=== PATIENT | male | born 1950 | race Caucasian/White ===

== ENCOUNTER 2019-08-02 19:16 | Inpatient (IN) | payer BC, OTHER ==
--- NOTE | 2019-08-02 19:51 | PDOC ---
History of Present Illness - General Chief Complaint: Syncope/Near Syncope Stated Complaint: FELL Time Seen by Provider: 08/02/19 19:44 History Source: Patient Exam Limitations: Language Barrier - History of Present Illness Initial Comments: Luis Antonio Macias is a 69 yo M w a hx of HTN, HCL, and NIDDM who presents to the [facility] er [facility] after he syncopized earlier today, fell down, hit his head and his left shoulder, and lost consciousness for around 5 minutes. The patient does not take aspirin or any other blood thinners. He is here with his son in the ER who states that the patient was feeling fine like his normal self today, had no chest pain or shortness of breath before the event, and did not feel lightheaded or dizzy either. He did drink "5 shots" of wine earlier today prior to the fall. The patient states that here in the ER his head hurts where he fell and his left shoulder also hurts when he ranges his arm. Denies chest pain, SOB, difficulty breathing, cough, leg swelling, personal hx of blood clots, smoking hx, nausea, vomiting, fevers, dysuria, frequency, or urgency. PCP: Dr. Harsha Jean Allergies: NKA, NKDA Social Hx: Lives at home, drinks wine daily, denies cigarettes or other illicit drugs PSH: None reported Past History - Past Medical History Allergies/Adverse Reactions: Allergies Allergy/AdvReac Type Severity Reaction Status Date / Time No Known Allergies Allergy Verified 08/02/19 19:37 - Psycho Social/Smoking Cessation Hx Smoking History: Never smoked Hx Alcohol Use: No Drug/Substance Use Hx: No Review of Systems - Review of Systems Able to Perform ROS?: Yes Comments:: CONSTITUTIONAL: Absent: fever, chills, diaphoresis, generalized weakness, malaise, loss of appetite HEENT: Absent: rhinorrhea, nasal congestion, throat pain, throat swelling, difficulty swallowing, mouth swelling, ear pain, eye pain, visual Changes CARDIOVASCULAR: Present: Syncope Absent: chest pain, palpitations, irregular heart rate, lightheadedness, peripheral edema RESPIRATORY: Absent: cough, shortness of breath, dyspnea with exertion, orthopnea, wheezing, stridor, hemoptysis GASTROINTESTINAL: Absent: abdominal pain, abdominal distension, nausea, vomiting, diarrhea, constipation, melena, hematochezia GENITOURINARY: Absent: dysuria, frequency, urgency, hesitancy, hematuria, flank pain, genital pain MUSCULOSKELETAL: Absent: myalgia, arthralgia, joint swelling SKIN: Absent: rash, itching, pallor HEMATOLOGIC/IMMUNOLOGIC: Absent: easy bleeding, easy bruising, lymphadenopathy, frequent infections ENDOCRINE: Absent: unexplained weight gain, unexplained weight loss, heat intolerance, cold intolerance NEUROLOGIC: Present: unsteady gait, mental status changes Absent: headache, focal weakness or paresthesias, dizziness, seizure, bladder or bowel incontinence PSYCHIATRIC: Absent: anxiety, depression, suicidal or homicidal ideation, hallucinations. *Physical Exam - Vital Signs Last Vital Signs Temp Pulse Resp BP Pulse Ox 97.6 F 108 H 18 160/99 99 08/02/19 19:34 08/02/19 19:34 08/02/19 19:34 08/02/19 19:34 08/02/19 19:34 - Physical Exam Comments: GENERAL: Well developed, well nourished. Awake and alert. No acute distress. HEENT: There is abrasians on top of the head. Normocephalic. PERRLA, EOMI. No conjunctival pallor. NECK: Supple. Full ROM. No JVD. CARDIOVASCULAR: Tachycardic rate and regular rhythm. No murmurs, rubs, or gallops. Distal pulses are 2+ and symmetric. PULMONARY: No evidence of respiratory distress. Lungs clear to auscultation bilaterally. No wheezing, rales or rhonchi. ABDOMINAL: Soft. Non-tender. Non-distended. No rebound or guarding. No organomegaly. Normoactive bowel sounds. MUSCULOSKELETAL Normal range of motion at all joints. There is mild posterior left shoulder tenderness. No bony deformities. No CVA tenderness. EXTREMITIES: No cyanosis. No clubbing. No edema. No calf tenderness. SKIN: Warm and dry. Normal capillary refill. No rashes. No jaundice. NEUROLOGICAL: Alert, awake, appropriate. Cranial nerves 2-12 intact. No deficits to light touch in face, upper extremities and lower extremities. No motor deficits in the in face, upper extremities and lower extremities. Normal speech. Gait is ataxic and mildly unsteady. PSYCHIATRIC: Cooperative. Good eye contact. Appropriate mood and affect. ED Treatment Course - LABORATORY CBC & Chemistry Diagram: 08/02/19 20:00 08/02/19 20:00 - ADDITIONAL ORDERS Additional order review: Laboratory Results 08/02/19 19:41 POC Glucometer 161 10 19:41 POC Glucometer 161 Medical Decision Making - Medical Decision Making Luis Antonio Macias is a 69 yo M w a hx of HTN, HCL, and NIDDM who presents to the [facility] after he syncopized earlier today, fell down, hit his head and his left shoulder, and lost consciousness for around 5 minutes. The patient does not take aspirin or any other blood thinners. He is here with his son in the ER who states that the patient was feeling fine like his normal self today, had no chest pain or shortness of breath before the event, and did not feel lightheaded or dizzy either. He did drink "5 shots" of wine earlier today prior to the fall. The patient states that here in the ER his head hurts where he fell and his left shoulder also hurts when he ranges his arm. Denies chest pain, SOB, difficulty breathing, cough, leg swelling, personal hx of blood clots, smoking hx, nausea, vomiting, fevers, dysuria, frequency, or urgency. Vital Signs Temp Pulse Resp BP Pulse Ox 97.6 F 108 H 18 160/99 99 08/02/19 19:34 08/02/19 19:34 08/02/19 19:34 08/02/19 19:34 08/02/19 19:34 - Tachycardic - Hypertensive MDM: Patient presents after he syncopized and hit his head DDx IBNLT: Cerebral hemorrhage, ACS/VA, arrhythmia, PE, dehydration, orthostatic hypotension, vasovagal event, anemia, electrolyte/metabolic disturbance, alcohol intoxication, shoulder fx Plan: EKG, Labs, XR, CT, IV hydration, admit Tele EKG: Irregularly irregular rate of 110, IRBB + LAFB, LAD, no hypertrophy, no ST elevations or depressions, TWI's in V1 AND V2, Q wave in V2. - Compared to an old EKG from 2006 the patient did not have AFIB or a TWI in V2 XR: Unremarkable CT: No acute pathology Labs: Mildly elevated glucose, alk phos, and mild hyponatremia. Trop negative. Otherwise unremarkable. Alcohol: 135 Disposition: Admit to telemetry for syncope and new onset AFIB - Patient's primary is Dr. Jean who per google excel doc admits to himself - Giving Dr. Chahal's office a call for admission at 9:45 pm. - Answering service says to call his cell phone at [phone] - Calling his cell phone at 10 - Dr. Su says he knows the patient. Dr. Jean says he is an alcoholic never comes to the office and hasn't come in over [address] Jean states that he always prescribes the patient meds for his HTN, HCL and diabetes but the patient is not compliant with his meds. - Dr. Jean says he cannot admit this patient and the patient should be admitted to the hospitalist team. - Dr. Jean says the flora will withdraw so we should give him 100 mg of thiamine twice a day and 10 mg of librium twice a day - Both orders placed in [facility] for Dr. Jean - [employer]blog sent out to hospitalist team at 10:05 Discharge - Discharge Information Problems reviewed: Yes Clinical Impression/Diagnosis: Syncope and collapse A-fib Qualifiers: Atrial fibrillation type: unspecified Qualified Code(s): I48.91 - Unspecified atrial fibrillation Alcohol intoxication Qualifiers: Complication of substance-induced condition: uncomplicated Qualified Code(s): F10.920 - Alcohol use, unspecified with intoxication, uncomplicated Condition: Stable - Admission Yes - Follow up/Referral Referrals: Harsha Jean MD [Primary Care Provider] - - Patient Discharge Instructions - Post Discharge Activity
[2019-08-02] MEDS ORDERED: SODIUM CHLORIDE 1,000 ML IV STA (19:53)
[2019-08-02 20:12] LABS: EOS % 3.5 % (0-4.5); HEMATOCRIT 48.9 % (35.4-49); HEMOGLOBIN 16.8 GM/dL (11.7-16.9); LYMPH % 34.1 % (8-40); MCH 36.5 pg (25.7-33.7); MCHC 34.4 g/dl (32.0-35.9); MEAN CELL VOLUME 106.1 fl (80-96); MEAN PLT VOLUME 6.9 fl (7.5-11.1); NEUT % 49.4 % (42.8-82.8); PLATELET COUNT 234 K/MM3 (134-434); RBC 4.61 M/mm3 (4.00-5.60); RDW 14.7 % (11.9-15.9); WHITE BLOOD COUNT 4.9 K/mm3 (4.0-10.0)
[2019-08-02 20:24] LABS: INR 1.05 (0.83-1.09); PROTHROMBIN TIME (PATIENT) 12.4 SEC (9.7-13.0)
[2019-08-02 20:39] LABS: ALBUMIN 3.5 g/dl (3.4-5.0); BILIRUBIN,TOTAL 0.9 mg/dL (0.2-1); BLOOD UREA NITROGEN 8.7 mg/dL (7-18); CALCIUM 8.9 mg/dL (8.5-10.1); POTASSIUM 4.6 mmol/L (3.5-5.1); TOT PROT 7.4 g/dl (6.4-8.2)
[2019-08-02 21:22] LABS: MACROCYTOSIS 1+; PLATELET ESTIMATE NORMAL
[2019-08-02] MEDS ORDERED: FOLIC ACID INJECTION - 1 MG, THIAMINE HCL 100 MG, MULTIVIT INJECTION ADULT 10 ML in SOD... IVPB ONE (21:27)
[2019-08-02] MEDS ORDERED: ACETAMINOPHEN 325 MG TABLET (FP) PO ONE (21:47)
[2019-08-02] MEDS ORDERED: ACETAMINOPHEN 325 MG TABLET (FP) ONE (22:08)
[2019-08-02] MEDS ORDERED: chlordiazePOXIDE 5 MG CAPSULE ONE (22:09)
[2019-08-02] MEDS ORDERED: chlordiazePOXIDE HCL 10 MG CAPSULE PO SCH (22:15)
--- NOTE | 2019-08-02 22:16 | PDOC ---
Attending Attestation - Resident Resident Name: Jean Carlos Conner - ED Attending Attestation I have performed the following: I have examined & evaluated the patient, The case was reviewed & discussed with the resident, I agree w/resident's findings & plan, Exceptions are as noted - HPI HPI: 08/02/19 21:58 69-year-old male history of hypertension hyperlipidemia and non-insulin- dependent diabetes however states that he does not take any regular medications here today complaining of a syncopal episode. Patient states that he got up lost consciousness denies any precipitating chest pain or palpitations no recent fevers chills or coughs. States he does have daily alcohol use has not seen a doctor in 5 years and is not currently taking any medications except for a baby aspirin - Physicial Exam PE: 08/02/19 22:16 Awake alert no acute distress lungs are clear heart is regular no murmurs rubs or gallops appreciated abdomen is soft and nontender extremities are warm well perfused there is no appreciated edema or calf tenderness pulses are symmetric skin is warm and dry neurologically patient is awake alert and oriented - Medical Decision Making 08/02/19 22:16 69-year-old male history of hypertension hyperlipidemia and diabetes however not taking any medications here today complaining of a syncope. Differential includes dehydration as the patient is seen to be tachycardic dysrhythmia anemia letter to light abnormality intoxication considered plan CBC EKG troponin chest x-ray telemetry monitoring we will give IV hydration repeat patient's vital signs. EKG was found to be with atrial fibrillation no ST elevations or depressions patient has no known history of previous A. fib has not seen his PCP in many years we will add thyroid to his work-up patient will be admitted to telemetry for syncope and new onset A. fib 08/02/19 22:18 DR Conner d/w dr Almaraz, states has not seen patient in several years. h/o etoh abuse and withdrawal. noncompliant with medications prescribed in the past. would like pt admitted to hospitalist team. Heart Score/ECG Review #1 General ECG Interpretation: Normal Rate (110), Normal Intervals, No acute ischemic changes Compared to previous ECG there are: Other (TWI v1 - 2)
--- NOTE | 2019-08-02 22:26 | PN ---
Teaching Attending Note Name of Resident: Alexey Colindres ATTENDING PHYSICIAN STATEMENT I saw and evaluated the patient. I reviewed the resident's note and discussed the case with the resident. I agree with the resident's findings and plan as documented. SUBJECTIVE: Patient is not reliable for history as he is acutely intoxicated with etoh, information obtained from EMR. 69 yo man w/ HTN, etoh abuse, and NIDDM presents s/p syncope, fell down, hit his head and his left shoulder, and LOC -around 5 minutes. Denied asa or AC. Had no chest pain or shortness of breath before the event, and did not feel lightheaded or dizzy either. He did drink "5 shots" of wine earlier prior to the fall. OBJECTIVE: Last Vital Signs Temp Pulse Resp BP Pulse Ox 97.6 F 108 H 18 160/99 99 08/02/19 19:34 08/02/19 19:34 08/02/19 19:34 08/02/19 19:34 08/02/19 19:34 gen -aaox3 heent- atraumatic, perrla neck -supple cv-s1+s2+ irregularly irregular rhythm chest clear abdomen- soft, nt, bs+ ext- no edema, no shoulder tenderness Abnormal Lab Results 08/02/19 08/02/19 08/02/19 20:00 20:00 20:00 MCV 106.1 H MCH 36.5 H MPV 6.9 L Monocytes % 12.0 H Sodium 133 L Chloride 96 L Random Glucose 176 H Alkaline Phosphatase 158 H Alcohol, Quantitative 135.2 H imaging reviewed - head ct read as negative for acute insults EKG + for atrial fibrillation ASSESSMENT AND PLAN: #Syncope, s/p fall on left shoulder, new onset afib with rvr. Afib may be induced by acute etoh intoxication. Should r/o other etiologies such as electolyte disturbances, thyroid abnormalities, cardiac structural/ valvular abnormalities. -telemetry -transthoracic echo -tsh -cardiology consult -cardizem for rate control -check orthostatics -bed rest -fall precautions -f/u left shoulder and head ct official reads -physical therapy -would consider chronic ac, must weight risks vs benefits. Would start on heparin drip now given high CHADSVASC2 score. #Etoh intoxication - chronic etoh abuse, anticipate possible etoh withdrawal -CIWA -thiamine -folate -mv -IV fluids -librium protocol -urine toxicology #Electrolyte disturbances -hyponatremia, hypochloremia -gentle iv fluid hydration -repeat chemistry including mg
[2019-08-03] MEDS ORDERED: chlordiazePOXIDE HCL 25 MG CAPSULE PO PRN (00:25)
[2019-08-03] MEDS ORDERED: FOLIC ACID INJECTION - 1 MG, THIAMINE HCL 100 MG, MULTIVIT INJECTION ADULT 10 ML in SOD... IVPB ONE (00:27)
[2019-08-03] MEDS ORDERED: HEPARIN NA (PORCINE) 5,000 UNITS/ML 1ML VIAL IVPUSH PRN ×2 (00:28)
[2019-08-03] MEDS ORDERED: HEPARIN - 25,000 UNIT in SODIUM CHLORIDE 495 ML IV SCH (00:30)
--- NOTE | 2019-08-03 00:30 | HP ---
CHIEF COMPLAINT: fall; chest and shoulder pain PCP: Dr. Jean HISTORY OF PRESENT ILLNESS: Patient is a 69 year old male with history of hypertension, hyperlipidemia, non- insulin dependent diabetes mellitus, presents after a syncopal episode. 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 Attempts to obtain further history from phone numbers in file not successful. Patient states he fell down when trying to walk down stairs. He endorsed prodromal sharp chest pain that lasted until he was placed in ambulance. Per ED report, patient had lost consciousness for approx. 5 minutes, however he denies this upon my encounter. Denies bowel or bladder incontinence. Currently patient denies chest pain, and only endorses left shoulder pain and headache. He denies prior cardiac history, or workup. Reported that patient has not followed up with primary care provider in several years, and has history of alcohol use disorder. ER course was notable for: (1) Afib with RVR to 110BPM (new finding on ECG); heparin drip initiated (2) ETOH 135; librium protocol initiated (3) CT head; negative for acute intracranial pathology. Left shoulder radiograph pending official read Recent Travel: denies PAST MEDICAL HISTORY: hypertension, hyperlipidemia, non-insulin dependent diabetes mellitus PAST SURGICAL HISTORY: denies Social History: Smoking: Endorses current smoker Alcohol: Patient endorses drinking 5 'small glasses' of wine daily, without hard liquor. Drugs: Denies illicit drug use. Lives at home. Currently retired; states he worked in [employer] however refuses to elaborate further. Allergies No Known Allergies Allergy (Verified 08/02/19 19:37) HOME MEDICATIONS: REVIEW OF SYSTEMS As per HPI. Unable to elicit further at time of encounter due to patient's clinical intoxication PHYSICAL EXAMINATION Vital Signs - 24 hr 08/02/19 08/02/19 19:34 23:40 Temperature 97.6 F 97.2 F L Pulse Rate 108 H Pulse Rate [ 118 H Right Radial] Respiratory 18 Rate Blood Pressure 160/99 Blood Pressure 173/86 H [Left Arm] O2 Sat by Pulse 99 97 Oximetry (%) GENERAL: The patient is awake, oriented to person, in no acute distress. HEAD: Normocephalic, atraumatic. EYES: PERRL, extraocular movements intact, sclera anicteric, conjunctiva clear. ENT: Oropharynx clear, without erythema or exudates. Moist mucous membranes. NECK: Trachea midline, full range of motion. Supple without lymphadenopathy. LUNGS: Breath sounds equal, clear to auscultation bilaterally, no wheezes, no crackles. No accessory muscle use. HEART: Irregular. S1, S2 auscultated without murmur, rub or gallop. ABDOMEN: Soft, nondistended, nontender to light and deep palpation x4 quadrants , no rebound tenderness, no guarding. Normoactive bowel sounds x4 quadrants. No hepatosplenomegaly, no masses. EXTREMITIES: 2+ radial, dorsalis pedis pulses bilaterally. Warm, well-perfused. No lower extremity edema bilaterally. Faint tremor palpable upon outstretched fingertips. NEUROLOGICAL: Cranial nerves II through XII grossly intact. Strength 5/5 bilateral upper and lower extremities. No gross focal deficits. SKIN: Minimal diaphoresis. Laboratory Results - last 24 hr 08/02/19 08/02/19 08/02/19 19:41 20:00 20:00 WBC 4.9 RBC 4.61 Hgb 16.8 Hct 48.9 MCV 106.1 H MCH 36.5 H MCHC 34.4 RDW 14.7 Plt Count 234 MPV 6.9 L Absolute Neuts (auto) 2.4 Neutrophils % 49.4 Lymphocytes % 34.1 Monocytes % 12.0 H Eosinophils % 3.5 Basophils % 1.0 Nucleated RBC % 0 Platelet Estimate Normal Macrocytosis 1+ PT with INR INR Sodium 133 L Potassium 4.6 Chloride 96 L Carbon Dioxide 29 Anion Gap 8 BUN 8.7 Creatinine 1.0 Est GFR (CKD-EPI)AfAm 89.23 Est GFR (CKD-EPI)NonAf 76.99 POC Glucometer 161 Random Glucose 176 H Calcium 8.9 Magnesium Total Bilirubin 0.9 AST 20 ALT 18 Alkaline Phosphatase 158 H Troponin I Total Protein 7.4 Albumin 3.5 Alcohol, Quantitative 08/02/19 08/02/19 08/02/19 20:00 20:00 20:00 WBC RBC Hgb Hct MCV MCH MCHC RDW Plt Count MPV Absolute Neuts (auto) Neutrophils % Lymphocytes % Monocytes % Eosinophils % Basophils % Nucleated RBC % Platelet Estimate Macrocytosis PT with INR 12.40 INR 1.05 Sodium Potassium Chloride Carbon Dioxide Anion Gap BUN Creatinine Est GFR (CKD-EPI)AfAm Est GFR (CKD-EPI)NonAf POC Glucometer Random Glucose Calcium Magnesium 2.0 Total Bilirubin AST ALT Alkaline Phosphatase Troponin I < 0.02 Total Protein Albumin Alcohol, Quantitative 135.2 H ASSESSMENT/PLAN: Patient is a 69 year old male with history of hypertension, hyperlipidemia, non- insulin dependent diabetes mellitus, presents after a syncopal episode. New onset Atrial Fibrillation -EKG reveals Afib with RVR to 110BPM (new finding on ECG) compared to prior from 2006. However incomplete RBBB present on prior ECG, unchanged finding. Patient denies any cardiac history. Endorses no home cardiac medications/ rate control, or anticoagulants. -Etiology likely secondary to excessive alcohol intake, and subsequent withdrawal -CHADSVASC score 3 (age, hypertension, diabetes mellitus). Will initiate heparin drip, pending Cardiology evaluation to determine if anticoagulation should be continued. -Currently rate controlled. Cardizem 5mg IV push if patient tachycardic greater than 120BPM. -Cardiac ECHO -Cardiology consult (Dr. Adams) -Telemetry monitoring Syncopal episode, with atypical chest pain -Etiology likely secondary to excessive alcohol intake. Though patient admits chest pain, it is atypical in presentation. Currently free of any chest pain, shortness of breath. -CT head negative for acute intracranial pathology -Initial troponin 0.02. Will trend. -Follow shoulder radiograph read -Cardiac monitoring -Fall precautions -Physical therapy evaluation Alcohol intoxication, withdrawal -Alcohhol serum level 135 in ED. -CIWA 6 upon my encounter. Librium protocol initiated. -IV normal saline with Thiamine, Folate -Thiamine 100mg PO BID -Folic Acid 1mg PO daily -Multivitamin 1 tablet PO daily -Patient may benefit from rehab upon completion of Librium Detox Diabetes mellitus, non insulin dependent -Patient states he is not on any oral hypoglycemics, or insulin at home. -Insulin sliding scale ACHS. Adjusted for insulin naive patient. -[place] blood glucose monitoring ACHS -Follow HbA1c FEN -IV normal saline with Thiamine, Folate at 125mL/ hour -Hyponatremia. Follow CMP, replete as necessary -Diabetic diet Prophylaxis -Patient is receiving Heparin Drip for new onset Afib. Disposition -Admit to Telemetry floor. Visit type - Emergency Visit Emergency Visit: Yes ED Registration Date: 08/02/19 Care time: The patient presented to the Emergency Department on the above date and was hospitalized for further evaluation of their emergent condition. - New Patient This patient is new to me today: Yes Date on this admission: 08/02/19 - Critical Care Critical Care patient: No ATTENDING PHYSICIAN STATEMENT I saw and evaluated the patient. I reviewed the resident's note and discussed the case with the resident. I agree with the resident's findings and plan as documented. SUBJECTIVE: OBJECTIVE: ASSESSMENT AND PLAN:
[2019-08-03] MEDS ORDERED: dilTIAZem HCL 50 MG/10 ML - 10 ML VIAL IVPUSH PRN (00:50)
[2019-08-03] MEDS ORDERED: HEPARIN INFUSION - 25,000 UNITS/500 ML INFUS.BAG IVPB ONE (01:20)
[2019-08-03] MEDS ORDERED: HEPARIN NA (PORCINE) 5,000 UNITS/ML 1ML VIAL ONE (01:20)
[2019-08-03] MEDS ORDERED: dilTIAZem HCL 125 MG/25 ML - 25 ML VIAL ONE (02:58)
[2019-08-03] MEDS: INSULIN SLIDING SCALE (NOVOLOG) 1 VIAL SQ SCH ×3 (06:21→17:27)
[2019-08-03] MEDS: chlordiazePOXIDE HCL 25 MG CAPSULE PO SCH ×4 (06:29→23:58)
[2019-08-03] MEDS ORDERED: INSULIN SLIDING SCALE (NOVOLOG) 1 VIAL SQ SCH (07:00)
[2019-08-03 07:24] LABS: HEMATOCRIT 32.8 % (35.4-49); HEMOGLOBIN 11.6 GM/dL (11.7-16.9); MCH 37.7 pg (25.7-33.7); MCHC 35.2 g/dl (32.0-35.9); MEAN CELL VOLUME 106.9 fl (80-96); PLATELET COUNT 138 K/MM3 (134-434); RBC 3.07 M/mm3 (4.00-5.60); RDW 14.9 % (11.9-15.9); WHITE BLOOD COUNT 3.5 K/mm3 (4.0-10.0)
[2019-08-03 07:56] LABS: ALBUMIN 1.4 g/dl (3.4-5.0); ALK PHOS 69 U/L (45-117); ANION GAP 12 MMOL/L (8-16); BILIRUBIN,TOTAL 0.5 mg/dL (0.2-1); BLOOD UREA NITROGEN 5.1 mg/dL (7-18); CHLORIDE 126 mmol/L (98-107); CO2 14 mmol/L (21-32); CREATININE 0.2 mg/dL (0.55-1.3); GLUCOSE,RANDOM 77 mg/dL (74-106); MAGNESIUM 0.8 mg/dL (1.8-2.4); PHOSPHOROUS 1.3 mg/dL (2.5-4.9); SGOT/AST 12 U/L (15-37); SGPT/ALT 9 U/L (13-61); SODIUM 153 mmol/L (136-145)
[2019-08-03 07:58] LABS: POTASSIUM 2.1 mmol/L (3.5-5.1)
[2019-08-03 08:33] LABS: CALCIUM < 5.0 mg/dL (8.5-10.1)
--- NOTE | 2019-08-03 09:29 | EKG ---
Test Reason : Blood Pressure : / mmHG Vent. Rate : 110 BPM Atrial Rate : 113 BPM P-R Int : 000 ms QRS Dur : 102 ms QT Int : 324 ms P-R-T Axes : 000 -47 030 degrees QTc Int : 438 ms POOR DATA QUALITY, INTERPRETATION MAY BE ADVERSELY AFFECTED ATRIAL FIBRILLATION WITH RAPID VENTRICULAR RESPONSE INCOMPLETE RIGHT BUNDLE BRANCH BLOCK LEFT ANTERIOR FASCICULAR BLOCK ABNORMAL ECG WHEN COMPARED WITH ECG OF 02-AUG-2019 20:53, NO SIGNIFICANT CHANGE WAS FOUND Confirmed by AMY LIN MD ([id number]) on 08/03/2019 9:29:15 AM Referred By: Confirmed By:AMY LIN MD
--- NOTE | 2019-08-03 09:29 | EKG ---
Test Reason : Blood Pressure : / mmHG Vent. Rate : 096 BPM Atrial Rate : 102 BPM P-R Int : 000 ms QRS Dur : 106 ms QT Int : 378 ms P-R-T Axes : 000 -38 040 degrees QTc Int : 477 ms POOR DATA QUALITY, INTERPRETATION MAY BE ADVERSELY AFFECTED ATRIAL FIBRILLATION LEFT AXIS DEVIATION INCOMPLETE RIGHT BUNDLE BRANCH BLOCK ABNORMAL ECG WHEN COMPARED WITH ECG OF 10-DEC-2006 11:27, ATRIAL FIBRILLATION HAS REPLACED SINUS RHYTHM QRS AXIS SHIFTED LEFT NONSPECIFIC T WAVE ABNORMALITY NOW EVIDENT IN ANTERIOR LEADS Confirmed by AMY LIN MD ([id number]) on 08/03/2019 9:29:08 AM Referred By: Confirmed By:AMY LIN MD
[2019-08-03] MEDS: MULTIVITAMINS (DAILY MVI) TABLET (FP) PO SCH (09:51)
[2019-08-03] MEDS: FOLIC ACID 1 MG TABLET (FP) PO SCH (09:51)
[2019-08-03] MEDS: THIAMINE HCL 100 MG TABLET (FP) PO SCH ×2 (09:51→22:50)
[2019-08-03] MEDS ORDERED: ENOXAPARIN NA (PORCINE) 40 MG/0.4 ML DISP.SYRIN SQ SCH (10:00)
[2019-08-03] MEDS ORDERED: PNEUMOC 13-VAL CONJ-DIP CRM/PF 0.5 ML DISP.SYRIN IM ONE (10:00)
--- NOTE | 2019-08-03 11:34 | CON.CARD ---
Cardiology Consult (text) - Consultation Consultation Note: cc: syncope hpi: 69 m hx htn, dm, here with syncope. Yesterday was feeling well. Was drinking some wine. Then felt weak and fell to ground with possible brief loc. No cp sob palps loc pnd orthopnea dizzy le edema. No hx of this and no hx frequent falls. Drinks occasionally but only wine and usually does not drink large amounts. In er found new afib with mild rvr. pmh: per hpi psh: per hpi, no surgery social: no tob fam: no premature cad,scd ros: per hpi; pain in arm s/p fall, +HOLT; all others nl meds: Home Medications Medication Instructions Recorded Unobtainable 08/03/19 pe: Vital Signs Period Temp Pulse Resp BP Sys/Lieberman Pulse Ox Last 24 Hr 97.2 F-98.4 F 108-124 18-28 160-191/85-137 96-99 nad no jvd irreg, tachy s1s2 no mrg cta bl nl eff aao3 no le e/c/c abd nt nd pos bs no jaundice diaphoresis pos dp pt no carotid bruits Laboratory Last Values WBC 3.5 K/mm3 (4.0-10.0) L 08/03/19 06:00 RBC 3.07 M/mm3 (4.00-5.60) L 08/03/19 06:00 Hgb 11.6 GM/dL (11.7-16.9) L 08/03/19 06:00 Hct 32.8 % (35.4-49) L D 08/03/19 06:00 MCV 106.9 fl (80-96) H 08/03/19 06:00 MCH 37.7 pg (25.7-33.7) H 08/03/19 06:00 MCHC 35.2 g/dl (32.0-35.9) 08/03/19 06:00 RDW 14.9 % (11.9-15.9) 08/03/19 06:00 Plt Count 138 K/MM3 (134-434) D 08/03/19 06:00 MPV 7.0 fl (7.5-11.1) L 08/03/19 06:00 Absolute Neuts (auto) 2.4 K/mm3 (1.5-8.0) 08/02/19 20:00 Neutrophils % 49.4 % (42.8-82.8) 08/02/19 20:00 Lymphocytes % 34.1 % (8-40) 08/02/19 20:00 Monocytes % 12.0 % (3.8-10.2) H 08/02/19 20:00 Eosinophils % 3.5 % (0-4.5) 08/02/19 20:00 Basophils % 1.0 % (0-2.0) 08/02/19 20:00 Nucleated RBC % 0 % (0-0) 08/02/19 20:00 Platelet Estimate Normal 08/02/19 20:00 Macrocytosis 1+ 08/02/19 20:00 PT with INR 12.40 SEC (9.7-13.0) 08/02/19 20:00 INR 1.05 (0.83-1.09) 08/02/19 20:00 PTT (Actin FS) 56.0 SECONDS (25.2-36.5) H 08/03/19 06:00 Sodium 153 mmol/L (136-145) H 08/03/19 06:00 Potassium 2.1 mmol/L (3.5-5.1) L* 08/03/19 06:00 Chloride 126 mmol/L (98-107) H 08/03/19 06:00 Carbon Dioxide 14 mmol/L (21-32) L 08/03/19 06:00 Anion Gap 12 MMOL/L (8-16) 08/03/19 06:00 BUN 5.1 mg/dL (7-18) L 08/03/19 06:00 Creatinine 0.2 mg/dL (0.55-1.3) L 08/03/19 06:00 Est GFR (CKD-EPI)AfAm 188.07 08/03/19 06:00 Est GFR (CKD-EPI)NonAf 162.27 08/03/19 06:00 POC Glucometer 140 UNITS (80-120) 08/03/19 06:14 Random Glucose 77 mg/dL (74-106) 08/03/19 06:00 Hemoglobin A1c % 7.1 % (4.2-6.3) H 08/03/19 06:00 Calcium < 5.0 mg/dL (8.5-10.1) L* 08/03/19 06:00 Phosphorus 1.3 mg/dL (2.5-4.9) L 08/03/19 06:00 Magnesium 0.8 mg/dL (1.8-2.4) L 08/03/19 06:00 Total Bilirubin 0.5 mg/dL (0.2-1) 08/03/19 06:00 AST 12 U/L (15-37) L 08/03/19 06:00 ALT 9 U/L (13-61) L 08/03/19 06:00 Alkaline Phosphatase 69 U/L (45-117) 08/03/19 06:00 Troponin I 0.02 ng/ml (0.00-0.05) 08/03/19 06:00 Total Protein 3.0 g/dl (6.4-8.2) L 08/03/19 06:00 Albumin 1.4 g/dl (3.4-5.0) L 08/03/19 06:00 TSH 2.86 uIU/ml (0.358-3.74) 08/03/19 02:00 Alcohol, Quantitative 135.2 mg/dL (0.0-5.0) H 08/02/19 20:00 ecgs: afib, vr 96, 100, nl qtc, no ischemic changes, old irbbb tele: afib, mild rvr a/p: 69 m hx htn, dm, here with syncope. syncope: -no signs acs or chf -possibly related to etoh, possibly related to afib with rvr -check echo -cont tele -check ortho vitals afib: -new afib with rvr here -cont tele. will start toprol 50 qd. -chadsvasc warrants ac. Pt denies frequent falls and denies heavy etoh use. Would continue with ac, can change to eliquis 5 bid. -tsh wnl, check echo htn: -monitor after starting bb low k, low ca: -repeat labs pending, possible lab error. correct lytes if remain abnormal
[2019-08-03 12:35] LABS: ALBUMIN 3.1 g/dl (3.4-5.0); BILIRUBIN,TOTAL 1.2 mg/dL (0.2-1); BLOOD UREA NITROGEN 8.8 mg/dL (7-18); CALCIUM 8.6 mg/dL (8.5-10.1); CREATININE 0.6 mg/dL (0.55-1.3); POTASSIUM 4.2 mmol/L (3.5-5.1); TOT PROT 6.8 g/dl (6.4-8.2)
--- NOTE | 2019-08-03 13:20 | EKG ---
Test Reason : Blood Pressure : / mmHG Vent. Rate : 114 BPM Atrial Rate : 117 BPM P-R Int : 000 ms QRS Dur : 096 ms QT Int : 318 ms P-R-T Axes : 000 -47 031 degrees QTc Int : 438 ms ATRIAL FIBRILLATION WITH RAPID VENTRICULAR RESPONSE WITH PREMATURE VENTRICULAR OR ABERRANTLY CONDUCTED COMPLEXES INCOMPLETE RIGHT BUNDLE BRANCH BLOCK LEFT ANTERIOR FASCICULAR BLOCK ABNORMAL ECG WHEN COMPARED WITH ECG OF 02-AUG-2019 21:38, NO SIGNIFICANT CHANGE WAS FOUND Confirmed by AMY LIN MD ([id number]) on 08/03/2019 1:19:49 PM Referred By: MARISA ALBERTS DR Confirmed By:AMY LIN MD
--- NOTE | 2019-08-03 13:52 | ECHO ---
Name: MARTITOM Exam:Adult Echocardiogram Study Date: 08/03/2019 07:24 AM Age: 69 yrs Reason For Study: A-Fib Height: 71 in Weight: 160 lb BSA: 1.9 m2 MMode/2D Measurements & Calculations IVSd: 1.1 cm Ao root diam: 2.8 cm LVIDd: 4.0 cm LA dimension: 3.7 cm LVIDs: 2.6 cm LVPWd: 1.0 cm EDV(Teich): 70.2 ml LVOT diam: 2.0 cm ESV(Teich): 25.4 ml LAV (MOD-bp): 86.5 ml Doppler Measurements & Calculations MV E max jaylen: 122.0 cm/sec Ao V2 max: 191.4 cm/sec MV dec time: 0.09 sec Ao max P.7 mmHg IAN(V,D): 1.4 cm2 LV V1 max P.8 mmHg TR max jaylen: 262.9 cm/sec LV V1 max: 83.4 cm/sec TR max P.8 mmHg PA V2 max: 70.6 cm/sec Med Peak E' Jaylen: 3.0 cm/sec PA max P.0 mmHg Med E/e': 40.1 Lat Peak E' Jaylen: 4.8 cm/sec Lat E/e': 25.5 Procedure A complete two-dimensional transthoracic echocardiogram was performed (2D, M-mode, Doppler and color flow Doppler). The study was technically difficult with many images being suboptimal in quality. The patie nt was in atrial fibrillation with rapid ventricular response during the exam with a heart rate exceeding 100 b pm. Left Ventricle The left ventricular size, thickness and function are normal. The left ventricular ejection fraction is normal. Ejection Fraction = 60-65%. No regional wall motion abnormalities noted. Right Ventricle The right ventricle is normal in size and function. Atria Normal left and right atrial size and function. Mitral Valve There is no mitral regurgitation noted. Tricuspid Valve There is mild tricuspid regurgitation. Right ventricular systolic pressure is normal. Aortic Valve No hemodynamically significant valvular aortic stenosis. No aortic regurgitation is present. Pulmonic Valve There is no pulmonic valvular regurgitation. Great Vessels The aortic root is normal size. Pericardium/Pleura There is no pericardial effusion. Interpretation Summary The study was technically difficult with many images being suboptimal in quality. The left ventricular size, thickness and function are normal The right ventricle is normal in size and function. There is mild tricuspid regurgitation. The patient was in atrial fibrillation with rapid ventricular response during the exam. MD Gaurav Maguire 08/03/2019 01:52 PM
[2019-08-03] MEDS: NYSTATIN POWDER 100,000 UNITS/GM - 15 GM TOPICAL POWDER TP SCH (18:50)
[2019-08-03] MEDS: APIXABAN 5 MG TABLET PO SCH (19:50)
[2019-08-04] MEDS: chlordiazePOXIDE HCL 25 MG CAPSULE PO SCH ×3 (00:20→15:03)
[2019-08-04] MEDS: INSULIN SLIDING SCALE (NOVOLOG) 1 VIAL SQ SCH ×4 (00:20→16:57)
[2019-08-04] MEDS: THIAMINE HCL 100 MG TABLET (FP) PO SCH ×3 (00:21→21:23)
[2019-08-04 08:29] LABS: BASO % 0.6 % (0-2.0); EOS % 1.3 % (0-4.5); HEMOGLOBIN 17.9 GM/dL (11.7-16.9); LYMPH % 22.3 % (8-40); MCH 37.8 pg (25.7-33.7); MCHC 35.2 g/dl (32.0-35.9); MEAN CELL VOLUME 107.3 fl (80-96); MEAN PLT VOLUME 7.2 fl (7.5-11.1); MONO % 14.3 % (3.8-10.2); NEUT % 61.5 % (42.8-82.8); PLATELET COUNT 210 K/MM3 (134-434); RBC 4.75 M/mm3 (4.00-5.60); RDW 14.9 % (11.9-15.9); WHITE BLOOD COUNT 9.7 K/mm3 (4.0-10.0)
[2019-08-04 08:45] LABS: ALK PHOS 146 U/L (45-117); ANION GAP 9 MMOL/L (8-16); BILIRUBIN,TOTAL 1.9 mg/dL (0.2-1); CALCIUM 8.8 mg/dL (8.5-10.1); CHLORIDE 101 mmol/L (98-107); CO2 23 mmol/L (21-32); CREATININE 0.7 mg/dL (0.55-1.3); GLUCOSE,RANDOM 149 mg/dL (74-106); MAGNESIUM 1.8 mg/dL (1.8-2.4); POTASSIUM 3.9 mmol/L (3.5-5.1); SGOT/AST 20 U/L (15-37); SGPT/ALT 15 U/L (13-61); SODIUM 134 mmol/L (136-145); TOT PROT 6.6 g/dl (6.4-8.2)
--- NOTE | 2019-08-04 08:47 | PN ---
Physical Exam: SUBJECTIVE: Patient seen and examined at the bedside patient responsive to sternal rub, resisting eye exam. OBJECTIVE: patient reported to be lethargic since 5a.m, he was evaluated and librium was held will order: head ct, ammonia level, abg, trop, ekg, lactic acid, blood cultures/ UC and xray. vitas are stable. 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 Patient is a 69 year old male with history of hypertension, hyperlipidemia, non- insulin dependent diabetes mellitus and alcohol abuse, presents after a syncopal episode. Patient was intoxicated on admission and started on a librium taper. He was found to have new onset afib on admission and a heparin drip was initiated. He was switched over to eliquis 5 bid on 08/03/19. This morning @ 5am, he was reported to be lethargic, and responsive only to sternal rub. His librium was held for increased sedation. Vital Signs Period Temp Pulse Resp BP Sys/Lieberman Pulse Ox Last 24 Hr 98.1 F-98.5 F 90-124 13-24 107-183/77-115 96-96 GENERAL: lethargic, responsive to sternal rub HEAD: Normal with no signs of trauma. EYES: pinpoint pupils, unable to complete exam as patient resisting eye exam ENT: Ears normal, nares patent, oropharynx clear without exudates, moist mucous membranes. NECK: Trachea midline, full range of motion, supple. LUNGS: diminished, bilaterally HEART: irregular ABDOMEN: Soft, nontender, nondistended, normoactive bowel sounds EXTREMITIES: no edema. NEUROLOGICAL: lethargic Laboratory Results - last 24 hr 08/03/19 08/03/19 08/03/19 06:00 10:35 12:21 WBC RBC Hgb Hct MCV MCH MCHC RDW Plt Count MPV Absolute Neuts (auto) Neutrophils % Lymphocytes % Monocytes % Eosinophils % Basophils % Nucleated RBC % PTT (Actin FS) 56.0 H Sodium 137 Potassium 4.2 Chloride 104 Carbon Dioxide 21 Anion Gap 13 BUN 8.8 Creatinine 0.6 Est GFR (CKD-EPI)AfAm 119.74 Est GFR (CKD-EPI)NonAf 103.31 POC Glucometer 167 Random Glucose 197 H Calcium 8.6 Magnesium Total Bilirubin 1.2 H AST 25 ALT 17 Alkaline Phosphatase 159 H Total Protein 6.8 Albumin 3.1 L 08/03/19 08/03/19 08/04/19 17:25 20:00 00:12 WBC RBC Hgb Hct MCV MCH MCHC RDW Plt Count MPV Absolute Neuts (auto) Neutrophils % Lymphocytes % Monocytes % Eosinophils % Basophils % Nucleated RBC % PTT (Actin FS) Sodium Potassium Chloride Carbon Dioxide Anion Gap BUN Creatinine Est GFR (CKD-EPI)AfAm Est GFR (CKD-EPI)NonAf POC Glucometer 181 182 Random Glucose Calcium Magnesium 1.8 Total Bilirubin AST ALT Alkaline Phosphatase Total Protein Albumin 08/04/19 08/04/19 05:44 07:48 WBC 9.7 RBC 4.75 Hgb 17.9 H Hct 51.0 H D MCV 107.3 H MCH 37.8 H MCHC 35.2 RDW 14.9 Plt Count 210 D MPV 7.2 L Absolute Neuts (auto) 5.9 Neutrophils % 61.5 D Lymphocytes % 22.3 D Monocytes % 14.3 H Eosinophils % 1.3 Basophils % 0.6 Nucleated RBC % 0 PTT (Actin FS) Sodium Potassium Chloride Carbon Dioxide Anion Gap BUN Creatinine Est GFR (CKD-EPI)AfAm Est GFR (CKD-EPI)NonAf POC Glucometer 165 Random Glucose Calcium Magnesium Total Bilirubin AST ALT Alkaline Phosphatase Total Protein Albumin Active Medications Generic Name Dose Route Start Last Admin Trade Name Freq PRN Reason Stop Dose Admin Apixaban 5 mg 08/03/19 19:00 08/03/19 19:50 Eliquis - PO 5 mg BID KATIA Administration Chlordiazepoxide HCl 10 mg 08/05/19 05:00 Librium - PO 08/05/19 23:01 [id number] KATIA Chlordiazepoxide HCl 10 mg 08/06/19 05:00 Librium - PO 08/06/19 17:01 Q12H KATIA Chlordiazepoxide HCl 10 mg 08/05/19 00:00 Librium - PO 08/06/19 00:00 Q4H PRN WITHDRAWAL(CONT SUBST) Chlordiazepoxide HCl 10 mg 08/07/19 05:00 Librium - PO 08/07/19 05:01 ONCE@0500 ONE Chlordiazepoxide HCl 25 mg 08/04/19 05:00 08/04/19 06:56 Librium - PO 08/04/19 23:01 Not Given [id number] KATIA Chlordiazepoxide HCl 25 mg 08/03/19 00:25 08/03/19 03:09 Librium - PO 08/04/19 23:59 25 mg Q4H PRN Administration WITHDRAWAL(CONT SUBST) Diltiazem HCl 5 mg 08/03/19 00:50 Cardizem Injection - IVPUSH ONCE PRN TACHYCARDIA Folic Acid 1 mg 08/03/19 10:00 08/03/19 09:51 Folic Acid - PO 1 mg DAILY KATIA Administration Insulin Aspart 1 vial 08/03/19 07:00 08/04/19 06:58 Novolog Vial Sliding Scale - SQ 1 unit ACHS KATIA Administration Protocol Metoprolol Succinate 50 mg 08/03/19 11:30 08/03/19 12:55 Toprol Xl - PO 50 mg DAILY KATIA Administration Multivitamins/Minerals/Vitamin C 1 tab 08/03/19 10:00 08/03/19 09:51 Tab-A-Vit - PO 1 tab DAILY KATIA Administration Nystatin 1 applic 08/03/19 17:30 08/03/19 18:50 Nystop Powder - TP 1 applic DAILY KATIA Administration Thiamine HCl 100 mg 08/03/19 10:00 08/04/19 00:21 Vitamin B1 - PO Not Given BID KATIA ASSESSMENT/PLAN: Problem List - Problems (1) Acute metabolic encephalopathy Assessment/Plan: unclear etiology seizure vs elevated ammonia level vs other source patient reported to be lethargic since 5a.m, he was evaluated and librium was held will order: head ct, ammonia level, abg, trop, ekg, lactic acid, blood cultures/ UC and xray. vitas are stable. 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 Code(s): G93.41 - METABOLIC ENCEPHALOPATHY (2) A-fib Assessment/Plan: on toprol and eliquis controlled rate Code(s): I48.91 - UNSPECIFIED ATRIAL FIBRILLATION Qualifiers: Atrial fibrillation type: unspecified Qualified Code(s): I48.91 - Unspecified atrial fibrillation (3) Alcohol intoxication Assessment/Plan: hold libirum taper for increased sedation ammonia level now Code(s): F10.929 - ALCOHOL USE, UNSPECIFIED WITH INTOXICATION, UNSPECIFIED Qualifiers: Complication of substance-induced condition: uncomplicated Qualified Code(s ): F10.920 - Alcohol use, unspecified with intoxication, uncomplicated (4) Syncope and collapse Assessment/Plan: PT when more stable Code(s): R55 - SYNCOPE AND COLLAPSE (5) Prophylactic measure Assessment/Plan: on eliquis full code fen no ivf currently, initiate if remains with AMS monitor electrolytes including mag diabetic diet, hold if lethargic. Code(s): Z29.9 - ENCOUNTER FOR PROPHYLACTIC MEASURES, UNSPECIFIED Visit type - Emergency Visit Emergency Visit: Yes ED Registration Date: 08/02/19 Care time: The patient presented to the Emergency Department on the above date and was hospitalized for further evaluation of their emergent condition. - New Patient This patient is new to me today: Yes Date on this admission: 08/04/19 - Critical Care Critical Care patient: No - Discharge Referral Referred to [facility] No
[2019-08-04 09:03] LABS: CHOLESTEROL 123 mg/dL (50-200); HDL CHOLESTEROL 38 mg/dL (40-60); LDL CHOLESTEROL (ONLY SJRH) 68 mg/dL (5-100); TRIGLYCERIDES 98 mg/dL (0-150)
[2019-08-04] MEDS: NYSTATIN POWDER 100,000 UNITS/GM - 15 GM TOPICAL POWDER TP SCH (11:07)
[2019-08-04] MEDS: SODIUM CHLORIDE 1,000 ML IV SCH (13:36)
[2019-08-04 13:54] LABS: ARTERIAL BLD GAS O2 SATURATION 98.2 % (95-98); ARTERIAL BLOOD GAS BASE EXCESS 0.1 meq/l (-2-2); ARTERIAL BLOOD GAS PCO2 32.5 mmHg (35-45); ARTERIAL BLOOD GAS PO2 102 mmHg (80-100); ARTERIAL BLOOD GAS pH 7.46 (7.35-7.45)
[2019-08-04 13:56] LABS: ALLENS TEST POSITIVE
[2019-08-04] MEDS: APIXABAN 5 MG TABLET PO SCH (15:03)
[2019-08-04] MEDS: MULTIVITAMINS (DAILY MVI) TABLET (FP) PO SCH (15:03)
[2019-08-04] MEDS: FOLIC ACID 1 MG TABLET (FP) PO SCH (15:03)
--- NOTE | 2019-08-04 15:47 | PN ---
Progress Note (short form) - Note Progress Note: s: lethargic Current Medications Generic Name Dose Route Start Last Admin Trade Name Freq PRN Reason Stop Dose Admin Apixaban 5 mg 08/03/19 19:00 08/04/19 15:03 Eliquis - PO Not Given BID KATIA Chlordiazepoxide HCl 10 mg 08/05/19 05:00 Librium - PO 08/05/19 23:01 [id number] KATIA Chlordiazepoxide HCl 10 mg 08/06/19 05:00 Librium - PO 08/06/19 17:01 Q12H KATIA Chlordiazepoxide HCl 10 mg 08/05/19 00:00 Librium - PO 08/06/19 00:00 Q4H PRN WITHDRAWAL(CONT SUBST) Chlordiazepoxide HCl 10 mg 08/07/19 05:00 Librium - PO 08/07/19 05:01 ONCE@0500 ONE Chlordiazepoxide HCl 25 mg 08/04/19 05:00 08/04/19 15:03 Librium - PO 08/04/19 23:01 Not Given [id number] KATIA Chlordiazepoxide HCl 25 mg 08/03/19 00:25 08/03/19 03:09 Librium - PO 08/04/19 23:59 25 mg Q4H PRN Administration WITHDRAWAL(CONT SUBST) Diltiazem HCl 5 mg 08/03/19 00:50 Cardizem Injection - IVPUSH ONCE PRN TACHYCARDIA Folic Acid 1 mg 08/03/19 10:00 08/04/19 15:03 Folic Acid - PO Not Given DAILY [facility] Sodium Chloride 1,000 mls @ 100 mls/hr 08/04/19 13:15 08/04/19 13:36 Normal Saline - IV 100 mls/hr ASDIR KATIA Administration Insulin Aspart 1 vial 08/03/19 07:00 08/04/19 11:23 Novolog Vial Sliding Scale - SQ Not Given ACHS [facility] Protocol Metoprolol Succinate 50 mg 08/03/19 11:30 08/04/19 15:03 Toprol Xl - PO Not Given DAILY [facility] Multivitamins/Minerals/Vitamin C 1 tab 08/03/19 10:00 08/04/19 15:03 Tab-A-Vit - PO Not Given DAILY [facility] Nystatin 1 applic 08/03/19 17:30 08/04/19 11:07 Nystop Powder - TP 1 applic DAILY KATIA Administration Thiamine HCl 100 mg 08/03/19 10:00 08/04/19 15:03 Vitamin B1 - PO Not Given BID KATIA Vital Signs Period Temp Pulse Resp BP Sys/Lieberman Pulse Ox Last 24 Hr 98 F-98.5 F 90-106 13-24 107-183/77-115 96-99 nad no jvd irreg, tachy s1s2 no mrg cta bl lethargic no le e/c/c abd nt nd pos bs no jaundice diaphoresis Current Medications Generic Name Dose Route Start Last Admin Trade Name Freq PRN Reason Stop Dose Admin Apixaban 5 mg 08/03/19 19:00 08/04/19 15:03 Eliquis - PO Not Given BID KATIA Chlordiazepoxide HCl 10 mg 08/05/19 05:00 Librium - PO 08/05/19 23:01 [id number] KATIA Chlordiazepoxide HCl 10 mg 08/06/19 05:00 Librium - PO 08/06/19 17:01 Q12H KATIA Chlordiazepoxide HCl 10 mg 08/05/19 00:00 Librium - PO 08/06/19 00:00 Q4H PRN WITHDRAWAL(CONT SUBST) Chlordiazepoxide HCl 10 mg 08/07/19 05:00 Librium - PO 08/07/19 05:01 ONCE@0500 ONE Chlordiazepoxide HCl 25 mg 08/04/19 05:00 08/04/19 15:03 Librium - PO 08/04/19 23:01 Not Given [id number] KATIA Chlordiazepoxide HCl 25 mg 08/03/19 00:25 08/03/19 03:09 Librium - PO 08/04/19 23:59 25 mg Q4H PRN Administration WITHDRAWAL(CONT SUBST) Diltiazem HCl 5 mg 08/03/19 00:50 Cardizem Injection - IVPUSH ONCE PRN TACHYCARDIA Folic Acid 1 mg 08/03/19 10:00 08/04/19 15:03 Folic Acid - PO Not Given DAILY KATIA Sodium Chloride 1,000 mls @ 100 mls/hr 08/04/19 13:15 08/04/19 13:36 Normal Saline - IV 100 mls/hr ASDIR KATIA Administration Insulin Aspart 1 vial 08/03/19 07:00 08/04/19 11:23 Novolog Vial Sliding Scale - SQ Not Given ACHS [facility] Protocol Metoprolol Succinate 50 mg 08/03/19 11:30 08/04/19 15:03 Toprol Xl - PO Not Given DAILY [facility] Multivitamins/Minerals/Vitamin C 1 tab 08/03/19 10:00 08/04/19 15:03 Tab-A-Vit - PO Not Given DAILY [facility] Nystatin 1 applic 08/03/19 17:30 08/04/19 11:07 Nystop Powder - TP 1 applic DAILY [facility] Administration Thiamine HCl 100 mg 08/03/19 10:00 08/04/19 15:03 Vitamin B1 - PO Not Given BID [facility] CBC, BMP 08/04/19 07:48 08/04/19 07:48 ecgs: afib, vr 96, 100, nl qtc, no ischemic changes, old irbbb tele: afib,rates low 100s echo 07/2019: nl lv/rv, mild tr, nl rvsp a/p: 69 m hx htn, dm, here with syncope. cva: -change in mental status with lethargy now and ct showing possible acute cva -mri and neuro consult pending syncope: -no signs acs or chf -possibly related to etoh, possibly related to afib with rvr, ?cva related -echo benign -cont tele -check ortho vitals when able afib: -new afib with rvr here -cont tele. started toprol 50 qd and rate better but now unable to take po due to AMS, resume when possible. can use iv lopressor prn. -chadsvasc warrants ac. eliquis 5 bid on hold given ?acute cva. -tsh wnl -echo benign htn: -monitor after starting bb
[2019-08-04] MEDS: METOPROLOL TARTRATE 5 MG/5 ML VIAL IVPUSH SCH ×2 (17:04→21:21)
[2019-08-04] MEDS ORDERED: LORazepam 2 MG/ML SDV VIAL IVPUSH ONE (17:10)
[2019-08-04] MEDS ORDERED: HEPARIN NA (PORCINE) 5,000 UNITS/ML 1ML VIAL IVPUSH PRN (19:49)
[2019-08-04] MEDS: HEPARIN - 25,000 UNIT in SODIUM CHLORIDE 495 ML IV SCH (22:39)
[2019-08-05] MEDS ORDERED: chlordiazePOXIDE HCL 10 MG CAPSULE PO PRN
[2019-08-05] MEDS: LORazepam 2 MG/ML SDV VIAL IVPUSH SCH ×3 (01:01→22:08)
[2019-08-05] MEDS: METOPROLOL TARTRATE 5 MG/5 ML VIAL IVPUSH SCH ×6 (01:05→21:36)
[2019-08-05] MEDS ORDERED: chlordiazePOXIDE HCL 10 MG CAPSULE PO SCH (05:00)
[2019-08-05] MEDS: INSULIN SLIDING SCALE (NOVOLOG) 1 VIAL SQ SCH ×5 (06:18→23:00)
[2019-08-05 06:57] LABS: HEMATOCRIT 43.7 % (35.4-49); HEMOGLOBIN 15.5 GM/dL (11.7-16.9); MCH 37.5 pg (25.7-33.7); MCHC 35.4 g/dl (32.0-35.9); MEAN CELL VOLUME 105.9 fl (80-96); MEAN PLT VOLUME 7.4 fl (7.5-11.1); PLATELET COUNT 195 K/MM3 (134-434); RBC 4.13 M/mm3 (4.00-5.60); RDW 15.1 % (11.9-15.9); WHITE BLOOD COUNT 7.8 K/mm3 (4.0-10.0)
--- NOTE | 2019-08-05 08:17 | PN ---
Physical Exam: SUBJECTIVE: Patient seen and examined at the bedside. more alert, speech garbled. unequal smile. states his name. says yes when I ask him if he is hungry. OBJECTIVE: patient reported to be lethargic yesterday morning, head ct stat done which shows possible acute/subacute infarct, and a brain mri was recommended to confirm. MRI brain done overnight shows acute right cerebral infarcts. neuro consulted. per stroke protocol will order: carotid u/s, speech and swallow, physical therapy, will also order asa and stains after speech/swallow test results. monitor on tele. currently shows irregular heart rate 110s. patient is on a heparin drip and NPO. Patient is a 69 year old male with history of hypertension, hyperlipidemia, non- insulin dependent diabetes mellitus and alcohol abuse, presents after a syncopal episode. Patient was intoxicated on admission and started on a librium taper. He was found to have new onset afib on admission and a heparin drip was initiated. He was switched over to eliquis 5 bid on 08/03/19. Spoke to daughter yesterday who states her father had some left sided weakness prior to admission, she suspected he had a stroke but was not sure. She has been updated on patient status. Vital Signs Period Temp Pulse Resp BP Sys/Lieberman Pulse Ox Last 24 Hr 97.2 F-100 F 95-114 18-20 119-166/68-99 99-99 GENERAL: lethargic, but more awake, garbled speech, says last name, smile is mostly equal-slight left facial droop HEAD: Normal with no signs of trauma. EYES: pinpoint pupils, patient opens eyes spontaneously, attempts to talk. ENT: Ears normal, nares patent, oropharynx clear without exudates, moist mucous membranes. NECK: Trachea midline, full range of motion, supple. LUNGS: diminished, bilaterally HEART: irregular ABDOMEN: Soft, nontender, nondistended, normoactive bowel sounds EXTREMITIES: no edema. NEUROLOGICAL: more awake, moving all extremities. does not follow commands. slightly confused. Laboratory Results - last 24 hr 08/04/19 08/04/19 08/04/19 07:48 07:48 07:48 WBC 9.7 RBC 4.75 Hgb 17.9 H Hct 51.0 H D MCV 107.3 H MCH 37.8 H MCHC 35.2 RDW 14.9 Plt Count 210 D MPV 7.2 L Absolute Neuts (auto) 5.9 Neutrophils % 61.5 D Lymphocytes % 22.3 D Monocytes % 14.3 H Eosinophils % 1.3 Basophils % 0.6 Nucleated RBC % 0 PTT (Actin FS) 32.4 Anticoagulation Therapy Puncture Site ABG pH ABG pCO2 at Pt Temp ABG pO2 at Pt Temp ABG HCO3 ABG O2 Sat (Measured) ABG O2 Content ABG Base Excess Familia Test O2 Delivery Device Oxygen Flow Rate Vent Mode Vent Rate Mechanical Rate Pressure Support Vent Sodium 134 L Potassium 3.9 Chloride 101 Carbon Dioxide 23 Anion Gap 9 BUN 12.0 Creatinine 0.7 Est GFR (CKD-EPI)AfAm 112.38 Est GFR (CKD-EPI)NonAf 96.97 POC Glucometer Random Glucose 149 H Lactic Acid Calcium 8.8 Magnesium 1.8 Total Bilirubin 1.9 H AST 20 ALT 15 Alkaline Phosphatase 146 H Ammonia Troponin I < 0.02 Total Protein 6.6 Albumin 3.0 L Triglycerides 98 Cholesterol 123 Total LDL Cholesterol 68 HDL Cholesterol 38 L 08/04/19 08/04/19 08/04/19 10:00 10:00 11:22 WBC RBC Hgb Hct MCV MCH MCHC RDW Plt Count MPV Absolute Neuts (auto) Neutrophils % Lymphocytes % Monocytes % Eosinophils % Basophils % Nucleated RBC % PTT (Actin FS) Anticoagulation Therapy Puncture Site ABG pH ABG pCO2 at Pt Temp ABG pO2 at Pt Temp ABG HCO3 ABG O2 Sat (Measured) ABG O2 Content ABG Base Excess Familia Test O2 Delivery Device Oxygen Flow Rate Vent Mode Vent Rate Mechanical Rate Pressure Support Vent Sodium Potassium Chloride Carbon Dioxide Anion Gap BUN Creatinine Est GFR (CKD-EPI)AfAm Est GFR (CKD-EPI)NonAf POC Glucometer 135 Random Glucose Lactic Acid 1.4 Calcium Magnesium Total Bilirubin AST ALT Alkaline Phosphatase Ammonia < 10.00 L Troponin I Total Protein Albumin Triglycerides Cholesterol Total LDL Cholesterol HDL Cholesterol 08/04/19 08/04/19 08/04/19 13:25 15:27 16:48 WBC RBC Hgb Hct MCV MCH MCHC RDW Plt Count MPV Absolute Neuts (auto) Neutrophils % Lymphocytes % Monocytes % Eosinophils % Basophils % Nucleated RBC % PTT (Actin FS) Anticoagulation Therapy No Result Required. Puncture Site Left radial ABG pH 7.46 H ABG pCO2 at Pt Temp 32.5 L ABG pO2 at Pt Temp 102 H ABG HCO3 22.6 ABG O2 Sat (Measured) 98.2 H ABG O2 Content 22.8 ABG Base Excess 0.1 Familia Test Positive O2 Delivery Device No Result Required. Oxygen Flow Rate 21 Vent Mode No Result Required. Vent Rate No Result Required. Mechanical Rate No Result Required. Pressure Support Vent No Result Required. Sodium Potassium Chloride Carbon Dioxide Anion Gap BUN Creatinine Est GFR (CKD-EPI)AfAm Est GFR (CKD-EPI)NonAf POC Glucometer 155 128 Random Glucose Lactic Acid Calcium Magnesium Total Bilirubin AST ALT Alkaline Phosphatase Ammonia Troponin I Total Protein Albumin Triglycerides Cholesterol Total LDL Cholesterol HDL Cholesterol 08/04/19 08/04/19 08/05/19 21:40 21:55 05:32 WBC 7.8 RBC 4.13 Hgb 15.5 Hct 43.7 MCV 105.9 H MCH 37.5 H MCHC 35.4 RDW 15.1 Plt Count 195 MPV 7.4 L Absolute Neuts (auto) Neutrophils % Lymphocytes % Monocytes % Eosinophils % Basophils % Nucleated RBC % PTT (Actin FS) 36.5 Anticoagulation Therapy Puncture Site ABG pH ABG pCO2 at Pt Temp ABG pO2 at Pt Temp ABG HCO3 ABG O2 Sat (Measured) ABG O2 Content ABG Base Excess Familia Test O2 Delivery Device Oxygen Flow Rate Vent Mode Vent Rate Mechanical Rate Pressure Support Vent Sodium Potassium Chloride Carbon Dioxide Anion Gap BUN Creatinine Est GFR (CKD-EPI)AfAm Est GFR (CKD-EPI)NonAf POC Glucometer 125 Random Glucose Lactic Acid Calcium Magnesium Total Bilirubin AST ALT Alkaline Phosphatase Ammonia Troponin I Total Protein Albumin Triglycerides Cholesterol Total LDL Cholesterol HDL Cholesterol 08/05/19 08/05/19 05:32 05:38 WBC RBC Hgb Hct MCV MCH MCHC RDW Plt Count MPV Absolute Neuts (auto) Neutrophils % Lymphocytes % Monocytes % Eosinophils % Basophils % Nucleated RBC % PTT (Actin FS) 41.1 H Anticoagulation Therapy Puncture Site ABG pH ABG pCO2 at Pt Temp ABG pO2 at Pt Temp ABG HCO3 ABG O2 Sat (Measured) ABG O2 Content ABG Base Excess Familia Test O2 Delivery Device Oxygen Flow Rate Vent Mode Vent Rate Mechanical Rate Pressure Support Vent Sodium Potassium Chloride Carbon Dioxide Anion Gap BUN Creatinine Est GFR (CKD-EPI)AfAm Est GFR (CKD-EPI)NonAf POC Glucometer 114 Random Glucose Lactic Acid Calcium Magnesium Total Bilirubin AST ALT Alkaline Phosphatase Ammonia Troponin I Total Protein Albumin Triglycerides Cholesterol Total LDL Cholesterol HDL Cholesterol Active Medications Generic Name Dose Route Start Last Admin Trade Name Freq PRN Reason Stop Dose Admin Diltiazem HCl 5 mg 08/03/19 00:50 Cardizem Injection - IVPUSH ONCE PRN TACHYCARDIA Folic Acid 1 mg 08/03/19 10:00 08/04/19 15:03 Folic Acid - PO Not Given DAILY KATIA Heparin Sodium (Porcine) 5,000 unit 08/04/19 19:25 Heparin - IVPUSH PRN PRN Heparin Heparin Sodium (Porcine) 1,000 unit 08/04/19 19:49 Heparin - IVPUSH PRN PRN Heparin Sodium Chloride 1,000 mls @ 100 mls/hr 08/04/19 13:15 08/04/19 13:36 Normal Saline - IV 100 mls/hr ASDIR KATIA Administration Heparin Sodium (Porcine) 25, 500 mls @ 16 mls/hr 08/04/19 19:30 08/04/19 22: 39 000 unit/ Sodium Chloride IV 800 unit/hr TITR KATIA 16 mls/hr Administration Protocol 800 UNIT/HR Insulin Aspart 1 vial 08/03/19 07:00 08/05/19 06:59 Novolog Vial Sliding Scale - SQ Not Given ACHS KATIA Protocol Lorazepam 0.5 mg 08/04/19 22:00 08/05/19 01:01 Ativan Injection - IVPUSH Not Given BID KATIA Metoprolol Tartrate 5 mg 08/04/19 16:00 08/05/19 06:14 Lopressor Injection - IVPUSH 5 mg Q4H KATIA Administration Multivitamins/Minerals/Vitamin C 1 tab 08/03/19 10:00 08/04/19 15:03 Tab-A-Vit - PO Not Given DAILY KATIA Nystatin 1 applic 08/03/19 17:30 08/04/19 11:07 Nystop Powder - TP 1 applic DAILY KATIA Administration Thiamine HCl 100 mg 08/03/19 10:00 08/04/19 21:23 Vitamin B1 - PO Not Given BID KATIA ASSESSMENT/PLAN: Problem List - Problems (1) CVA (cerebral vascular accident) Assessment/Plan: CVA confirmed by brain mri 08/04/19: acute right cerebral infarcts. acute non hemorrhagic infarcts noted involving the right frontal, right temporal and right insular cortices as well as the right basal ganglia. minimal periventricular chronic microvascular changes are noted. initiate stroke protocol - neuro consulted - asa, statin on hold pending swallow eval - physical therapy - carotid u/s Code(s): I63.9 - CEREBRAL INFARCTION, UNSPECIFIED (2) Acute metabolic encephalopathy Assessment/Plan: found to have an acute frontal stroke/right cerebral infarcts. stroke protocol initiated vitas are stable. front desk monitor: irregular 100s blood sugar 140s. Code(s): G93.41 - METABOLIC ENCEPHALOPATHY (3) A-fib Assessment/Plan: on toprol and heparin drip controlled rate Code(s): I48.91 - UNSPECIFIED ATRIAL FIBRILLATION Qualifiers: Atrial fibrillation type: unspecified Qualified Code(s): I48.91 - Unspecified atrial fibrillation (4) Alcohol intoxication Assessment/Plan: hold libirum taper for increased sedation, start on ativan iv push bid for etoh w/drawal. ciwa score low. no signs of acute w/drawal. ammonia level now Code(s): F10.929 - ALCOHOL USE, UNSPECIFIED WITH INTOXICATION, UNSPECIFIED Qualifiers: Complication of substance-induced condition: uncomplicated Qualified Code(s ): F10.920 - Alcohol use, unspecified with intoxication, uncomplicated (5) Syncope and collapse Assessment/Plan: PT when more stable Code(s): R55 - SYNCOPE AND COLLAPSE (6) Prophylactic measure Assessment/Plan: on heparin drip full code fen ns @ 100 monitor electrolytes including mag for a swallow eval, npo Code(s): Z29.9 - ENCOUNTER FOR PROPHYLACTIC MEASURES, UNSPECIFIED Visit type - Emergency Visit Emergency Visit: Yes ED Registration Date: 08/02/19 Care time: The patient presented to the Emergency Department on the above date and was hospitalized for further evaluation of their emergent condition. - New Patient This patient is new to me today: No - Critical Care Critical Care patient: No - Discharge Referral Referred to [facility] No NIH Stroke Scale - Last Known Well Date/Time & Onset Date Last Known Well: 08/03/19 Time Last Known Well: 22:00 - Initial Evaluation Level of consciousness: Not alert, requires repeat stimulation to attend ( patient confused and unable to follow commands fully) Ask patient the month and their age: Both incorrect Ask patient to open & close eyes; make fist and let go: Obeys both correctly Best gaze (horizontal eye movement): Partial gaze palsy Visual field testing: No visual field loss Facial paresis (Show teeth/raise eyebrows/close eyes tight): Minor paralysis ( flattened nasolabial fold, asymmetry on smiling) Motor Function: Left Arm: Some effort against gravity Motor Function: Right Arm: Some effort against gravity Motor Function: Left Leg: Some effort against gravity Motor Function: Right Leg: Some effort against gravity Limb Ataxia: Untestable (Joint fused or limb amputated), explain: Sensory(Use pinprick test arms,legs,trunk,face/side to side): Mild to moderate decrease in sensation Best language (Describe picture, name items, read sentences): Severe aphasia Dysarthria (read several words): Intubated or other physical barrierr, explain: (confused.) Extinction and Inattention: Inattention or extinction bilaterally to one of the sensory modalities - Total Score NIH Stroke Scale Score: 18 CIWA Score Nausea/Vomitin-No Nausea/No Vomiting Muscle Tremors: None Anxiety: 1-Mildly Anxious Agitation: 0-Normal Activity Paroxysmal Sweats: No Perspiration Orientation: 4Disoriented Place/Person Tacttile Disturbances: 0-None Auditory Disturbances: 0-None Visual Disturbances: 0-None Headache: 0-None Present CIWA-Ar Total Score: 5 - Admission Criteria OASAS Guidelines: Admission for Medically Managed Detox: Requires at least one of the followin. CIWA greater than 12 2. Seizures within the past 24 hours 3. Delirium tremens within the past 24 hours 4. Hallucinations within the past 24 hours 5. Acute intervention needed for co occurring medical disorder 6. Acute intervention needed for co occurring psychiatric disorder 7. Severe withdrawal that cannot be handled at a lower level of care (continued vomiting, continued diarrhea, abnormal vital signs) requiring intravenous medication and/or fluids 8.
[2019-08-05] MEDS: FOLIC ACID 1 MG TABLET (FP) PO SCH (09:12)
[2019-08-05] MEDS: MULTIVITAMINS (DAILY MVI) TABLET (FP) PO SCH (09:12)
[2019-08-05] MEDS: NYSTATIN POWDER 100,000 UNITS/GM - 15 GM TOPICAL POWDER TP SCH (09:12)
[2019-08-05] MEDS: THIAMINE HCL 100 MG TABLET (FP) PO SCH ×2 (09:12→22:10)
--- NOTE | 2019-08-05 11:07 | PN ---
Progress Note (short form) - Note Progress Note: s: more alert today but still confused Current Medications Generic Name Dose Route Start Last Admin Trade Name Freq PRN Reason Stop Dose Admin Diltiazem HCl 5 mg 08/03/19 00:50 Cardizem Injection - IVPUSH ONCE PRN TACHYCARDIA Folic Acid 1 mg 08/03/19 10:00 08/05/19 09:12 Folic Acid - PO 1 mg DAILY KATIA Administration Heparin Sodium (Porcine) 5,000 unit 08/04/19 19:25 Heparin - IVPUSH PRN PRN Heparin Heparin Sodium (Porcine) 1,000 unit 08/04/19 19:49 08/05/19 09:00 Heparin - IVPUSH 1,000 unit PRN PRN Administration Heparin Sodium Chloride 1,000 mls @ 100 mls/hr 08/04/19 13:15 08/04/19 13:36 Normal Saline - IV 100 mls/hr ASDIR KATIA Administration Heparin Sodium (Porcine) 25, 500 mls @ 16 mls/hr 08/04/19 19:30 08/05/19 09: 00 000 unit/ Sodium Chloride IV 900 unit/hr TITR KATIA 18 mls/hr Titration Protocol 800 UNIT/HR Insulin Aspart 1 vial 08/03/19 07:00 08/05/19 06:59 Novolog Vial Sliding Scale - SQ Not Given ACHS KATIA Protocol Lorazepam 0.5 mg 08/04/19 22:00 08/05/19 09:13 Ativan Injection - IVPUSH Not Given BID KATIA Metoprolol Tartrate 5 mg 08/04/19 16:00 08/05/19 09:00 Lopressor Injection - IVPUSH 5 mg Q4H KATIA Administration Multivitamins/Minerals/Vitamin C 1 tab 08/03/19 10:00 08/05/19 09:12 Tab-A-Vit - PO 1 tab DAILY KATIA Administration Nystatin 1 applic 08/03/19 17:30 08/05/19 09:12 Nystop Powder - TP 1 applic DAILY KATIA Administration Thiamine HCl 100 mg 08/03/19 10:00 08/05/19 09:12 Vitamin B1 - PO 100 mg BID KATIA Administration Vital Signs Period Temp Pulse Resp BP Sys/Lieberman Pulse Ox Last 24 Hr 97.2 F-100 F 95-117 18-20 119-164/68-96 99 nad no jvd irreg, tachy s1s2 no mrg cta bl confused no le e/c/c abd nt nd pos bs no jaundice diaphoresis Laboratory Last Values WBC 7.8 K/mm3 (4.0-10.0) 08/05/19 05:32 RBC 4.13 M/mm3 (4.00-5.60) 08/05/19 05:32 Hgb 15.5 GM/dL (11.7-16.9) 08/05/19 05:32 Hct 43.7 % (35.4-49) 08/05/19 05:32 MCV 105.9 fl (80-96) H 08/05/19 05:32 MCH 37.5 pg (25.7-33.7) H 08/05/19 05:32 MCHC 35.4 g/dl (32.0-35.9) 08/05/19 05:32 RDW 15.1 % (11.9-15.9) 08/05/19 05:32 Plt Count 195 K/MM3 (134-434) 08/05/19 05:32 MPV 7.4 fl (7.5-11.1) L 08/05/19 05:32 Absolute Neuts (auto) 5.9 K/mm3 (1.5-8.0) 08/04/19 07:48 Neutrophils % 61.5 % (42.8-82.8) D 08/04/19 07:48 Lymphocytes % 22.3 % (8-40) D 08/04/19 07:48 Monocytes % 14.3 % (3.8-10.2) H 08/04/19 07:48 Eosinophils % 1.3 % (0-4.5) 08/04/19 07:48 Basophils % 0.6 % (0-2.0) 08/04/19 07:48 Nucleated RBC % 0 % (0-0) 08/04/19 07:48 Platelet Estimate Normal 08/02/19 20:00 Macrocytosis 1+ 08/02/19 20:00 PT with INR 12.40 SEC (9.7-13.0) 08/02/19 20:00 INR 1.05 (0.83-1.09) 08/02/19 20:00 PTT (Actin FS) 41.1 SECONDS (25.2-36.5) H 08/05/19 05:32 Anticoagulation Therapy No Result Required. 08/04/19 13:25 Puncture Site Left radial 08/04/19 13:25 ABG pH 7.46 (7.35-7.45) H 08/04/19 13:25 ABG pCO2 at Pt Temp 32.5 mmHg (35-45) L 08/04/19 13:25 ABG pO2 at Pt Temp 102 mmHg (80-100) H 08/04/19 13:25 ABG HCO3 22.6 mmol/L (22-27) 08/04/19 13:25 ABG O2 Sat (Measured) 98.2 % (95-98) H 08/04/19 13:25 ABG O2 Content 22.8 % vol 08/04/19 13:25 ABG Base Excess 0.1 meq/l (-2-2) 08/04/19 13:25 Familia Test Positive 08/04/19 13:25 O2 Delivery Device No Result Required. 08/04/19 13:25 Oxygen Flow Rate 21 08/04/19 13:25 Vent Mode No Result Required. 08/04/19 13:25 Vent Rate No Result Required. 08/04/19 13:25 Mechanical Rate No Result Required. 08/04/19 13:25 Pressure Support Vent No Result Required. 08/04/19 13:25 Sodium 134 mmol/L (136-145) L 08/04/19 07:48 Potassium 3.9 mmol/L (3.5-5.1) 08/04/19 07:48 Chloride 101 mmol/L (98-107) 08/04/19 07:48 Carbon Dioxide 23 mmol/L (21-32) 08/04/19 07:48 Anion Gap 9 MMOL/L (8-16) 08/04/19 07:48 BUN 12.0 mg/dL (7-18) 08/04/19 07:48 Creatinine 0.7 mg/dL (0.55-1.3) 08/04/19 07:48 Est GFR (CKD-EPI)AfAm 112.38 08/04/19 07:48 Est GFR (CKD-EPI)NonAf 96.97 08/04/19 07:48 POC Glucometer 114 UNITS (80-120) 08/05/19 05:38 Random Glucose 149 mg/dL (74-106) H 08/04/19 07:48 Hemoglobin A1c % 7.1 % (4.2-6.3) H 08/03/19 06:00 Lactic Acid 1.4 mmol/L (0.4-2.0) 08/04/19 10:00 Calcium 8.8 mg/dL (8.5-10.1) 08/04/19 07:48 Phosphorus 1.3 mg/dL (2.5-4.9) L 08/03/19 06:00 Magnesium 1.8 mg/dL (1.8-2.4) 08/04/19 07:48 Total Bilirubin 1.9 mg/dL (0.2-1) H 08/04/19 07:48 AST 20 U/L (15-37) 08/04/19 07:48 ALT 15 U/L (13-61) 08/04/19 07:48 Alkaline Phosphatase 146 U/L (45-117) H 08/04/19 07:48 Ammonia < 10.00 umol/L (11-32) L 08/04/19 10:00 Troponin I < 0.02 ng/ml (0.00-0.05) 08/04/19 07:48 Total Protein 6.6 g/dl (6.4-8.2) 08/04/19 07:48 Albumin 3.0 g/dl (3.4-5.0) L 08/04/19 07:48 Triglycerides 98 mg/dL (0-150) 08/04/19 07:48 Cholesterol 123 mg/dL (50-200) 08/04/19 07:48 Total LDL Cholesterol 68 mg/dL (5-100) 08/04/19 07:48 HDL Cholesterol 38 mg/dL (40-60) L 08/04/19 07:48 TSH 2.86 uIU/ml (0.358-3.74) 08/03/19 02:00 Alcohol, Quantitative 135.2 mg/dL (0.0-5.0) H 08/02/19 20:00 ecgs: afib, vr 96, 100, nl qtc, no ischemic changes, old irbbb tele: afib,rates low 100s echo 07/2019: nl lv/rv, mild tr, nl rvsp a/p: 69 m hx htn, dm, here with syncope. cva: -change in mental status and mri showing acute cva -neuro consult pending syncope: -no signs acs or chf -possibly related to etoh, possibly related to afib with rvr, ?cva related -echo benign -cont tele -check ortho vitals when able afib: -new afib with rvr here -cont tele. resume toprol 50 qd now that taking po meds -chadsvasc warrants ac. on hep gtt -tsh wnl -echo benign htn: -monitor after starting bb
--- NOTE | 2019-08-05 12:03 | CON.NEURO ---
Consult - History of Present Illness History of Present Illness: 69 year old male with history of hypertension, hyperlipidemia, non-insulin dependent diabetes mellitus, presents after a syncopal episode on 08/02/19. A sper chart initially patient was intoxicated and minimal history provide, and is noncompliant with [employer] professor Per ED report, patient had lost consciousness for approx. 5 minutes, however he denies this upon my encounter. Denies bowel or bladder incontinence. Currently patient denies chest pain, and only endorses left shoulder pain and headache. He denies prior cardiac history, or workup. Reported that patient has not followed up with primary care provider in several years, and has history of alcohol use disorder. Events noted , found to be in Afib , also ? left sided weakness and MRI + acute stroke, branch MCA infarcts. PT sleepy this AM , not answering questions MRI BRAIN CLINICAL INFORMATION GIVEN: evaluate for acute infarct The exam consists of sagittal and transaxial images obtained utilizing fast spin-echo, fast spin- echo FLAIR, T2-weighted gradient-echo and diffusion weighted spin-echo echo - planar pulse sequences. Acute nonhemorrhagic infarcts are noted involving the right frontal, right temporal and right insular cortices as well as the right basal ganglia. Minimal periventricular chronic microvascular changes are noted. There is no extra-axial fluid collection. No obvious mass lesion is seen allowing for motion artifact. The ventricles and cisterns and craniocervical junction appear unremarkable. Signal void is seen within the intracranial internal carotid and vertebral arteries as well as the basilar artery consistent with vessel patency. IMPRESSION: Acute right cerebral infarcts are noted as discussed above. - Alcohol/Substance Use Hx Alcohol Use: No - Smoking History Smoking history: Never smoked Home Medications - Allergies Allergies/Adverse Reactions: Allergies Allergy/AdvReac Type Severity Reaction Status Date / Time No Known Allergies Allergy Verified 08/02/19 19:37 - Home Medications Home Medications: Ambulatory Orders Unobtainable 08/03/19 Physical Exam-Neuro Vital Signs: Vital Signs Temperature 97.2 F L 08/05/19 06:00 Pulse Rate 117 H 08/05/19 09:00 Respiratory Rate 18 08/05/19 02:00 Blood Pressure 142/93 08/05/19 09:00 O2 Sat by Pulse Oximetry (%) 99 08/04/19 20:13 Labs: CBC, BMP 08/05/19 05:32 08/04/19 07:48 INR, PTT INR 1.05 (0.83-1.09) 08/02/19 20:00 - Neuro Exam Level Of Consciousness: Yes: Sedated (eyes closed, nonverbal, eyes forced shut, left hemiparesis , ) Imaging - Results Cat Scan: Report Reviewed, Image Reviewed MRI: Report Reviewed, Image Reviewed Problem List - Problems (1) A-fib Code(s): I48.91 - UNSPECIFIED ATRIAL FIBRILLATION Qualifiers: Atrial fibrillation type: unspecified Qualified Code(s): I48.91 - Unspecified atrial fibrillation (2) Acute metabolic encephalopathy Code(s): G93.41 - METABOLIC ENCEPHALOPATHY (3) Alcohol intoxication Code(s): F10.929 - ALCOHOL USE, UNSPECIFIED WITH INTOXICATION, UNSPECIFIED Qualifiers: Complication of substance-induced condition: uncomplicated Qualified Code(s ): F10.920 - Alcohol use, unspecified with intoxication, uncomplicated (4) CVA (cerebral vascular accident) Code(s): I63.9 - CEREBRAL INFARCTION, UNSPECIFIED (5) Syncope and collapse Code(s): R55 - SYNCOPE AND COLLAPSE Assessment/Plan 69 year old male with history of hypertension, hyperlipidemia, non-insulin dependent diabetes mellitus, presents after a syncopal episode on 08/02/19. A sper chart initially patient was intoxicated and minimal history provide, and is noncompliant with [employer] professor Per ED report, patient had lost consciousness for approx. 5 minutes, however he denies this upon my encounter. Denies bowel or bladder incontinence. Currently patient denies chest pain, and only endorses left shoulder pain and headache. He denies prior cardiac history, or workup. Reported that patient has not followed up with primary care provider in several years, and has history of alcohol use disorder. Events noted , found to be in Afib , also ? left sided weakness and MRI + acute stroke, branch MCA infarcts. MRI BRAIN CLINICAL INFORMATION GIVEN: evaluate for acute infarct The exam consists of sagittal and transaxial images obtained utilizing fast spin-echo, fast spin- echo FLAIR, T2-weighted gradient-echo and diffusion weighted spin-echo echo - planar pulse sequences. Acute nonhemorrhagic infarcts are noted involving the right frontal, right temporal and right insular cortices as well as the right basal ganglia. Minimal periventricular chronic microvascular changes are noted. There is no extra-axial fluid collection. No obvious mass lesion is seen allowing for motion artifact. The ventricles and cisterns and craniocervical junction appear unremarkable. Signal void is seen within the intracranial internal carotid and vertebral arteries as well as the basilar artery consistent with vessel patency. IMPRESSION: Acute right cerebral infarcts are noted as discussed above. AP : HX of DM/hypertension, ETOH, found to be in AFib and with acute R MCA strokes--embolic in nature ; can start HEPARIN DRIP (no loading dose) , though jail compliance with AC may be an issue -- if remains lethargic would check HD CT in AM cont ativan, B12, folate DR DANIELLE
[2019-08-05] MEDS: SODIUM CHLORIDE 1,000 ML IV SCH ×2 (13:55→22:12)
[2019-08-05] MEDS: HEPARIN - 25,000 UNIT in SODIUM CHLORIDE 495 ML IV SCH ×2 (21:39→22:13)
[2019-08-06] MEDS: METOPROLOL TARTRATE 5 MG/5 ML VIAL IVPUSH SCH ×6 (00:05→21:35)
[2019-08-06] MEDS ORDERED: chlordiazePOXIDE HCL 10 MG CAPSULE PO SCH (05:00)
[2019-08-06 06:07] LABS: HEMATOCRIT 42.2 % (35.4-49); HEMOGLOBIN 14.7 GM/dL (11.7-16.9); MCH 37.5 pg (25.7-33.7); MCHC 34.9 g/dl (32.0-35.9); MEAN CELL VOLUME 107.4 fl (80-96); MEAN PLT VOLUME 7.2 fl (7.5-11.1); PLATELET COUNT 198 K/MM3 (134-434); RBC 3.93 M/mm3 (4.00-5.60); RDW 14.5 % (11.9-15.9); WHITE BLOOD COUNT 5.7 K/mm3 (4.0-10.0)
[2019-08-06] MEDS: INSULIN SLIDING SCALE (NOVOLOG) 1 VIAL SQ SCH ×3 (06:11→17:44)
--- NOTE | 2019-08-06 08:39 | PN ---
Physical Exam: SUBJECTIVE: Patient seen and examined at the bedside. more awake and alert, following commands to squeeze my hands. denies any discomfort. OBJECTIVE: Patient is a 69 year old male with history of hypertension, hyperlipidemia, non- insulin dependent diabetes mellitus and alcohol abuse, presents after a syncopal episode. Patient was intoxicated on admission and started on a librium taper. He was found to have new onset afib on admission and a heparin drip was initiated. Hospitalization complicated when patient became unresponsive on 08/04/[address] showed possible acute/subacute infarct. MRI brain then confirmed acute right cerebral infarcts. neuro consulted and following. per stroke protocol ordered: carotid u/s, speech and swallow, physical therapy, will order asa and stains after speech/swallow test results. monitor on tele. currently shows irregular heart rate 100s. patient is on a heparin drip and NPOx3 days. started on clinimax. Vital Signs Period Temp Pulse Resp BP Sys/Lieberman Pulse Ox Last 24 Hr 97.2 F-97.4 F 97-117 18-20 133-169/87-108 99-100 GENERAL: awake, alert. eyes opening spontaneoulsy. garbled speech, says last name, smile is mostly equal-slight left facial droop HEAD: Normal with no signs of trauma. EYES: patient opens eyes spontaneously, attempts to talk, garbled ENT: Ears normal, nares patent, oropharynx clear without exudates, moist mucous membranes. NECK: Trachea midline, full range of motion, supple. LUNGS: diminished, bilaterally HEART: irregular, controlled ABDOMEN: Soft, nontender, nondistended, normoactive bowel sounds EXTREMITIES: no edema. NEUROLOGICAL: more awake, moving all extremities. does not follow commands. slightly confused, episodes of agitation. fall risk. Laboratory Results - last 24 hr 08/05/19 08/05/19 08/05/19 11:51 14:48 17:30 WBC RBC Hgb Hct MCV MCH MCHC RDW Plt Count MPV PTT (Actin FS) 51.1 H POC Glucometer 111 110 08/05/19 08/06/19 08/06/19 22:41 05:20 05:54 WBC 5.7 RBC 3.93 L Hgb 14.7 Hct 42.2 MCV 107.4 H MCH 37.5 H MCHC 34.9 RDW 14.5 Plt Count 198 MPV 7.2 L PTT (Actin FS) POC Glucometer 115 106 Active Medications Generic Name Dose Route Start Last Admin Trade Name Freq PRN Reason Stop Dose Admin Diltiazem HCl 5 mg 08/03/19 00:50 Cardizem Injection - IVPUSH ONCE PRN TACHYCARDIA Folic Acid 1 mg 08/03/19 10:00 08/05/19 09:12 Folic Acid - PO 1 mg DAILY KATIA Administration Heparin Sodium (Porcine) 5,000 unit 08/04/19 19:25 Heparin - IVPUSH PRN PRN Heparin Heparin Sodium (Porcine) 1,000 unit 08/04/19 19:49 08/05/19 09:00 Heparin - IVPUSH 1,000 unit PRN PRN Administration Heparin Sodium Chloride 1,000 mls @ 100 mls/hr 08/04/19 13:15 08/05/19 22:12 Normal Saline - IV 100 mls/hr ASDIR KATIA Administration Heparin Sodium (Porcine) 25, 500 mls @ 16 mls/hr 08/04/19 19:30 08/05/19 22: 13 000 unit/ Sodium Chloride IV 900 unit/hr TITR KATIA 18 mls/hr Administration Protocol 800 UNIT/HR Amino Acids 1,000 mls @ 84 mls/hr 08/06/19 09:00 Clinimix - IV Q12H KATIA Insulin Aspart 1 vial 08/03/19 07:00 08/06/19 06:11 Novolog Vial Sliding Scale - SQ Not Given ACHS KATIA Protocol Lorazepam 0.5 mg 08/04/19 22:00 08/05/19 22:08 Ativan Injection - IVPUSH 0.5 mg BID KATIA Administration Metoprolol Succinate 50 mg 08/05/19 11:15 08/05/19 13:06 Toprol Xl - PO Not Given DAILY KATIA Metoprolol Tartrate 5 mg 08/04/19 16:00 08/06/19 04:23 Lopressor Injection - IVPUSH 5 mg Q4H KATIA Administration Multivitamins/Minerals/Vitamin C 1 tab 08/03/19 10:00 08/05/19 09:12 Tab-A-Vit - PO 1 tab DAILY KATIA Administration Nystatin 1 applic 08/03/19 17:30 08/05/19 09:12 Nystop Powder - TP 1 applic DAILY KATIA Administration Thiamine HCl 100 mg 08/03/19 10:00 08/05/19 22:10 Vitamin B1 - PO 100 mg BID KATIA Administration ASSESSMENT/PLAN: Problem List - Problems (1) CVA (cerebral vascular accident) Assessment/Plan: CVA confirmed by brain mri 08/04/19: acute right cerebral infarcts. acute non hemorrhagic infarcts noted involving the right frontal, right temporal and right insular cortices as well as the right basal ganglia. minimal periventricular chronic microvascular changes are noted. initiates stroke protocol - neuro consulted and following - asa, statin on hold pending swallow eval - physical therapy - carotid u/s Code(s): I63.9 - CEREBRAL INFARCTION, UNSPECIFIED (2) Aspiration precautions Assessment/Plan: swallow test, dysphagia assessment unable to be done prior to today as patient was lethargic and unable to follow commands, high risk for aspiration. swallow test to be done today by speech and swallow. Code(s): Z91.89 - OT PERSONAL RISK FACTORS, NOT ELSEWHERE CLASSIFIED (3) Acute metabolic encephalopathy Assessment/Plan: found to have an acute frontal stroke/right cerebral infarcts. stroke protocol initiated vitas are stable. 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 npo day #3, start clinimax Code(s): G93.41 - METABOLIC ENCEPHALOPATHY (4) A-fib Assessment/Plan: on iv lopressor and heparin drip controlled rate Code(s): I48.91 - UNSPECIFIED ATRIAL FIBRILLATION Qualifiers: Atrial fibrillation type: unspecified Qualified Code(s): I48.91 - Unspecified atrial fibrillation (5) Alcohol intoxication Assessment/Plan: hold libirum taper for increased sedation, start on ativan iv push bid for etoh w/drawal. ciwa score low. no signs of acute w/drawal. ammonia level low Code(s): F10.929 - ALCOHOL USE, UNSPECIFIED WITH INTOXICATION, UNSPECIFIED Qualifiers: Complication of substance-induced condition: uncomplicated Qualified Code(s ): F10.920 - Alcohol use, unspecified with intoxication, uncomplicated (6) Syncope and collapse Assessment/Plan: PT when more stable Code(s): R55 - SYNCOPE AND COLLAPSE (7) Prophylactic measure Assessment/Plan: on heparin drip, follow aptt full code fen start clinimax since npo day #3 monitor electrolytes including mag for a swallow eval once more stable, keep npo Code(s): Z29.9 - ENCOUNTER FOR PROPHYLACTIC MEASURES, UNSPECIFIED Visit type - Emergency Visit Emergency Visit: Yes ED Registration Date: 08/02/19 Care time: The patient presented to the Emergency Department on the above date and was hospitalized for further evaluation of their emergent condition. - New Patient This patient is new to me today: No - Critical Care Critical Care patient: No - Discharge Referral Referred to [facility] No
--- NOTE | 2019-08-06 10:20 | PN ---
Progress Note (short form) - Note Progress Note: s: confused Current Medications Generic Name Dose Route Start Last Admin Trade Name Freq PRN Reason Stop Dose Admin Diltiazem HCl 5 mg 08/03/19 00:50 Cardizem Injection - IVPUSH ONCE PRN TACHYCARDIA Folic Acid 1 mg 08/03/19 10:00 08/05/19 09:12 Folic Acid - PO 1 mg DAILY KATIA Administration Heparin Sodium (Porcine) 5,000 unit 08/04/19 19:25 Heparin - IVPUSH PRN PRN Heparin Heparin Sodium (Porcine) 1,000 unit 08/04/19 19:49 08/05/19 09:00 Heparin - IVPUSH 1,000 unit PRN PRN Administration Heparin Sodium Chloride 1,000 mls @ 100 mls/hr 08/04/19 13:15 08/05/19 22:12 Normal Saline - IV 100 mls/hr ASDIR KATIA Administration Heparin Sodium (Porcine) 25, 500 mls @ 16 mls/hr 08/04/19 19:30 08/05/19 22: 13 000 unit/ Sodium Chloride IV 900 unit/hr TITR KATIA 18 mls/hr Administration Protocol 800 UNIT/HR Amino Acids 1,000 mls @ 84 mls/hr 08/06/19 09:00 Clinimix - IV Q12H KATIA Insulin Aspart 1 vial 08/03/19 07:00 08/06/19 06:11 Novolog Vial Sliding Scale - SQ Not Given ACHS KATIA Protocol Lorazepam 0.5 mg 08/04/19 22:00 08/05/19 22:08 Ativan Injection - IVPUSH 0.5 mg BID KATIA Administration Metoprolol Succinate 50 mg 08/05/19 11:15 08/05/19 13:06 Toprol Xl - PO Not Given DAILY KATIA Metoprolol Tartrate 5 mg 08/04/19 16:00 08/06/19 08:25 Lopressor Injection - IVPUSH 5 mg Q4H KATIA Administration Multivitamins/Minerals/Vitamin C 1 tab 08/03/19 10:00 08/05/19 09:12 Tab-A-Vit - PO 1 tab DAILY KATIA Administration Nystatin 1 applic 08/03/19 17:30 08/05/19 09:12 Nystop Powder - TP 1 applic DAILY KATIA Administration Thiamine HCl 100 mg 08/03/19 10:00 08/05/19 22:10 Vitamin B1 - PO 100 mg BID KATIA Administration Vital Signs Period Temp Pulse Resp BP Sys/Lieberman Pulse Ox Last 24 Hr 97.2 F-97.4 F 97-112 18-24 133-169/87-116 99-100 2 nad no jvd irreg, tachy s1s2 no mrg cta bl confused no le e/c/c abd nt nd pos bs no jaundice diaphoresis CBC, BMP 08/06/19 05:20 08/04/19 07:48 ecgs: afib, vr 96, 100, nl qtc, no ischemic changes, old irbbb tele: afib,rates low 100s echo 07/2019: nl lv/rv, mild tr, nl rvsp a/p: 69 m hx htn, dm, here with syncope. cva: -change in mental status and mri showing acute cva -neuro following syncope: -no signs acs or chf -possibly related to etoh, possibly related to afib with rvr, ?cva related -echo benign -cont tele -check ortho vitals when able afib: -new afib with rvr here -cont tele. resume toprol 50 but has been unable to take po meds. continue iv lopressor prn. -chadsvasc warrants ac. on hep gtt -tsh wnl -echo benign htn: -monitor after starting bb
[2019-08-06] MEDS: LORazepam 2 MG/ML SDV VIAL IVPUSH SCH ×2 (11:00→21:45)
[2019-08-06] MEDS: FOLIC ACID 1 MG TABLET (FP) PO SCH (11:00)
[2019-08-06] MEDS: THIAMINE HCL 100 MG TABLET (FP) PO SCH ×2 (11:00→21:37)
[2019-08-06] MEDS: MULTIVITAMINS (DAILY MVI) TABLET (FP) PO SCH (11:00)
--- NOTE | 2019-08-06 11:06 | CONSULT ---
Admitting History and Physical - Primary Care Physician PCP: Brigido Cordoba - Admission History of Present Illness: Per EMR- 69 year old male with history of hypertension, hyperlipidemia, non-insulin dependent diabetes mellitus and alcohol abuse, presents after a syncopal episode. Patient was intoxicated on admission and started on a librium taper. He was found to have new onset afib on admission and a heparin drip was initiated. Hospitalization complicated when patient became unresponsive on and head ct showed possible acute/subacute infarct. MRI brain then confirmed acute right cerebral infarcts History Source: Medical Record Limitations to Obtaining History: Clinical Condition - Smoking History Smoking history: Never smoked - Alcohol/Substance Use Hx Alcohol Use: No History - Admission Reason For Visit: ALCOHOLIC INTOXICATION,ATRIAL FIBRILLATION,SYNCOPE - Diagnostics MRI: Report Reviewed (MRI BRAIN CLINICAL INFORMATION GIVEN: evaluate for acute infarct The exam consists of sagittal and transaxial images obtained utilizing fast spin-echo, fast spin- echo FLAIR, T2-weighted gradient-echo and diffusion weighted spin-echo echo - planar pulse sequences. Acute nonhemorrhagic infarcts are noted involving the right frontal, right temporal and right insular cortices as well as the right basal ganglia. Minimal periventricular chronic microvascular changes are noted. There is no extra-axial fluid collection. No obvious mass lesion is seen allowing for motion artifact. The ventricles and cisterns and craniocervical junction appear unremarkable. Signal void is seen within the intracranial internal carotid and vertebral arteries as well as the basilar artery consistent with vessel patency. IMPRESSION: Acute right cerebral infarcts are noted as discussed above.) - General Mental Status: Awake and Alert (not oriented), Able to Follow Commands ( intermittent, asimple one step), Vague, Confused, Flat Affect Attention: Distractible, Mild Impairment, Moderate Impairment Ability to Follow Directions: Poor Head/Neck Control: Fair - Hearing Hearing: Normal Hearing Aide: No With Patient: No Speech Evaluation - Communication Primary Language: CHILEAN Communication: Yes: Simple Responses, Dysarthria, Language Barrier Oral Expression Ability: Yes: Moderate Impairment - Speech Production Able to Make Needs Known: Yes: Moderately Impaired Intelligibility: Yes: Moderately Impaired - Speech Characteristics Voice Loudness: Mildly Soft/Quiet, Moderately Soft/Quiet Voice Pitch: Yes: Normal Voice Phonatory-based Quality: Yes: Normal Speech Pattern: Impaired Speech Clarity: < 50% Nasal Resonance: Normal Articulation: Yes: Imprecise Voice, Other Observations: Yes: Progressively Weak Voice - Language/Auditory Comprehension Observation: Able to respond to yes/no queries: No (inconsistent. unreliable), Comprehends Conversational Speech: Yes (simple, inconsistent), Benefits from Slow Speech: Yes, Benefits from Repetiton: Yes - Language/Verbal Expression Able to Respond to Simple Queries: Yes: Moderately Impaired Able to Communicate Wants and Needs: Yes: Moderately Impaired Functional Communication Status: Yes: Moderately Impaired - Swallow Evaluation/Bedside Assessment Current Nutritional Intake: NPO (since admission.), Other (accepted meds crushed in applesauce this am) Oral Secretions: Yes: Dryness, Tongue Coated Dentition: Yes: Edentulous Facial Symmetry at Rest: Facial Droop Left Jaw Position: Closed at Rest Against Resistance Opening: Weak Against Resistance Closing: Weak Pucker Lips: Weak Smile: Weak Lingual Movement: Symmetric, Apraxic, Reduced Tip Elevation, Reduced Protrusion Lingual Speed of Movement: Reduced Lingual Movement Strgth Against Opposition: Reduced Velopharyngeal Movement: Normal Laryngeal Elevation: Impaired Laryngeal Movement: Reduced Excursion, Labored,delay initiation, Reduced Velocity Rate of Intake: Slow/Holding Bolus Size: Small Labial Seal: WFL Oral Prep Time: Increased A-P Transit: Impaired Pocketing: Present Bilaterally Timing of Swallow: Delayed (absent without repeat cues to "swallow") Coughing/Throat Clear: Yes (thin liquid) Recommendations - Speech Evaluation, Impression/Plan Impression: Language barrier. Seems confused, limited language expression, dysarthria, not oriented, follows some 1 stap commands, Very delayed swallow often not triggered, cough response with water c/w aspiration, likely stasis, aspiration risk julieth wise. - Disposition Discharge to: Rehabilitation Center, Long Term Facility, To be Determined - Dysphagia Impressions/Plan Swallowing Skills: Impaired Dysphagia Impressions: Moderate Impairment, Suspect Aspiration *Silent aspiration: cannot be R/O at bedside Recommendations: Modified Barium Swallow (once improving. Tues?), Other (NGT? for meds,nutrition, hydration.) - Recommendations Diet Consistency: NPO Medication Administration: Crushed with applesauce (if neccesary but risk of stasis/aspiration) Liquids: NPO
[2019-08-06] MEDS: AMINO ACIDS 4.25%/D5W 1,000 ML IV SCH (12:00)
[2019-08-06] MEDS ORDERED: PT OWN MED DRAWER 7, Y5N ONE (13:58)
[2019-08-06] MEDS: NYSTATIN POWDER 100,000 UNITS/GM - 15 GM TOPICAL POWDER TP SCH (15:21)
[2019-08-06] MEDS: SODIUM CHLORIDE 1,000 ML IV SCH (17:42)
[2019-08-07] MEDS: AMINO ACIDS 4.25%/D5W 1,000 ML IV SCH ×3 (00:35→15:36)
[2019-08-07] MEDS: HEPARIN - 25,000 UNIT in SODIUM CHLORIDE 495 ML IV SCH (00:36)
[2019-08-07] MEDS: INSULIN SLIDING SCALE (NOVOLOG) 1 VIAL SQ SCH ×5 (00:37→22:00)
[2019-08-07] MEDS: METOPROLOL TARTRATE 5 MG/5 ML VIAL IVPUSH SCH ×7 (00:38→21:58)
[2019-08-07] MEDS ORDERED: chlordiazePOXIDE HCL 10 MG CAPSULE PO ONE (05:00)
[2019-08-07 06:38] LABS: HEMATOCRIT 39.9 % (35.4-49); HEMOGLOBIN 14.5 GM/dL (11.7-16.9); MCH 38.3 pg (25.7-33.7); MCHC 36.3 g/dl (32.0-35.9); MEAN CELL VOLUME 105.6 fl (80-96); MEAN PLT VOLUME 6.9 fl (7.5-11.1); PLATELET COUNT 189 K/MM3 (134-434); RBC 3.78 M/mm3 (4.00-5.60); RDW 14.8 % (11.9-15.9)
--- NOTE | 2019-08-07 09:32 | PN ---
Progress Note, Physician Chief Complaint: lethargic BP elevated TELE: AF - Current Medication List Current Medications: Active Medications Diltiazem HCl (Cardizem Injection -) 5 mg IVPUSH ONCE PRN PRN Reason: TACHYCARDIA Folic Acid (Folic Acid -) 1 mg PO DAILY [facility] Last Admin: 08/06/19 11:00 Dose: 1 mg Heparin Sodium (Porcine) (Heparin -) 5,000 unit IVPUSH PRN PRN PRN Reason: Heparin Heparin Sodium (Porcine) (Heparin -) 1,000 unit IVPUSH PRN PRN PRN Reason: Heparin Last Admin: 08/05/19 09:00 Dose: 1,000 unit Sodium Chloride (Normal Saline -) 1,000 mls @ 100 mls/hr IV ASDIR [facility] Last Admin: 08/06/19 17:42 Dose: Not Given Heparin Sodium (Porcine) 25, (000 unit/ Sodium Chloride) 500 mls @ 16 mls/hr IV TITR [facility]; Protocol Last Titration: 08/07/19 07:30 Dose: 0 unit/hr, 0 mls/hr Amino Acids (Clinimix -) 1,000 mls @ 84 mls/hr IV Q12H [facility] Last Admin: 08/07/19 00:35 Dose: 84 mls/hr Insulin Aspart (Novolog Vial Sliding Scale -) 1 vial SQ ACHS [facility]; Protocol Last Admin: 08/07/19 06:11 Dose: 1 unit Lorazepam (Ativan Injection -) 0.5 mg IVPUSH BID [facility] Last Admin: 08/06/19 21:45 Dose: 0.5 mg Metoprolol Succinate (Toprol Xl -) 50 mg PO DAILY [facility] Last Admin: 08/06/19 11:00 Dose: 50 mg Metoprolol Tartrate (Lopressor Injection -) 5 mg IVPUSH Q4H [facility] Last Admin: 08/07/19 08:01 Dose: Not Given Multivitamins/Minerals/Vitamin C (Tab-A-Vit -) 1 tab PO DAILY [facility] Last Admin: 08/06/19 11:00 Dose: 1 tab Nystatin (Nystop Powder -) 1 applic TP DAILY [facility] Last Admin: 08/06/19 15:21 Dose: 1 applic Thiamine HCl (Vitamin B1 -) 100 mg PO BID [facility] Last Admin: 08/06/19 21:37 Dose: Not Given - Objective Vital Signs: Vital Signs Temperature 97.6 F 08/07/19 08:00 Pulse Rate 111 H 08/07/19 08:00 Respiratory Rate 20 08/07/19 08:00 Blood Pressure 157/112 H 08/07/19 08:00 O2 Sat by Pulse Oximetry (%) 100 08/06/19 19:54 Cardiovascular: Yes: Pulse Irregular Respiratory: Yes: CTA Bilaterally Gastrointestinal: Yes: Soft (NT) Edema: No Neurological: Yes: Lethargy Labs: CBC, BMP 08/07/19 05:35 08/04/19 07:48 INR, PTT INR 1.05 (0.83-1.09) 08/02/19 20:00 Laboratory Tests 08/07/19 08/07/19 05:35 05:35 WBC 4.0 Hgb 14.5 Plt Count 189 PTT (Actin FS) 102.5 H - ....Imaging EKG: Image Reviewed Assessment/Plan cgs: afib, vr 96, 100, nl qtc, no ischemic changes, old irbbb tele: afib,rates low 100s echo 07/2019: nl lv/rv, mild tr, nl rvsp a/p: 69 m hx htn, dm, here with syncope. cva: -change in mental status and mri showing acute cva -neuro following syncope: -no signs acs or chf -possibly related to etoh, possibly related to afib with rvr, ?cva related -echo benign -cont tele -check ortho vitals when able afib: -new afib with rvr here -cont tele. resume toprol 50 but has been unable to take po meds. continue iv lopressor prn. -chadsvasc warrants ac. on hep gtt -tsh wnl -echo benign htn:elevated -monitor after starting bb -BP parameters as per Neuro and Critical Care team
--- NOTE | 2019-08-07 10:02 | PN ---
Physical Exam: SUBJECTIVE: Patient seen and examined, eyes open,moving, speech garbled. OBJECTIVE: Patient is a 69 year old male with history of hypertension, hyperlipidemia, non- insulin dependent diabetes mellitus and alcohol abuse, presents after a syncopal episode. Patient was intoxicated on admission and started on a librium taper. He was found to have new onset afib on admission and a heparin drip was initiated. Hospitalization complicated when patient became unresponsive on 08/04/[address] showed possible acute/subacute infarct. MRI brain then confirmed acute right cerebral infarcts. neuro consulted and following. per stroke protocol ordered: carotid u/s, speech and swallow, physical therapy, will order asa and stains after speech/swallow test results. monitor on tele. currently shows irregular heart rate 100s. patient is on a heparin drip and NPO on clinimax. bp elevated 174/111, on lopressor q4 iv push. Vital Signs Period Temp Pulse Resp BP Sys/Lieberman Pulse Ox Last 24 Hr 97.4 F-97.8 F 96-111 20-20 111-160/78-112 100-100 GENERAL: awake, alert. eyes opening spontaneoulsy. garbled speech, says last name, smile is mostly equal-slight left facial droop HEAD: Normal with no signs of trauma. EYES: patient opens eyes spontaneously, attempts to talk, garbled ENT: Ears normal, nares patent, oropharynx clear without exudates, moist mucous membranes. NECK: Trachea midline, full range of motion, supple. LUNGS: diminished, bilaterally HEART: irregular 100s ABDOMEN: Soft, nontender, nondistended, normoactive bowel sounds EXTREMITIES: no edema. NEUROLOGICAL: more awake, moving all extremities. does not follow commands. confused, episodes of agitation. fall risk. Laboratory Results - last 24 hr 08/06/19 08/06/19 08/07/19 12:37 17:09 00:12 WBC RBC Hgb Hct MCV MCH MCHC RDW Plt Count MPV PTT (Actin FS) POC Glucometer 136 166 209 08/07/19 08/07/19 08/07/19 05:35 05:35 05:43 WBC 4.0 RBC 3.78 L Hgb 14.5 Hct 39.9 MCV 105.6 H MCH 38.3 H MCHC 36.3 H RDW 14.8 Plt Count 189 MPV 6.9 L PTT (Actin FS) 102.5 H POC Glucometer 182 Active Medications Generic Name Dose Route Start Last Admin Trade Name Freq PRN Reason Stop Dose Admin Diltiazem HCl 5 mg 08/03/19 00:50 Cardizem Injection - IVPUSH ONCE PRN TACHYCARDIA Folic Acid 1 mg 08/03/19 10:00 08/06/19 11:00 Folic Acid - PO 1 mg DAILY KATIA Administration Heparin Sodium (Porcine) 5,000 unit 08/04/19 19:25 Heparin - IVPUSH PRN PRN Heparin Heparin Sodium (Porcine) 1,000 unit 08/04/19 19:49 08/05/19 09:00 Heparin - IVPUSH 1,000 unit PRN PRN Administration Heparin Sodium Chloride 1,000 mls @ 100 mls/hr 08/04/19 13:15 08/06/19 17:42 Normal Saline - IV Not Given ASDIR KATIA Heparin Sodium (Porcine) 25, 500 mls @ 16 mls/hr 08/04/19 19:30 08/07/19 08: 30 000 unit/ Sodium Chloride IV 750 unit/hr TITR KATIA 15 mls/hr Titration Protocol 800 UNIT/HR Amino Acids 1,000 mls @ 84 mls/hr 08/06/19 09:00 08/07/19 09:00 Clinimix - IV Not Given Q12H KATIA Insulin Aspart 1 vial 08/03/19 07:00 08/07/19 06:11 Novolog Vial Sliding Scale - SQ 1 unit ACHS KATIA Administration Protocol Lorazepam 0.5 mg 08/04/19 22:00 08/06/19 21:45 Ativan Injection - IVPUSH 0.5 mg BID KATIA Administration Metoprolol Succinate 50 mg 08/05/19 11:15 08/06/19 11:00 Toprol Xl - PO 50 mg DAILY KATIA Administration Metoprolol Tartrate 5 mg 08/04/19 16:00 08/07/19 08:01 Lopressor Injection - IVPUSH Not Given Q4H KATIA Multivitamins/Minerals/Vitamin C 1 tab 08/03/19 10:00 08/06/19 11:00 Tab-A-Vit - PO 1 tab DAILY KATIA Administration Nystatin 1 applic 08/03/19 17:30 08/06/19 15:21 Nystop Powder - TP 1 applic DAILY KATIA Administration Thiamine HCl 100 mg 08/03/19 10:00 08/06/19 21:37 Vitamin B1 - PO Not Given BID KATIA ASSESSMENT/PLAN: Problem List - Problems (1) CVA (cerebral vascular accident) Assessment/Plan: CVA confirmed by brain mri 08/04/19: acute right cerebral infarcts. acute non hemorrhagic infarcts noted involving the right frontal, right temporal and right insular cortices as well as the right basal ganglia. minimal periventricular chronic microvascular changes are noted. initiated stroke protocol - neuro consulted and following - asa, statin on hold, patient with poor swallowing at this time, aspiration risk. hold all PO meds. - physical therapy - carotid u/s pending official read. Code(s): I63.9 - CEREBRAL INFARCTION, UNSPECIFIED (2) Aspiration precautions Assessment/Plan: swallow test to be repeated. Code(s): Z91.89 - OTH PERSONAL RISK FACTORS, NOT ELSEWHERE CLASSIFIED (3) Acute metabolic encephalopathy Assessment/Plan: found to have an acute frontal stroke/right cerebral infarcts. stroke protocol initiated vitas are stable. cardiac surgeon: irregular 100s blood sugar 140s. npo day #4, on clinimax Code(s): G93.41 - METABOLIC ENCEPHALOPATHY (4) A-fib Assessment/Plan: on iv lopressor and heparin drip controlled rate Code(s): I48.91 - UNSPECIFIED ATRIAL FIBRILLATION Qualifiers: Atrial fibrillation type: unspecified Qualified Code(s): I48.91 - Unspecified atrial fibrillation (5) Alcohol intoxication Assessment/Plan: hold libirum taper for increased sedation, start on ativan iv push bid for etoh w/drawal. ciwa score low. no signs of acute w/drawal. ammonia level low Code(s): F10.929 - ALCOHOL USE, UNSPECIFIED WITH INTOXICATION, UNSPECIFIED Qualifiers: Complication of substance-induced condition: uncomplicated Qualified Code(s ): F10.920 - Alcohol use, unspecified with intoxication, uncomplicated (6) Syncope and collapse Assessment/Plan: PT when more stable Code(s): R55 - SYNCOPE AND COLLAPSE (7) Prophylactic measure Assessment/Plan: on heparin drip, follow aptt full code fen start clinimax since npo day #4 monitor electrolytes including mag for a swallow eval once more stable, keep npo Code(s): Z29.9 - ENCOUNTER FOR PROPHYLACTIC MEASURES, UNSPECIFIED Visit type - Emergency Visit Emergency Visit: Yes ED Registration Date: 08/02/19 Care time: The patient presented to the Emergency Department on the above date and was hospitalized for further evaluation of their emergent condition. - New Patient This patient is new to me today: No - Critical Care Critical Care patient: No - Discharge Referral Referred to [facility] No
[2019-08-07] MEDS: FOLIC ACID 1 MG TABLET (FP) PO SCH (10:07)
[2019-08-07] MEDS: NYSTATIN POWDER 100,000 UNITS/GM - 15 GM TOPICAL POWDER TP SCH (10:08)
[2019-08-07] MEDS: MULTIVITAMINS (DAILY MVI) TABLET (FP) PO SCH (10:08)
[2019-08-07] MEDS: THIAMINE HCL 100 MG TABLET (FP) PO SCH ×2 (10:08→22:00)
[2019-08-07] MEDS: LORazepam 2 MG/ML SDV VIAL IVPUSH SCH ×2 (10:10→22:00)
[2019-08-07] MEDS: SODIUM CHLORIDE 1,000 ML IV SCH (13:15)
[2019-08-07] MEDS ORDERED: MULTIVIT INJECTION ADULT 10 ML in AMINO ACIDS 4.25%/D5W 1,000 ML IV SCH (14:00)
[2019-08-07] MEDS ORDERED: PT OWN MED DRAWER 7, Y5N ONE ×2 (15:28→15:29)
[2019-08-07] MEDS: MULTIVIT INJ. ADULT COMBO WITH VIT K 1 COMBO 10 ML VIAL IV SCH (15:35)
--- NOTE | 2019-08-07 16:20 | CONSULT ---
- Consultation REQUESTING PROVIDER: CONSULT REQUEST: We have been asked to surgically evaluate this patient for carotid stenosis. PCP:Brigido Cordoba NP HISTORY OF PRESENT ILLNESS: 69 y/o M w/ PMHx HTN, HLD, NIDDM admitted after a syncopal episode on 08/02/19. Pt is confused per RN, during evaluation does not open eyes or speak (despite use of soft iron inspector). Per EMR pt was intoxicated upon initial presentation. Pt was noted to lose consciousness for approx 5mins. Now with apparent L sided weakness per notes. Per EMR, pt denies prior cardiac history, or workup. Has not followed up with primary care provider in several years, and has history of alcohol use disorder. In ED pt noted to be in Afib with MRI + acute stroke, branch R MCA infarcts. PMHx: as above PSHx: unknown Home Medications Medication Instructions Recorded Unobtainable 08/03/19 Allergies Allergy/AdvReac Type Severity Reaction Status Date / Time No Known Allergies Allergy Verified 08/02/19 19:37 REVIEW OF SYSTEMS: unable to obtain PHYSICAL EXAM: GENERAL: Sleepy, does not open eyes to questioning or name. NAD HEAD: Normal with no signs of trauma. Neuro: Pt does not open eyes or respond to name or questioning. Slightly moves/ squeezes UE's R>L, B/L le's respond to noxious stimuli R>L Vital Signs Temperature 97.8 F 08/07/19 14:00 Pulse Rate 116 H 08/07/19 14:00 Respiratory Rate 20 08/07/19 14:00 Blood Pressure 145/104 H 08/07/19 14:00 O2 Sat by Pulse Oximetry (%) 100 08/06/19 19:54 Lab Results WBC 4.0 K/mm3 (4.0-10.0) 08/07/19 05:35 RBC 3.78 M/mm3 (4.00-5.60) L 08/07/19 05:35 Hgb 14.5 GM/dL (11.7-16.9) 08/07/19 05:35 Hct 39.9 % (35.4-49) 08/07/19 05:35 MCV 105.6 fl (80-96) H 08/07/19 05:35 MCHC 36.3 g/dl (32.0-35.9) H 08/07/19 05:35 RDW 14.8 % (11.9-15.9) 08/07/19 05:35 Plt Count 189 K/MM3 (134-434) 08/07/19 05:35 Sodium 134 mmol/L (136-145) L 08/04/19 07:48 Potassium 3.9 mmol/L (3.5-5.1) 08/04/19 07:48 Chloride 101 mmol/L (98-107) 08/04/19 07:48 Carbon Dioxide 23 mmol/L (21-32) 08/04/19 07:48 Anion Gap 9 MMOL/L (8-16) 08/04/19 07:48 BUN 12.0 mg/dL (7-18) 08/04/19 07:48 Creatinine 0.7 mg/dL (0.55-1.3) 08/04/19 07:48 Random Glucose 149 mg/dL (74-106) H 08/04/19 07:48 Calcium 8.8 mg/dL (8.5-10.1) 08/04/19 07:48 INR 1.05 (0.83-1.09) 08/02/19 20:00 MRI Brain (08/04/19): Acute nonhemorrhagic infarcts are noted involving the right frontal, right temporal and right insular cortices as well as the right basal ganglia. Carotid Duplex (08/05/19): Moderate plaque seen within the carotid bulbs bilaterally and extending into the right ICA. Extensive plaque within the left carotid bulb. The vertebral arteries demonstrate normal antegrade flow. The external carotid arteries are patent. Peak systolic velocities: R CCA=76cm/s, R ICA= 74cm/s, right ica/cca ratio= 1.0. Left cca 81 cm/s, L ICA 258 cm/s, Left ICA/CCA ratio 3.2 A/P: 69 y/o M w/ PMHx HTN, HLD, NIDDM admitted after a syncopal episode on 08/02. In ED pt noted to be in Afib with MRI + acute stroke, branch R MCA infarcts. Carotid duplex reviewed with attending. R ICA without significant stenosis on duplex (R MCA CVA on MRI), L ICA with approx 60% stenosis. No acute vascular intervention at this time. Recommend ASA/Statin if no contraindications Pt should f/u in clinic with Dr Adams in 6 months for surveillance carotid duplex d/w attending Dr Adams
--- NOTE | 2019-08-07 18:40 | PN ---
Progress Note (short form) - Note Progress Note: 69 year old male with history of hypertension, hyperlipidemia, non-insulin dependent diabetes mellitus, presents after a syncopal episode on 08/02/19. 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 5 minutes, however he denies this upon my encounter. Denies bowel or bladder incontinence. Currently patient denies chest pain, and only endorses left shoulder pain and headache. He denies prior cardiac history, or workup. Reported that patient has not followed up with primary care provider in several years, and has history of alcohol use disorder. Events noted , found to be in Afib , also ? left sided weakness and MRI + acute stroke, branch MCA infarcts. PT sleepy this AM , not answering questions FU : sleepy and limited following commands, left hemiparesis continues on AC Studies: Doppeler high grade stenosis L ICA MRI BRAIN CLINICAL INFORMATION GIVEN: evaluate for acute infarct The exam consists of sagittal and transaxial images obtained utilizing fast spin-echo, fast spin- echo FLAIR, T2-weighted gradient-echo and diffusion weighted spin-echo echo - planar pulse sequences. Acute nonhemorrhagic infarcts are noted involving the right frontal, right temporal and right insular cortices as well as the right basal ganglia. Minimal periventricular chronic microvascular changes are noted. There is no extra-axial fluid collection. No obvious mass lesion is seen allowing for motion artifact. The ventricles and cisterns and craniocervical junction appear unremarkable. Signal void is seen within the intracranial internal carotid and vertebral arteries as well as the basilar artery consistent with vessel patency. IMPRESSION: Acute right cerebral infarcts are noted as discussed above. - Alcohol/Substance Use Hx Alcohol Use: No - Smoking History Smoking history: Never smoked Home Medications - Allergies Allergies/Adverse Reactions: Allergies Allergy/AdvReac Type Severity Reaction Status Date / Time No Known Allergies Allergy Verified 08/02/19 19:37 - Home Medications Home Medications: Ambulatory Orders Unobtainable 08/03/19 Physical Exam-Neuro Vital Signs: Vital Signs Temperature 98.6 F 08/07/19 18:00 Pulse Rate 102 H 08/07/19 18:00 Respiratory Rate 22 H 08/07/19 18:00 Blood Pressure 135/86 08/07/19 18:00 O2 Sat by Pulse Oximetry (%) 100 08/06/19 19:54 Labs: CBCD WBC 4.0 K/mm3 (4.0-10.0) 08/07/19 05:35 RBC 3.78 M/mm3 (4.00-5.60) L 08/07/19 05:35 Hgb 14.5 GM/dL (11.7-16.9) 08/07/19 05:35 Hct 39.9 % (35.4-49) 08/07/19 05:35 MCV 105.6 fl (80-96) H 08/07/19 05:35 MCHC 36.3 g/dl (32.0-35.9) H 08/07/19 05:35 RDW 14.8 % (11.9-15.9) 08/07/19 05:35 Plt Count 189 K/MM3 (134-434) 08/07/19 05:35 MPV 6.9 fl (7.5-11.1) L 08/07/19 05:35 CMP Sodium 134 mmol/L (136-145) L 08/04/19 07:48 Potassium 3.9 mmol/L (3.5-5.1) 08/04/19 07:48 Chloride 101 mmol/L (98-107) 08/04/19 07:48 Carbon Dioxide 23 mmol/L (21-32) 08/04/19 07:48 Anion Gap 9 MMOL/L (8-16) 08/04/19 07:48 BUN 12.0 mg/dL (7-18) 08/04/19 07:48 Creatinine 0.7 mg/dL (0.55-1.3) 08/04/19 07:48 Calcium 8.8 mg/dL (8.5-10.1) 08/04/19 07:48 Total Bilirubin 1.9 mg/dL (0.2-1) H 08/04/19 07:48 AST 20 U/L (15-37) 08/04/19 07:48 ALT 15 U/L (13-61) 08/04/19 07:48 Alkaline Phosphatase 146 U/L (45-117) H 08/04/19 07:48 Total Protein 6.6 g/dl (6.4-8.2) 08/04/19 07:48 Albumin 3.0 g/dl (3.4-5.0) L 08/04/19 07:48 - Neuro Exam Level Of Consciousness: Yes: Sedated (eyes closed, nonverbal, eyes forced shut, left hemiparesis , ) Imaging - Results Cat Scan: Report Reviewed, Image Reviewed MRI: Report Reviewed, Image Reviewed Problem List - Problems (1) A-fib Code(s): I48.91 - UNSPECIFIED ATRIAL FIBRILLATION Qualifiers: Atrial fibrillation type: unspecified Qualified Code(s): I48.91 - Unspecified atrial fibrillation (2) Acute metabolic encephalopathy Code(s): G93.41 - METABOLIC ENCEPHALOPATHY (3) Alcohol intoxication Code(s): F10.929 - ALCOHOL USE, UNSPECIFIED WITH INTOXICATION, UNSPECIFIED Qualifiers: Complication of substance-induced condition: uncomplicated Qualified Code(s ): F10.920 - Alcohol use, unspecified with intoxication, uncomplicated (4) CVA (cerebral vascular accident) Code(s): I63.9 - CEREBRAL INFARCTION, UNSPECIFIED (5) Syncope and collapse Code(s): R55 - SYNCOPE AND COLLAPSE Assessment/Plan 69 year old male with history of hypertension, hyperlipidemia, non-insulin dependent diabetes mellitus, presents after a syncopal episode on 08/02/19. 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 5 minutes, however he denies this upon my encounter. Denies bowel or bladder incontinence. Currently patient denies chest pain, and only endorses left shoulder pain and headache. He denies prior cardiac history, or workup. Reported that patient has not followed up with primary care provider in several years, and has history of alcohol use disorder. Events noted , found to be in Afib , also ? left sided weakness and MRI + acute stroke, branch MCA infarcts. MRI BRAIN CLINICAL INFORMATION GIVEN: evaluate for acute infarct The exam consists of sagittal and transaxial images obtained utilizing fast spin-echo, fast spin- echo FLAIR, T2-weighted gradient-echo and diffusion weighted spin-echo echo - planar pulse sequences. Acute nonhemorrhagic infarcts are noted involving the right frontal, right temporal and right insular cortices as well as the right basal ganglia. Minimal periventricular chronic microvascular changes are noted. There is no extra-axial fluid collection. No obvious mass lesion is seen allowing for motion artifact. The ventricles and cisterns and craniocervical junction appear unremarkable. Signal void is seen within the intracranial internal carotid and vertebral arteries as well as the basilar artery consistent with vessel patency. IMPRESSION: Acute right cerebral infarcts are noted as discussed above. AP : HX of DM/hypertension, ETOH, found to be in AFib and with acute R MCA strokes--embolic in nature ; also + left carotid disease-high grade stenosis (though this is not the culprit in his acute stroke) , FU vascular eval /rec --please add statin cont HEPARIN DRIP (no loading dose) for AFIB , though long-term compliance with AC may be an issue -- check HD CT cont ativan, B12, folate may need PEG tube /Speech /swallow eval DR DANIELLE Problem List - Problems (1) A-fib Code(s): I48.91 - UNSPECIFIED ATRIAL FIBRILLATION Qualifiers: Atrial fibrillation type: unspecified Qualified Code(s): I48.91 - Unspecified atrial fibrillation (2) Acute metabolic encephalopathy Code(s): G93.41 - METABOLIC ENCEPHALOPATHY (3) Alcohol intoxication Code(s): F10.929 - ALCOHOL USE, UNSPECIFIED WITH INTOXICATION, UNSPECIFIED Qualifiers: Complication of substance-induced condition: uncomplicated Qualified Code(s ): F10.920 - Alcohol use, unspecified with intoxication, uncomplicated (4) CVA (cerebral vascular accident) Code(s): I63.9 - CEREBRAL INFARCTION, UNSPECIFIED (5) Syncope and collapse Code(s): R55 - SYNCOPE AND COLLAPSE
[2019-08-07] MEDS ORDERED: FAT EMULSIONS 20% 250 ML PREMIX INFUS.BAG IV SCH (22:00)
[2019-08-07] MEDS ORDERED: FAT EMULSIONS 250 ML IV SCH (22:00)
[2019-08-07 22:09] LABS: ALBUMIN 2.3 g/dl (3.4-5.0); BILIRUBIN,TOTAL 1.1 mg/dL (0.2-1); BLOOD UREA NITROGEN 14.8 mg/dL (7-18); CALCIUM 8.1 mg/dL (8.5-10.1); CREATININE 0.6 mg/dL (0.55-1.3); POTASSIUM 3.1 mmol/L (3.5-5.1); TOT PROT 5.5 g/dl (6.4-8.2)
[2019-08-08] MEDS: HEPARIN - 25,000 UNIT in SODIUM CHLORIDE 495 ML IV SCH ×3 (00:02→20:39)
[2019-08-08] MEDS: METOPROLOL TARTRATE 5 MG/5 ML VIAL IVPUSH SCH ×6 (01:30→22:06)
[2019-08-08] MEDS ORDERED: PT OWN MED DRAWER 7, Y5N ONE ×3 (02:56→22:05)
[2019-08-08] MEDS: AMINO ACIDS 4.25%/D5W 1,000 ML IV SCH ×2 (03:02→14:59)
[2019-08-08] MEDS: INSULIN SLIDING SCALE (NOVOLOG) 1 VIAL SQ SCH ×4 (06:07→21:58)
[2019-08-08 07:11] LABS: BASO % 0.7 % (0-2.0); EOS % 2.5 % (0-4.5); HEMATOCRIT 39.6 % (35.4-49); HEMOGLOBIN 14.3 GM/dL (11.7-16.9); LYMPH % 19.3 % (8-40); MCH 37.6 pg (25.7-33.7); MCHC 36.2 g/dl (32.0-35.9); MEAN CELL VOLUME 103.9 fl (80-96); MEAN PLT VOLUME 6.9 fl (7.5-11.1); MONO % 9.9 % (3.8-10.2); NEUT % 67.6 % (42.8-82.8); PLATELET COUNT 190 K/MM3 (134-434); RBC 3.81 M/mm3 (4.00-5.60); RDW 14.3 % (11.9-15.9); WHITE BLOOD COUNT 4.6 K/mm3 (4.0-10.0)
--- NOTE | 2019-08-08 07:39 | PN ---
Progress Note, Physician History of Present Illness: Patient is a 69 year old male with history of hypertension, hyperlipidemia, non- insulin dependent diabetes mellitus and alcohol abuse, presents after a syncopal episode. Patient was intoxicated on admission and started on a librium taper. He was found to have new onset afib on admission and a heparin drip was initiated. Hospitalization complicated when patient became unresponsive on 08/04/19 MRI brain then confirmed acute right cerebral infarcts. neuro consulted and following. - Current Medication List Current Medications: Active Medications Diltiazem HCl (Cardizem Injection -) 5 mg IVPUSH ONCE PRN PRN Reason: TACHYCARDIA Last Admin: 08/07/19 14:06 Dose: 5 mg Folic Acid (Folic Acid -) 1 mg PO DAILY KATIA Last Admin: 08/07/19 10:07 Dose: Not Given Heparin Sodium (Porcine) (Heparin -) 5,000 unit IVPUSH PRN PRN PRN Reason: Heparin Heparin Sodium (Porcine) (Heparin -) 1,000 unit IVPUSH PRN PRN PRN Reason: Heparin Last Admin: 08/05/19 09:00 Dose: 1,000 unit Sodium Chloride (Normal Saline -) 1,000 mls @ 100 mls/hr IV ASDIR KATIA Last Admin: 08/07/19 13:15 Dose: Not Given Heparin Sodium (Porcine) 25, (000 unit/ Sodium Chloride) 500 mls @ 16 mls/hr IV TITR KATIA; Protocol Last Admin: 08/08/19 00:02 Dose: Not Given Amino Acids (Clinimix -) 1,000 mls @ 84 mls/hr IV Q12H KATIA Last Admin: 08/08/19 03:02 Dose: 84 mls/hr Fat Emulsion Intravenous (Intralipid -) 250 mls @ 20.833 mls/hr IV DAILY@2200 KATIA Last Admin: 08/07/19 22:00 Dose: 20.833 mls/hr Insulin Aspart (Novolog Vial Sliding Scale -) 1 vial SQ ACHS KATIA; Protocol Last Admin: 08/08/19 06:07 Dose: 2 unit Lorazepam (Ativan Injection -) 0.5 mg IVPUSH BID [facility] Last Admin: 08/07/19 22:00 Dose: 0.5 mg Metoprolol Tartrate (Lopressor Injection -) 5 mg IVPUSH Q4H KATIA Last Admin: 08/08/19 06:06 Dose: 5 mg Multivitamins/Minerals (Infuvite Adult -) 10 ml IV Q24H [facility] Last Admin: 08/07/19 15:35 Dose: 10 ml Nystatin (Nystop Powder -) 1 applic TP DAILY [facility] Last Admin: 08/07/19 10:08 Dose: 1 applic Thiamine HCl (Vitamin B1 -) 100 mg PO BID [facility] Last Admin: 08/07/19 22:00 Dose: Not Given - Objective Vital Signs: Vital Signs Temperature 98.2 F 08/08/19 05:35 Pulse Rate 106 H 08/08/19 06:06 Respiratory Rate 22 H 08/08/19 05:35 Blood Pressure 139/86 08/08/19 06:06 O2 Sat by Pulse Oximetry (%) 99 08/07/19 20:38 Constitutional: Yes: Well Nourished, No Distress, Calm Eyes: Yes: WNL, Conjunctiva Clear HENT: Yes: WNL, Atraumatic, Normocephalic Neck: Yes: WNL, Supple, Trachea Midline Cardiovascular: Yes: WNL, Regular Rate and Rhythm Respiratory: Yes: WNL, Regular, CTA Bilaterally Gastrointestinal: Yes: WNL, Normal Bowel Sounds ...Rectal Exam: Yes: Deferred Genitourinary: Yes: WNL Breast(s): Yes: WNL Musculoskeletal: Yes: Muscle Weakness (left UE/LE), Other Extremities: Yes: WNL Edema: No Peripheral Pulses WNL: Yes Peripheral Pulses: Left Radial: 2+, Right Radial: 2+, Left Doralis Pedis: 2+, Right Dorsalis Pedis: 2+, Left Femoral: 2+, Right Femoral: 2+ Integumentary: Yes: WNL Neurological: Yes: Aphasia, Weakness (left UE/LE) ...Motor Strength: LUE, LLE (4/5) Psychiatric: Yes: Alert (resposive to verbal stimuli) Labs: CBC, BMP 08/08/19 06:13 08/07/19 20:45 INR, PTT INR 1.05 (0.83-1.09) 08/02/19 20:00 - ....Imaging Cat Scan: Pending (HCT) Ultrasound: Report Reviewed (carotid u/s with extensive left carotid stenosis) MRI: Report Reviewed (CLINICAL INFORMATION GIVEN: evaluate for acute infarct The exam consists of sagittal and transaxial images obtained utilizing fast spin -echo, fast spin- echo FLAIR, T2-weighted gradient-echo and diffusion weighted spin-echo echo - planar pulse sequences. Acute nonhemorrhagic infarcts are noted involving the right frontal, right temporal and right insular cortices as well as the right basal ganglia. Minimal periventricular chronic microvascular changes are noted. There is no extra-axial fluid collection. No obvious mass lesion is seen allowing for motion artifact. The ventricles and cisterns and craniocervical junction appear unremarkable. Signal void is seen within the intracranial internal carotid and vertebral arteries as well as the basilar artery consistent with vessel patency. IMPRESSION: Acute right cerebral infarcts are noted as discussed above.) Problem List - Problems (1) Carotid stenosis, left Assessment/Plan: No acute vascular intervention at this time. ASA/Statin when NGT is in Pt should f/u in clinic with Dr Adams in 6 months for surveillance carotid duplex Code(s): I65.22 - OCCLUSION AND STENOSIS OF LEFT CAROTID ARTERY (2) Malnutrition Assessment/Plan: c/w clinimix with lipids Ft to be placed GI to evaluate for PEG will start TF when FT placement confirmed Code(s): E46 - UNSPECIFIED PROTEIN-CALORIE MALNUTRITION (3) A-fib Assessment/Plan: new afib with RVR-HR 100s c/w resume toprol when able to take PO meds c/w IV metorprool c/w heparin gtt, continue until able to start coumadin TTE benign appreciate cardiology consultation Code(s): I48.91 - UNSPECIFIED ATRIAL FIBRILLATION Qualifiers: Atrial fibrillation type: unspecified Qualified Code(s): I48.91 - Unspecified atrial fibrillation (4) Acute metabolic encephalopathy Assessment/Plan: new acute frontal stroke/right cerebral infarcts. neurology following Non contrast HCT pending Code(s): G93.41 - METABOLIC ENCEPHALOPATHY (5) Alcohol intoxication Assessment/Plan: no s/y of active withdrawal c/w ativan holding for excessive sedation c/w MVI,thaimine,folate Code(s): F10.929 - ALCOHOL USE, UNSPECIFIED WITH INTOXICATION, UNSPECIFIED Qualifiers: Complication of substance-induced condition: uncomplicated Qualified Code(s ): F10.920 - Alcohol use, unspecified with intoxication, uncomplicated (6) Aspiration precautions Code(s): Z91.89 - OTH PERSONAL RISK FACTORS, NOT ELSEWHERE CLASSIFIED (7) CVA (cerebral vascular accident) Assessment/Plan: CVA confirmed by brain mri 08/04/19: acute right cerebral infarcts. acute non hemorrhagic infarcts noted involving the right frontal, right temporal and right insular cortices as well as the right basal ganglia. minimal periventricular chronic microvascular changes are noted. initiated stroke protocol appreciate consultation with Dr King repeat HCT pending c/w physical therapy carotid u/s with stenosis-seen by vascular and no intervention at this time Code(s): I63.9 - CEREBRAL INFARCTION, UNSPECIFIED (8) Prophylactic measure Assessment/Plan: FEN c/w clinimix, lipids monitor electrolytres place FT when available DVT c/w heparin gtt until able to start coumadin Dispo maintain on tele full code discharge planning-spoke with SW regarding placement Code(s): Z29.9 - ENCOUNTER FOR PROPHYLACTIC MEASURES, UNSPECIFIED (9) Syncope and collapse Code(s): R55 - SYNCOPE AND COLLAPSE (10) HTN (hypertension) Assessment/Plan: hydralazine IV started to maintain SBP <150 Code(s): I10 - ESSENTIAL (PRIMARY) HYPERTENSION (11) HLD (hyperlipidemia) Assessment/Plan: start statin when FT placed Code(s): E78.5 - HYPERLIPIDEMIA, UNSPECIFIED (12) Non-insulin dependent type 2 diabetes mellitus Assessment/Plan: BGM with novlog sliding scale Code(s): E11.9 - TYPE 2 DIABETES MELLITUS WITHOUT COMPLICATIONS (13) Dysphagia Assessment/Plan: seen by SHIPPING AND RECEIVING ASSISTANT- patient with poor swallowing at this time, aspiration risk. hold all PO meds. will place FT when available c/w climix/lipids Dr Oswald to evaluate pt for PEG in am Code(s): R13.10 - DYSPHAGIA, UNSPECIFIED Visit type - Emergency Visit Emergency Visit: Yes ED Registration Date: 08/02/19 Care time: The patient presented to the Emergency Department on the above date and was hospitalized for further evaluation of their emergent condition. - New Patient This patient is new to me today: Yes Date on this admission: 08/08/19 - Critical Care Critical Care patient: No - Discharge Referral Referred to [facility] No
[2019-08-08] MEDS: LORazepam 2 MG/ML SDV VIAL IVPUSH SCH ×2 (09:20→21:47)
[2019-08-08] MEDS: FOLIC ACID 1 MG TABLET (FP) PO SCH (09:21)
[2019-08-08] MEDS: THIAMINE HCL 100 MG TABLET (FP) PO SCH (09:21)
[2019-08-08] MEDS: NYSTATIN POWDER 100,000 UNITS/GM - 15 GM TOPICAL POWDER TP SCH (09:22)
--- NOTE | 2019-08-08 10:13 | PN ---
Progress Note, FIELD ASSESSOR - Note Progress Note: Selected Entries 08/06/19 08/06/19 08/06/19 02:00 06:37 09:36 Breakfast Temperature 97.2 F L 97.4 F L 97.4 F L 08/06/19 08/06/19 08/07/19 14:00 18:00 02:00 Breakfast Temperature 97.8 F 97.4 F L 97.5 F L 08/07/19 08/07/19 08/07/19 08:00 12:00 14:00 Breakfast NPO Temperature 97.6 F 97.8 F 97.8 F 08/07/19 08/07/19 08/08/19 18:00 22:00 02:00 Breakfast Temperature 98.6 F 98.0 F 98.4 F 08/08/19 05:35 Breakfast Temperature 98.2 F Laboratory Tests 08/07/19 08/08/19 05:35 06:13 WBC 4.0 4.6 Pt lethargic, unable to arouse sufficiently for PO trials. Unable to accept PO meds. Pt received Ativan daily, held today. SW note to discharge home per family. Pt presently is lethargic but when alert on Wednesday, he was poorly communicative and with high risk of aspiration. Prognosis? Suggest- Strict NPO NGT for meds, nutrition, hydratrion Discuss pt's wishes with HCP?
--- NOTE | 2019-08-08 10:42 | PN ---
Progress Note (short form) - Note Progress Note: s: lethargic, not answering questions. appears comfortable Current Medications Diltiazem HCl (Cardizem Injection -) 5 mg IVPUSH ONCE PRN PRN Reason: TACHYCARDIA Last Admin: 08/07/19 14:06 Dose: 5 mg Folic Acid (Folic Acid -) 1 mg PO DAILY KATIA Last Admin: 08/08/19 09:21 Dose: Not Given Heparin Sodium (Porcine) (Heparin -) 5,000 unit IVPUSH PRN PRN PRN Reason: Heparin Heparin Sodium (Porcine) (Heparin -) 1,000 unit IVPUSH PRN PRN PRN Reason: Heparin Last Admin: 08/05/19 09:00 Dose: 1,000 unit Sodium Chloride (Normal Saline -) 1,000 mls @ 100 mls/hr IV ASDIR KATIA Last Admin: 08/07/19 13:15 Dose: Not Given Heparin Sodium (Porcine) 25, (000 unit/ Sodium Chloride) 500 mls @ 16 mls/hr IV TITR KATIA; Protocol Last Titration: 08/08/19 09:27 Dose: 800 unit/hr, 16 mls/hr Amino Acids (Clinimix -) 1,000 mls @ 84 mls/hr IV Q12H [facility] Last Admin: 08/08/19 03:02 Dose: 84 mls/hr Fat Emulsion Intravenous (Intralipid -) 250 mls @ 20.833 mls/hr IV DAILY@2200 KATIA Last Admin: 08/07/19 22:00 Dose: 20.833 mls/hr Insulin Aspart (Novolog Vial Sliding Scale -) 1 vial SQ ACHS KATIA; Protocol Last Admin: 08/08/19 06:07 Dose: 2 unit Lorazepam (Ativan Injection -) 0.5 mg IVPUSH BID [facility] Last Admin: 08/08/19 09:20 Dose: Not Given Metoprolol Tartrate (Lopressor Injection -) 5 mg IVPUSH Q4H [facility] Last Admin: 08/08/19 09:19 Dose: 5 mg Multivitamins/Minerals (Infuvite Adult -) 10 ml IV Q24H [facility] Last Admin: 08/07/19 15:35 Dose: 10 ml Nystatin (Nystop Powder -) 1 applic TP DAILY [facility] Last Admin: 08/08/19 09:22 Dose: 1 applic Thiamine HCl (Vitamin B1 -) 100 mg PO BID [facility] Last Admin: 08/08/19 09:21 Dose: Not Given Vital Signs Period Temp Pulse Resp BP Sys/Lieberman Pulse Ox Last 24 Hr 97.6 F-98.6 F 102-122 18-22 124-168/77-117 99-99 Cardiovascular: Yes: Pulse Irregular Respiratory: Yes: CTA Bilaterally Gastrointestinal: Yes: Soft (NT) Edema: No Neurological: Yes: Lethargy no jaundice, diaphoresis not agitated - ....Imaging EKG: Image Reviewed Assessment/Plan cgs: afib, vr 96, 100, nl qtc, no ischemic changes, old irbbb tele: afib,rates low 100s echo 07/2019: nl lv/rv, mild tr, nl rvsp a/p: 69 m hx htn, dm, here with syncope. cva: -change in mental status and mri showing acute cva -neuro following syncope: -no signs acs or chf -possibly related to etoh, possibly related to afib with rvr, ?cva related -echo benign -cont tele -check ortho vitals when able afib: -new afib with rvr here -cont tele. remains NPO- continue iv lopressor prn. -chadsvasc warrants ac. on hep gtt -tsh wnl -echo benign htn:elevated -monitor after starting bb -BP parameters as per Neuro and Critical Care team
[2019-08-08] MEDS ORDERED: hydrALAZINE HCL 20 MG/ML VIAL IVPUSH PRN ×2 (11:46→12:44)
[2019-08-08] MEDS ORDERED: hydrALAZINE HCL 20 MG/ML VIAL ONE (12:07)
[2019-08-08] MEDS: MULTIVIT INJ. ADULT COMBO WITH VIT K 1 COMBO 10 ML VIAL IV SCH ×2 (14:59→15:11)
--- NOTE | 2019-08-08 17:23 | PN ---
Progress Note (short form) - Note Progress Note: 69 year old male with history of hypertension, hyperlipidemia, non-insulin dependent diabetes mellitus, presents after a syncopal episode on 08/02/19. A sper chart initially patient was intoxicated and minimal history provide, and is noncompliant with Chinese waitstaff captain Per ED report, patient had lost consciousness for approx. 5 minutes, however he denies this upon my encounter. Denies bowel or bladder incontinence. Currently patient denies chest pain, and only endorses left shoulder pain and headache. He denies prior cardiac history, or workup. Reported that patient has not followed up with primary care provider in several years, and has history of alcohol use disorder. Events noted , found to be in Afib , also ? left sided weakness and MRI + acute stroke, branch MCA infarcts. PT sleepy this AM , not answering questions FU : sleepy and limited following commands, left hemiparesis continues on AC nurse spoke to via translation- ( she speaks belarusian) , agree for NG and peg if needed Studies: Doppeler high grade stenosis L ICA MRI BRAIN CLINICAL INFORMATION GIVEN: evaluate for acute infarct The exam consists of sagittal and transaxial images obtained utilizing fast spin-echo, fast spin- echo FLAIR, T2-weighted gradient-echo and diffusion weighted spin-echo echo - planar pulse sequences. Acute nonhemorrhagic infarcts are noted involving the right frontal, right temporal and right insular cortices as well as the right basal ganglia. Minimal periventricular chronic microvascular changes are noted. There is no extra-axial fluid collection. No obvious mass lesion is seen allowing for motion artifact. The ventricles and cisterns and craniocervical junction appear unremarkable. Signal void is seen within the intracranial internal carotid and vertebral arteries as well as the basilar artery consistent with vessel patency. IMPRESSION: Acute right cerebral infarcts are noted as discussed above. - Alcohol/Substance Use Hx Alcohol Use: No - Smoking History Smoking history: Never smoked Home Medications - Allergies Allergies/Adverse Reactions: Allergies Allergy/AdvReac Type Severity Reaction Status Date / Time No Known Allergies Allergy Verified 08/02/19 19:37 - Home Medications Home Medications: Ambulatory Orders Unobtainable 08/03/19 Physical Exam-Neuro Vital Signs: Vital Signs Temperature 98.6 F 08/08/19 14:00 Pulse Rate 122 H 08/08/19 17:20 Respiratory Rate 20 08/08/19 16:05 Blood Pressure 160/97 08/08/19 17:20 O2 Sat by Pulse Oximetry (%) 99 08/08/19 08:15 Labs: CBCD WBC 4.0 K/mm3 (4.0-10.0) 08/07/19 05:35 RBC 3.78 M/mm3 (4.00-5.60) L 08/07/19 05:35 Hgb 14.5 GM/dL (11.7-16.9) 08/07/19 05:35 Hct 39.9 % (35.4-49) 08/07/19 05:35 MCV 105.6 fl (80-96) H 08/07/19 05:35 MCHC 36.3 g/dl (32.0-35.9) H 08/07/19 05:35 RDW 14.8 % (11.9-15.9) 08/07/19 05:35 Plt Count 189 K/MM3 (134-434) 08/07/19 05:35 MPV 6.9 fl (7.5-11.1) L 08/07/19 05:35 CMP Sodium 134 mmol/L (136-145) L 08/04/19 07:48 Potassium 3.9 mmol/L (3.5-5.1) 08/04/19 07:48 Chloride 101 mmol/L (98-107) 08/04/19 07:48 Carbon Dioxide 23 mmol/L (21-32) 08/04/19 07:48 Anion Gap 9 MMOL/L (8-16) 08/04/19 07:48 BUN 12.0 mg/dL (7-18) 08/04/19 07:48 Creatinine 0.7 mg/dL (0.55-1.3) 08/04/19 07:48 Calcium 8.8 mg/dL (8.5-10.1) 08/04/19 07:48 Total Bilirubin 1.9 mg/dL (0.2-1) H 08/04/19 07:48 AST 20 U/L (15-37) 08/04/19 07:48 ALT 15 U/L (13-61) 08/04/19 07:48 Alkaline Phosphatase 146 U/L (45-117) H 08/04/19 07:48 Total Protein 6.6 g/dl (6.4-8.2) 08/04/19 07:48 Albumin 3.0 g/dl (3.4-5.0) L 08/04/19 07:48 - Neuro Exam Level Of Consciousness: Yes: Sedated (eyes closed, nonverbal, eyes forced shut, left hemiparesis , ) Imaging - Results Cat Scan: Report Reviewed, Image Reviewed MRI: Report Reviewed, Image Reviewed Problem List - Problems (1) A-fib Code(s): I48.91 - UNSPECIFIED ATRIAL FIBRILLATION Qualifiers: Atrial fibrillation type: unspecified Qualified Code(s): I48.91 - Unspecified atrial fibrillation (2) Acute metabolic encephalopathy Code(s): G93.41 - METABOLIC ENCEPHALOPATHY (3) Alcohol intoxication Code(s): F10.929 - ALCOHOL USE, UNSPECIFIED WITH INTOXICATION, UNSPECIFIED Qualifiers: Complication of substance-induced condition: uncomplicated Qualified Code(s ): F10.920 - Alcohol use, unspecified with intoxication, uncomplicated (4) CVA (cerebral vascular accident) Code(s): I63.9 - CEREBRAL INFARCTION, UNSPECIFIED (5) Syncope and collapse Code(s): R55 - SYNCOPE AND COLLAPSE Assessment/Plan 69 year old male with history of hypertension, hyperlipidemia, non-insulin dependent diabetes mellitus, presents after a syncopal episode on 08/02/19. A sper chart initially patient was intoxicated and minimal history provide, and is noncompliant with Chinese waitstaff captain Per ED report, patient had lost consciousness for approx. 5 minutes, however he denies this upon my encounter. Denies bowel or bladder incontinence. Currently patient denies chest pain, and only endorses left shoulder pain and headache. He denies prior cardiac history, or workup. Reported that patient has not followed up with primary care provider in several years, and has history of alcohol use disorder. Events noted , found to be in Afib , also ? left sided weakness and MRI + acute stroke, branch MCA infarcts. MRI BRAIN CLINICAL INFORMATION GIVEN: evaluate for acute infarct The exam consists of sagittal and transaxial images obtained utilizing fast spin-echo, fast spin- echo FLAIR, T2-weighted gradient-echo and diffusion weighted spin-echo echo - planar pulse sequences. Acute nonhemorrhagic infarcts are noted involving the right frontal, right temporal and right insular cortices as well as the right basal ganglia. Minimal periventricular chronic microvascular changes are noted. There is no extra-axial fluid collection. No obvious mass lesion is seen allowing for motion artifact. The ventricles and cisterns and craniocervical junction appear unremarkable. Signal void is seen within the intracranial internal carotid and vertebral arteries as well as the basilar artery consistent with vessel patency. IMPRESSION: Acute right cerebral infarcts are noted as discussed above. AP : HX of DM/hypertension, ETOH, found to be in AFib and with acute R MCA strokes--embolic in nature ; also + left carotid disease-high grade stenosis (though this is not the culprit in his acute stroke) , FU vascular eval /rec --please add statin cont HEPARIN DRIP (no loading dose) for AFIB , though long-term compliance with AC may be an issue -- will likely require intermediate card tender nursing care check HD CT --ordered and plz call if any acute changes cont ativan, B12, folate will likely need PEG tube / NG for now , add statin DR DANIELLE Problem List - Problems (1) A-fib Code(s): I48.91 - UNSPECIFIED ATRIAL FIBRILLATION Qualifiers: Atrial fibrillation type: unspecified Qualified Code(s): I48.91 - Unspecified atrial fibrillation (2) Acute metabolic encephalopathy Code(s): G93.41 - METABOLIC ENCEPHALOPATHY (3) Alcohol intoxication Code(s): F10.929 - ALCOHOL USE, UNSPECIFIED WITH INTOXICATION, UNSPECIFIED Qualifiers: Complication of substance-induced condition: uncomplicated Qualified Code(s ): F10.920 - Alcohol use, unspecified with intoxication, uncomplicated (4) CVA (cerebral vascular accident) Code(s): I63.9 - CEREBRAL INFARCTION, UNSPECIFIED (5) Syncope and collapse Code(s): R55 - SYNCOPE AND COLLAPSE
[2019-08-08 17:35] LABS: ALBUMIN 2.4 g/dl (3.4-5.0); BILIRUBIN,TOTAL 0.9 mg/dL (0.2-1); BLOOD UREA NITROGEN 15.3 mg/dL (7-18); CALCIUM 8.2 mg/dL (8.5-10.1); CREATININE 0.4 mg/dL (0.55-1.3); TOT PROT 5.7 g/dl (6.4-8.2)
[2019-08-08 17:39] LABS: POTASSIUM 2.8 mmol/L (3.5-5.1)
[2019-08-08] MEDS ORDERED: POTASSIUM CHLORIDE 20 MEQ PREMIX IVPB 100 ML IVPB SCH (17:45)
[2019-08-08] MEDS: KCL 10 MEQ IVPB 10 MEQ/100 ML INFUS.BAG IVPB SCH ×5 (18:31→22:52)
[2019-08-08] MEDS: HEPARIN NA (PORCINE) 5,000 UNITS/ML 1ML VIAL IVPUSH PRN (20:20)
[2019-08-08] MEDS ORDERED: INSULIN (NOVOLOG) ASPART 100 UNITS/ML 10ML VIAL ONE (21:43)
[2019-08-08] MEDS: THIAMINE HCL 100 MG TABLET (FP) NGT SCH (22:52)
[2019-08-09] MEDS: METOPROLOL TARTRATE 5 MG/5 ML VIAL IVPUSH SCH ×6 (00:07→20:35)
[2019-08-09] MEDS: AMINO ACIDS 4.25%/D5W 1,000 ML IV SCH ×2 (02:07→02:40)
[2019-08-09] MEDS: INSULIN SLIDING SCALE (NOVOLOG) 1 VIAL SQ SCH ×3 (06:42→16:34)
[2019-08-09 07:27] LABS: MAGNESIUM 1.5 mg/dL (1.8-2.4)
--- NOTE | 2019-08-09 07:32 | PN ---
Progress Note, Physician Chief Complaint: non verbal, attempting to follow simple commands History of Present Illness: Patient is a 69 year old male with history of hypertension, hyperlipidemia, non- insulin dependent diabetes mellitus and alcohol abuse, presents after a syncopal episode. Patient was intoxicated on admission and started on a librium taper. He was found to have new onset afib on admission and a heparin drip was initiated. Hospitalization complicated when patient became unresponsive on 08/04/19 MRI brain then confirmed acute right cerebral infarcts. neuro consulted and following. - Current Medication List Current Medications: Active Medications Aspirin (Asa -) 300 mg [place] DAILY [facility] Atorvastatin Calcium (Lipitor -) 80 mg NGT HS [facility]ATIA Diltiazem HCl (Cardizem Injection -) 5 mg IVPUSH ONCE PRN PRN Reason: TACHYCARDIA Last Admin: 08/07/19 14:06 Dose: 5 mg Folic Acid (Folic Acid -) 1 mg NGT DAILY [facility] Heparin Sodium (Porcine) (Heparin -) 5,000 unit IVPUSH PRN PRN PRN Reason: Heparin Last Admin: 08/08/19 20:20 Dose: 5,000 unit Heparin Sodium (Porcine) (Heparin -) 1,000 unit IVPUSH PRN PRN PRN Reason: Heparin Last Admin: 08/05/19 09:00 Dose: 1,000 unit Hydralazine HCl (Apresoline Injection -) 10 mg IVPUSH Q6H PRN PRN Reason: HYPERTENSION Heparin Sodium (Porcine) 25, (000 unit/ Sodium Chloride) 500 mls @ 16 mls/hr IV TITR [facility]; Protocol Last Admin: 08/08/19 20:39 Dose: Not Given Amino Acids (Clinimix -) 1,000 mls @ 84 mls/hr IV Q12H [facility] Last Admin: 08/09/19 02:07 Dose: 84 mls/hr Fat Emulsion Intravenous (Intralipid -) 250 mls @ 20.833 mls/hr IV DAILY@2200 [facility] Insulin Aspart (Novolog Vial Sliding Scale -) 1 vial SQ ACHS [facility]; Protocol Last Admin: 08/09/19 06:42 Dose: Not Given Lorazepam (Ativan Injection -) 0.5 mg IVPUSH BID [facility] Last Admin: 08/08/19 21:47 Dose: 0.5 mg Metoprolol Tartrate (Lopressor Injection -) 5 mg IVPUSH Q4H [facility] Last Admin: 08/09/19 04:39 Dose: 5 mg Multivitamins/Minerals (Certavite-Antioxidant Liquid) 15 ml NGT DAILY [facility] Nystatin (Nystop Powder -) 1 applic TP DAILY [facility] Last Admin: 08/08/19 09:22 Dose: 1 applic Thiamine HCl (Vitamin B1 -) 100 mg NGT BID [facility] Last Admin: 08/08/19 22:52 Dose: Not Given - Objective Vital Signs: Vital Signs Temperature 98.6 F 08/08/19 14:00 Pulse Rate 109 H 08/09/19 06:00 Respiratory Rate 16 08/09/19 06:00 Blood Pressure 119/74 08/09/19 06:00 O2 Sat by Pulse Oximetry (%) 98 08/08/19 21:00 Constitutional: Yes: Well Nourished, No Distress, Calm Eyes: Yes: WNL, Conjunctiva Clear, EOM Intact HENT: Yes: WNL, Atraumatic, Normocephalic Neck: Yes: WNL, Supple, Trachea Midline Cardiovascular: Yes: WNL, Regular Rate and Rhythm, Tachycardia, Pulse Irregular Respiratory: Yes: WNL, Regular, CTA Bilaterally Gastrointestinal: Yes: WNL, Normal Bowel Sounds ...Rectal Exam: Yes: Deferred Genitourinary: Yes: Incontinence Breast(s): Yes: WNL Musculoskeletal: Yes: Muscle Weakness Extremities: Yes: WNL Edema: No Peripheral Pulses WNL: Yes Peripheral Pulses: Left Radial: 2+, Right Radial: 2+, Left Doralis Pedis: 2+, Right Dorsalis Pedis: 2+, Left Femoral: 2+, Right Femoral: 2+ Integumentary: Yes: WNL Neurological: Yes: Aphasia, Weakness (to LE/LL extremities) Psychiatric: Yes: Other (resposive to verbal stimuli) Labs: CBC, BMP 08/08/19 16:30 INR, PTT INR 1.05 (0.83-1.09) 08/02/19 20:00 - ....Imaging Cat Scan: Report Reviewed (In comparison to a CT exam of 08/04/2019 there is increased demarcation of acute nonhemorrhagic right cerebral infarcts as noted above.) Problem List - Problems (1) Carotid stenosis, left Assessment/Plan: No acute vascular intervention at this time. Statin when NGT is in ASA on hold for possible PEG Pt should f/u in clinic with Dr Adams in 6 months for surveillance carotid duplex Code(s): I65.22 - OCCLUSION AND STENOSIS OF LEFT CAROTID ARTERY (2) Malnutrition Assessment/Plan: c/w clinimix with lipids FT to be placed once supplies are obtained Seen by GI for PEG evaluation. Daughter/ would like to attempt FT/NGT first before PEG. Once FT is placed will start Jevity 1.5 @ 20 with increases of 100cc q4-6 hr with goal of 50cc x 24 hr appreciate nutrition consultation Code(s): E46 - UNSPECIFIED PROTEIN-CALORIE MALNUTRITION (3) A-fib Assessment/Plan: new afib with RVR-HR 100s c/w toprol when able to take PO meds c/w IV metorprool c/w heparin gtt, continue until able to start coumadin TTE benign appreciate cardiology consultation Code(s): I48.91 - UNSPECIFIED ATRIAL FIBRILLATION Qualifiers: Atrial fibrillation type: unspecified Qualified Code(s): I48.91 - Unspecified atrial fibrillation (4) Acute metabolic encephalopathy Assessment/Plan: new acute frontal stroke/right cerebral infarcts. neurology following Non contrast HCT 08/09/19 --evolving R MCA infarct Code(s): G93.41 - METABOLIC ENCEPHALOPATHY (5) Alcohol intoxication Assessment/Plan: no s/s of active withdrawal c/w ativan holding for excessive sedation c/w MVI,thaimine,folate Code(s): F10.929 - ALCOHOL USE, UNSPECIFIED WITH INTOXICATION, UNSPECIFIED Qualifiers: Complication of substance-induced condition: uncomplicated Qualified Code(s ): F10.920 - Alcohol use, unspecified with intoxication, uncomplicated (6) Aspiration precautions Code(s): Z91.89 - OTH PERSONAL RISK FACTORS, NOT ELSEWHERE CLASSIFIED (7) CVA (cerebral vascular accident) Assessment/Plan: CVA confirmed by brain mri 08/04/19: acute right cerebral infarcts. acute non hemorrhagic infarcts noted involving the right frontal, right temporal and right insular cortices as well as the right basal ganglia. minimal periventricular chronic microvascular changes are noted. appreciate consultation with Dr King repeat HD CT 08/09/19 --evolving R MCA infarct c/w physical therapy carotid u/s with stenosis-seen by vascular and no intervention at this time ASA on hold for possible PEG c/w statin Code(s): I63.9 - CEREBRAL INFARCTION, UNSPECIFIED (8) Prophylactic measure Assessment/Plan: FEN c/w clinimix, lipids monitor electrolytres place FT when available DVT c/w heparin gtt until able to start coumadin Dispo maintain on tele full code discharge planning-spoke with SW regarding placement Code(s): Z29.9 - ENCOUNTER FOR PROPHYLACTIC MEASURES, UNSPECIFIED (9) Syncope and collapse Code(s): R55 - SYNCOPE AND COLLAPSE (10) HTN (hypertension) Assessment/Plan: hydralazine IV started to maintain SBP <150 Code(s): I10 - ESSENTIAL (PRIMARY) HYPERTENSION (11) HLD (hyperlipidemia) Assessment/Plan: start statin when FT placed Code(s): E78.5 - HYPERLIPIDEMIA, UNSPECIFIED (12) Non-insulin dependent type 2 diabetes mellitus Assessment/Plan: BGM with novlog sliding scale Code(s): E11.9 - TYPE 2 DIABETES MELLITUS WITHOUT COMPLICATIONS (13) Dysphagia Assessment/Plan: seen by AG[employer] MASTER- patient with poor swallowing at this time, aspiration risk. hold all PO will place FT when available c/w climix/lipids Code(s): R13.10 - DYSPHAGIA, UNSPECIFIED (14) Hypomagnesemia Assessment/Plan: Mg 1.5. 2G IV to be given monitor electrolytes Code(s): E83.42 - HYPOMAGNESEMIA Visit type - Emergency Visit Emergency Visit: Yes ED Registration Date: 08/02/19 Care time: The patient presented to the Emergency Department on the above date and was hospitalized for further evaluation of their emergent condition. - New Patient This patient is new to me today: No - Critical Care Critical Care patient: No - Discharge Referral Referred to [facility] Med P.C.: No
[2019-08-09 08:37] LABS: HEMATOCRIT 42.8 % (35.4-49); HEMOGLOBIN 14.7 GM/dL (11.7-16.9); MCH 36.4 pg (25.7-33.7); MCHC 34.5 g/dl (32.0-35.9); MEAN CELL VOLUME 105.4 fl (80-96); MEAN PLT VOLUME 7.7 fl (7.5-11.1); PLATELET COUNT 186 K/MM3 (134-434); RBC 4.06 M/mm3 (4.00-5.60); RDW 14.2 % (11.9-15.9); WHITE BLOOD COUNT 4.6 K/mm3 (4.0-10.0)
[2019-08-09] MEDS: HEPARIN NA (PORCINE) 5,000 UNITS/ML 1ML VIAL IVPUSH PRN (09:47)
[2019-08-09] MEDS: LORazepam 2 MG/ML SDV VIAL IVPUSH SCH ×2 (09:48→23:11)
--- NOTE | 2019-08-09 09:54 | PN ---
Progress Note (short form) - Note Progress Note: s: alert, not answering questions Current Medications Aspirin (Asa -) 300 mg [place] DAILY [facility] Last Admin: 08/09/19 09:43 Dose: 300 mg Atorvastatin Calcium (Lipitor -) 80 mg NGT HS KATIA Diltiazem HCl (Cardizem Injection -) 5 mg IVPUSH ONCE PRN PRN Reason: TACHYCARDIA Last Admin: 08/07/19 14:06 Dose: 5 mg Folic Acid (Folic Acid -) 1 mg NGT DAILY [facility] Heparin Sodium (Porcine) (Heparin -) 5,000 unit IVPUSH PRN PRN PRN Reason: Heparin Last Admin: 08/09/19 09:47 Dose: 5,000 unit Heparin Sodium (Porcine) (Heparin -) 1,000 unit IVPUSH PRN PRN PRN Reason: Heparin Last Admin: 08/05/19 09:00 Dose: 1,000 unit Hydralazine HCl (Apresoline Injection -) 10 mg IVPUSH Q6H PRN PRN Reason: HYPERTENSION Heparin Sodium (Porcine) 25, (000 unit/ Sodium Chloride) 500 mls @ 16 mls/hr IV TITR [facility]; Protocol Last Titration: 08/09/19 09:46 Dose: 1,100 unit/hr, 22 mls/hr Amino Acids (Clinimix -) 1,000 mls @ 84 mls/hr IV Q12H [facility] Last Admin: 08/09/19 02:07 Dose: 84 mls/hr Fat Emulsion Intravenous (Intralipid -) 250 mls @ 20.833 mls/hr IV DAILY@2200 [facility] Insulin Aspart (Novolog Vial Sliding Scale -) 1 vial SQ ACHS [facility]; Protocol Last Admin: 08/09/19 06:42 Dose: Not Given Lorazepam (Ativan Injection -) 0.5 mg IVPUSH BID [facility] Last Admin: 08/09/19 09:48 Dose: 0.5 mg Metoprolol Tartrate (Lopressor Injection -) 5 mg IVPUSH Q4H [facility] Last Admin: 08/09/19 09:47 Dose: 5 mg Multivitamins/Minerals (Certavite-Antioxidant Liquid) 15 ml NGT DAILY [facility] Nystatin (Nystop Powder -) 1 applic TP DAILY [facility] Last Admin: 08/08/19 09:22 Dose: 1 applic Thiamine HCl (Vitamin B1 -) 100 mg NGT BID [facility] Last Admin: 10/22/19 22:52 Dose: Not Given Vital Signs Period Temp Pulse Resp BP Sys/Lieberman Pulse Ox Last 24 Hr 97.4 F-98.6 F 95-134 15-24 112-179/58-135 98 Cardiovascular: Yes: Pulse Irregular Respiratory: Yes: CTA Bilaterally Gastrointestinal: Yes: Soft (NT) Edema: No Neurological: Yes: Lethargy no jaundice, diaphoresis not agitated - ....Imaging EKG: Image Reviewed Assessment/Plan cgs: afib, vr 96, 100, nl qtc, no ischemic changes, old irbbb tele: afib,rates low 100s, episodes of RVR 130s echo 07/2019: nl lv/rv, mild tr, nl rvsp a/p: 69 m hx htn, dm, here with syncope. cva: -change in mental status and mri showing acute cva -neuro following syncope: -no signs acs or chf -possibly related to etoh, possibly related to afib with rvr, ?cva related -echo benign -cont tele -check ortho vitals when able afib: -new afib with rvr here -cont tele. remains NPO, plan for NGT and possible PEG tube - continue iv lopressor prn -chadsvasc warrants ac. on hep gtt -tsh wnl -echo benign htn:elevated -monitor after starting bb -BP parameters as per Neuro and Critical Care team
[2019-08-09] MEDS ORDERED: ASPIRIN 300 MG SUPP.RECT PR SCH (10:00)
[2019-08-09] MEDS: NYSTATIN POWDER 100,000 UNITS/GM - 15 GM TOPICAL POWDER TP SCH (10:05)
[2019-08-09] MEDS: MULTIVIT-MINERALS ORAL LIQUID NGT SCH (10:06)
[2019-08-09] MEDS: THIAMINE HCL 100 MG TABLET (FP) NGT SCH (10:06)
[2019-08-09] MEDS: FOLIC ACID 1 MG TABLET (FP) NGT SCH (10:06)
[2019-08-09] MEDS ORDERED: MAGNESIUM SULF 50% (8.12 MEQ/2 ML-1 GM VIAL) IVPB ONE (10:15)
--- NOTE | 2019-08-09 10:48 | PN ---
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 When alert, pt made eye contact with pt but no noted speech. Consider temporary NGT/PEG insertion
--- NOTE | 2019-08-09 11:23 | PN ---
Progress Note (short form) - Note Progress Note: 69 year old male with history of hypertension, hyperlipidemia, non-insulin dependent diabetes mellitus, presents after a syncopal episode on 08/02/19. 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 5 minutes, however he denies this upon my encounter. Denies bowel or bladder incontinence. Currently patient denies chest pain, and only endorses left shoulder pain and headache. He denies prior cardiac history, or workup. Reported that patient has not followed up with primary care provider in several years, and has history of alcohol use disorder. Events noted , found to be in Afib , also ? left sided weakness and MRI + acute stroke, branch MCA infarcts. PT sleepy this AM , not answering questions FU : repeat HD CT 08/09/19 --evolving R MCA infarct sleepy , nbut juts given sedation left hemiparesis continues on AC Studies: Doppeler high grade stenosis L ICA MRI BRAIN CLINICAL INFORMATION GIVEN: evaluate for acute infarct The exam consists of sagittal and transaxial images obtained utilizing fast spin-echo, fast spin- echo FLAIR, T2-weighted gradient-echo and diffusion weighted spin-echo echo - planar pulse sequences. Acute nonhemorrhagic infarcts are noted involving the right frontal, right temporal and right insular cortices as well as the right basal ganglia. Minimal periventricular chronic microvascular changes are noted. There is no extra-axial fluid collection. No obvious mass lesion is seen allowing for motion artifact. The ventricles and cisterns and craniocervical junction appear unremarkable. Signal void is seen within the intracranial internal carotid and vertebral arteries as well as the basilar artery consistent with vessel patency. IMPRESSION: Acute right cerebral infarcts are noted as discussed above. - Alcohol/Substance Use Hx Alcohol Use: No - Smoking History Smoking history: Never smoked Home Medications - Allergies Allergies/Adverse Reactions: Allergies Allergy/AdvReac Type Severity Reaction Status Date / Time No Known Allergies Allergy Verified 08/02/19 19:37 - Home Medications Home Medications: Ambulatory Orders Unobtainable 08/03/19 Physical Exam-Neuro Vital Signs: Vital Signs Temperature 98.6 F 08/08/19 14:00 Pulse Rate 123 H 08/09/19 09:47 Respiratory Rate 16 08/09/19 06:00 Blood Pressure 138/91 08/09/19 09:47 O2 Sat by Pulse Oximetry (%) 98 08/08/19 21:00 Labs: CBCD WBC 4.0 K/mm3 (4.0-10.0) 08/07/19 05:35 RBC 3.78 M/mm3 (4.00-5.60) L 08/07/19 05:35 Hgb 14.5 GM/dL (11.7-16.9) 08/07/19 05:35 Hct 39.9 % (35.4-49) 08/07/19 05:35 MCV 105.6 fl (80-96) H 08/07/19 05:35 MCHC 36.3 g/dl (32.0-35.9) H 08/07/19 05:35 RDW 14.8 % (11.9-15.9) 08/07/19 05:35 Plt Count 189 K/MM3 (134-434) 08/07/19 05:35 MPV 6.9 fl (7.5-11.1) L 08/07/19 05:35 CMP Sodium 134 mmol/L (136-145) L 08/04/19 07:48 Potassium 3.9 mmol/L (3.5-5.1) 08/04/19 07:48 Chloride 101 mmol/L (98-107) 08/04/19 07:48 Carbon Dioxide 23 mmol/L (21-32) 08/04/19 07:48 Anion Gap 9 MMOL/L (8-16) 08/04/19 07:48 BUN 12.0 mg/dL (7-18) 08/04/19 07:48 Creatinine 0.7 mg/dL (0.55-1.3) 08/04/19 07:48 Calcium 8.8 mg/dL (8.5-10.1) 08/04/19 07:48 Total Bilirubin 1.9 mg/dL (0.2-1) H 08/04/19 07:48 AST 20 U/L (15-37) 08/04/19 07:48 ALT 15 U/L (13-61) 08/04/19 07:48 Alkaline Phosphatase 146 U/L (45-117) H 08/04/19 07:48 Total Protein 6.6 g/dl (6.4-8.2) 08/04/19 07:48 Albumin 3.0 g/dl (3.4-5.0) L 08/04/19 07:48 - Neuro Exam Level Of Consciousness: Yes: Sedated (eyes closed, nonverbal, eyes forced shut, left hemiparesis , ) Imaging - Results Cat Scan: Report Reviewed, Image Reviewed MRI: Report Reviewed, Image Reviewed Problem List - Problems (1) A-fib Code(s): I48.91 - UNSPECIFIED ATRIAL FIBRILLATION Qualifiers: Atrial fibrillation type: unspecified Qualified Code(s): I48.91 - Unspecified atrial fibrillation (2) Acute metabolic encephalopathy Code(s): G93.41 - METABOLIC ENCEPHALOPATHY (3) Alcohol intoxication Code(s): F10.929 - ALCOHOL USE, UNSPECIFIED WITH INTOXICATION, UNSPECIFIED Qualifiers: Complication of substance-induced condition: uncomplicated Qualified Code(s ): F10.920 - Alcohol use, unspecified with intoxication, uncomplicated (4) CVA (cerebral vascular accident) Code(s): I63.9 - CEREBRAL INFARCTION, UNSPECIFIED (5) Syncope and collapse Code(s): R55 - SYNCOPE AND COLLAPSE Assessment/Plan 69 year old male with history of hypertension, hyperlipidemia, non-insulin dependent diabetes mellitus, presents after a syncopal episode on 08/02/19. 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 5 minutes, however he denies this upon my encounter. Denies bowel or bladder incontinence. Currently patient denies chest pain, and only endorses left shoulder pain and headache. He denies prior cardiac history, or workup. Reported that patient has not followed up with primary care provider in several years, and has history of alcohol use disorder. Events noted , found to be in Afib , also ? left sided weakness and MRI + acute stroke, branch MCA infarcts. MRI BRAIN CLINICAL INFORMATION GIVEN: evaluate for acute infarct The exam consists of sagittal and transaxial images obtained utilizing fast spin-echo, fast spin- echo FLAIR, T2-weighted gradient-echo and diffusion weighted spin-echo echo - planar pulse sequences. Acute nonhemorrhagic infarcts are noted involving the right frontal, right temporal and right insular cortices as well as the right basal ganglia. Minimal periventricular chronic microvascular changes are noted. There is no extra-axial fluid collection. No obvious mass lesion is seen allowing for motion artifact. The ventricles and cisterns and craniocervical junction appear unremarkable. Signal void is seen within the intracranial internal carotid and vertebral arteries as well as the basilar artery consistent with vessel patency. IMPRESSION: Acute right cerebral infarcts are noted as discussed above. AP : HX of DM/hypertension, ETOH, found to be in AFib and with acute large R MCA strokes--embolic in nature ; also + left carotid disease-high grade stenosis (though this is not the culprit in his acute stroke) , vascular --no intervention at this time cont HEPARIN DRIP (no loading dose) for AFIB , though [facility] compliance with AC may be an issue -- will likely require marine oil terminal superintendent nursing care convert to po coumadin after PEG repeat HD CT --evolving infarct cont ativan, B12, folate will likely need PEG tube / NG for now , add statin call back if any further questions thank you DR DANIELLE Problem List - Problems (1) A-fib Code(s): I48.91 - UNSPECIFIED ATRIAL FIBRILLATION Qualifiers: Atrial fibrillation type: unspecified Qualified Code(s): I48.91 - Unspecified atrial fibrillation (2) Acute metabolic encephalopathy Code(s): G93.41 - METABOLIC ENCEPHALOPATHY (3) Alcohol intoxication Code(s): F10.929 - ALCOHOL USE, UNSPECIFIED WITH INTOXICATION, UNSPECIFIED Qualifiers: Complication of substance-induced condition: uncomplicated Qualified Code(s ): F10.920 - Alcohol use, unspecified with intoxication, uncomplicated (4) CVA (cerebral vascular accident) Code(s): I63.9 - CEREBRAL INFARCTION, UNSPECIFIED (5) Syncope and collapse Code(s): R55 - SYNCOPE AND COLLAPSE
[2019-08-09 11:50] LABS: ANISOCYTOSIS 1+; MACROCYTOSIS 1+; PLATELET ESTIMATE NORMAL
[2019-08-09 12:36] LABS: ALBUMIN 2.5 g/dl (3.4-5.0); BILIRUBIN,TOTAL 1.1 mg/dL (0.2-1); BLOOD UREA NITROGEN 15.1 mg/dL (7-18); CALCIUM 8.5 mg/dL (8.5-10.1); CREATININE 0.6 mg/dL (0.55-1.3); POTASSIUM 3.5 mmol/L (3.5-5.1); TOT PROT 6.1 g/dl (6.4-8.2)
--- NOTE | 2019-08-09 14:47 | CON.GI ---
Consult Consult Specialty:: Gastroenterology Reason for Consultation:: PEG placement - History of Present Illness Chief Complaint: Dysphagia, altered mental status History of Present Illness: 69yo male h/o etoh abuse, HTN, DM presenting after syncopal episode with etoh intoxication with recently diagnosed CVA asked to evaluate for PEG. Pt initially presenting with etoh intoxication after syncopal episode with hospital course complicated by new onset A fib. Pt also found to have acute cerebral infarcts on MRI brain on 08/04 now on heparin GTT. Pt also received asa 300mg rectally this am. Pt still with altered mentation and intermittent agitation requiring ativan prn. NG not yet attempted (awaiting supplies per team ). Pt awake though noncommunicative. Per RELAY CHECKER pt has been lethargic and unable to tolerate po trials. GI consulted for PEG placement. - History Source History Provided By: Medical Record - Alcohol/Substance Use Hx Alcohol Use: No - Smoking History Smoking history: Never smoked Home Medications - Allergies Allergies/Adverse Reactions: Allergies Allergy/AdvReac Type Severity Reaction Status Date / Time No Known Allergies Allergy Verified 08/02/19 19:37 - Home Medications Home Medications: Ambulatory Orders Unobtainable 08/03/19 Review of Systems Unable to obtain ROS, reason: Pt noncommunicative Physical Exam-GI Vital Signs: Vital Signs Temperature 98.9 F 08/09/19 14:00 Pulse Rate 108 H 08/09/19 14:00 Respiratory Rate 18 08/09/19 14:00 Blood Pressure 145/85 08/09/19 14:00 O2 Sat by Pulse Oximetry (%) 98 08/09/19 09:00 Constitutional: Yes: Calm Cardiovascular: Yes: WNL, Pulse Irregular Respiratory: Yes: WNL, Regular, CTA Bilaterally ...Palpate: Yes: Other (Abd soft, nt, nd No visible scars) Labs: CBC, BMP 08/09/19 05:25 08/09/19 06:00 INR, PTT INR 1.05 (0.83-1.09) 08/02/19 20:00 Problem List - Problems (1) Dysphagia Assessment/Plan: 69yo male h/o etoh abuse, HTN, DM presenting after syncopal episode with etoh intoxication with new onset A fib and acute cerebral infarct identified on MRI brain on 08/04/19 now on heparin gtt asked to evaluate for PEG. NG not yet attempted, pt has been receiving clinimix. Labs not suggestive of chronic liver disease or cirrhosis (normal plts, INR and no known h/o liver disease) with essential normal LFTs on admission, however mild LFT elevation now noted. No recent abdominal imaging. -Await Abd US -Update coags -NG placement (dobhoff) for tube feeds pending -Attempted to contact pts [facility] to discuss potential PEG however provided number is not in service. Spoke with pts daughter Carlene by phone (#[phone] ) who was with her mother (arabic speaking), and discussed in detail risks/ benefits of EGD/PEG, including though not limited to bleeding, infection, perforation, side effects of medications/sedatives, PEG dislodgment/need for replacement, also discussed that PEG could be removed after 4 weeks if improves and able to tolerate po. They would like NG attempted and would like to think further about PEG before pursuing with understanding that NG is temporary. -Hold ASA 300mg if no contraindication from cardiac or neurology standpoint -Pending above will determine timing of EGD/PEG vs IR for placement. Discussed with medicine team. Pts updated contact no. [phone] Code(s): R13.10 - DYSPHAGIA, UNSPECIFIED
[2019-08-09] MEDS ORDERED: PT OWN MED DRAWER 7, Y5N ONE (15:25)
[2019-08-09 16:51] LABS: ALBUMIN 2.3 g/dl (3.4-5.0); BLOOD UREA NITROGEN 15.1 mg/dL (7-18); CALCIUM 7.9 mg/dL (8.5-10.1); CREATININE 0.4 mg/dL (0.55-1.3); POTASSIUM 3.3 mmol/L (3.5-5.1); TOT PROT 5.5 g/dl (6.4-8.2)
[2019-08-09 19:54] LABS: PH,URINE 5.5 (5.0-8.0); URINE APPEARANCE CLEAR; URINE BILIRUBIN 1+ (NEGATIVE); URINE COLOR DK YELLOW; URINE GLUCOSE (UA) 3+ (NEGATIVE); URINE KETONE 1+ (NEGATIVE); URINE LEUK ESTERASE NEGATIVE (NEGATIVE); URINE NITRITE NEGATIVE (NEGATIVE); URINE PROTEIN NEGATIVE (NEGATIVE)
[2019-08-09] MEDS: HEPARIN - 25,000 UNIT in SODIUM CHLORIDE 495 ML IV SCH (20:36)
[2019-08-09] MEDS ORDERED: FAT EMULSIONS 250 ML IV SCH (22:00)
[2019-08-10] MEDS: INSULIN SLIDING SCALE (NOVOLOG) 1 VIAL SQ SCH ×5 (00:16→22:21)
[2019-08-10] MEDS: METOPROLOL TARTRATE 5 MG/5 ML VIAL IVPUSH SCH ×6 (00:16→20:55)
[2019-08-10] MEDS: ATORVASTATIN CA 80 MG TABLET (FP) NGT SCH ×2 (00:40→22:18)
[2019-08-10] MEDS: THIAMINE HCL 100 MG TABLET (FP) NGT SCH ×3 (00:40→22:18)
[2019-08-10] MEDS ORDERED: PT OWN MED DRAWER 7, Y5N ONE ×3 (04:28→22:17)
[2019-08-10] MEDS: AMINO ACIDS 4.25%/D5W 1,000 ML IV SCH (04:55)
[2019-08-10 06:40] LABS: BASO % 0.9 % (0-2.0); EOS % 2.2 % (0-4.5); HEMATOCRIT 39.7 % (35.4-49); HEMOGLOBIN 14.2 GM/dL (11.7-16.9); LYMPH % 20.8 % (8-40); MCH 37.3 pg (25.7-33.7); MCHC 35.7 g/dl (32.0-35.9); MEAN CELL VOLUME 104.2 fl (80-96); MEAN PLT VOLUME 7.2 fl (7.5-11.1); MONO % 12.8 % (3.8-10.2); NEUT % 63.3 % (42.8-82.8); PLATELET COUNT 192 K/MM3 (134-434); RBC 3.81 M/mm3 (4.00-5.60); RDW 14.6 % (11.9-15.9); WHITE BLOOD COUNT 4.8 K/mm3 (4.0-10.0)
--- NOTE | 2019-08-10 08:09 | PN ---
Progress Note, Physician Chief Complaint: Dysarthric speech.Following simple commands Pulled our NGT last night History of Present Illness: Patient is a 69 year old male with history of hypertension, hyperlipidemia, non- insulin dependent diabetes mellitus and alcohol abuse, presents after a syncopal episode. Patient was intoxicated on admission and started on a librium taper. He was found to have new onset afib on admission and a heparin drip was initiated. Hospitalization complicated when patient became unresponsive on 08/04/19 MRI brain then confirmed acute right cerebral infarcts. neuro consulted and following. - Current Medication List Current Medications: Active Medications Atorvastatin Calcium (Lipitor -) 80 mg NGT HS KATIA Last Admin: 08/10/19 00:40 Dose: Not Given Diltiazem HCl (Cardizem Injection -) 5 mg IVPUSH ONCE PRN PRN Reason: TACHYCARDIA Last Admin: 08/07/19 14:06 Dose: 5 mg Folic Acid (Folic Acid -) 1 mg NGT DAILY KATIA Last Admin: 08/09/19 10:06 Dose: Not Given Heparin Sodium (Porcine) (Heparin -) 5,000 unit IVPUSH PRN PRN PRN Reason: Heparin Last Admin: 08/09/19 09:47 Dose: 5,000 unit Heparin Sodium (Porcine) (Heparin -) 1,000 unit IVPUSH PRN PRN PRN Reason: Heparin Last Admin: 08/05/19 09:00 Dose: 1,000 unit Hydralazine HCl (Apresoline Injection -) 10 mg IVPUSH Q6H PRN PRN Reason: HYPERTENSION Heparin Sodium (Porcine) 25, (000 unit/ Sodium Chloride) 500 mls @ 16 mls/hr IV TITR KATIA; Protocol Last Admin: 08/09/19 20:36 Dose: Not Given Amino Acids (Clinimix -) 1,000 mls @ 84 mls/hr IV Q12H KATIA Last Admin: 08/10/19 04:55 Dose: 84 mls/hr Insulin Aspart (Novolog Vial Sliding Scale -) 1 vial SQ ACHS KATIA; Protocol Last Admin: 08/10/19 06:06 Dose: 1 unit Lorazepam (Ativan Injection -) 0.5 mg IVPUSH BID KATIA Last Admin: 08/09/19 23:11 Dose: 2 mg Metoprolol Tartrate (Lopressor Injection -) 5 mg IVPUSH Q4H KATIA Last Admin: 08/10/19 04:42 Dose: 5 mg Multivitamins/Minerals (Certavite-Antioxidant Liquid) 15 ml NGT DAILY [facility] Last Admin: 08/09/19 10:06 Dose: Not Given Nystatin (Nystop Powder -) 1 applic TP DAILY [facility] Last Admin: 08/09/19 10:05 Dose: 1 applic Thiamine HCl (Vitamin B1 -) 100 mg NGT BID [facility] Last Admin: 08/10/19 00:40 Dose: Not Given - Objective Vital Signs: Vital Signs Temperature 98.2 F 08/10/19 06:00 Pulse Rate 124 H 08/10/19 06:00 Respiratory Rate 24 H 08/10/19 06:00 Blood Pressure 157/100 08/10/19 06:00 O2 Sat by Pulse Oximetry (%) 95 08/09/19 20:54 Constitutional: Yes: Well Nourished, No Distress, Calm Eyes: Yes: WNL, Conjunctiva Clear HENT: Yes: WNL, Atraumatic, Normocephalic Neck: Yes: WNL, Supple, Trachea Midline Cardiovascular: Yes: WNL, Regular Rate and Rhythm, Tachycardia, Pulse Irregular Respiratory: Yes: Diminished (at bases) Gastrointestinal: Yes: WNL, Normal Bowel Sounds ...Rectal Exam: Yes: Deferred Genitourinary: Yes: Incontinence Musculoskeletal: Yes: Muscle Weakness (left sided weakness) Extremities: Yes: WNL Edema: No Peripheral Pulses WNL: Yes Peripheral Pulses: Left Radial: 2+, Right Radial: 2+, Left Doralis Pedis: 2+, Right Dorsalis Pedis: 2+, Left Femoral: 2+, Right Femoral: 2+ Integumentary: Yes: WNL Neurological: Yes: Confusion, Dysarthria, Facial Droop (left), Weakness (to left side UE>LE) ...Motor Strength: LUE (2/5), LLE, RUE Psychiatric: Yes: Alert Labs: CBC, BMP 08/10/19 05:39 08/09/19 14:50 INR, PTT INR 1.05 (0.83-1.09) 08/02/19 20:00 Problem List - Problems (1) Carotid stenosis, left Assessment/Plan: No acute vascular intervention at this time. Statin when able to take po can resume ASA, PEG on hold Pt should f/u in clinic with Dr Adams in 6 months for surveillance carotid duplex Code(s): I65.22 - OCCLUSION AND STENOSIS OF LEFT CAROTID ARTERY (2) Malnutrition Assessment/Plan: c/w clinimix with lipids NGT placed last night and pulled out my patient Seen by GI for PEG evaluation. Daughter/ would like to attempt FT/NGT first before PEG. WOOD GETTER Anabel evaluated pt and will do MBS. If fails will speak to family again re PEG Will F/U WOOD GETTER recommendations appreciate nutrition consultation Code(s): E46 - UNSPECIFIED PROTEIN-CALORIE MALNUTRITION (3) A-fib Assessment/Plan: new afib with RVR-HR 100s c/w toprol when able to take PO meds c/w IV metorprool c/w heparin gtt, continue until able to start coumadin TTE benign appreciate cardiology consultation Code(s): I48.91 - UNSPECIFIED ATRIAL FIBRILLATION Qualifiers: Atrial fibrillation type: unspecified Qualified Code(s): I48.91 - Unspecified atrial fibrillation (4) Acute metabolic encephalopathy Assessment/Plan: new acute frontal stroke/right cerebral infarcts. neurology following Non contrast HCT 08/09/19 --evolving R MCA infart more responsive today Code(s): G93.41 - METABOLIC ENCEPHALOPATHY (5) Alcohol intoxication Assessment/Plan: no s/s of active withdrawal Stopped ativan to better assess neuro status c/w MVI,thaimine,folate Code(s): F10.929 - ALCOHOL USE, UNSPECIFIED WITH INTOXICATION, UNSPECIFIED Qualifiers: Complication of substance-induced condition: uncomplicated Qualified Code(s ): F10.920 - Alcohol use, unspecified with intoxication, uncomplicated (6) Aspiration precautions Assessment/Plan: WOOD GETTER to do MBS today Code(s): Z91.89 - OTH PERSONAL RISK FACTORS, NOT ELSEWHERE CLASSIFIED (7) CVA (cerebral vascular accident) Assessment/Plan: CVA confirmed by brain mri 08/04/19: acute right cerebral infarcts. acute non hemorrhagic infarcts noted involving the right frontal, right temporal and right insular cortices as well as the right basal ganglia. minimal periventricular chronic microvascular changes are noted. appreciate consultation with Dr King repeat HD CT 08/09/19 --evolving R MCA infarct c/w physical therapy carotid u/s with stenosis-seen by vascular and no intervention at this time resume ASA c/w statin Code(s): I63.9 - CEREBRAL INFARCTION, UNSPECIFIED (8) Prophylactic measure Assessment/Plan: FEN c/w clinimix, lipids. NGT pulled out bt patient monitor electrolytres DVT c/w heparin gtt until able to start coumadin Dispo maintain on tele full code discharge planning-spoke with SW regarding placement Code(s): Z29.9 - ENCOUNTER FOR PROPHYLACTIC MEASURES, UNSPECIFIED (9) Syncope and collapse Code(s): R55 - SYNCOPE AND COLLAPSE (10) HTN (hypertension) Assessment/Plan: hydralazine IV started to maintain SBP <150 Code(s): I10 - ESSENTIAL (PRIMARY) HYPERTENSION (11) HLD (hyperlipidemia) Assessment/Plan: statin when able to take PO Code(s): E78.5 - HYPERLIPIDEMIA, UNSPECIFIED (12) Non-insulin dependent type 2 diabetes mellitus Assessment/Plan: BGM with novlog sliding scale Code(s): E11.9 - TYPE 2 DIABETES MELLITUS WITHOUT COMPLICATIONS (13) Dysphagia Assessment/Plan: seen by WOOD GETTER- patient with poor swallowing at this time, aspiration risk. hold all PO c/w climix/lipids MBS to be done today Code(s): R13.10 - DYSPHAGIA, UNSPECIFIED (14) Hypomagnesemia Assessment/Plan: Mg 1.8. 1g IV Mg given will add to climiix until able to take PO Code(s): E83.42 - HYPOMAGNESEMIA Visit type - Emergency Visit Emergency Visit: Yes ED Registration Date: 08/02/19 Care time: The patient presented to the Emergency Department on the above date and was hospitalized for further evaluation of their emergent condition. - New Patient This patient is new to me today: No - Critical Care Critical Care patient: No - Discharge Referral Referred to [facility] Med P.C.: No
[2019-08-10] MEDS: MULTIVIT-MINERALS ORAL LIQUID NGT SCH (09:55)
[2019-08-10] MEDS: FOLIC ACID 1 MG TABLET (FP) NGT SCH (09:56)
[2019-08-10] MEDS: LORazepam 2 MG/ML SDV VIAL IVPUSH SCH (10:11)
--- NOTE | 2019-08-10 10:48 | PN ---
Progress Note, PAN WASHER - Note Progress Note: Selected Entries 08/10/19 08/10/19 08/10/19 00:16 02:00 04:42 Lunch Temperature Blood Pressure 174/96 H 120/74 148/86 08/10/19 08/10/19 08/10/19 06:00 09:42 09:58 Lunch NPO Temperature 98.2 F Blood Pressure 157/100 163/109 H Laboratory Tests 08/10/19 05:39 WBC Cancelled Pt alert, verbal in Amharic. Dysarthric. Language seems more fluent but unable to assess fully due to languasge barrier. Acceptede 1/2 tsp puree x 3. Delayed swallow, 6-10 sec with repeat verbal cues. Delayed cough on puree-r/o stasis/aspiration. Assessed with OVEN LOADER. Ativan discharged. For MBS to assess swallowing function, initiate PO if possible, PEG being considered.
--- NOTE | 2019-08-10 11:47 | PN ---
Progress Note (short form) - Note Progress Note: s: confused Current Medications Generic Name Dose Route Start Last Admin Trade Name Freq PRN Reason Stop Dose Admin Atorvastatin Calcium 80 mg 08/09/19 22:00 08/10/19 00:40 Lipitor - NGT Not Given HS KATIA Diltiazem HCl 5 mg 08/03/19 00:50 08/07/19 14:06 Cardizem Injection - IVPUSH 5 mg ONCE PRN Administration TACHYCARDIA Folic Acid 1 mg 08/08/19 17:51 08/10/19 09:56 Folic Acid - NGT Not Given DAILY KATIA Heparin Sodium (Porcine) 5,000 unit 08/04/19 19:25 08/09/19 09:47 Heparin - IVPUSH 5,000 unit PRN PRN Administration Heparin Heparin Sodium (Porcine) 1,000 unit 08/04/19 19:49 08/05/19 09:00 Heparin - IVPUSH 1,000 unit PRN PRN Administration Heparin Hydralazine HCl 10 mg 08/08/19 12:44 Apresoline Injection - IVPUSH Q6H PRN HYPERTENSION Heparin Sodium (Porcine) 25, 500 mls @ 16 mls/hr 08/04/19 19:30 08/09/19 20: 36 000 unit/ Sodium Chloride IV Not Given TITR KATIA Protocol 800 UNIT/HR Amino Acids 1,000 mls @ 84 mls/hr 08/07/19 14:00 08/10/19 04:55 Clinimix - IV 84 mls/hr Q12H KATIA Administration Fat Emulsion Intravenous 500 mls @ 41.667 mls/hr 08/10/19 22:00 Intralipid - IV DAILY@2200 [facility] Insulin Aspart 1 vial 08/03/19 07:00 08/10/19 06:06 Novolog Vial Sliding Scale - SQ 1 unit ACHS KATIA Administration Protocol Metoprolol Tartrate 5 mg 08/04/19 16:00 08/10/19 09:58 Lopressor Injection - IVPUSH 5 mg Q4H KATIA Administration Multivitamins/Minerals 15 ml 08/09/19 10:00 08/10/19 09:55 Certavite-Antioxidant Liquid NGT Not Given DAILY KATIA Nystatin 1 applic 08/03/19 17:30 08/09/19 10:05 Nystop Powder - TP 1 applic DAILY KATIA Administration Thiamine HCl 100 mg 08/08/19 17:52 08/10/19 09:56 Vitamin B1 - NGT Not Given BID KATIA Vital Signs Period Temp Pulse Resp BP Sys/Lieberman Pulse Ox Last 24 Hr 97.7 F-98.9 F 106-125 16- 120-174/74-109 95 2 nad no jvd irreg, tachy s1s2 no mrg cta bl confused no le e/c/c abd nt nd pos bs no jaundice diaphoresis CBC, BMP 08/10/19 05:39 08/09/19 14:50 ecgs: afib, vr 96, 100, nl qtc, no ischemic changes, old irbbb tele: afib,rates low 100s echo 07/2019: nl lv/rv, mild tr, nl rvsp a/p: 69 m hx htn, dm, here with syncope. cva: -change in mental status and mri showing acute cva -neuro following -no cardiac contraindications to PEG, can hold asa and hep gtt if needed syncope: -no signs acs or chf -possibly related to etoh, possibly related to afib with rvr, ?cva related -echo benign -cont tele -check ortho vitals when able afib: -new afib with rvr here -cont tele. resume toprol 50 but has been unable to take po meds. continue iv lopressor prn. -chadsvasc warrants ac. on hep gtt -tsh wnl -echo benign htn: -monitor after starting bb
[2019-08-10] MEDS ORDERED: MAGNESIUM SULF 50% (8.12 MEQ/2 ML-1 GM VIAL) IVPB ONE (12:23)
[2019-08-10] MEDS: NYSTATIN POWDER 100,000 UNITS/GM - 15 GM TOPICAL POWDER TP SCH (12:40)
[2019-08-10] MEDS: MAGNESIUM SULFATE IV SCH (12:42)
[2019-08-10] MEDS: AMINO ACIDS IV SCH (12:42)
[2019-08-10] MEDS: [UNRECOGNIZED DRUG - OTHER] IV SCH (12:42)
[2019-08-10 17:02] LABS: ALBUMIN 2.4 g/dl (3.4-5.0); BILIRUBIN,TOTAL 0.9 mg/dL (0.2-1); BLOOD UREA NITROGEN 14.8 mg/dL (7-18); CALCIUM 8.2 mg/dL (8.5-10.1); CREATININE 0.5 mg/dL (0.55-1.3); POTASSIUM 3.1 mmol/L (3.5-5.1); TOT PROT 5.8 g/dl (6.4-8.2)
[2019-08-10] MEDS: KCL 10 MEQ IVPB 10 MEQ/100 ML INFUS.BAG IVPB SCH ×3 (18:40→22:08)
[2019-08-10] MEDS: HEPARIN - 25,000 UNIT in SODIUM CHLORIDE 495 ML IV SCH (20:52)
[2019-08-10] MEDS ORDERED: FAT EMULSIONS 500 ML IV SCH (22:00)
[2019-08-10] MEDS ORDERED: FAT EMULSIONS 20% 500 ML PREMIX INFUS.BAG IV SCH (22:00)
[2019-08-10] MEDS: FAT EMULSIONS 500 ML IV SCH (22:12)
[2019-08-10] MEDS ORDERED: MAGNESIUM SULF 50% (8.12 MEQ/2 ML-1 GM VIAL) ONE (22:17)
[2019-08-11] MEDS: AMINO ACIDS IV SCH ×2 (00:32→15:00)
[2019-08-11] MEDS: [UNRECOGNIZED DRUG - OTHER] IV SCH ×2 (00:32→15:00)
[2019-08-11] MEDS: METOPROLOL TARTRATE 5 MG/5 ML VIAL IVPUSH SCH ×6 (00:32→20:28)
[2019-08-11] MEDS: MAGNESIUM SULFATE IV SCH ×2 (00:32→15:00)
[2019-08-11] MEDS: INSULIN SLIDING SCALE (NOVOLOG) 1 VIAL SQ SCH ×4 (06:21→23:14)
[2019-08-11 07:26] LABS: ALBUMIN 2.6 g/dl (3.4-5.0); BLOOD UREA NITROGEN 14.2 mg/dL (7-18); CALCIUM 8.1 mg/dL (8.5-10.1); CREATININE 0.5 mg/dL (0.55-1.3); POTASSIUM 3.2 mmol/L (3.5-5.1); TOT PROT 6.6 g/dl (6.4-8.2)
--- NOTE | 2019-08-11 07:50 | PN ---
Progress Note, Physician Chief Complaint: Dysarthric speech.NGT reinserted. More movement today History of Present Illness: Patient is a 69 year old male with history of hypertension, hyperlipidemia, non- insulin dependent diabetes mellitus and alcohol abuse, presents after a syncopal episode. Patient was intoxicated on admission and started on a librium taper. He was found to have new onset afib on admission and a heparin drip was initiated. Hospitalization complicated when patient became unresponsive on 08/04/19 MRI brain then confirmed acute right cerebral infarcts. neuro consulted and following. - Current Medication List Current Medications: Active Medications Aspirin (Asa -) 300 mg [place] DAILY [facility] Atorvastatin Calcium (Lipitor -) 80 mg NGT HS [facility] Last Admin: 08/10/19 22:18 Dose: 80 mg Diltiazem HCl (Cardizem Injection -) 5 mg IVPUSH ONCE PRN PRN Reason: TACHYCARDIA Last Admin: 08/07/19 14:06 Dose: 5 mg Folic Acid (Folic Acid -) 1 mg NGT DAILY [facility] Last Admin: 08/10/19 09:56 Dose: Not Given Heparin Sodium (Porcine) (Heparin -) 5,000 unit IVPUSH PRN PRN PRN Reason: Heparin Last Admin: 08/09/19 09:47 Dose: 5,000 unit Heparin Sodium (Porcine) (Heparin -) 1,000 unit IVPUSH PRN PRN PRN Reason: Heparin Last Admin: 08/05/19 09:00 Dose: 1,000 unit Hydralazine HCl (Apresoline Injection -) 10 mg IVPUSH Q6H PRN PRN Reason: HYPERTENSION Heparin Sodium (Porcine) 25, (000 unit/ Sodium Chloride) 500 mls @ 16 mls/hr IV TITR [facility]; Protocol Last Admin: 08/10/19 20:52 Dose: Not Given Fat Emulsion Intravenous (Intralipid -) 500 mls @ 41.667 mls/hr IV DAILY@2200 [facility] Last Admin: 08/10/19 22:12 Dose: 41.667 mls/hr Magnesium Sulfate 1 gm/ Amino (Acids) 1,002 mls @ 84 mls/hr IV Q12H [facility] Last Admin: 08/11/19 00:32 Dose: 84 mls/hr Insulin Aspart (Novolog Vial Sliding Scale -) 1 vial SQ ACHS [facility]; Protocol Last Admin: 08/11/19 06:21 Dose: 2 unit Metoprolol Tartrate (Lopressor Injection -) 5 mg IVPUSH Q4H [facility] Last Admin: 08/11/19 03:26 Dose: 5 mg Multivitamins/Minerals (Certavite-Antioxidant Liquid) 15 ml NGT DAILY [facility] Last Admin: 08/10/19 09:55 Dose: Not Given Nystatin (Nystop Powder -) 1 applic TP DAILY [facility] Last Admin: 08/10/19 12:40 Dose: 1 applic Thiamine HCl (Vitamin B1 -) 100 mg NGT BID [facility] Last Admin: 08/10/19 22:18 Dose: 100 mg - Objective Vital Signs: Vital Signs Temperature 97.8 F 08/11/19 06:00 Pulse Rate 97 H 08/11/19 06:00 Respiratory Rate 17 08/11/19 06:00 Blood Pressure 137/77 08/11/19 06:00 O2 Sat by Pulse Oximetry (%) 95 08/10/19 21:00 Constitutional: Yes: Well Nourished, No Distress, Calm Eyes: Yes: WNL, Conjunctiva Clear HENT: Yes: WNL, Atraumatic, Normocephalic Neck: Yes: WNL, Supple, Trachea Midline Cardiovascular: Yes: Tachycardia, Pulse Irregular Respiratory: Yes: WNL, Regular, CTA Bilaterally Gastrointestinal: Yes: WNL, Normal Bowel Sounds ...Rectal Exam: Yes: Deferred Genitourinary: Yes: Incontinence Breast(s): Yes: WNL Musculoskeletal: Yes: WNL Extremities: Yes: WNL Edema: No Peripheral Pulses WNL: Yes Peripheral Pulses: Left Radial: 2+, Right Radial: 2+, Left Doralis Pedis: 2+, Right Dorsalis Pedis: 2+, Left Femoral: 2+, Right Femoral: 2+ Integumentary: Yes: WNL Neurological: Yes: Dysarthria, Facial Droop, Weakness (to left side) ...Motor Strength: LUE, LLE Psychiatric: Yes: Other (more repsonsive today) Labs: CBC, BMP 08/11/19 05:35 INR, PTT INR 1.05 (0.83-1.09) 08/02/19 20:00 - ....Imaging Cat Scan: Report Reviewed MRI: Report Reviewed Problem List - Problems (1) Carotid stenosis, left Assessment/Plan: No acute vascular intervention at this time. Statin when able to take po can resume ASA, PEG on hold Pt should f/u in clinic with Dr Adams in 6 months for surveillance carotid duplex Code(s): I65.22 - OCCLUSION AND STENOSIS OF LEFT CAROTID ARTERY (2) Malnutrition Assessment/Plan: NGT reinserted. TF to start c/w clinimix with lipids until at goal May still need PEG if family agrees [employer] Anabel evaluated pt and will do MBS on wed . appreciate nutrition & [employer] consultation Code(s): E46 - UNSPECIFIED PROTEIN-CALORIE MALNUTRITION (3) A-fib Assessment/Plan: new afib with RVR-HR 100s start metoprol 25mg bid and increases if HR not controlled start eliquis 5mg bid, stop heparin TTE benign appreciate cardiology consultation Code(s): I48.91 - UNSPECIFIED ATRIAL FIBRILLATION Qualifiers: Atrial fibrillation type: unspecified Qualified Code(s): I48.91 - Unspecified atrial fibrillation (4) Acute metabolic encephalopathy Assessment/Plan: new acute frontal stroke/right cerebral infarcts. neurology following Non contrast HCT 08/09/19 --evolving R MCA infart continues to be more responsive each day Code(s): G93.41 - METABOLIC ENCEPHALOPATHY (5) Alcohol intoxication Assessment/Plan: no s/s of active withdrawal no ativan c/w MVI,thaimine,folate Code(s): F10.929 - ALCOHOL USE, UNSPECIFIED WITH INTOXICATION, UNSPECIFIED Qualifiers: Complication of substance-induced condition: uncomplicated Qualified Code(s ): F10.920 - Alcohol use, unspecified with intoxication, uncomplicated (6) Aspiration precautions Assessment/Plan: [employer]EFITS [employer]IST[employer] to do repeat MBS wednesday with delayed swallow and cough after applesauce TF to start. maintain head >45 degrees during feeds Code(s): Z91.89 - OTH PERSONAL RISK FACTORS, NOT ELSEWHERE CLASSIFIED (7) CVA (cerebral vascular accident) Assessment/Plan: CVA confirmed by brain mri 08/04/19: acute right cerebral infarcts. acute non hemorrhagic infarcts noted involving the right frontal, right temporal and right insular cortices as well as the right basal ganglia. minimal periventricular chronic microvascular changes are noted. appreciate consultation with Dr King repeat HD CT 08/09/19 --evolving R MCA infarct c/w physical therapy carotid u/s with stenosis-seen by vascular and no intervention at this time c/w ASA c/w statin Code(s): I63.9 - CEREBRAL INFARCTION, UNSPECIFIED (8) Prophylactic measure Assessment/Plan: FEN TF to start monitor electrolytres DVT eliquis bid Dispo maintain on tele full code discharge planning-spoke with SW regarding placement. ALL SNF will require PEG. no facility will take with NGT/FT Code(s): Z29.9 - ENCOUNTER FOR PROPHYLACTIC MEASURES, UNSPECIFIED (9) Syncope and collapse Code(s): R55 - SYNCOPE AND COLLAPSE (10) HTN (hypertension) Assessment/Plan: metorprol started, will add another agent if BP/HR are not controlled Code(s): I10 - ESSENTIAL (PRIMARY) HYPERTENSION (11) HLD (hyperlipidemia) Assessment/Plan: c/w statin Code(s): E78.5 - HYPERLIPIDEMIA, UNSPECIFIED (12) Non-insulin dependent type 2 diabetes mellitus Assessment/Plan: BGM with novlog sliding scale Code(s): E11.9 - TYPE 2 DIABETES MELLITUS WITHOUT COMPLICATIONS (13) Dysphagia Assessment/Plan: MBS reapeat on Mon aspiration precautions Code(s): R13.10 - DYSPHAGIA, UNSPECIFIED (14) Hypomagnesemia Assessment/Plan: Mg 2.0 , resolved Code(s): E83.42 - HYPOMAGNESEMIA (15) Hypokalemia Assessment/Plan: K 3.2.40 KCl via NGT monitor levels Code(s): E87.6 - HYPOKALEMIA Visit type - Emergency Visit Emergency Visit: Yes ED Registration Date: 08/02/19 Care time: The patient presented to the Emergency Department on the above date and was hospitalized for further evaluation of their emergent condition. - New Patient This patient is new to me today: No - Critical Care Critical Care patient: No - Discharge Referral Referred to [facility] Med P.C.: No
[2019-08-11 07:58] LABS: BASO % 0.5 % (0-2.0); EOS % 1.8 % (0-4.5); HEMATOCRIT 40.4 % (35.4-49); HEMOGLOBIN 14.3 GM/dL (11.7-16.9); LYMPH % 22.8 % (8-40); MCH 37.1 pg (25.7-33.7); MCHC 35.5 g/dl (32.0-35.9); MEAN CELL VOLUME 104.3 fl (80-96); MEAN PLT VOLUME 7.8 fl (7.5-11.1); MONO % 12.2 % (3.8-10.2); NEUT % 62.7 % (42.8-82.8); PLATELET COUNT 231 K/MM3 (134-434); RBC 3.87 M/mm3 (4.00-5.60); RDW 14.3 % (11.9-15.9); WHITE BLOOD COUNT 6.8 K/mm3 (4.0-10.0)
[2019-08-11] MEDS ORDERED: POTASSIUM CHLORIDE 40 MEQ in AMINO ACIDS 4.25%/D5W 1,000 ML IVPB SCH (08:00)
[2019-08-11] MEDS ORDERED: PT OWN MED DRAWER 7, Y5N ONE ×2 (08:33→10:00)
--- NOTE | 2019-08-11 09:21 | PN ---
Progress Note, Physician Chief Complaint: BP increased TELE: AF 100-125 - Current Medication List Current Medications: Active Medications Aspirin (Asa -) 300 mg [place] DAILY [facility]IA Atorvastatin Calcium (Lipitor -) 80 mg NGT HS [facility] Last Admin: 08/10/19 22:18 Dose: 80 mg Diltiazem HCl (Cardizem Injection -) 5 mg IVPUSH ONCE PRN PRN Reason: TACHYCARDIA Last Admin: 08/07/19 14:06 Dose: 5 mg Folic Acid (Folic Acid -) 1 mg NGT DAILY [facility] Last Admin: 08/10/19 09:56 Dose: Not Given Heparin Sodium (Porcine) (Heparin -) 5,000 unit IVPUSH PRN PRN PRN Reason: Heparin Last Admin: 08/09/19 09:47 Dose: 5,000 unit Heparin Sodium (Porcine) (Heparin -) 1,000 unit IVPUSH PRN PRN PRN Reason: Heparin Last Admin: 08/05/19 09:00 Dose: 1,000 unit Hydralazine HCl (Apresoline Injection -) 10 mg IVPUSH Q6H PRN PRN Reason: HYPERTENSION Heparin Sodium (Porcine) 25, (000 unit/ Sodium Chloride) 500 mls @ 16 mls/hr IV TITR [facility]; Protocol Last Admin: 08/10/19 20:52 Dose: Not Given Fat Emulsion Intravenous (Intralipid -) 500 mls @ 41.667 mls/hr IV DAILY@2200 [facility] Last Admin: 08/10/19 22:12 Dose: 41.667 mls/hr Magnesium Sulfate 1 gm/ Amino (Acids) 1,002 mls @ 84 mls/hr IV Q12H [facility] Last Admin: 08/11/19 00:32 Dose: 84 mls/hr Potassium Chloride (Potassium Chloride 10 Meq Premix Ivpb -) 10 meq in 100 mls @ 100 mls/hr IVPB Q60M [facility] Stop: 08/11/19 11:44 Potassium Chloride 40 meq/ (Amino Acids) 1,020 mls @ 84 mls/hr IVPB Q12H [facility] Insulin Aspart (Novolog Vial Sliding Scale -) 1 vial SQ ACHS [facility]; Protocol Last Admin: 08/11/19 06:21 Dose: 2 unit Metoprolol Tartrate (Lopressor Injection -) 5 mg IVPUSH Q4H [facility] Last Admin: 08/11/19 03:26 Dose: 5 mg Multivitamins/Minerals (Certavite-Antioxidant Liquid) 15 ml NGT DAILY [facility] Last Admin: 08/10/19 09:55 Dose: Not Given Nystatin (Nystop Powder -) 1 applic TP DAILY [facility] Last Admin: 08/10/19 12:40 Dose: 1 applic Thiamine HCl (Vitamin B1 -) 100 mg NGT BID [facility] Last Admin: 08/10/19 22:18 Dose: 100 mg - Objective Vital Signs: Vital Signs Temperature 97.8 F 08/11/19 06:00 Pulse Rate 97 H 08/11/19 06:00 Respiratory Rate 17 08/11/19 06:00 Blood Pressure 137/77 08/11/19 06:00 O2 Sat by Pulse Oximetry (%) 95 08/10/19 21:00 Constitutional: Yes: No Distress Cardiovascular: Yes: Pulse Irregular Respiratory: Yes: Rhonchi Gastrointestinal: Yes: Soft Edema: No Neurological: Yes: Other (non verbal) Labs: CBC, BMP 08/11/19 05:35 08/11/19 05:35 INR, PTT INR 1.05 (0.83-1.09) 08/02/19 20:00 Laboratory Tests 08/11/19 08/11/19 05:35 05:35 PTT (Actin FS) 55.6 H Potassium 3.2 L - ....Imaging EKG: Image Reviewed Assessment/Plan ecgs: afib, vr 96, 100, nl qtc, no ischemic changes, old irbbb tele: afib,rates low 100s echo 07/2019: nl lv/rv, mild tr, nl rvsp a/p: 69 m hx htn, dm, here with syncope. cva: -change in mental status and mri showing acute cva -neuro following -no cardiac contraindications to PEG, can hold asa and hep gtt if needed syncope: -no signs acs or chf -possibly related to etoh, possibly related to afib with rvr, ?cva related -echo benign -cont tele -check ortho vitals when able afib: -new afib with rvr here -cont tele. resume toprol 50 but has been unable to take po meds. continue iv lopressor prn. -chadsvasc warrants ac. on hep gtt -tsh wnl -echo benign htn: -Overall trend ok Hypokalemia: -replete K+
[2019-08-11] MEDS: KCL 10 MEQ IVPB 10 MEQ/100 ML INFUS.BAG IVPB SCH ×3 (09:28→15:13)
[2019-08-11] MEDS: NYSTATIN POWDER 100,000 UNITS/GM - 15 GM TOPICAL POWDER TP SCH (10:00)
[2019-08-11] MEDS: MULTIVIT-MINERALS ORAL LIQUID NGT SCH (10:22)
[2019-08-11] MEDS: FOLIC ACID 1 MG TABLET (FP) NGT SCH (10:23)
[2019-08-11] MEDS: THIAMINE HCL 100 MG TABLET (FP) NGT SCH ×2 (10:38→21:54)
[2019-08-11] MEDS ORDERED: APIXABAN 5 MG TABLET PEG SCH (11:15)
[2019-08-11] MEDS ORDERED: POTASSIUM CHLORIDE ORAL LIQUID 20 MEQ/15 ML PO ONE (11:30)
--- NOTE | 2019-08-11 13:11 | PN ---
Progress Note, [employer] - Note Progress Note: Selected Entries 08/10/19 08/10/19 08/10/19 06:00 08:00 14:28 Lunch Temperature 98.2 F 98.0 F 97.6 F 08/10/19 08/11/19 08/11/19 22:00 06:00 08:52 Lunch NPO Temperature 97.5 F L 97.8 F 08/11/19 11:53 Lunch Temperature 99.8 F H Laboratory Tests 08/11/19 05:35 WBC 6.8 Cough response after pureed trial yesterday. Kept NPO. Pt was too lethargic yesterday for MBS. Unfortunately, fluoro equipment down today. Reviewed with staff. NGT in place. Family deciding on PEG. MBS can be done mext week. If PEG inserted, MBS after to initiate swallowing rehabilitation with hope to d/ c PEG as pt improves,
[2019-08-11] MEDS: ASPIRIN 300 MG SUPP.RECT PR SCH (13:37)
[2019-08-11] MEDS: AMINO ACIDS 4.25%/D5W 1,000 ML IV SCH (14:00)
--- NOTE | 2019-08-11 14:31 | PN.GI ---
GI Progress Note Subjective: No acute events Had NGT replaced Patient confused - Objective Vital Signs: Vital Signs Temperature 99.8 F H 08/11/19 11:53 Pulse Rate 101 H 08/11/19 13:51 Respiratory Rate 18 08/11/19 13:51 Blood Pressure 144/86 08/11/19 13:51 O2 Sat by Pulse Oximetry (%) 95 08/10/19 21:00 Constitutional: Anxious Cardiovascular: Yes: Tachycardia, Pulse Irregular Gastrointestinal Inspection: No: Distention ...Auscultate: Yes: Normoactive Bowel Sounds ...Percussion: No: Tympanitic Edema: No (No LE edema) Labs: CBC, BMP 08/11/19 05:35 08/11/19 05:35 INR, PTT INR 1.05 (0.83-1.09) 08/02/19 20:00 Problem List - Problems (1) Dysphagia Assessment/Plan: In setting of alcohol intoxication and acute infarcts Trial of NGTfeeding and per Mr. Macias's [employer], for repeat MBS wednesday If patient needs feeding tube, safetly of holding anticoagulation will need to be documented in chart Code(s): R13.10 - DYSPHAGIA, UNSPECIFIED
[2019-08-11] MEDS: METOPROLOL TARTRATE 25 MG TABLET (FP) NGT SCH ×2 (14:52→21:54)
[2019-08-11] MEDS: PANTOPRAZOLE SODIUM 40 MG VIAL IVPUSH SCH (15:13)
[2019-08-11 15:52] LABS: ALBUMIN 2.4 g/dl (3.4-5.0); BILIRUBIN,TOTAL 0.9 mg/dL (0.2-1); BLOOD UREA NITROGEN 15.7 mg/dL (7-18); CALCIUM 8.2 mg/dL (8.5-10.1); CREATININE 0.5 mg/dL (0.55-1.3); POTASSIUM 3.5 mmol/L (3.5-5.1)
[2019-08-11] MEDS ORDERED: HEPARIN NA (PORCINE) 5,000 UNITS/ML 1ML VIAL IVPUSH PRN (16:20)
[2019-08-11] MEDS: HEPARIN - 25,000 UNIT in SODIUM CHLORIDE 495 ML IV SCH (20:40)
[2019-08-11] MEDS: FAT EMULSIONS 500 ML IV SCH (21:53)
[2019-08-11] MEDS: ATORVASTATIN CA 80 MG TABLET (FP) NGT SCH (21:54)
[2019-08-12] MEDS: METOPROLOL TARTRATE 5 MG/5 ML VIAL IVPUSH SCH ×7 (00:32→23:31)
[2019-08-12] MEDS: AMINO ACIDS 4.25%/D5W 1,000 ML IV SCH (01:40)
[2019-08-12] MEDS: HEPARIN NA (PORCINE) 5,000 UNITS/ML 1ML VIAL IVPUSH PRN ×2 (05:44→10:33)
[2019-08-12 06:00] LABS: BASO % 0.4 % (0-2.0); EOS % 0.9 % (0-4.5); HEMOGLOBIN 12.5 GM/dL (11.7-16.9); LYMPH % 13.2 % (8-40); MCH 36.7 pg (25.7-33.7); MCHC 35.7 g/dl (32.0-35.9); MEAN CELL VOLUME 102.8 fl (80-96); MEAN PLT VOLUME 7.9 fl (7.5-11.1); MONO % 10.4 % (3.8-10.2); NEUT % 75.1 % (42.8-82.8); PLATELET COUNT 226 K/MM3 (134-434); RDW 14.2 % (11.9-15.9); WHITE BLOOD COUNT 7.8 K/mm3 (4.0-10.0)
[2019-08-12 06:24] LABS: ALBUMIN 2.4 g/dl (3.4-5.0); BILIRUBIN,TOTAL 0.7 mg/dL (0.2-1); BLOOD UREA NITROGEN 21.7 mg/dL (7-18); CALCIUM 8.1 mg/dL (8.5-10.1); CREATININE 0.6 mg/dL (0.55-1.3); POTASSIUM 3.2 mmol/L (3.5-5.1)
[2019-08-12] MEDS: INSULIN SLIDING SCALE (NOVOLOG) 1 VIAL SQ SCH ×4 (06:28→21:18)
[2019-08-12] MEDS ORDERED: POTASSIUM CHLORIDE TABS 20 MEQ TABLET.ER (FP) PO ONE (07:28)
--- NOTE | 2019-08-12 07:30 | PN ---
Progress Note, Physician Chief Complaint: Dysarthric speech. Attempting to follow simple commands. Pulled out NGT this morning History of Present Illness: Patient is a 69 year old male with history of hypertension, hyperlipidemia, non- insulin dependent diabetes mellitus and alcohol abuse, presents after a syncopal episode. Patient was intoxicated on admission and started on a librium taper. He was found to have new onset afib on admission and a heparin drip was initiated. Hospitalization complicated when patient became unresponsive on 08/04/19 MRI brain then confirmed acute right cerebral infarcts. neuro consulted and following. - Current Medication List Current Medications: Active Medications Aspirin (Asa -) 300 mg [place] DAILY [facility] Last Admin: 08/11/19 13:37 Dose: 300 mg Atorvastatin Calcium (Lipitor -) 80 mg NGT HS [facility] Last Admin: 08/11/19 21:54 Dose: 80 mg Folic Acid (Folic Acid -) 1 mg NGT DAILY [facility] Last Admin: 08/11/19 10:23 Dose: 1 mg Heparin Sodium (Porcine) (Heparin -) 1,000 unit IVPUSH PRN PRN PRN Reason: Heparin Heparin Sodium (Porcine) (Heparin -) 5,000 unit IVPUSH PRN PRN PRN Reason: Heparin Last Admin: 08/12/19 05:44 Dose: 5,000 unit Hydralazine HCl (Apresoline Injection -) 10 mg IVPUSH Q6H PRN PRN Reason: HYPERTENSION Last Admin: 08/11/19 09:50 Dose: 10 mg Fat Emulsion Intravenous (Intralipid -) 500 mls @ 41.667 mls/hr IV DAILY@2200 [facility] Last Admin: 08/11/19 21:53 Dose: 41.667 mls/hr Amino Acids (Clinimix -) 1,000 mls @ 84 mls/hr IV Q12H [facility] Stop: 08/12/19 08:00 Last Admin: 08/12/19 01:40 Dose: 84 mls/hr Heparin Sodium (Porcine) 25, (000 unit/ Sodium Chloride) 500 mls @ 16 mls/hr IV TITR [facility]; Protocol Last Titration: 08/12/19 05:29 Dose: 950 unit/hr, 19 mls/hr Insulin Aspart (Novolog Vial Sliding Scale -) 1 vial SQ ACHS [facility]; Protocol Last Admin: 08/12/19 06:28 Dose: 2 unit Metoprolol Tartrate (Lopressor Injection -) 5 mg IVPUSH Q4H [facility] Last Admin: 08/12/19 03:59 Dose: 5 mg Metoprolol Tartrate (Lopressor -) 25 mg NGT BID [facility] Last Admin: 08/11/19 21:54 Dose: 25 mg Multivitamins/Minerals (Certavite-Antioxidant Liquid) 15 ml NGT DAILY [facility] Last Admin: 08/11/19 10:22 Dose: 15 ml Nystatin (Nystop Powder -) 1 applic TP DAILY [facility] Last Admin: 08/11/19 10:00 Dose: 1 applic Pantoprazole Sodium (Protonix Iv) 40 mg IVPUSH DAILY [facility] Last Admin: 08/11/19 15:13 Dose: 40 mg Potassium Chloride (K-Dur -) 40 meq PO ONCE ONE Stop: 08/12/19 07:29 Thiamine HCl (Vitamin B1 -) 100 mg NGT BID [facility] Last Admin: 08/11/19 21:54 Dose: 100 mg - Objective Vital Signs: Vital Signs Temperature 98.7 F 08/12/19 06:00 Pulse Rate 111 H 08/12/19 06:00 Respiratory Rate 23 H 08/12/19 06:00 Blood Pressure 124/82 08/12/19 06:00 O2 Sat by Pulse Oximetry (%) 95 08/11/19 21:00 Additional Findings/Remarks: Constitutional: Yes: Well Nourished, No Distress, Calm Eyes: Yes: WNL, Conjunctiva Clear HENT: Yes: WNL, Atraumatic, Normocephalic Neck: Yes: WNL, Supple, Trachea Midline Cardiovascular: Yes: Tachycardia, Pulse Irregular Respiratory: Yes: WNL, Regular, CTA Bilaterally Gastrointestinal: Yes: WNL, Normal Bowel Sounds ...Rectal Exam: Yes: Deferred Genitourinary: Yes: Incontinence Breast(s): Yes: WNL Musculoskeletal: Yes: WNL Extremities: Yes: WNL Edema: No Peripheral Pulses WNL: Yes Peripheral Pulses: Left Radial: 2+, Right Radial: 2+, Left Doralis Pedis: 2+, Right Dorsalis Pedis: 2+, Left Femoral: 2+, Right Femoral: 2+ Integumentary: Yes: WNL Neurological: Yes: Dysarthria, Facial Droop, Weakness (to left side) ...Motor Strength: LUE, LLE Psychiatric: Yes: restless Labs: CBC, BMP 08/12/19 05:15 08/12/19 05:15 INR, PTT INR 1.05 (0.83-1.09) 08/02/19 20:00 Problem List - Problems (1) Carotid stenosis, left Assessment/Plan: No acute vascular intervention at this time. statin when able to take PO or Peg is inserted Pt should f/u in clinic with Dr Adams in 6 months for surveillance carotid duplex Code(s): I65.22 - OCCLUSION AND STENOSIS OF LEFT CAROTID ARTERY (2) Malnutrition Assessment/Plan: NGT pulled out again by patient despite wrist restraints and supervision restart Clinimix discuss with daughter and last night and we will repeat MBS on wed. If aspirating they are agreeable to having PEG placed. All medications changed to IV and will continue clinimix. appreciate nutrition & [employer] consultation Keep stritcly NPO Code(s): E46 - UNSPECIFIED PROTEIN-CALORIE MALNUTRITION (3) A-fib Assessment/Plan: new afib with RVR-HR 100s c/w metoprolol IV for rate control c/w heparin until PEG is placed or able to take po and then start Eliquis 5mg bid TTE benign appreciate cardiology consultation c/w tele monitoring Code(s): I48.91 - UNSPECIFIED ATRIAL FIBRILLATION Qualifiers: Atrial fibrillation type: unspecified Qualified Code(s): I48.91 - Unspecified atrial fibrillation (4) Acute metabolic encephalopathy Assessment/Plan: new acute frontal stroke/right cerebral infarcts. neurology following Non contrast HCT 08/09/19 --evolving R MCA infart continues to be more responsive each day, restess at time soft wrist restraint for safety Code(s): G93.41 - METABOLIC ENCEPHALOPATHY (5) Alcohol intoxication Code(s): F10.929 - ALCOHOL USE, UNSPECIFIED WITH INTOXICATION, UNSPECIFIED Qualifiers: Complication of substance-induced condition: uncomplicated Qualified Code(s ): F10.920 - Alcohol use, unspecified with intoxication, uncomplicated (6) Aspiration precautions Assessment/Plan: [employer] to repeat MBS wednesday with delayed swallow and cough after applesauce maintain head >45 degrees strictly NPO Code(s): Z91.89 - OTH PERSONAL RISK FACTORS, NOT ELSEWHERE CLASSIFIED (7) CVA (cerebral vascular accident) Assessment/Plan: CVA confirmed by brain mri 08/04/19: acute right cerebral infarcts. acute non hemorrhagic infarcts noted involving the right frontal, right temporal and right insular cortices as well as the right basal ganglia. minimal periventricular chronic microvascular changes are noted. appreciate consultation with Dr King repeat HD CT 08/09/19 --evolving R MCA infarct c/w physical therapy carotid u/s with stenosis-seen by vascular and no intervention at this time ASA on holf for possible PEG mom/tues c/w statin after PEG is placed or able to take PO Code(s): I63.9 - CEREBRAL INFARCTION, UNSPECIFIED (8) Prophylactic measure Assessment/Plan: FEN clinimix monitor electrolytres DVT heparin gtt Dispo maintain on tele full code discharge planning-spoke with SW regarding placement. Requests placed via [employer] for SNF Code(s): Z29.9 - ENCOUNTER FOR PROPHYLACTIC MEASURES, UNSPECIFIED (9) Syncope and collapse Assessment/Plan: fall precautions PT Code(s): R55 - SYNCOPE AND COLLAPSE (10) HTN (hypertension) Assessment/Plan: BP high start vasotec 1.25mg q6h with hold parameters until able to start PO meds c/w metorprol Code(s): I10 - ESSENTIAL (PRIMARY) HYPERTENSION (11) HLD (hyperlipidemia) Assessment/Plan: c/w statin when able to take PO or Peg IS PLACED Code(s): E78.5 - HYPERLIPIDEMIA, UNSPECIFIED (12) Non-insulin dependent type 2 diabetes mellitus Assessment/Plan: BGM with novlog sliding scale Code(s): E11.9 - TYPE 2 DIABETES MELLITUS WITHOUT COMPLICATIONS (13) Dysphagia Assessment/Plan: MBS repeat on Mon aspiration precautions Code(s): R13.10 - DYSPHAGIA, UNSPECIFIED (14) Hypomagnesemia Assessment/Plan: Mg 1.8 Mg added to clinimix Code(s): E83.42 - HYPOMAGNESEMIA (15) Hypokalemia Assessment/Plan: K 3.2 KCl added to clinimix monitor levels Code(s): E87.6 - HYPOKALEMIA Visit type - Emergency Visit Emergency Visit: Yes ED Registration Date: 08/02/19 Care time: The patient presented to the Emergency Department on the above date and was hospitalized for further evaluation of their emergent condition. - New Patient This patient is new to me today: No - Critical Care Critical Care patient: No - Discharge Referral Referred to [facility] Med [facility].C[facility] No
--- NOTE | 2019-08-12 08:31 | PN ---
Progress Note, Physician Chief Complaint: CVA History of Present Illness: pt lethargic, minimally attempts to open eyes to voice - Current Medication List Current Medications: Active Medications Aspirin (Asa -) 300 mg [place] DAILY [facility] Last Admin: 08/11/19 13:37 Dose: 300 mg Atorvastatin Calcium (Lipitor -) 80 mg NGT HS [facility] Last Admin: 08/11/19 21:54 Dose: 80 mg Folic Acid (Folic Acid -) 1 mg NGT DAILY [facility] Last Admin: 08/11/19 10:23 Dose: 1 mg Heparin Sodium (Porcine) (Heparin -) 1,000 unit IVPUSH PRN PRN PRN Reason: Heparin Heparin Sodium (Porcine) (Heparin -) 5,000 unit IVPUSH PRN PRN PRN Reason: Heparin Last Admin: 08/12/19 05:44 Dose: 5,000 unit Hydralazine HCl (Apresoline Injection -) 10 mg IVPUSH Q6H PRN PRN Reason: HYPERTENSION Last Admin: 08/11/19 09:50 Dose: 10 mg Fat Emulsion Intravenous (Intralipid -) 500 mls @ 41.667 mls/hr IV DAILY@2200 [facility] Last Admin: 08/11/19 21:53 Dose: 41.667 mls/hr Heparin Sodium (Porcine) 25, (000 unit/ Sodium Chloride) 500 mls @ 16 mls/hr IV TITR [facility]; Protocol Last Titration: 08/12/19 05:29 Dose: 950 unit/hr, 19 mls/hr Insulin Aspart (Novolog Vial Sliding Scale -) 1 vial SQ ACHS [facility]; Protocol Last Admin: 08/12/19 06:28 Dose: 2 unit Metoprolol Tartrate (Lopressor Injection -) 5 mg IVPUSH Q4H [facility] Last Admin: 08/12/19 08:19 Dose: 5 mg Metoprolol Tartrate (Lopressor -) 25 mg NGT BID [facility] Last Admin: 08/11/19 21:54 Dose: 25 mg Multivitamins/Minerals (Certavite-Antioxidant Liquid) 15 ml NGT DAILY [facility] Last Admin: 08/11/19 10:22 Dose: 15 ml Nystatin (Nystop Powder -) 1 applic TP DAILY [facility] Last Admin: 08/11/19 10:00 Dose: 1 applic Pantoprazole Sodium (Protonix Iv) 40 mg IVPUSH DAILY [facility] Last Admin: 08/11/19 15:13 Dose: 40 mg Thiamine HCl (Vitamin B1 -) 100 mg NGT BID [facility] Last Admin: 08/11/19 21:54 Dose: 100 mg - Objective Vital Signs: Vital Signs Temperature 98.7 F 08/12/19 06:00 Pulse Rate 115 H 08/12/19 08:19 Respiratory Rate 23 H 08/12/19 06:00 Blood Pressure 144/84 08/12/19 08:19 O2 Sat by Pulse Oximetry (%) 95 08/11/19 21:00 Constitutional: Yes: Well Nourished, No Distress, Calm Cardiovascular: Yes: Pulse Irregular, S1, S2. No: Gallop, Murmur Respiratory: Yes: Regular, CTA Bilaterally (not taking deep). No: Accessory Muscle Use Extremities: No: Cold Edema: No Neurological: Yes: Lethargy. No: Seizure Psychiatric: No: Agitated Labs: CBC, BMP 08/12/19 05:15 08/12/19 05:15 INR, PTT INR 1.05 (0.83-1.09) 08/02/19 20:00 Assessment/Plan tele: afib, rates 90s-100s > 110s echo 07/2019: nl lv/rv, mild tr, nl rvsp a/p: 69 m hx htn, dm, here with syncope. cva: -change in mental status and mri showing acute cva -neuro following -no cardiac contraindications to PEG, can hold asa and hep gtt preoperatively if needed syncope: -no signs acs or chf -possibly related to etoh, possibly related to afib with rvr, ?cva related -echo benign -cont tele afib: -new afib with rvr here--now reasonably controlled -no PO intake at present, awaiting PEG. continue iv lopressor prn as doing. -chadsvasc warrants ac. on hep gtt -tsh wnl -echo benign -cont K repletion prn -cont tele htn: -overall controlled
[2019-08-12 08:36] LABS: MAGNESIUM 1.8 mg/dL (1.8-2.4)
[2019-08-12] MEDS: METOPROLOL TARTRATE 25 MG TABLET (FP) NGT SCH (10:27)
[2019-08-12] MEDS: PANTOPRAZOLE SODIUM 40 MG VIAL IVPUSH SCH (10:27)
[2019-08-12] MEDS: MULTIVIT-MINERALS ORAL LIQUID NGT SCH (10:27)
[2019-08-12] MEDS: FOLIC ACID 1 MG TABLET (FP) NGT SCH (10:27)
[2019-08-12] MEDS: THIAMINE HCL 100 MG TABLET (FP) NGT SCH (10:47)
[2019-08-12] MEDS: NYSTATIN POWDER 100,000 UNITS/GM - 15 GM TOPICAL POWDER TP SCH (11:00)
[2019-08-12] MEDS ORDERED: PT OWN MED DRAWER 7, Y5N ONE ×2 (13:10→14:03)
[2019-08-12] MEDS: MULTIVIT INJ. ADULT COMBO WITH VIT K 1 COMBO 10 ML VIAL IV SCH (14:19)
[2019-08-12] MEDS: FOLIC ACID 5 MG/1 ML IVPB SCH (14:22)
[2019-08-12] MEDS: AMINO ACIDS IVPB SCH (14:23)
[2019-08-12] MEDS: POTASSIUM CHLORIDE IVPB SCH (14:23)
[2019-08-12] MEDS: THIAMINE HCL IVPB SCH (14:23)
[2019-08-12] MEDS: [UNRECOGNIZED DRUG - OTHER] IVPB SCH (14:23)
[2019-08-12] MEDS: ENALAPRILAT DIHYDRATE 1.25 MG/1 ML VIAL IVPB SCH ×2 (16:00→21:14)
[2019-08-12] MEDS: HEPARIN - 25,000 UNIT in SODIUM CHLORIDE 495 ML IV SCH ×2 (16:48→23:34)
[2019-08-12 17:17] LABS: BLOOD UREA NITROGEN 17.7 mg/dL (7-18); CALCIUM 8.2 mg/dL (8.5-10.1); CREATININE 0.5 mg/dL (0.55-1.3)
[2019-08-12 17:21] LABS: POTASSIUM 2.9 mmol/L (3.5-5.1)
[2019-08-12] MEDS: KCL 10 MEQ IVPB 10 MEQ/100 ML INFUS.BAG IVPB SCH ×3 (17:59→21:18)
[2019-08-12] MEDS ORDERED: INSULIN (NOVOLOG) ASPART 100 UNITS/ML 10ML VIAL ONE (21:16)
[2019-08-12] MEDS: FAT EMULSIONS 500 ML IV SCH (21:17)
[2019-08-13] MEDS: ENALAPRILAT DIHYDRATE 1.25 MG/1 ML VIAL IVPB SCH ×4 (03:16→20:13)
[2019-08-13] MEDS: METOPROLOL TARTRATE 5 MG/5 ML VIAL IVPUSH SCH ×6 (03:16→20:48)
[2019-08-13] MEDS: [UNRECOGNIZED DRUG - OTHER] IVPB SCH ×2 (06:03→21:43)
[2019-08-13] MEDS: THIAMINE HCL IVPB SCH ×2 (06:03→21:43)
[2019-08-13] MEDS: AMINO ACIDS IVPB SCH ×2 (06:03→21:43)
[2019-08-13] MEDS: POTASSIUM CHLORIDE IVPB SCH ×2 (06:03→21:43)
[2019-08-13] MEDS: INSULIN SLIDING SCALE (NOVOLOG) 1 VIAL SQ SCH ×4 (06:04→21:19)
[2019-08-13 07:00] LABS: BASO % 0.7 % (0-2.0); EOS % 1.2 % (0-4.5); HEMATOCRIT 35.2 % (35.4-49); HEMOGLOBIN 12.6 GM/dL (11.7-16.9); LYMPH % 14.1 % (8-40); MCH 36.9 pg (25.7-33.7); MCHC 35.9 g/dl (32.0-35.9); MEAN CELL VOLUME 102.8 fl (80-96); MONO % 7.8 % (3.8-10.2); NEUT % 76.2 % (42.8-82.8); PLATELET COUNT 276 K/MM3 (134-434); RBC 3.42 M/mm3 (4.00-5.60); RDW 14.4 % (11.9-15.9); WHITE BLOOD COUNT 6.9 K/mm3 (4.0-10.0)
[2019-08-13 07:27] LABS: ALBUMIN 2.5 g/dl (3.4-5.0); BILIRUBIN,TOTAL 0.7 mg/dL (0.2-1); BLOOD UREA NITROGEN 16.2 mg/dL (7-18); CALCIUM 8.5 mg/dL (8.5-10.1); CREATININE 0.5 mg/dL (0.55-1.3); MAGNESIUM 1.7 mg/dL (1.8-2.4); POTASSIUM 3.5 mmol/L (3.5-5.1); TOT PROT 6.4 g/dl (6.4-8.2)
--- NOTE | 2019-08-13 07:46 | PN ---
Progress Note, Physician Chief Complaint: Dysarthric speech. responsive to verbal stimuli History of Present Illness: Patient is a 69 year old male with history of hypertension, hyperlipidemia, non- insulin dependent diabetes mellitus and alcohol abuse, presents after a syncopal episode. Patient was intoxicated on admission and started on a librium taper. He was found to have new onset afib on admission and a heparin drip was initiated. Hospitalization complicated when patient became unresponsive on 08/04/19 MRI brain then confirmed acute right cerebral infarcts. neuro consulted and following. - Current Medication List Current Medications: Active Medications Aspirin (Asa -) 300 mg [place] DAILY [facility] Last Admin: 08/11/19 13:37 Dose: 300 mg Atorvastatin Calcium (Lipitor -) 80 mg NGT HS [facility] Last Admin: 08/11/19 21:54 Dose: 80 mg Enalaprilat (Vasotec Injection -) 1.25 mg IVPB Q6H-IV [facility] Last Admin: 08/13/19 03:16 Dose: 1.25 mg Folic Acid (Folic Acid -) 1 mg NGT DAILY [facility] Last Admin: 08/12/19 10:27 Dose: Not Given Folic Acid (Folic Acid Injection -) 1 mg IVPB Q24H [facility] Last Admin: 08/12/19 14:22 Dose: 1 mg Heparin Sodium (Porcine) (Heparin -) 1,000 unit IVPUSH PRN PRN PRN Reason: Heparin Heparin Sodium (Porcine) (Heparin -) 5,000 unit IVPUSH PRN PRN PRN Reason: Heparin Last Admin: 08/12/19 10:33 Dose: 5,000 unit Fat Emulsion Intravenous (Intralipid -) 500 mls @ 41.667 mls/hr IV DAILY@2200 [facility] Last Admin: 08/12/19 21:17 Dose: 41.667 mls/hr Heparin Sodium (Porcine) 25, (000 unit/ Sodium Chloride) 500 mls @ 16 mls/hr IV TITR [facility]; Protocol Last Admin: 08/12/19 23:34 Dose: 1,100 unit/hr, 22 mls/hr Potassium Chloride 40 meq/Thiamine HCl 100 mg/ Amino Acids 1,021 mls @ 84 mls/ hr IVPB Q12H [facility] Last Admin: 08/13/19 06:03 Dose: 84 mls/hr Insulin Aspart (Novolog Vial Sliding Scale -) 1 vial SQ ACHS [facility]; Protocol Last Admin: 08/13/19 06:04 Dose: 1 unit Metoprolol Tartrate (Lopressor -) 25 mg NGT BID [facility] Last Admin: 08/12/19 10:27 Dose: Not Given Metoprolol Tartrate (Lopressor Injection -) 5 mg IVPUSH Q4H [facility] Last Admin: 08/13/19 06:04 Dose: 5 mg Multivitamins/Minerals (Certavite-Antioxidant Liquid) 15 ml NGT DAILY [facility] Last Admin: 08/12/19 10:27 Dose: Not Given Multivitamins/Minerals (Infuvite Adult -) 10 ml IV Q24H [facility] Last Admin: 08/12/19 14:19 Dose: 10 ml Nystatin (Nystop Powder -) 1 applic TP DAILY [facility] Last Admin: 08/12/19 11:00 Dose: 1 applic Pantoprazole Sodium (Protonix Iv) 40 mg IVPUSH DAILY [facility] Last Admin: 08/12/19 10:27 Dose: 40 mg Thiamine HCl (Vitamin B1 -) 100 mg NGT BID [facility] Last Admin: 08/12/19 10:47 Dose: Not Given - Objective Vital Signs: Vital Signs Temperature 97.7 F 08/13/19 04:00 Pulse Rate 119 H 08/13/19 06:04 Respiratory Rate 24 H 08/13/19 04:00 Blood Pressure 155/11 L 08/13/19 06:04 O2 Sat by Pulse Oximetry (%) 95 08/12/19 20:35 Additional Findings/Remarks: Constitutional: Yes: Well Nourished, No Distress, Calm Eyes: Yes: WNL, Conjunctiva Clear HENT: Yes: WNL, Atraumatic, Normocephalic Neck: Yes: WNL, Supple, Trachea Midline Cardiovascular: Yes: Tachycardia, Pulse Irregular Respiratory: Yes: WNL, Regular, CTA Bilaterally Gastrointestinal: Yes: WNL, Normal Bowel Sounds ...Rectal Exam: Yes: Deferred Genitourinary: Yes: Incontinence Breast(s): Yes: WNL Musculoskeletal: Yes: WNL Extremities: Yes: WNL Edema: No Peripheral Pulses WNL: Yes Peripheral Pulses: Left Radial: 2+, Right Radial: 2+, Left Doralis Pedis: 2+, Right Dorsalis Pedis: 2+, Left Femoral: 2+, Right Femoral: 2+ Integumentary: Yes: WNL Neurological: Yes: Dysarthria, Facial Droop, Weakness (to left side) ...Motor Strength: LUE, LLE Psychiatric: Yes: restless Labs: CBC, BMP 08/13/19 06:25 08/13/19 06:25 INR, PTT INR 1.05 (0.83-1.09) 08/02/19 20:00 Problem List - Problems (1) Carotid stenosis, left Assessment/Plan: No acute vascular intervention at this time. statin when able to take PO or Peg is inserted Pt should f/u in clinic with Dr Adams in 6 months for surveillance carotid duplex Code(s): I65.22 - OCCLUSION AND STENOSIS OF LEFT CAROTID ARTERY (2) Malnutrition Assessment/Plan: continue Clinimix appreciate nutrition & DIE REPAIR MACHINIST consultation Keep stritcly NPO Code(s): E46 - UNSPECIFIED PROTEIN-CALORIE MALNUTRITION (3) A-fib Assessment/Plan: new afib with RVR-HR 100s c/w metoprolol IV for rate control c/w heparin until PEG is placed or able to take po and then start Eliquis 5mg bid TTE benign appreciate cardiology consultation c/w tele monitoring Code(s): I48.91 - UNSPECIFIED ATRIAL FIBRILLATION Qualifiers: Atrial fibrillation type: unspecified Qualified Code(s): I48.91 - Unspecified atrial fibrillation (4) Acute metabolic encephalopathy Assessment/Plan: new acute frontal stroke/right cerebral infarcts. neurology following Non contrast HCT 08/09/19 --evolving R MCA infart continues to be more responsive each day, restess at time soft wrist restraint for safety Code(s): G93.41 - METABOLIC ENCEPHALOPATHY (5) Alcohol intoxication Assessment/Plan: no s/s of active withdrawal no ativan c/w MVI,thaimine,folate in Clinimix Code(s): F10.929 - ALCOHOL USE, UNSPECIFIED WITH INTOXICATION, UNSPECIFIED Qualifiers: Complication of substance-induced condition: uncomplicated Qualified Code(s ): F10.920 - Alcohol use, unspecified with intoxication, uncomplicated (6) Aspiration precautions Assessment/Plan: DIE REPAIR MACHINIST to repeat MBS tomorrow with delayed swallow and cough after applesauce maintain head >45 degrees strictly NPO Code(s): Z91.89 - OTH PERSONAL RISK FACTORS, NOT ELSEWHERE CLASSIFIED (7) CVA (cerebral vascular accident) Assessment/Plan: CVA confirmed by brain mri 08/04/19: acute right cerebral infarcts. acute non hemorrhagic infarcts noted involving the right frontal, right temporal and right insular cortices as well as the right basal ganglia. minimal periventricular chronic microvascular changes are noted. appreciate consultation with Dr King repeat HD CT 08/09/19 --evolving R MCA infarct c/w physical therapy carotid u/s with stenosis-seen by vascular and no intervention at this time ASA on hold for possible PEG mom/tues c/w statin after PEG is placed or able to take PO Code(s): I63.9 - CEREBRAL INFARCTION, UNSPECIFIED (8) Prophylactic measure Assessment/Plan: FEN clinimix monitor electrolytres DVT heparin gtt Dispo maintain on tele full code discharge planning-spoke with SW regarding placement. Requests placed via [employer] for SNF Code(s): Z29.9 - ENCOUNTER FOR PROPHYLACTIC MEASURES, UNSPECIFIED (9) Syncope and collapse Assessment/Plan: fall precautions PT Code(s): R55 - SYNCOPE AND COLLAPSE (10) HTN (hypertension) Assessment/Plan: BP not well controlled c/w vasotec 1.25mg q6h with hold parameters (SBP <120) until able to start PO meds c/w metoprolol Code(s): I10 - ESSENTIAL (PRIMARY) HYPERTENSION (11) HLD (hyperlipidemia) Assessment/Plan: c/w statin when able to take PO or PEG is placed Code(s): E78.5 - HYPERLIPIDEMIA, UNSPECIFIED (12) Non-insulin dependent type 2 diabetes mellitus Assessment/Plan: BGM with novlog sliding scale Code(s): E11.9 - TYPE 2 DIABETES MELLITUS WITHOUT COMPLICATIONS (13) Dysphagia Assessment/Plan: MBS repeat on Mon aspiration precautions Code(s): R13.10 - DYSPHAGIA, UNSPECIFIED (14) Hypomagnesemia Assessment/Plan: Mg 1.7 Mg added to clinimix Code(s): E83.42 - HYPOMAGNESEMIA (15) Hypokalemia Assessment/Plan: K 3.5 KCl added to clinimix monitor levels Code(s): E87.6 - HYPOKALEMIA Visit type - Emergency Visit Emergency Visit: Yes ED Registration Date: 08/02/19 Care time: The patient presented to the Emergency Department on the above date and was hospitalized for further evaluation of their emergent condition. - New Patient This patient is new to me today: No - Critical Care Critical Care patient: No - Discharge Referral Referred to [facility] Med P.C.: No
[2019-08-13] MEDS: NYSTATIN POWDER 100,000 UNITS/GM - 15 GM TOPICAL POWDER TP SCH (10:06)
[2019-08-13] MEDS: PANTOPRAZOLE SODIUM 40 MG VIAL IVPUSH SCH (10:12)
--- NOTE | 2019-08-13 10:14 | PN ---
Progress Note, Physician Chief Complaint: cva History of Present Illness: lethargic, eyes closed--mumbles incoherently calm, appears comfortable - Current Medication List Current Medications: Active Medications Aspirin (Asa -) [address] DAILY [facility] Last Admin: 08/11/19 13:37 Dose: 300 mg Atorvastatin Calcium (Lipitor -) 80 mg NGT HS [facility] Last Admin: 08/11/19 21:54 Dose: 80 mg Enalaprilat (Vasotec Injection -) 1.25 mg IVPB Q6H-IV [facility] Last Admin: 08/13/19 09:41 Dose: Not Given Folic Acid (Folic Acid -) 1 mg NGT DAILY [facility] Last Admin: 08/12/19 10:27 Dose: Not Given Folic Acid (Folic Acid Injection -) 1 mg IVPB Q24H [facility] Last Admin: 08/12/19 14:22 Dose: 1 mg Heparin Sodium (Porcine) (Heparin -) 1,000 unit IVPUSH PRN PRN PRN Reason: Heparin Last Admin: 08/13/19 07:58 Dose: 1,000 unit Heparin Sodium (Porcine) (Heparin -) 5,000 unit IVPUSH PRN PRN PRN Reason: Heparin Last Admin: 08/12/19 10:33 Dose: 5,000 unit Fat Emulsion Intravenous (Intralipid -) 500 mls @ 41.667 mls/hr IV DAILY@2200 [facility] Last Admin: 08/12/19 21:17 Dose: 41.667 mls/hr Heparin Sodium (Porcine) 25, (000 unit/ Sodium Chloride) 500 mls @ 16 mls/hr IV TITR [facility]; Protocol Last Titration: 08/13/19 07:56 Dose: 1,200 unit/hr, 24 mls/hr Potassium Chloride 40 meq/Thiamine HCl 100 mg/ Amino Acids 1,021 mls @ 84 mls/ hr IVPB Q12H [facility] Last Admin: 08/13/19 06:03 Dose: 84 mls/hr Insulin Aspart (Novolog Vial Sliding Scale -) 1 vial SQ ACHS [facility]; Protocol Last Admin: 08/13/19 06:04 Dose: 1 unit Metoprolol Tartrate (Lopressor -) 25 mg NGT BID [facility] Last Admin: 08/12/19 10:27 Dose: Not Given Metoprolol Tartrate (Lopressor Injection -) 5 mg IVPUSH Q4H [facility] Last Admin: 08/13/19 06:04 Dose: 5 mg Multivitamins/Minerals (Certavite-Antioxidant Liquid) 15 ml NGT DAILY [facility] Last Admin: 08/12/19 10:27 Dose: Not Given Multivitamins/Minerals (Infuvite Adult -) 10 ml IV Q24H [facility] Last Admin: 08/12/19 14:19 Dose: 10 ml Nystatin (Nystop Powder -) 1 applic TP DAILY [facility] Last Admin: 08/13/19 10:06 Dose: 1 applic Pantoprazole Sodium (Protonix Iv) 40 mg IVPUSH DAILY [facility] Last Admin: 08/12/19 10:27 Dose: 40 mg Thiamine HCl (Vitamin B1 -) 100 mg NGT BID [facility] Last Admin: 08/12/19 10:47 Dose: Not Given - Objective Vital Signs: Vital Signs Temperature 99.3 F 08/13/19 09:00 Pulse Rate 117 H 08/13/19 09:30 Respiratory Rate 20 08/13/19 08:00 Blood Pressure 139/98 08/13/19 09:30 O2 Sat by Pulse Oximetry (%) 97 08/13/19 09:00 Constitutional: Yes: Well Nourished, No Distress, Calm Cardiovascular: Yes: Pulse Irregular, S1, S2. No: Gallop, Murmur Respiratory: Yes: Regular, CTA Bilaterally (anteriorly (not deep breaths)). No : Accessory Muscle Use, Rales Extremities: No: Cold Edema: No Neurological: No: Alert, Oriented Psychiatric: No: Agitated Labs: CBC, BMP 08/13/19 06:25 08/13/19 06:25 INR, PTT INR 1.05 (0.83-1.09) 08/02/19 20:00 Assessment/Plan tele: afib, rates 90s-100s echo 07/2019: nl lv/rv, mild tr, nl rvsp a/p: 69 m hx htn, dm, here with syncope. cva: -change in mental status and mri showing acute cva -neuro following -no cardiac contraindications to PEG, can hold asa and hep gtt preoperatively if needed syncope: -no signs acs or chf -possibly related to etoh, possibly related to afib with rvr, ?cva related -echo benign -cont tele afib: -new afib with rvr here--now reasonably controlled -no PO intake at present, awaiting PEG. continue iv lopressor prn as doing. -chadsvasc warrants ac. on hep gtt -tsh wnl -echo benign -cont K repletion prn -cont tele htn: -bp not controlled -need to clarify bp targets with neuro (in setting of acute CVA)--further med rec.s to follow
[2019-08-13] MEDS ORDERED: ENALAPRILAT DIHYDRATE 1.25 MG/1 ML VIAL IVPB SCH (11:45)
[2019-08-13] MEDS: HEPARIN - 25,000 UNIT in SODIUM CHLORIDE 495 ML IV SCH (16:34)
[2019-08-13] MEDS: HEPARIN NA (PORCINE) 5,000 UNITS/ML 1ML VIAL IVPUSH PRN (16:36)
[2019-08-13] MEDS: MULTIVIT INJ. ADULT COMBO WITH VIT K 1 COMBO 10 ML VIAL IV SCH (21:43)
[2019-08-13] MEDS: FOLIC ACID 5 MG/1 ML IVPB SCH (21:43)
[2019-08-14] MEDS: METOPROLOL TARTRATE 5 MG/5 ML VIAL IVPUSH SCH ×6 (00:50→22:48)
[2019-08-14] MEDS: AMINO ACIDS IVPB SCH ×2 (01:45→15:03)
[2019-08-14] MEDS: POTASSIUM CHLORIDE IVPB SCH ×2 (01:45→15:03)
[2019-08-14] MEDS: THIAMINE HCL IVPB SCH ×2 (01:45→15:03)
[2019-08-14] MEDS: [UNRECOGNIZED DRUG - OTHER] IVPB SCH ×2 (01:45→15:03)
[2019-08-14] MEDS ORDERED: PT OWN MED DRAWER 7, Y5N ONE ×3 (01:47→14:26)
[2019-08-14] MEDS: FAT EMULSIONS 500 ML IV SCH (01:50)
[2019-08-14] MEDS: ENALAPRILAT DIHYDRATE 1.25 MG/1 ML VIAL IVPB SCH ×4 (02:12→21:26)
[2019-08-14] MEDS: INSULIN SLIDING SCALE (NOVOLOG) 1 VIAL SQ SCH ×4 (06:05→21:50)
[2019-08-14 06:17] LABS: BASO % 0.6 % (0-2.0); EOS % 1.4 % (0-4.5); HEMATOCRIT 36.5 % (35.4-49); HEMOGLOBIN 12.9 GM/dL (11.7-16.9); LYMPH % 14.3 % (8-40); MCH 37.1 pg (25.7-33.7); MCHC 35.4 g/dl (32.0-35.9); MEAN CELL VOLUME 104.7 fl (80-96); MEAN PLT VOLUME 8.6 fl (7.5-11.1); MONO % 8.7 % (3.8-10.2); PLATELET COUNT 291 K/MM3 (134-434); RBC 3.48 M/mm3 (4.00-5.60); RDW 14.2 % (11.9-15.9); WHITE BLOOD COUNT 7.4 K/mm3 (4.0-10.0)
[2019-08-14 06:54] LABS: ALBUMIN 2.6 g/dl (3.4-5.0); BILIRUBIN,TOTAL 0.6 mg/dL (0.2-1); BLOOD UREA NITROGEN 18.2 mg/dL (7-18); CALCIUM 8.6 mg/dL (8.5-10.1); CREATININE 0.5 mg/dL (0.55-1.3); MAGNESIUM 1.7 mg/dL (1.8-2.4); POTASSIUM 4.1 mmol/L (3.5-5.1); TOT PROT 6.6 g/dl (6.4-8.2)
[2019-08-14] MEDS ORDERED: MAGNESIUM SULF 50% (8.12 MEQ/2 ML-1 GM VIAL) IVPB ONE (07:25)
--- NOTE | 2019-08-14 07:25 | PN ---
Progress Note, Physician Chief Complaint: Dysarthric speech, attempting to speak more. Moving right side, following simple commands History of Present Illness: Patient is a 69 year old male with history of hypertension, hyperlipidemia, non- insulin dependent diabetes mellitus and alcohol abuse, presents after a syncopal episode. Patient was intoxicated on admission and started on a librium taper. He was found to have new onset afib on admission and a heparin drip was initiated. Hospitalization complicated when patient became unresponsive on 08/04/19 MRI brain then confirmed acute right cerebral infarcts. neuro consulted and following. - Current Medication List Current Medications: Active Medications Aspirin (Asa -) 300 mg [place] DAILY [facility] Last Admin: 08/11/19 13:37 Dose: 300 mg Atorvastatin Calcium (Lipitor -) 80 mg NGT HS [facility] Last Admin: 08/11/19 21:54 Dose: 80 mg Enalaprilat (Vasotec Injection -) 1.25 mg IVPB Q6H-IV [facility] Last Admin: 08/14/19 02:12 Dose: 1.25 mg Folic Acid (Folic Acid -) 1 mg NGT DAILY [facility] Last Admin: 08/12/19 10:27 Dose: Not Given Folic Acid (Folic Acid Injection -) 1 mg IVPB Q24H [facility] Last Admin: 08/13/19 21:43 Dose: 1 mg Heparin Sodium (Porcine) (Heparin -) 1,000 unit IVPUSH PRN PRN PRN Reason: Heparin Last Admin: 08/13/19 07:58 Dose: 1,000 unit Heparin Sodium (Porcine) (Heparin -) 5,000 unit IVPUSH PRN PRN PRN Reason: Heparin Last Admin: 08/13/19 16:36 Dose: 5,000 unit Fat Emulsion Intravenous (Intralipid -) 500 mls @ 41.667 mls/hr IV DAILY@2200 [facility] Last Admin: 08/14/19 01:50 Dose: 41.667 mls/hr Heparin Sodium (Porcine) 25, (000 unit/ Sodium Chloride) 500 mls @ 16 mls/hr IV TITR [facility]; Protocol Last Admin: 08/13/19 16:34 Dose: 1,350 unit/hr, 27 mls/hr Potassium Chloride 40 meq/Thiamine HCl 100 mg/ Amino Acids 1,021 mls @ 84 mls/ hr IVPB Q12H [facility] Last Admin: 08/14/19 01:45 Dose: Not Given Insulin Aspart (Novolog Vial Sliding Scale -) 1 vial SQ ACHS [facility]; Protocol Last Admin: 08/14/19 06:05 Dose: 2 unit Metoprolol Tartrate (Lopressor -) 25 mg NGT BID [facility] Last Admin: 08/12/19 10:27 Dose: Not Given Metoprolol Tartrate (Lopressor Injection -) 10 mg IVPUSH Q4H [facility] Last Admin: 08/14/19 05:59 Dose: 10 mg Multivitamins/Minerals (Certavite-Antioxidant Liquid) 15 ml NGT DAILY [facility] Last Admin: 08/12/19 10:27 Dose: Not Given Multivitamins/Minerals (Infuvite Adult -) 10 ml IV Q24H [facility] Last Admin: 08/13/19 21:43 Dose: 10 ml Nystatin (Nystop Powder -) 1 applic TP DAILY [facility] Last Admin: 08/13/19 10:06 Dose: 1 applic Pantoprazole Sodium (Protonix Iv) 40 mg IVPUSH DAILY [facility] Last Admin: 08/13/19 10:12 Dose: 40 mg Thiamine HCl (Vitamin B1 -) 100 mg NGT BID [facility] Last Admin: 08/12/19 10:47 Dose: Not Given - Objective Vital Signs: Vital Signs Temperature 97.9 F 08/13/19 13:00 Pulse Rate 115 H 08/14/19 05:59 Respiratory Rate 22 H 08/14/19 04:00 Blood Pressure 140/83 08/14/19 05:59 O2 Sat by Pulse Oximetry (%) 97 08/13/19 21:00 Additional Findings/Remarks: Constitutional: Yes: Well Nourished, No Distress, Calm Eyes: Yes: WNL, Conjunctiva Clear HENT: Yes: WNL, Atraumatic, Normocephalic Neck: Yes: WNL, Supple, Trachea Midline Cardiovascular: Yes: Tachycardia, Pulse Irregular Respiratory: Yes: WNL, Regular, CTA Bilaterally Gastrointestinal: Yes: WNL, Normal Bowel Sounds ...Rectal Exam: Yes: Deferred Genitourinary: Yes: Incontinence Breast(s): Yes: WNL Musculoskeletal: Yes: WNL Extremities: Yes: WNL Edema: No Peripheral Pulses WNL: Yes Peripheral Pulses: Left Radial: 2+, Right Radial: 2+, Left Doralis Pedis: 2+, Right Dorsalis Pedis: 2+, Left Femoral: 2+, Right Femoral: 2+ Integumentary: Yes: WNL Neurological: Yes: Dysarthria, Facial Droop, Weakness (to left side) ...Motor Strength: LUE, LLE Psychiatric: Yes: restless Labs: CBC, BMP 08/14/19 05:20 08/14/19 05:20 INR, PTT INR 1.05 (0.83-1.09) 08/02/19 20:00 Problem List - Problems (1) Carotid stenosis, left Assessment/Plan: No acute vascular intervention at this time. 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 Keep stritcly NPO Code(s): E46 - UNSPECIFIED PROTEIN-CALORIE MALNUTRITION (3) A-fib Assessment/Plan: new afib with RVR-HR 100s c/w metoprolol IV for rate control-metoprolol increased to 10mg c/w heparin until PEG is placed or able to take po and then start Eliquis 5mg bid TTE benign appreciate cardiology consultation c/w tele monitoring Code(s): I48.91 - UNSPECIFIED ATRIAL FIBRILLATION Qualifiers: Atrial fibrillation type: unspecified Qualified Code(s): I48.91 - Unspecified atrial fibrillation (4) Acute metabolic encephalopathy Assessment/Plan: new acute frontal stroke/right cerebral infarcts. neurology following Non contrast HCT 08/09/19 --evolving R MCA infart continues to be more responsive each day, restess at time soft wrist restraint for safety to prevent from pulling medical devices Code(s): G93.41 - METABOLIC ENCEPHALOPATHY (5) Alcohol intoxication Assessment/Plan: no s/s of active withdrawal no ativan c/w MVI,thaimine,folate in Clinimix Code(s): F10.929 - ALCOHOL USE, UNSPECIFIED WITH INTOXICATION, UNSPECIFIED Qualifiers: Complication of substance-induced condition: uncomplicated Qualified Code(s ): F10.920 - Alcohol use, unspecified with intoxication, uncomplicated (6) Aspiration precautions Assessment/Plan: 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 acute non hemorrhagic infarcts noted involving the right frontal, right temporal and right insular cortices as well as the right basal ganglia. minimal periventricular chronic microvascular changes are noted. appreciate consultation with Dr King repeat HD CT 08/09/19 --evolving R MCA infarct c/w physical therapy carotid u/s with stenosis-seen by vascular and no intervention at this time ASA on hold for possible PEG if family consents c/w statin after PEG is placed or able to take PO Code(s): I63.9 - CEREBRAL INFARCTION, UNSPECIFIED (8) Prophylactic measure Assessment/Plan: FEN clinimix monitor electrolytres DVT heparin gtt Dispo maintain on tele full code discharge planning-spoke with SW regarding placement. Requests placed via [employer] for SNF Code(s): Z29.9 - ENCOUNTER FOR PROPHYLACTIC MEASURES, UNSPECIFIED (9) Syncope and collapse Assessment/Plan: fall precautions PT Code(s): R55 - SYNCOPE AND COLLAPSE (10) HTN (hypertension) Assessment/Plan: BP bettered controlled c/w vasotec 1.25mg q6h with hold parameters (SBP <120) until able to start PO meds, can increase dose if needed c/w metoprolol Code(s): I10 - ESSENTIAL (PRIMARY) HYPERTENSION (11) HLD (hyperlipidemia) Assessment/Plan: c/w statin when able to take PO or PEG is placed Code(s): E78.5 - HYPERLIPIDEMIA, UNSPECIFIED (12) Non-insulin dependent type 2 diabetes mellitus Assessment/Plan: BGM with novlog sliding scale Code(s): E11.9 - TYPE 2 DIABETES MELLITUS WITHOUT COMPLICATIONS (13) Dysphagia Assessment/Plan: MBS pending aspiration precautions Code(s): R13.10 - DYSPHAGIA, UNSPECIFIED (14) Hypomagnesemia Assessment/Plan: Mg 1.7 additional Mg added to clinimix Code(s): E83.42 - HYPOMAGNESEMIA (15) Hypokalemia Assessment/Plan: K 4.1-resolved KCl added to clinimix monitor levels Code(s): E87.6 - HYPOKALEMIA Visit type - Emergency Visit Emergency Visit: Yes ED Registration Date: 08/02/19 Care time: The patient presented to the Emergency Department on the above date and was hospitalized for further evaluation of their emergent condition. - New Patient This patient is new to me today: No - Critical Care Critical Care patient: No - Discharge Referral Referred to [facility] Med P.C.: No
[2019-08-14] MEDS: PANTOPRAZOLE SODIUM 40 MG VIAL IVPUSH SCH (09:00)
[2019-08-14] MEDS: NYSTATIN POWDER 100,000 UNITS/GM - 15 GM TOPICAL POWDER TP SCH (09:00)
--- NOTE | 2019-08-14 10:41 | PN ---
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 Lethargic. Fluoroscopy equipment still down. Pulled out NGT over weekend. On clinimix. Has been NPO. Family deciding on PEG.Seen by GI To reassess when more alert functionally. For MBS /PEG? Case reviewed RD. Consider Palliative care consult.
--- NOTE | 2019-08-14 11:03 | PN ---
Progress Note, Physician Chief Complaint: cva, syncope History of Present Illness: not responsive. calm. - Current Medication List Current Medications: Active Medications Aspirin (Asa -) 300 mg [place] DAILY [facility] Last Admin: 08/11/19 13:37 Dose: 300 mg Atorvastatin Calcium (Lipitor -) 80 mg NGT HS [facility] Last Admin: 08/11/19 21:54 Dose: 80 mg Enalaprilat (Vasotec Injection -) 1.25 mg IVPB Q6H-IV [facility] Last Admin: 08/14/19 08:04 Dose: 1.25 mg Folic Acid (Folic Acid -) 1 mg NGT DAILY [facility] Last Admin: 08/12/19 10:27 Dose: Not Given Folic Acid (Folic Acid Injection -) 1 mg IVPB Q24H [facility] Last Admin: 08/13/19 21:43 Dose: 1 mg Heparin Sodium (Porcine) (Heparin -) 1,000 unit IVPUSH PRN PRN PRN Reason: Heparin Last Admin: 08/13/19 07:58 Dose: 1,000 unit Heparin Sodium (Porcine) (Heparin -) 5,000 unit IVPUSH PRN PRN PRN Reason: Heparin Last Admin: 08/13/19 16:36 Dose: 5,000 unit Fat Emulsion Intravenous (Intralipid -) 500 mls @ 41.667 mls/hr IV DAILY@2200 [facility] Last Admin: 08/14/19 01:50 Dose: 41.667 mls/hr Heparin Sodium (Porcine) 25, (000 unit/ Sodium Chloride) 500 mls @ 16 mls/hr IV TITR [facility]; Protocol Last Titration: 08/14/19 07:36 Dose: 1,350 unit/hr, 27 mls/hr Potassium Chloride 40 meq/Thiamine HCl 100 mg/ Amino Acids 1,021 mls @ 84 mls/ hr IVPB Q12H [facility] Last Admin: 08/14/19 01:45 Dose: Not Given Insulin Aspart (Novolog Vial Sliding Scale -) 1 vial SQ ACHS [facility]; Protocol Last Admin: 08/14/19 10:24 Dose: 2 unit Metoprolol Tartrate (Lopressor -) 25 mg NGT BID [facility] Last Admin: 08/12/19 10:27 Dose: Not Given Metoprolol Tartrate (Lopressor Injection -) 10 mg IVPUSH Q4H [facility] Last Admin: 08/14/19 08:47 Dose: 10 mg Multivitamins/Minerals (Certavite-Antioxidant Liquid) 15 ml NGT DAILY [facility] Last Admin: 08/12/19 10:27 Dose: Not Given Multivitamins/Minerals (Infuvite Adult -) 10 ml IV Q24H [facility] Last Admin: 08/13/19 21:43 Dose: 10 ml Nystatin (Nystop Powder -) 1 applic TP DAILY [facility] Last Admin: 08/14/19 09:00 Dose: 1 applic Pantoprazole Sodium (Protonix Iv) 40 mg IVPUSH DAILY [facility] Last Admin: 08/14/19 09:00 Dose: 40 mg Thiamine HCl (Vitamin B1 -) 100 mg NGT BID [facility] Last Admin: 08/12/19 10:47 Dose: Not Given - Objective Vital Signs: Vital Signs Temperature 97.9 F 08/13/19 13:00 Pulse Rate 102 H 08/14/19 08:47 Respiratory Rate 22 H 08/14/19 04:00 Blood Pressure 146/105 H 08/14/19 08:47 O2 Sat by Pulse Oximetry (%) 97 08/13/19 21:00 Constitutional: Yes: Well Nourished, No Distress, Calm Cardiovascular: Yes: Pulse Irregular, S1, S2. No: Gallop, Murmur Respiratory: Yes: Regular, CTA Bilaterally (anteriorly). No: Accessory Muscle Use Extremities: No: Cold Edema: No Neurological: No: Alert, Oriented, Seizure Psychiatric: No: Agitated Labs: CBC, BMP 08/14/19 05:20 08/14/19 05:20 INR, PTT INR 1.05 (0.83-1.09) 08/02/19 20:00 Assessment/Plan tele: afib, rates 90s-100s echo 07/2019: nl lv/rv, mild tr, nl rvsp a/p: 69 m hx htn, dm, here with syncope. cva: -change in mental status and mri showing acute cva -neuro following -no cardiac contraindications to PEG, can hold asa and hep gtt preoperatively if needed syncope: -no signs acs or chf -possibly related to etoh, possibly related to afib with rvr, ?cva related -echo benign -cont tele afib: -new afib with rvr here--now reasonably controlled -no PO intake at present, awaiting PEG. continue iv lopressor prn as doing. -chadsvasc warrants ac. on hep gtt -tsh wnl -echo benign -cont K repletion prn -cont tele htn: -bp not controlled -maintaining current bp range (to 150s/100s-110) per d/w neurology--same meds
[2019-08-14] MEDS ORDERED: FAT EMULSIONS 250 ML IV SCH ×2 (11:07→11:26)
--- NOTE | 2019-08-14 12:59 | HOSP ---
Physical Examination Vital Signs: Vital Signs Temperature 97.9 F 08/13/19 13:00 Pulse Rate 102 H 08/14/19 08:47 Respiratory Rate 22 H 08/14/19 09:00 Blood Pressure 146/105 H 08/14/19 08:47 O2 Sat by Pulse Oximetry (%) 97 08/14/19 09:00 Labs: CBC, BMP 08/14/19 05:20 08/14/19 05:20 Hospitalist Encounter Recommendations/Interventions: Spoke with daughter Carlene Garcia regarding PEG placement. Pt has been NPO, maintained on Clinimix, pulled out several NGT despite being restrained and under supervision. MBS pending-fluroscopy machine is not working. Re-evaluated at bedside by MANAGER [employer]ION[employer] Anabel and after given small amount of applesauce, pt was coughing. Swallow is strong however he is observed coughing even attempting to clear his own secretions. Daughter is still very reluctant to agagrerre for PRG -she will speak to bother and pt (who is NOK) and will advise of decision. Will keep NPO and heparin infusion on for possible placement
[2019-08-14] MEDS: MULTIVIT INJ. ADULT COMBO WITH VIT K 1 COMBO 10 ML VIAL IV SCH (15:03)
[2019-08-14] MEDS: FOLIC ACID 5 MG/1 ML IVPB SCH (15:04)
[2019-08-14] MEDS: HEPARIN - 25,000 UNIT in SODIUM CHLORIDE 495 ML IV SCH (16:48)
[2019-08-14] MEDS ORDERED: ACETAMINOPHEN 1000 MG/100 ML VIAL (NON FORMULARY) IVPB ONE (23:20)
[2019-08-15] MEDS ORDERED: PT OWN MED DRAWER 7, Y5N ONE ×3 (01:15→14:54)
[2019-08-15] MEDS: METOPROLOL TARTRATE 5 MG/5 ML VIAL IVPUSH SCH ×6 (01:39→21:57)
[2019-08-15] MEDS: ENALAPRILAT DIHYDRATE 1.25 MG/1 ML VIAL IVPB SCH ×4 (03:16→20:47)
[2019-08-15] MEDS: AMINO ACIDS IVPB SCH ×2 (04:21→16:16)
[2019-08-15] MEDS: THIAMINE HCL IVPB SCH ×2 (04:21→16:16)
[2019-08-15] MEDS: POTASSIUM CHLORIDE IVPB SCH ×2 (04:21→16:16)
[2019-08-15] MEDS: [UNRECOGNIZED DRUG - OTHER] IVPB SCH ×2 (04:21→16:16)
[2019-08-15] MEDS ORDERED: ACETAMINOPHEN 1000 MG/100 ML VIAL (NON FORMULARY) IVPB PRN (06:00)
[2019-08-15] MEDS: INSULIN SLIDING SCALE (NOVOLOG) 1 VIAL SQ SCH ×4 (06:46→22:27)
[2019-08-15 06:50] LABS: BASO % 0.7 % (0-2.0); HEMATOCRIT 35.2 % (35.4-49); HEMOGLOBIN 11.9 GM/dL (11.7-16.9); LYMPH % 14.4 % (8-40); MCH 35.4 pg (25.7-33.7); MCHC 33.8 g/dl (32.0-35.9); MEAN CELL VOLUME 104.8 fl (80-96); MEAN PLT VOLUME 8.4 fl (7.5-11.1); MONO % 10.6 % (3.8-10.2); NEUT % 72.3 % (42.8-82.8); PLATELET COUNT 289 K/MM3 (134-434); RBC 3.36 M/mm3 (4.00-5.60); WHITE BLOOD COUNT 5.6 K/mm3 (4.0-10.0)
[2019-08-15 07:27] LABS: ALBUMIN 2.4 g/dl (3.4-5.0); BILIRUBIN,TOTAL 0.7 mg/dL (0.2-1); BLOOD UREA NITROGEN 17.1 mg/dL (7-18); CALCIUM 8.3 mg/dL (8.5-10.1); CREATININE 0.4 mg/dL (0.55-1.3); MAGNESIUM 1.7 mg/dL (1.8-2.4); POTASSIUM 3.7 mmol/L (3.5-5.1); TOT PROT 6.1 g/dl (6.4-8.2)
[2019-08-15] MEDS ORDERED: MAGNESIUM SULF 50% (8.12 MEQ/2 ML-1 GM VIAL) IVPB ONE (08:48)
[2019-08-15] MEDS: PANTOPRAZOLE SODIUM 40 MG VIAL IVPUSH SCH (09:32)
[2019-08-15] MEDS: NYSTATIN POWDER 100,000 UNITS/GM - 15 GM TOPICAL POWDER TP SCH (09:33)
[2019-08-15] MEDS: HEPARIN - 25,000 UNIT in SODIUM CHLORIDE 495 ML IV SCH ×2 (10:06→16:22)
--- NOTE | 2019-08-15 10:35 | PN ---
Physical Exam: SUBJECTIVE: Patient seen and examined in tele. patient remains minimally responsive to verbal and tactili stimuli. attempts to speak but speech remains garbled. OBJECTIVE: Patient is a 69 year old male with history of hypertension, hyperlipidemia, non- insulin dependent diabetes mellitus and alcohol abuse, presents after a syncopal episode. Patient was intoxicated on admission and started on a librium taper. He was found to have new onset afib on admission and a heparin drip was initiated. Hospitalization complicated when patient became unresponsive on 08/04/[address] showed possible acute/subacute infarct. MRI brain then confirmed acute right cerebral infarcts. neuro consulted and following. -patient has been on clinimax since 08/06/19, may need tpn therapy for prolonged npo until family decides on peg tube -having diarrhea, with a rectal tube. will send for cdiff -remains on heparin gtt. and unable to tolerate PO, has failed swallow eval multiple times -mentation unchanged, will repeat head ct. Vital Signs Period Temp Pulse Resp BP Sys/Lieberman Pulse Ox Last 24 Hr 97.4 F-98.6 F 99-120 16-30 108-144/83-101 97-98 GENERAL: garbled speech, minimally responsive to tactile and verbal stimuli. HEAD: Normal with no signs of trauma. EYES: patient opens eyes spontaneously, attempts to talk, garbled ENT: Ears normal, nares patent, oropharynx clear without exudates, moist mucous membranes. NECK: Trachea midline, full range of motion, supple. LUNGS: diminished, bilaterally HEART: irregular 100s ABDOMEN: Soft, nontender, nondistended, normoactive bowel sounds - diarrhea with rectal tube with over 600cc of liquid brown stool EXTREMITIES: no edema. NEUROLOGICAL: more awake, moving all extremities. does not follow commands. confused, fall risk. Laboratory Results - last 24 hr 08/14/19 08/14/19 08/14/19 05:20 16:06 21:48 WBC RBC Hgb Hct MCV MCH MCHC RDW Plt Count MPV Absolute Neuts (auto) Neutrophils % Lymphocytes % Monocytes % Eosinophils % Basophils % Nucleated RBC % PTT (Actin FS) Sodium 134 L Potassium 4.1 Chloride 106 Carbon Dioxide 18 L Anion Gap 10 BUN 18.2 H Creatinine 0.5 L Est GFR (CKD-EPI)AfAm 129.05 Est GFR (CKD-EPI)NonAf 111.35 POC Glucometer 182 205 Random Glucose 218 H Calcium 8.6 Magnesium 1.7 L Total Bilirubin 0.6 AST 45 H ALT 38 Alkaline Phosphatase 154 H Total Protein 6.6 Albumin 2.6 L Triglycerides 210 H 08/15/19 08/15/19 08/15/19 05:40 05:40 05:40 WBC 5.6 RBC 3.36 L Hgb 11.9 Hct 35.2 L MCV 104.8 H MCH 35.4 H MCHC 33.8 RDW 14.0 Plt Count 289 MPV 8.4 Absolute Neuts (auto) 4.1 Neutrophils % 72.3 Lymphocytes % 14.4 Monocytes % 10.6 H Eosinophils % 2.0 Basophils % 0.7 Nucleated RBC % 0 PTT (Actin FS) 50.0 H Sodium 136 Potassium 3.7 Chloride 109 H Carbon Dioxide 19 L Anion Gap 9 BUN 17.1 Creatinine 0.4 L Est GFR (CKD-EPI)AfAm 141.45 Est GFR (CKD-EPI)NonAf 122.04 POC Glucometer Random Glucose 185 H Calcium 8.3 L Magnesium 1.7 L Total Bilirubin 0.7 AST 26 ALT 29 Alkaline Phosphatase 139 H Total Protein 6.1 L Albumin 2.4 L Triglycerides 08/15/19 06:37 WBC RBC Hgb Hct MCV MCH MCHC RDW Plt Count MPV Absolute Neuts (auto) Neutrophils % Lymphocytes % Monocytes % Eosinophils % Basophils % Nucleated RBC % PTT (Actin FS) Sodium Potassium Chloride Carbon Dioxide Anion Gap BUN Creatinine Est GFR (CKD-EPI)AfAm Est GFR (CKD-EPI)NonAf POC Glucometer 188 Random Glucose Calcium Magnesium Total Bilirubin AST ALT Alkaline Phosphatase Total Protein Albumin Triglycerides Active Medications Generic Name Dose Route Start Last Admin Trade Name Freq PRN Reason Stop Dose Admin Acetaminophen 1,000 mg 08/15/19 06:00 08/15/19 06:46 Ofirmev Injection - IVPB 1,000 mg Q6H PRN Administration PAIN LEVEL 6-10 Aspirin 300 mg 08/11/19 12:15 08/11/19 13:37 Asa - CT 300 mg DAILY [facility] Administration Atorvastatin Calcium 80 mg 08/09/19 22:00 08/11/19 21:54 Lipitor - NGT 80 mg HS [facility] Administration Enalaprilat 1.25 mg 08/13/19 15:00 08/15/19 08:53 Vasotec Injection - IVPB 1.25 mg Q6H-IV [facility] Administration Folic Acid 1 mg 08/08/19 17:51 08/12/19 10:27 Folic Acid - NGT Not Given DAILY [facility]IA Folic Acid 1 mg 08/12/19 13:30 08/14/19 15:04 Folic Acid Injection - IVPB 1 mg Q24H [facility] Administration Heparin Sodium (Porcine) 1,000 unit 08/11/19 16:20 08/13/19 07:58 Heparin - IVPUSH 1,000 unit PRN PRN Administration Heparin Heparin Sodium (Porcine) 5,000 unit 08/11/19 16:20 08/13/19 16:36 Heparin - IVPUSH 5,000 unit PRN PRN Administration Heparin Heparin Sodium (Porcine) 25, 500 mls @ 16 mls/hr 08/11/19 16:30 08/15/19 10: 06 000 unit/ Sodium Chloride IV 1,350 unit/hr TITR [facility] 27 mls/hr Administration Protocol 800 UNIT/HR Potassium Chloride 40 meq/ 1,021 mls @ 84 mls/hr 08/12/19 13:30 08/15/19 04: 21 Thiamine HCl 100 mg/ Amino IVPB 84 mls/hr Acids Q12H [facility] Administration Fat Emulsion Intravenous 250 mls @ 20.833 mls/hr 08/15/19 22:00 Intralipid - IV Q2D@2200 [facility] Insulin Aspart 1 vial 08/03/19 07:00 08/15/19 06:46 Novolog Vial Sliding Scale - SQ 1 unit ACHS [facility] Administration Protocol Metoprolol Tartrate 25 mg 08/11/19 11:15 08/12/19 10:27 Lopressor - NGT Not Given BID [facility] Metoprolol Tartrate 10 mg 08/13/19 17:48 08/15/19 09:31 Lopressor Injection - IVPUSH 10 mg Q4H [facility] Administration Multivitamins/Minerals 15 ml 08/09/19 10:00 08/12/19 10:27 Certavite-Antioxidant Liquid NGT Not Given DAILY [facility] Multivitamins/Minerals 10 ml 08/12/19 13:30 08/14/19 15:03 Infuvite Adult - IV 10 ml Q24H [facility] Administration Nystatin 1 applic 08/03/19 17:30 08/15/19 09:33 Nystop Powder - TP 1 applic DAILY [facility] Administration Pantoprazole Sodium 40 mg 10/25/19 14:45 08/15/19 09:32 Protonix Iv IVPUSH 40 mg DAILY [facility] Administration Thiamine HCl 100 mg 08/08/19 17:52 08/12/19 10:47 Vitamin B1 - NGT Not Given BID [facility] ASSESSMENT/PLAN: Problem List - Problems (1) CVA (cerebral vascular accident) Assessment/Plan: CVA confirmed by brain mri 08/04/19: acute right cerebral infarcts. acute non hemorrhagic infarcts noted involving the right frontal, right temporal and right insular cortices as well as the right basal ganglia. minimal periventricular chronic microvascular changes are noted. initiated stroke protocol - neuro consulted and following - on asa CT and statin. patient with poor swallowing and has failed swallow eval. has pulled out NGT. on clinimax and lipids but now with diffused diarrhea. negative for cdiff. patient family refusing peg tube at this time. tpn being considered. - physical therapy as tolerated. - carotid u/s noted, seen by vascular and patient will need outpateint f/u Code(s): I63.9 - CEREBRAL INFARCTION, UNSPECIFIED (2) Aspiration precautions Assessment/Plan: swallow test to be repeated. Code(s): Z91.89 - OTH PERSONAL RISK FACTORS, NOT ELSEWHERE CLASSIFIED (3) Acute metabolic encephalopathy Assessment/Plan: found to have an acute frontal stroke/right cerebral infarcts. stroke protocol initiated vitas are stable. 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 Code(s): G93.41 - METABOLIC ENCEPHALOPATHY (4) A-fib Assessment/Plan: on iv lopressor and heparin drip controlled rate Code(s): I48.91 - UNSPECIFIED ATRIAL FIBRILLATION Qualifiers: Atrial fibrillation type: unspecified Qualified Code(s): I48.91 - Unspecified atrial fibrillation (5) Alcohol intoxication Assessment/Plan: ciwa score low. no signs of acute w/drawal. ammonia level low Code(s): F10.929 - ALCOHOL USE, UNSPECIFIED WITH INTOXICATION, UNSPECIFIED Qualifiers: Complication of substance-induced condition: uncomplicated Qualified Code(s ): F10.920 - Alcohol use, unspecified with intoxication, uncomplicated (6) Syncope and collapse Assessment/Plan: PT when more stable Code(s): R55 - SYNCOPE AND COLLAPSE (7) Prophylactic measure Assessment/Plan: on heparin drip, follow aptt full code fen on clinimax since 08/06. consider tpn for better nutrition intake. patient continues to pull ngt out despite restraints. monitor electrolytes including mag for a swallow eval once more stable, keep npo Code(s): Z29.9 - ENCOUNTER FOR PROPHYLACTIC MEASURES, UNSPECIFIED Visit type - Emergency Visit Emergency Visit: Yes ED Registration Date: 08/02/19 Care time: The patient presented to the Emergency Department on the above date and was hospitalized for further evaluation of their emergent condition. - New Patient This patient is new to me today: No - Critical Care Critical Care patient: No - Discharge Referral Referred to [facility] Med P.C.: No
--- NOTE | 2019-08-15 10:43 | PN ---
Progress Note (short form) - Note Progress Note: confused, not answering questions Current Medications Acetaminophen (Ofirmev Injection -) 1,000 mg IVPB Q6H PRN PRN Reason: PAIN LEVEL 6-10 Last Admin: 08/15/19 06:46 Dose: 1,000 mg Aspirin (Asa -) 300 mg [place] DAILY [facility] Last Admin: 08/11/19 13:37 Dose: 300 mg Atorvastatin Calcium (Lipitor -) 80 mg NGT HS [facility] Last Admin: 08/11/19 21:54 Dose: 80 mg Enalaprilat (Vasotec Injection -) 1.25 mg IVPB Q6H-IV [facility] Last Admin: 08/15/19 08:53 Dose: 1.25 mg Folic Acid (Folic Acid -) 1 mg NGT DAILY [facility] Last Admin: 08/12/19 10:27 Dose: Not Given Folic Acid (Folic Acid Injection -) 1 mg IVPB Q24H [facility] Last Admin: 08/14/19 15:04 Dose: 1 mg Heparin Sodium (Porcine) (Heparin -) 1,000 unit IVPUSH PRN PRN PRN Reason: Heparin Last Admin: 08/13/19 07:58 Dose: 1,000 unit Heparin Sodium (Porcine) (Heparin -) 5,000 unit IVPUSH PRN PRN PRN Reason: Heparin Last Admin: 08/13/19 16:36 Dose: 5,000 unit Heparin Sodium (Porcine) 25, (000 unit/ Sodium Chloride) 500 mls @ 16 mls/hr IV TITR [facility]; Protocol Last Admin: 08/15/19 10:06 Dose: 1,350 unit/hr, 27 mls/hr Potassium Chloride 40 meq/Thiamine HCl 100 mg/ Amino Acids 1,021 mls @ 84 mls/ hr IVPB Q12H [facility] Last Admin: 08/15/19 04:21 Dose: 84 mls/hr Fat Emulsion Intravenous (Intralipid -) 250 mls @ 20.833 mls/hr IV Q2D@2200 [facility] Insulin Aspart (Novolog Vial Sliding Scale -) 1 vial SQ ACHS [facility]; Protocol Last Admin: 08/15/19 06:46 Dose: 1 unit Metoprolol Tartrate (Lopressor -) 25 mg NGT BID [facility] Last Admin: 08/12/19 10:27 Dose: Not Given Metoprolol Tartrate (Lopressor Injection -) 10 mg IVPUSH Q4H [facility] Last Admin: 08/15/19 09:31 Dose: 10 mg Multivitamins/Minerals (Certavite-Antioxidant Liquid) 15 ml NGT DAILY [facility] Last Admin: 08/12/19 10:27 Dose: Not Given Multivitamins/Minerals (Infuvite Adult -) 10 ml IV Q24H [facility] Last Admin: 08/14/19 15:03 Dose: 10 ml Nystatin (Nystop Powder -) 1 applic TP DAILY [facility] Last Admin: 08/15/19 09:33 Dose: 1 applic Pantoprazole Sodium (Protonix Iv) 40 mg IVPUSH DAILY [facility] Last Admin: 08/15/19 09:32 Dose: 40 mg Thiamine HCl (Vitamin B1 -) 100 mg NGT BID [facility] Last Admin: 08/12/19 10:47 Dose: Not Given Vital Signs Period Temp Pulse Resp BP Sys/Lieberman Pulse Ox Last 24 Hr 97.4 F-98.6 F 99-120 16-30 108-144/83-101 97-98 Constitutional: Yes: Well Nourished, No Distress, Calm Cardiovascular: Yes: Pulse Irregular, S1, S2. No: Gallop, Murmur Respiratory: Yes: Regular, CTA Bilaterally (anteriorly). No: Accessory Muscle Use Extremities: No: Cold Edema: No Neurological: No: Alert, Oriented, Seizure Psychiatric: No: Agitated no jaundice, diaphoresis Assessment/Plan tele: afib, rates 90s-100s, occ RVR 130s echo 07/2019: nl lv/rv, mild tr, nl rvsp a/p: 69 m hx htn, dm, here with syncope. cva: -change in mental status and mri showing acute cva -neuro following -no cardiac contraindications to PEG, can hold asa and hep gtt preoperatively if needed syncope: -no signs acs or chf -possibly related to etoh, possibly related to afib with rvr, ?cva related -echo benign -cont tele afib: -new afib with rvr here--now reasonably controlled -no PO intake at present, awaiting PEG. continue iv lopressor prn as doing. -chadsvasc warrants ac. on hep gtt -tsh wnl -echo benign -cont K repletion prn -cont tele htn: -bp not controlled -maintaining current bp range (to 150s/100s-110) per d/w neurology--same meds
--- NOTE | 2019-08-15 12:05 | CONSULT ---
Consult - text type - Consultation Consultation Note: Renal consult for TPN This is a 69 year old gentleman with history of hypertension, hyperlipidemia, DM type 2 not on insulin presents from home with syncope and found to have new CVA. Pt has been NPO for a prolonged period of time. He has pulled out his NGT several times and medical team is awaiting a decision from family regarding a PEG tube. Pt is not able to provide history. PMHx: as above Allergies: NKDA Family Hx: NC Social Hx: unknown ROS: unable to obtain because of clinical status Home Medications Medication Instructions Recorded Unobtainable 08/03/19 Vital Signs Temperature 97.4 F L 08/15/19 08:00 Pulse Rate 104 H 08/15/19 09:31 Respiratory Rate 23 H 08/15/19 08:00 Blood Pressure 139/88 08/15/19 09:31 O2 Sat by Pulse Oximetry (%) 97 08/15/19 08:41 Intake & Output 08/12/19 08/13/19 08/14/19 08/15/19 23:59 23:59 23:59 23:59 Intake Total 1590 2000 2514 Output Total 800 2 Balance 790 1998 2514 Weight 62.913 kg 62.913 kg NAD awake but confused neck supple RRR CTA soft Nt/ND rectal tube in place no LE edema CBC, BMP 08/15/19 05:40 08/15/19 05:40 Current Medications Acetaminophen (Ofirmev Injection -) 1,000 mg IVPB Q6H PRN PRN Reason: PAIN LEVEL 6-10 Last Admin: 08/15/19 06:46 Dose: 1,000 mg Aspirin (Asa -) 300 mg [place] DAILY [facility] Last Admin: 08/11/19 13:37 Dose: 300 mg Atorvastatin Calcium (Lipitor -) 80 mg NGT HS [facility] Last Admin: 08/11/19 21:54 Dose: 80 mg Enalaprilat (Vasotec Injection -) 1.25 mg IVPB Q6H-IV [facility] Last Admin: 08/15/19 08:53 Dose: 1.25 mg Folic Acid (Folic Acid -) 1 mg NGT DAILY [facility] Last Admin: 08/12/19 10:27 Dose: Not Given Folic Acid (Folic Acid Injection -) 1 mg IVPB Q24H [facility] Last Admin: 08/14/19 15:04 Dose: 1 mg Heparin Sodium (Porcine) (Heparin -) 1,000 unit IVPUSH PRN PRN PRN Reason: Heparin Last Admin: 08/13/19 07:58 Dose: 1,000 unit Heparin Sodium (Porcine) (Heparin -) 5,000 unit IVPUSH PRN PRN PRN Reason: Heparin Last Admin: 08/13/19 16:36 Dose: 5,000 unit Heparin Sodium (Porcine) 25, (000 unit/ Sodium Chloride) 500 mls @ 16 mls/hr IV TITR [facility]; Protocol Last Admin: 08/15/19 10:06 Dose: 1,350 unit/hr, 27 mls/hr Potassium Chloride 40 meq/Thiamine HCl 100 mg/ Amino Acids 1,021 mls @ 84 mls/ hr IVPB Q12H [facility] Last Admin: 08/15/19 04:21 Dose: 84 mls/hr Fat Emulsion Intravenous (Intralipid -) 250 mls @ 20.833 mls/hr IV Q2D@2200 [facility] Insulin Aspart (Novolog Vial Sliding Scale -) 1 vial SQ ACHS [facility]; Protocol Last Admin: 08/15/19 06:46 Dose: 1 unit Metoprolol Tartrate (Lopressor -) 25 mg NGT BID [facility] Last Admin: 08/12/19 10:27 Dose: Not Given Metoprolol Tartrate (Lopressor Injection -) 10 mg IVPUSH Q4H [facility] Last Admin: 08/15/19 09:31 Dose: 10 mg Multivitamins/Minerals (Certavite-Antioxidant Liquid) 15 ml NGT DAILY [facility] Last Admin: 08/12/19 10:27 Dose: Not Given Multivitamins/Minerals (Infuvite Adult -) 10 ml IV Q24H [facility] Last Admin: 08/14/19 15:03 Dose: 10 ml Nystatin (Nystop Powder -) 1 applic TP DAILY [facility] Last Admin: 08/15/19 09:33 Dose: 1 applic Pantoprazole Sodium (Protonix Iv) 40 mg IVPUSH DAILY [facility] Last Admin: 08/15/19 09:32 Dose: 40 mg Thiamine HCl (Vitamin B1 -) 100 mg NGT BID [facility] Last Admin: 08/12/19 10:47 Dose: Not Given 69 year old gentleman with history of hypertension, hyperlipidemia, DM type 2 not on insulin presents from home with syncope and found to have new CVA. 1. Prolonged NPO with protein malnutrition (albumin 2.6) 2. Aspiration risk s/p CVA 3. CVA 4. Diarrhea 5. Hypertension Pt is a candidate for TPN given > 4 days NPO however enteral nutrition is preferred route. Medical team is awaiting decision regarding PEG placement if TPN is required will need central venous access. Check Lipid profile Thank you Will follow Jay Hughes DO
--- NOTE | 2019-08-15 14:39 | PN ---
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 Too lethargic for reassessment. May benefit from MBS once more alert, although clinically, pt coughs following trial of 1/3 tsp applesauce in past. Pending decision regarding PEG insertion. Pt is a full code. Goal is to hopefully rehabilitate swallow in future and wean from PEG.
[2019-08-15] MEDS: FOLIC ACID 5 MG/1 ML IVPB SCH (16:17)
[2019-08-15] MEDS: MULTIVIT INJ. ADULT COMBO WITH VIT K 1 COMBO 10 ML VIAL IV SCH (16:17)
[2019-08-15] MEDS ORDERED: FAT EMULSIONS 250 ML IV SCH (22:00)
[2019-08-15] MEDS: ATORVASTATIN CA 80 MG TABLET (FP) NGT SCH (22:43)
[2019-08-15] MEDS: METOPROLOL TARTRATE 25 MG TABLET (FP) NGT SCH (22:44)
[2019-08-16] MEDS: AMINO ACIDS IVPB SCH ×3 (01:30→15:21)
[2019-08-16] MEDS: POTASSIUM CHLORIDE IVPB SCH ×3 (01:30→15:21)
[2019-08-16] MEDS: THIAMINE HCL IVPB SCH ×3 (01:30→15:21)
[2019-08-16] MEDS: [UNRECOGNIZED DRUG - OTHER] IVPB SCH ×3 (01:30→15:21)
[2019-08-16] MEDS: METOPROLOL TARTRATE 5 MG/5 ML VIAL IVPUSH SCH ×6 (01:34→20:59)
[2019-08-16] MEDS: ENALAPRILAT DIHYDRATE 1.25 MG/1 ML VIAL IVPB SCH ×4 (03:20→20:58)
[2019-08-16 06:20] LABS: BASO % 0.6 % (0-2.0); EOS % 0.7 % (0-4.5); HEMATOCRIT 37.5 % (35.4-49); HEMOGLOBIN 13.2 GM/dL (11.7-16.9); LYMPH % 13.1 % (8-40); MCH 36.4 pg (25.7-33.7); MCHC 35.3 g/dl (32.0-35.9); MEAN CELL VOLUME 103.3 fl (80-96); MONO % 10.8 % (3.8-10.2); NEUT % 74.8 % (42.8-82.8); PLATELET COUNT 339 K/MM3 (134-434); RBC 3.63 M/mm3 (4.00-5.60); RDW 13.8 % (11.9-15.9)
[2019-08-16] MEDS: INSULIN SLIDING SCALE (NOVOLOG) 1 VIAL SQ SCH ×4 (06:38→22:45)
[2019-08-16 07:32] LABS: ALBUMIN 2.6 g/dl (3.4-5.0); BILIRUBIN,TOTAL 0.9 mg/dL (0.2-1); BLOOD UREA NITROGEN 16.3 mg/dL (7-18); CALCIUM 8.7 mg/dL (8.5-10.1); CREATININE 0.5 mg/dL (0.55-1.3); MAGNESIUM 1.7 mg/dL (1.8-2.4); POTASSIUM 4.4 mmol/L (3.5-5.1); TOT PROT 6.8 g/dl (6.4-8.2)
[2019-08-16] MEDS ORDERED: MAGNESIUM SULF 50% (8.12 MEQ/2 ML-1 GM VIAL) IVPB ONE (07:40)
[2019-08-16] MEDS: METOPROLOL TARTRATE 25 MG TABLET (FP) NGT SCH ×2 (09:30→22:26)
[2019-08-16] MEDS: PANTOPRAZOLE SODIUM 40 MG VIAL IVPUSH SCH (09:30)
[2019-08-16] MEDS: NYSTATIN POWDER 100,000 UNITS/GM - 15 GM TOPICAL POWDER TP SCH (09:30)
--- NOTE | 2019-08-16 09:31 | PN ---
Physical Exam: SUBJECTIVE: Patient seen and examined. remains lethargic, minimally responsive. OBJECTIVE: Patient is a 69 year old male with history of hypertension, hyperlipidemia, non- insulin dependent diabetes mellitus and alcohol abuse, presents after a syncopal episode. Patient was intoxicated on admission and started on a librium taper. He was found to have new onset afib on admission and a heparin drip was initiated. Hospitalization complicated when patient became unresponsive on 08/04/[address] showed possible acute/subacute infarct. MRI brain then confirmed acute right cerebral infarcts. neuro consulted and following. -patient has been on clinimax since 08/06/19, may need tpn therapy for prolonged npo until family decides on peg tube. spoke to daughter -having diarrhea, with a rectal tube. negative for cdiff -remains on heparin gtt. and unable to tolerate PO, has failed swallow eval multiple times, MBS pending -mentation unchanged, repeat head ct negative, for brain mri per neuro. daughter cell spoke to daughter at length and asked her to re consider consenting to peg tube placement. she states she wants to know why her father continues to be lethargic and minimally responsive post stroke. discussed head ct 08/15/19 findings with her. she will consider peg placement after neuro issues are addressed. discussed importance of using his gut for nutrition as he continues to have diarrhea and giving him clinimax and tpn nutrition are temporary means of providing nutrition. neuro to see patient today. patient going downstairs for a picc line for tpn. Vital Signs Period Temp Pulse Resp BP Sys/Lieberman Pulse Ox Last 24 Hr 97.6 F-98.1 F 101-145 20-25 139-189/96-122 95-98 GENERAL: garbled speech, minimally responsive to tactile and verbal stimuli. HEAD: Normal with no signs of trauma. EYES: patient opens eyes spontaneously, attempts to talk, garbled ENT: Ears normal, nares patent, oropharynx clear without exudates, moist mucous membranes. NECK: Trachea midline, full range of motion, supple. LUNGS: diminished, bilaterally HEART: irregular 100s ABDOMEN: Soft, nontender, nondistended, normoactive bowel sounds - diarrhea with rectal tube with over 600cc of liquid brown stool EXTREMITIES: no edema. NEUROLOGICAL: more awake, moving all extremities. does not follow commands. confused, fall risk. Laboratory Results - last 24 hr 08/15/19 08/15/19 08/15/19 12:29 16:40 22:25 WBC RBC Hgb Hct MCV MCH MCHC RDW Plt Count MPV Absolute Neuts (auto) Neutrophils % Lymphocytes % Monocytes % Eosinophils % Basophils % Nucleated RBC % PTT (Actin FS) Sodium Potassium Chloride Carbon Dioxide Anion Gap BUN Creatinine Est GFR (CKD-EPI)AfAm Est GFR (CKD-EPI)NonAf POC Glucometer 210 180 121 Random Glucose Calcium Magnesium Total Bilirubin AST ALT Alkaline Phosphatase Total Protein Albumin Triglycerides Cholesterol Total LDL Cholesterol HDL Cholesterol 08/16/19 08/16/19 08/16/19 05:40 05:40 05:40 WBC 8.0 RBC 3.63 L Hgb 13.2 Hct 37.5 MCV 103.3 H MCH 36.4 H MCHC 35.3 RDW 13.8 Plt Count 339 MPV 8.0 Absolute Neuts (auto) 6.0 Neutrophils % 74.8 Lymphocytes % 13.1 Monocytes % 10.8 H Eosinophils % 0.7 Basophils % 0.6 Nucleated RBC % 0 PTT (Actin FS) 49.0 H Sodium 134 L Potassium 4.4 Chloride 104 Carbon Dioxide 20 L Anion Gap 10 BUN 16.3 Creatinine 0.5 L Est GFR (CKD-EPI)AfAm 129.05 Est GFR (CKD-EPI)NonAf 111.35 POC Glucometer Random Glucose 196 H Calcium 8.7 Magnesium 1.7 L Total Bilirubin 0.9 AST 25 ALT 30 Alkaline Phosphatase 167 H Total Protein 6.8 Albumin 2.6 L Triglycerides 121 Cholesterol 79 Total LDL Cholesterol 43 HDL Cholesterol 26 L 08/16/19 06:36 WBC RBC Hgb Hct MCV MCH MCHC RDW Plt Count MPV Absolute Neuts (auto) Neutrophils % Lymphocytes % Monocytes % Eosinophils % Basophils % Nucleated RBC % PTT (Actin FS) Sodium Potassium Chloride Carbon Dioxide Anion Gap BUN Creatinine Est GFR (CKD-EPI)AfAm Est GFR (CKD-EPI)NonAf POC Glucometer 205 Random Glucose Calcium Magnesium Total Bilirubin AST ALT Alkaline Phosphatase Total Protein Albumin Triglycerides Cholesterol Total LDL Cholesterol HDL Cholesterol Active Medications Generic Name Dose Route Start Last Admin Trade Name Freq PRN Reason Stop Dose Admin Acetaminophen 1,000 mg 08/15/19 06:00 08/15/19 06:46 Ofirmev Injection - IVPB 1,000 mg Q6H PRN Administration PAIN LEVEL 6-10 Aspirin 300 mg 08/11/19 12:15 08/11/19 13:37 Asa - VT 300 mg DAILY KATIA Administration Atorvastatin Calcium 80 mg 08/09/19 22:00 08/15/19 22:43 Lipitor - NGT Not Given HS KATIA Enalaprilat 1.25 mg 08/13/19 15:00 08/16/19 03:20 Vasotec Injection - IVPB 1.25 mg Q6H-IV KATIA Administration Folic Acid 1 mg 08/08/19 17:51 08/12/19 10:27 Folic Acid - NGT Not Given DAILY KATIA Folic Acid 1 mg 08/12/19 13:30 08/15/19 16:17 Folic Acid Injection - IVPB 1 mg Q24H KATIA Administration Heparin Sodium (Porcine) 1,000 unit 08/11/19 16:20 08/13/19 07:58 Heparin - IVPUSH 1,000 unit PRN PRN Administration Heparin Heparin Sodium (Porcine) 5,000 unit 08/11/19 16:20 08/13/19 16:36 Heparin - IVPUSH 5,000 unit PRN PRN Administration Heparin Heparin Sodium (Porcine) 25, 500 mls @ 16 mls/hr 08/11/19 16:30 08/15/19 16: 22 000 unit/ Sodium Chloride IV 1,350 unit/hr TITR KATIA 27 mls/hr Administration Protocol 800 UNIT/HR Potassium Chloride 40 meq/ 1,021 mls @ 84 mls/hr 08/12/19 13:30 08/16/19 05: 29 Thiamine HCl 100 mg/ Amino IVPB 84 mls/hr Acids Q12H KATIA Administration Fat Emulsion Intravenous 250 mls @ 20.833 mls/hr 08/15/19 22:00 08/15/19 22: 44 Intralipid - IV 20.833 mls/hr Q2D@2200 KATIA Administration Insulin Aspart 1 vial 08/03/19 07:00 08/16/19 06:38 Novolog Vial Sliding Scale - SQ 2 unit ACHS KATIA Administration Protocol Metoprolol Tartrate 25 mg 08/11/19 11:15 08/15/19 22:44 Lopressor - NGT Not Given BID KATIA Metoprolol Tartrate 10 mg 08/13/19 17:48 08/16/19 06:34 Lopressor Injection - IVPUSH 10 mg Q4H KATIA Administration Multivitamins/Minerals 15 ml 08/09/19 10:00 08/12/19 10:27 Certavite-Antioxidant Liquid NGT Not Given DAILY KATIA Multivitamins/Minerals 10 ml 08/12/19 13:30 08/15/19 16:17 Infuvite Adult - IV 10 ml Q24H KATIA Administration Nystatin 1 applic 08/03/19 17:30 08/15/19 09:33 Nystop Powder - TP 1 applic DAILY KATIA Administration Pantoprazole Sodium 40 mg 08/11/19 14:45 08/15/19 09:32 Protonix Iv IVPUSH 40 mg DAILY KATIA Administration Thiamine HCl 100 mg 08/08/19 17:52 08/12/19 10:47 Vitamin B1 - NGT Not Given BID KATIA ASSESSMENT/PLAN: Problem List - Problems (1) CVA (cerebral vascular accident) Assessment/Plan: CVA confirmed by brain mri 08/04/19: acute right cerebral infarcts. acute non hemorrhagic infarcts noted involving the right frontal, right temporal and right insular cortices as well as the right basal ganglia. minimal periventricular chronic microvascular changes are noted. initiated stroke protocol - neuro consulted and following, patient for a repeat brain mri per neuro. - on asa VT and statin. patient with poor swallowing and has failed swallow eval. has pulled out NGT multiple times despite supervision. on clinimax and lipids but now with diffused diarrhea. negative for cdiff. patient family refusing peg tube at this time. tpn ordered and to be started today. - physical therapy as tolerated. - carotid u/s noted, seen by vascular and patient will need outpateint f/u Code(s): I63.9 - CEREBRAL INFARCTION, UNSPECIFIED (2) Aspiration precautions Assessment/Plan: swallow test to be repeated. MBS when mentation improves and he is able to participate. Code(s): Z91.89 - OTH PERSONAL RISK FACTORS, NOT ELSEWHERE CLASSIFIED (3) Acute metabolic encephalopathy Assessment/Plan: found to have an acute frontal stroke/right cerebral infarcts. stroke protocol initiated vitas are stable. awake overnight monitor: irregular 100s blood sugar monitoring q 6 start tpn for better nutrition intake until family decides on peg tube. Code(s): G93.41 - METABOLIC ENCEPHALOPATHY (4) A-fib Assessment/Plan: on iv lopressor and heparin drip controlled rate Code(s): I48.91 - UNSPECIFIED ATRIAL FIBRILLATION Qualifiers: Atrial fibrillation type: unspecified Qualified Code(s): I48.91 - Unspecified atrial fibrillation (5) Alcohol intoxication Assessment/Plan: ciwa score low. no signs of acute w/drawal. ammonia level low @ 18 Code(s): F10.929 - ALCOHOL USE, UNSPECIFIED WITH INTOXICATION, UNSPECIFIED Qualifiers: Complication of substance-induced condition: uncomplicated Qualified Code(s ): F10.920 - Alcohol use, unspecified with intoxication, uncomplicated (6) Syncope and collapse Assessment/Plan: PT when more stable Code(s): R55 - SYNCOPE AND COLLAPSE (7) Prophylactic measure Assessment/Plan: on heparin drip, follow aptt-is at a therapeutic goal. full code fen on clinimax since 08/06. start tpn for better nutrition intake. patient continues to pull ngt out despite restraints and supervision. monitor electrolytes including mag for a swallow eval once more stable, keep npo until family decides on peg tube feeds. Code(s): Z29.9 - ENCOUNTER FOR PROPHYLACTIC MEASURES, UNSPECIFIED Visit type - Emergency Visit Emergency Visit: Yes ED Registration Date: 08/02/19 Care time: The patient presented to the Emergency Department on the above date and was hospitalized for further evaluation of their emergent condition. - New Patient This patient is new to me today: No - Critical Care Critical Care patient: No - Discharge Referral Referred to [facility] Med P.C.: No
--- NOTE | 2019-08-16 09:31 | HP ---
CHIEF COMPLAINT: PCP: HISTORY OF PRESENT ILLNESS: ER course was notable for: (1) (2) (3) Recent Travel: PAST MEDICAL HISTORY: PAST SURGICAL HISTORY: Social History: Smoking: Alcohol: Drugs: Allergies No Known Allergies Allergy (Verified 08/02/19 19:37) HOME MEDICATIONS: Home Medications Medication Instructions Recorded Unobtainable 08/03/19 REVIEW OF SYSTEMS CONSTITUTIONAL: Absent: fever, chills, diaphoresis, generalized weakness, malaise, loss of appetite, weight change HEENT: Absent: rhinorrhea, nasal congestion, throat pain, throat swelling, difficulty swallowing, mouth swelling, ear pain, eye pain, visual changes CARDIOVASCULAR: Absent: chest pain, syncope, palpitations, irregular heart rate, lightheadedness , peripheral edema RESPIRATORY: Absent: cough, shortness of breath, dyspnea with exertion, orthopnea, wheezing, stridor, hemoptysis GASTROINTESTINAL: Absent: abdominal pain, abdominal distension, nausea, vomiting, diarrhea, constipation, melena, hematochezia GENITOURINARY: Absent: dysuria, frequency, urgency, hesitancy, hematuria, flank pain, genital pain MUSCULOSKELETAL: Absent: myalgia, arthralgia, joint swelling, back pain, neck pain SKIN: Absent: rash, itching, pallor HEMATOLOGIC/IMMUNOLOGIC: Absent: easy bleeding, easy bruising, lymphadenopathy, frequent infections ENDOCRINE: Absent: unexplained weight gain, unexplained weight loss, heat intolerance, cold intolerance NEUROLOGIC: Absent: headache, focal weakness or paresthesias, dizziness, unsteady gait, seizure, mental status changes, bladder or bowel incontinence PSYCHIATRIC: Absent: anxiety, depression, suicidal or homicidal ideation, hallucinations. PHYSICAL EXAMINATION Vital Signs - 24 hr 08/15/19 08/15/19 08/15/19 09:31 12:00 12:50 Temperature Pulse Rate 104 H 114 H 126 H Respiratory 23 H Rate Blood Pressure 139/88 159/104 H 159/104 H O2 Sat by Pulse Oximetry (%) 08/15/19 08/15/19 08/15/19 14:00 16:00 17:13 Temperature 97.6 F Pulse Rate 101 H 118 H 120 H Respiratory 22 H 20 Rate Blood Pressure 159/104 H 154/122 H 154/122 H O2 Sat by Pulse Oximetry (%) 08/15/19 08/15/19 08/15/19 17:27 20:00 21:00 Temperature 98.1 F Pulse Rate 126 H Respiratory 25 H 24 H Rate Blood Pressure 189/117 H O2 Sat by Pulse 95 98 Oximetry (%) 08/15/19 08/16/19 08/16/19 21:57 00:00 01:34 Temperature Pulse Rate 140 H 143 H 145 H Respiratory 21 H Rate Blood Pressure 167/112 H 172/110 H 172/110 H O2 Sat by Pulse Oximetry (%) 08/16/19 08/16/19 04:00 06:34 Temperature Pulse Rate 145 H 120 H Respiratory Rate Blood Pressure 140/96 139/102 H O2 Sat by Pulse Oximetry (%) GENERAL: Awake, alert, and fully oriented, in no acute distress. HEAD: Normal with no signs of trauma. EYES: Pupils equal, round and reactive to light, extraocular movements intact, sclera anicteric, conjunctiva clear. No lid lag. EARS, NOSE, THROAT: Ears normal, nares patent, oropharynx clear without exudates. Moist mucous membranes. NECK: Normal range of motion, supple without lymphadenopathy, JVD, or masses. LUNGS: Breath sounds equal, clear to auscultation bilaterally. No wheezes, and no crackles. No accessory muscle use. HEART: Regular rate and rhythm, normal S1 and S2 without murmur, rub or gallop. ABDOMEN: Soft, nontender, not distended, normoactive bowel sounds, no guarding, no rebound, no masses. No hepatomegaly or splenomegaly. MUSCULOSKELETAL: Normal range of motion at all joints. No bony deformities or tenderness. No CVA tenderness. UPPER EXTREMITIES: 2+ pulses, warm, well-perfused. No cyanosis. No clubbing. No peripheral edema. LOWER EXTREMITIES: 2+ pulses, warm, well-perfused. No calf tenderness. No peripheral edema. NEUROLOGICAL: Cranial nerves II-XII intact. Normal speech. Normal gait. PSYCHIATRIC: Cooperative. Good eye contact. Appropriate mood and affect. SKIN: Warm, dry, normal turgor, no rashes or lesions noted, normal capillary refill. Laboratory Results - last 24 hr 08/15/19 08/15/19 08/15/19 12:29 16:40 22:25 WBC RBC Hgb Hct MCV MCH MCHC RDW Plt Count MPV Absolute Neuts (auto) Neutrophils % Lymphocytes % Monocytes % Eosinophils % Basophils % Nucleated RBC % PTT (Actin FS) Sodium Potassium Chloride Carbon Dioxide Anion Gap BUN Creatinine Est GFR (CKD-EPI)AfAm Est GFR (CKD-EPI)NonAf POC Glucometer 210 180 121 Random Glucose Calcium Magnesium Total Bilirubin AST ALT Alkaline Phosphatase Total Protein Albumin Triglycerides Cholesterol Total LDL Cholesterol HDL Cholesterol 08/16/19 08/16/19 08/16/19 05:40 05:40 05:40 WBC 8.0 RBC 3.63 L Hgb 13.2 Hct 37.5 MCV 103.3 H MCH 36.4 H MCHC 35.3 RDW 13.8 Plt Count 339 MPV 8.0 Absolute Neuts (auto) 6.0 Neutrophils % 74.8 Lymphocytes % 13.1 Monocytes % 10.8 H Eosinophils % 0.7 Basophils % 0.6 Nucleated RBC % 0 PTT (Actin FS) 49.0 H Sodium 134 L Potassium 4.4 Chloride 104 Carbon Dioxide 20 L Anion Gap 10 BUN 16.3 Creatinine 0.5 L Est GFR (CKD-EPI)AfAm 129.05 Est GFR (CKD-EPI)NonAf 111.35 POC Glucometer Random Glucose 196 H Calcium 8.7 Magnesium 1.7 L Total Bilirubin 0.9 AST 25 ALT 30 Alkaline Phosphatase 167 H Total Protein 6.8 Albumin 2.6 L Triglycerides 121 Cholesterol 79 Total LDL Cholesterol 43 HDL Cholesterol 26 L 08/16/19 06:36 WBC RBC Hgb Hct MCV MCH MCHC RDW Plt Count MPV Absolute Neuts (auto) Neutrophils % Lymphocytes % Monocytes % Eosinophils % Basophils % Nucleated RBC % PTT (Actin FS) Sodium Potassium Chloride Carbon Dioxide Anion Gap BUN Creatinine Est GFR (CKD-EPI)AfAm Est GFR (CKD-EPI)NonAf POC Glucometer 205 Random Glucose Calcium Magnesium Total Bilirubin AST ALT Alkaline Phosphatase Total Protein Albumin Triglycerides Cholesterol Total LDL Cholesterol HDL Cholesterol ASSESSMENT/PLAN: Problem List - Problem (1) CVA (cerebral vascular accident) Code(s): I63.9 - CEREBRAL INFARCTION, UNSPECIFIED (2) Aspiration precautions Code(s): Z91.89 - OTH PERSONAL RISK FACTORS, NOT ELSEWHERE CLASSIFIED (3) Acute metabolic encephalopathy Code(s): G93.41 - METABOLIC ENCEPHALOPATHY (4) A-fib Code(s): I48.91 - UNSPECIFIED ATRIAL FIBRILLATION Qualifiers: Atrial fibrillation type: unspecified Qualified Code(s): I48.91 - Unspecified atrial fibrillation (5) Alcohol intoxication Code(s): F10.929 - ALCOHOL USE, UNSPECIFIED WITH INTOXICATION, UNSPECIFIED Qualifiers: Complication of substance-induced condition: uncomplicated Qualified Code(s ): F10.920 - Alcohol use, unspecified with intoxication, uncomplicated (6) Syncope and collapse Code(s): R55 - SYNCOPE AND COLLAPSE (7) Prophylactic measure Code(s): Z29.9 - ENCOUNTER FOR PROPHYLACTIC MEASURES, UNSPECIFIED
[2019-08-16] MEDS: ASPIRIN 300 MG SUPP.RECT PR SCH (11:00)
--- NOTE | 2019-08-16 11:33 | PN ---
Progress Note (short form) - Note Progress Note: 69 year old male with history of hypertension, hyperlipidemia, non-insulin dependent diabetes mellitus, presents after a syncopal episode on 08/02/19. 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 5 minutes, however he denies this upon my encounter. Denies bowel or bladder incontinence. Currently patient denies chest pain, and only endorses left shoulder pain and headache. He denies prior cardiac history, or workup. Reported that patient has not followed up with primary care provider in several years, and has history of alcohol use disorder. Events noted , found to be in Afib , also ? left sided weakness and MRI + acute stroke, branch MCA infarcts. PT sleepy this AM , not answering questions FU : still very somnolent, not following requests , will grimace with stimulation, but not coherent no sedation repeat HD CT 08/09/19 --evolving R MCA infarct left hemiparesis continues on AC Studies: Dopp[place] high grade stenosis L ICA MRI BRAIN CLINICAL INFORMATION GIVEN: evaluate for acute infarct The exam consists of sagittal and transaxial images obtained utilizing fast spin-echo, fast spin- echo FLAIR, T2-weighted gradient-echo and diffusion weighted spin-echo echo - planar pulse sequences. Acute nonhemorrhagic infarcts are noted involving the right frontal, right temporal and right insular cortices as well as the right basal ganglia. Minimal periventricular chronic microvascular changes are noted. There is no extra-axial fluid collection. No obvious mass lesion is seen allowing for motion artifact. The ventricles and cisterns and craniocervical junction appear unremarkable. Signal void is seen within the intracranial internal carotid and vertebral arteries as well as the basilar artery consistent with vessel patency. IMPRESSION: Acute right cerebral infarcts are noted as discussed above. - Alcohol/Substance Use Hx Alcohol Use: No - Smoking History Smoking history: Never smoked Home Medications - Allergies Allergies/Adverse Reactions: Allergies Allergy/AdvReac Type Severity Reaction Status Date / Time No Known Allergies Allergy Verified 08/02/19 19:37 - Home Medications Home Medications: Ambulatory Orders Unobtainable 08/03/19 Physical Exam-Neuro Vital Signs: Vital Signs Vital Signs Temperature 98.1 F 08/15/19 20:00 Pulse Rate 112 H 08/16/19 09:27 Respiratory Rate 21 H 08/16/19 00:00 Blood Pressure 150/99 08/16/19 09:27 O2 Sat by Pulse Oximetry (%) 98 08/15/19 21:00 Labs: CBCD WBC 8.0 K/mm3 (4.0-10.0) 08/16/19 05:40 RBC 3.63 M/mm3 (4.00-5.60) L 08/16/19 05:40 Hgb 13.2 GM/dL (11.7-16.9) 08/16/19 05:40 Hct 37.5 % (35.4-49) 08/16/19 05:40 MCV 103.3 fl (80-96) H 08/16/19 05:40 MCHC 35.3 g/dl (32.0-35.9) 08/16/19 05:40 RDW 13.8 % (11.9-15.9) 08/16/19 05:40 Plt Count 339 K/MM3 (134-434) 08/16/19 05:40 MPV 8.0 fl (7.5-11.1) 08/16/19 05:40 CMP Sodium 134 mmol/L (136-145) L 08/16/19 05:40 Potassium 4.4 mmol/L (3.5-5.1) 08/16/19 05:40 Chloride 104 mmol/L (98-107) 08/16/19 05:40 Carbon Dioxide 20 mmol/L (21-32) L 08/16/19 05:40 Anion Gap 10 MMOL/L (8-16) 08/16/19 05:40 BUN 16.3 mg/dL (7-18) 08/16/19 05:40 Creatinine 0.5 mg/dL (0.55-1.3) L 08/16/19 05:40 Calcium 8.7 mg/dL (8.5-10.1) 08/16/19 05:40 Total Bilirubin 0.9 mg/dL (0.2-1) 08/16/19 05:40 AST 25 U/L (15-37) 08/16/19 05:40 ALT 30 U/L (13-61) 08/16/19 05:40 Alkaline Phosphatase 167 U/L (45-117) H 08/16/19 05:40 Total Protein 6.8 g/dl (6.4-8.2) 08/16/19 05:40 Albumin 2.6 g/dl (3.4-5.0) L 08/16/19 05:40 - Neuro Exam Level Of Consciousness: Yes: Sedated (eyes closed, nonverbal, eyes forced shut, left hemiparesis , ) Imaging - Results Cat Scan: Report Reviewed, Image Reviewed MRI: Report Reviewed, Image Reviewed Problem List - Problems (1) A-fib Code(s): I48.91 - UNSPECIFIED ATRIAL FIBRILLATION Qualifiers: Atrial fibrillation type: unspecified Qualified Code(s): I48.91 - Unspecified atrial fibrillation (2) Acute metabolic encephalopathy Code(s): G93.41 - METABOLIC ENCEPHALOPATHY (3) Alcohol intoxication Code(s): F10.929 - ALCOHOL USE, UNSPECIFIED WITH INTOXICATION, UNSPECIFIED Qualifiers: Complication of substance-induced condition: uncomplicated Qualified Code(s ): F10.920 - Alcohol use, unspecified with intoxication, uncomplicated (4) CVA (cerebral vascular accident) Code(s): I63.9 - CEREBRAL INFARCTION, UNSPECIFIED (5) Syncope and collapse Code(s): R55 - SYNCOPE AND COLLAPSE Assessment/Plan 69 year old male with history of hypertension, hyperlipidemia, non-insulin dependent diabetes mellitus, presents after a syncopal episode on 08/02/19. 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 5 minutes, however he denies this upon my encounter. Denies bowel or bladder incontinence. Currently patient denies chest pain, and only endorses left shoulder pain and headache. He denies prior cardiac history, or workup. Reported that patient has not followed up with primary care provider in several years, and has history of alcohol use disorder. Events noted , found to be in Afib , also ? left sided weakness and MRI + acute stroke, branch MCA infarcts. MRI BRAIN CLINICAL INFORMATION GIVEN: evaluate for acute infarct The exam consists of sagittal and transaxial images obtained utilizing fast spin-echo, fast spin- echo FLAIR, T2-weighted gradient-echo and diffusion weighted spin-echo echo - planar pulse sequences. Acute nonhemorrhagic infarcts are noted involving the right frontal, right temporal and right insular cortices as well as the right basal ganglia. Minimal periventricular chronic microvascular changes are noted. There is no extra-axial fluid collection. No obvious mass lesion is seen allowing for motion artifact. The ventricles and cisterns and craniocervical junction appear unremarkable. Signal void is seen within the intracranial internal carotid and vertebral arteries as well as the basilar artery consistent with vessel patency. IMPRESSION: Acute right cerebral infarcts are noted as discussed above. AP : HX of DM/hypertension, ETOH, found to be in AFib and with acute large R MCA strokes--embolic in nature ; also + left carotid disease-high grade stenosis (though this is not the culprit in his acute stroke) , vascular --no intervention at this time cont HEPARIN DRIP (no loading dose) for AFIB , though conversion man compliance with AC may be an issue -- will likely require conversion man nursing care to decide on nutrionla support TPM vs PEG repeat HD CT --evolving infarct on 08/15/19 given poor MS, would recheck MRI BRAIN check Routine EEG, no clinical stigmata for seizure will call daughter thank you DR DANIELLE Problem List - Problems (1) A-fib Code(s): I48.91 - UNSPECIFIED ATRIAL FIBRILLATION Qualifiers: Atrial fibrillation type: unspecified Qualified Code(s): I48.91 - Unspecified atrial fibrillation (2) Acute metabolic encephalopathy Code(s): G93.41 - METABOLIC ENCEPHALOPATHY (3) Alcohol intoxication Code(s): F10.929 - ALCOHOL USE, UNSPECIFIED WITH INTOXICATION, UNSPECIFIED Qualifiers: Complication of substance-induced condition: uncomplicated Qualified Code(s ): F10.920 - Alcohol use, unspecified with intoxication, uncomplicated (4) CVA (cerebral vascular accident) Code(s): I63.9 - CEREBRAL INFARCTION, UNSPECIFIED (5) Syncope and collapse Code(s): R55 - SYNCOPE AND COLLAPSE
--- NOTE | 2019-08-16 11:44 | PN ---
Progress Note, [employer] - Note Progress Note: Selected Entries 08/15/19 08/15/19 08/15/19 02:00 06:00 08:00 Temperature 97.6 F 98.4 F 97.4 F L 08/15/19 08/15/19 14:00 20:00 Temperature 97.6 F 98.1 F Laboratory Tests 08/16/19 05:40 WBC 8.0 Case reviewed with PNP. For TPN for temporary nutritional support. Family considering PEG. Repeat MRI ordered regarding poor arousability
--- NOTE | 2019-08-16 11:57 | PN ---
Progress Note (short form) - Note Progress Note: s: sleeping not rousable Current Medications Current Medications Acetaminophen (Ofirmev Injection -) 1,000 mg IVPB Q6H PRN PRN Reason: PAIN LEVEL 6-10 Last Admin: 08/15/19 06:46 Dose: 1,000 mg Aspirin (Asa -) 300 mg [place] DAILY [facility] Last Admin: 08/11/19 13:37 Dose: 300 mg Atorvastatin Calcium (Lipitor -) 80 mg NGT HS [facility] Last Admin: 08/15/19 22:43 Dose: Not Given Enalaprilat (Vasotec Injection -) 1.25 mg IVPB Q6H-IV [facility] Last Admin: 08/16/19 09:28 Dose: 1.25 mg Folic Acid (Folic Acid -) 1 mg NGT DAILY [facility] Last Admin: 08/12/19 10:27 Dose: Not Given Folic Acid (Folic Acid Injection -) 1 mg IVPB Q24H [facility] Last Admin: 08/15/19 16:17 Dose: 1 mg Heparin Sodium (Porcine) (Heparin -) 1,000 unit IVPUSH PRN PRN PRN Reason: Heparin Last Admin: 08/13/19 07:58 Dose: 1,000 unit Heparin Sodium (Porcine) (Heparin -) 5,000 unit IVPUSH PRN PRN PRN Reason: Heparin Last Admin: 08/13/19 16:36 Dose: 5,000 unit Heparin Sodium (Porcine) 25, (000 unit/ Sodium Chloride) 500 mls @ 16 mls/hr IV TITR [facility]; Protocol Last Admin: 08/15/19 16:22 Dose: 1,350 unit/hr, 27 mls/hr Potassium Chloride 40 meq/Thiamine HCl 100 mg/ Amino Acids 1,021 mls @ 84 mls/ hr IVPB Q12H [facility] Last Admin: 08/16/19 05:29 Dose: 84 mls/hr Fat Emulsion Intravenous (Intralipid -) 250 mls @ 20.833 mls/hr IV Q2D@2200 [facility] Last Admin: 08/15/19 22:44 Dose: 20.833 mls/hr Insulin Aspart (Novolog Vial Sliding Scale -) 1 vial SQ ACHS [facility]; Protocol Last Admin: 08/16/19 06:38 Dose: 2 unit Metoprolol Tartrate (Lopressor -) 25 mg NGT BID [facility] Last Admin: 08/16/19 09:30 Dose: Not Given Metoprolol Tartrate (Lopressor Injection -) 10 mg IVPUSH Q4H [facility] Last Admin: 08/16/19 09:27 Dose: 10 mg Multivitamins/Minerals (Certavite-Antioxidant Liquid) 15 ml NGT DAILY [facility] Last Admin: 08/12/19 10:27 Dose: Not Given Multivitamins/Minerals (Infuvite Adult -) 10 ml IV Q24H [facility] Last Admin: 08/15/19 16:17 Dose: 10 ml Nystatin (Nystop Powder -) 1 applic TP DAILY [facility] Last Admin: 08/16/19 09:30 Dose: 1 applic Pantoprazole Sodium (Protonix Iv) 40 mg IVPUSH DAILY [facility] Last Admin: 08/16/19 09:30 Dose: 40 mg Thiamine HCl (Vitamin B1 -) 100 mg NGT BID [facility] Last Admin: 08/12/19 10:47 Dose: Not Given Vital Signs Period Temp Pulse Resp BP Sys/Lieberman Pulse Ox Last 24 Hr 97.6 F-98.1 F 101-145 20-25 139-189/96-122 95-98 Constitutional: Yes: Well Nourished, No Distress, Calm Cardiovascular: Yes: Pulse Irregular, S1, S2. No: Gallop, Murmur Respiratory: Yes: Regular, CTA Bilaterally (anteriorly). No: Accessory Muscle Use Extremities: No: Cold Edema: No Neurological: No: Alert, Oriented, Seizure Psychiatric: No: Agitated no jaundice, diaphoresis Assessment/Plan tele: afib, rates 90s-100s, occ RVR 130s echo 07/2019: nl lv/rv, mild tr, nl rvsp a/p: 69 m hx htn, dm, here with syncope. cva: -change in mental status and mri showing acute cva -neuro following -family considering PEG - no cardiac contraindications to PEG, can hold asa and hep gtt preoperatively if needed syncope: -no signs acs or chf -possibly related to etoh, possibly related to afib with rvr, ?cva related -echo benign -cont tele afib: -new afib with rvr here--now reasonably controlled -no PO intake at present, awaiting PEG. continue iv lopressor prn as doing. -chadsvasc warrants ac. on hep gtt -tsh wnl -echo benign -cont K repletion prn -cont tele htn: -bp not controlled -maintaining current bp range (to 150s/100s-110) per d/w neurology--same meds
[2019-08-16] MEDS: HEPARIN - 25,000 UNIT in SODIUM CHLORIDE 495 ML IV SCH (13:00)
--- NOTE | 2019-08-16 13:03 | PN ---
Progress Note (short form) - Note Progress Note: Renal follow up for TPN Seen and examined at the bedside sleeping, not arousebale. NAD s/p EEG s/p PICC line placed this am no overnight events Vital Signs Temperature 98.1 F 08/15/19 20:00 Pulse Rate 112 H 08/16/19 09:27 Respiratory Rate 21 H 08/16/19 00:00 Blood Pressure 150/99 08/16/19 09:27 O2 Sat by Pulse Oximetry (%) 98 08/15/19 21:00 Intake & Output 08/13/19 08/14/19 08/15/19 08/16/19 23:59 23:59 23:59 23:59 Intake Total 20007 Output Total Balance 1998 2514 2095 91 Weight 62.913 kg 62.913 kg NAD sleeping neck supple RRR CTA soft NT/ND no LE edema, clubbing or cyanosis CBC, BMP 08/16/19 05:40 08/16/19 05:40 Current Medications Acetaminophen (Ofirmev Injection -) 1,000 mg IVPB Q6H PRN PRN Reason: PAIN LEVEL 6-10 Last Admin: 08/15/19 06:46 Dose: 1,000 mg Aspirin (Asa -) 300 mg [place] DAILY [facility] Last Admin: 08/16/19 11:00 Dose: 300 mg Atorvastatin Calcium (Lipitor -) 80 mg NGT HS [facility] Last Admin: 08/15/19 22:43 Dose: Not Given Enalaprilat (Vasotec Injection -) 1.25 mg IVPB Q6H-IV [facility] Last Admin: 08/16/19 09:28 Dose: 1.25 mg Folic Acid (Folic Acid -) 1 mg NGT DAILY [facility] Last Admin: 08/12/19 10:27 Dose: Not Given Folic Acid (Folic Acid Injection -) 1 mg IVPB Q24H [facility] Last Admin: 08/15/19 16:17 Dose: 1 mg Heparin Sodium (Porcine) (Heparin -) 1,000 unit IVPUSH PRN PRN PRN Reason: Heparin Last Admin: 08/13/19 07:58 Dose: 1,000 unit Heparin Sodium (Porcine) (Heparin -) 5,000 unit IVPUSH PRN PRN PRN Reason: Heparin Last Admin: 08/13/19 16:36 Dose: 5,000 unit Heparin Sodium (Porcine) 25, (000 unit/ Sodium Chloride) 500 mls @ 16 mls/hr IV TITR [facility]; Protocol Last Admin: 08/15/19 16:22 Dose: 1,350 unit/hr, 27 mls/hr Potassium Chloride 40 meq/Thiamine HCl 100 mg/ Amino Acids 1,021 mls @ 84 mls/ hr IVPB Q12H [facility] Last Admin: 08/16/19 05:29 Dose: 84 mls/hr Fat Emulsion Intravenous (Intralipid -) 250 mls @ 20.833 mls/hr IV Q2D@2200 [facility] Last Admin: 08/15/19 22:44 Dose: 20.833 mls/hr Insulin Aspart (Novolog Vial Sliding Scale -) 1 vial SQ ACHS [facility]; Protocol Last Admin: 08/16/19 06:38 Dose: 2 unit Metoprolol Tartrate (Lopressor -) 25 mg NGT BID [facility] Last Admin: 08/16/19 09:30 Dose: Not Given Metoprolol Tartrate (Lopressor Injection -) 10 mg IVPUSH Q4H [facility] Last Admin: 08/16/19 09:27 Dose: 10 mg Multivitamins/Minerals (Certavite-Antioxidant Liquid) 15 ml NGT DAILY [facility] Last Admin: 08/12/19 10:27 Dose: Not Given Multivitamins/Minerals (Infuvite Adult -) 10 ml IV Q24H [facility] Last Admin: 08/15/19 16:17 Dose: 10 ml Nystatin (Nystop Powder -) 1 applic TP DAILY [facility] Last Admin: 08/16/19 09:30 Dose: 1 applic Pantoprazole Sodium (Protonix Iv) 40 mg IVPUSH DAILY [facility] Last Admin: 08/16/19 09:30 Dose: 40 mg Thiamine HCl (Vitamin B1 -) 100 mg NGT BID [facility] Last Admin: 08/12/19 10:47 Dose: Not Given 69 year old gentleman with history of hypertension, hyperlipidemia, DM type 2 not on insulin presents from home with syncope and found to have new CVA. 1. Prolonged NPO with protein malnutrition (albumin 2.6) 2. Aspiration risk s/p CVA 3. CVA 4. Diarrhea 5. Hypertension Given prolonged NPO status and poor nutritional status will start TPN. No signs of active infection that would prohibit TPN infusion. planed infusion of 1L of TPN solution with lipids, potassium phosphate, sodium acetate, magnesium sulfate, folic acid and MVI. Trend electrolytes daily Discussed case with primary medical service. Neurology follow up Jay Hughes DO
[2019-08-16] MEDS ORDERED: FAT EMULSIONS 250 ML IV SCH (13:22)
[2019-08-16] MEDS ORDERED: MAGNESIUM SULFATE IVPB SCH (16:00)
[2019-08-16] MEDS ORDERED: [UNRECOGNIZED DRUG - OTHER] IVPB SCH (16:00)
[2019-08-16] MEDS ORDERED: POTASSIUM PHOSPHATE IVPB SCH (16:00)
[2019-08-16] MEDS ORDERED: SODIUM ACETATE IVPB SCH (16:00)
[2019-08-16] MEDS ORDERED: PT OWN MED DRAWER 7, Y5N ONE (16:18)
[2019-08-16] MEDS: ATORVASTATIN CA 80 MG TABLET (FP) NGT SCH (22:26)
[2019-08-16] MEDS: THIAMINE HCL 100 MG TABLET (FP) NGT SCH (22:27)
[2019-08-17] MEDS: METOPROLOL TARTRATE 5 MG/5 ML VIAL IVPUSH SCH ×5 (02:12→21:26)
[2019-08-17] MEDS: ENALAPRILAT DIHYDRATE 1.25 MG/1 ML VIAL IVPB SCH ×4 (02:20→21:27)
[2019-08-17 06:54] LABS: BASO % 0.4 % (0-2.0); EOS % 1.3 % (0-4.5); HEMATOCRIT 36.5 % (35.4-49); HEMOGLOBIN 12.9 GM/dL (11.7-16.9); LYMPH % 13.9 % (8-40); MCHC 35.3 g/dl (32.0-35.9); MEAN CELL VOLUME 102.1 fl (80-96); MEAN PLT VOLUME 7.9 fl (7.5-11.1); MONO % 7.8 % (3.8-10.2); NEUT % 76.6 % (42.8-82.8); PLATELET COUNT 345 K/MM3 (134-434); RBC 3.58 M/mm3 (4.00-5.60); RDW 13.9 % (11.9-15.9); WHITE BLOOD COUNT 7.7 K/mm3 (4.0-10.0)
[2019-08-17 07:26] LABS: ALBUMIN 2.4 g/dl (3.4-5.0); BILIRUBIN,TOTAL 0.7 mg/dL (0.2-1); BLOOD UREA NITROGEN 12.9 mg/dL (7-18); CALCIUM 8.7 mg/dL (8.5-10.1); CREATININE 0.4 mg/dL (0.55-1.3); PHOSPHOROUS 3.8 mg/dL (2.5-4.9); POTASSIUM 3.7 mmol/L (3.5-5.1); TOT PROT 6.5 g/dl (6.4-8.2)
[2019-08-17] MEDS: INSULIN SLIDING SCALE (NOVOLOG) 1 VIAL SQ SCH ×4 (07:28→23:08)
--- NOTE | 2019-08-17 09:20 | PN ---
Physical Exam: SUBJECTIVE: Patient seen and examined at the bedside. more awake and alert today, stating his name and answering some questions. patient's language primarily is hungarian but he understands some verbal commands in telugu. OBJECTIVE: Patient is a 69 year old male with history of hypertension, hyperlipidemia, non- insulin dependent diabetes mellitus and alcohol abuse, presents after a syncopal episode. Patient was intoxicated on admission and started on a librium taper. He was found to have new onset afib on admission and a heparin drip was initiated. Hospitalization complicated when patient became unresponsive on 08/04/[address] showed possible acute/subacute infarct. MRI brain then confirmed acute right cerebral infarcts. neuro consulted and following. Patient mental status has improved compared to yesterday and passed a bed side swallow test. daughter cell Will start on dysphasia pureed with nectar thick fluids, continue tpn until assured patient is able to fully eat. Vital Signs Period Temp Pulse Resp BP Sys/Lieberman Pulse Ox Last 24 Hr 98.3 F 99-116 19-25 132-160/88-99 GENERAL: garbled speech but some words now more comprehensible, awake and alert , HEAD: Normal with no signs of trauma. EYES: patient opens eyes spontaneously, attempts to talk, garbled ENT: Ears normal, nares patent, oropharynx clear without exudates, moist mucous membranes. NECK: Trachea midline, full range of motion, supple. LUNGS: diminished, bilaterally HEART: irregular 100s ABDOMEN: Soft, nontender, nondistended, normoactive bowel sounds - diarrhea with rectal tube with over 600cc of liquid brown stool EXTREMITIES: no edema. NEUROLOGICAL: more awake, moving all extremities. following commands. fall risk. Laboratory Results - last 24 hr 08/16/19 08/16/19 08/16/19 05:40 11:58 12:20 WBC RBC Hgb Hct MCV MCH MCHC RDW Plt Count MPV Absolute Neuts (auto) Neutrophils % Lymphocytes % Monocytes % Eosinophils % Basophils % Nucleated RBC % PTT (Actin FS) Sodium 134 L Potassium 4.4 Chloride 104 Carbon Dioxide 20 L Anion Gap 10 BUN 16.3 Creatinine 0.5 L Est GFR (CKD-EPI)AfAm 129.05 Est GFR (CKD-EPI)NonAf 111.35 POC Glucometer 221 Random Glucose 196 H Calcium 8.7 Phosphorus 3.0 Magnesium 1.7 L Total Bilirubin 0.9 AST 25 ALT 30 Alkaline Phosphatase 167 H Ammonia 18.00 Total Protein 6.8 Albumin 2.6 L Triglycerides 121 Cholesterol 79 Total LDL Cholesterol 43 HDL Cholesterol 26 L 08/16/19 08/16/19 08/17/19 17:30 22:42 06:30 WBC RBC Hgb Hct MCV MCH MCHC RDW Plt Count MPV Absolute Neuts (auto) Neutrophils % Lymphocytes % Monocytes % Eosinophils % Basophils % Nucleated RBC % PTT (Actin FS) 34.6 Sodium Potassium Chloride Carbon Dioxide Anion Gap BUN Creatinine Est GFR (CKD-EPI)AfAm Est GFR (CKD-EPI)NonAf POC Glucometer 197 107 Random Glucose Calcium Phosphorus Magnesium Total Bilirubin AST ALT Alkaline Phosphatase Ammonia Total Protein Albumin Triglycerides Cholesterol Total LDL Cholesterol HDL Cholesterol 08/17/19 08/17/19 08/17/19 06:30 06:30 07:19 WBC 7.7 RBC 3.58 L Hgb 12.9 Hct 36.5 MCV 102.1 H MCH 36.0 H MCHC 35.3 RDW 13.9 Plt Count 345 MPV 7.9 Absolute Neuts (auto) 5.9 Neutrophils % 76.6 Lymphocytes % 13.9 Monocytes % 7.8 Eosinophils % 1.3 D Basophils % 0.4 Nucleated RBC % 0 PTT (Actin FS) Sodium 137 Potassium 3.7 Chloride 106 Carbon Dioxide 22 Anion Gap 9 BUN 12.9 Creatinine 0.4 L Est GFR (CKD-EPI)AfAm 141.45 Est GFR (CKD-EPI)NonAf 122.04 POC Glucometer 156 Random Glucose 153 H Calcium 8.7 Phosphorus 3.8 Magnesium 2.0 Total Bilirubin 0.7 AST 26 ALT 31 Alkaline Phosphatase 160 H Ammonia Total Protein 6.5 Albumin 2.4 L Triglycerides Cholesterol Total LDL Cholesterol HDL Cholesterol Active Medications Generic Name Dose Route Start Last Admin Trade Name Freq PRN Reason Stop Dose Admin Acetaminophen 1,000 mg 08/15/19 06:00 08/15/19 06:46 Ofirmev Injection - IVPB 1,000 mg Q6H PRN Administration PAIN LEVEL 6-10 Aspirin 300 mg 08/11/19 12:15 08/16/19 11:00 Asa - SC 300 mg DAILY [facility] Administration Atorvastatin Calcium 80 mg 08/09/19 22:00 08/16/19 22:26 Lipitor - NGT Not Given HS [facility] Enalaprilat 1.25 mg 08/13/19 15:00 08/17/19 02:20 Vasotec Injection - IVPB 1.25 mg Q6H-IV [facility] Administration Heparin Sodium (Porcine) 1,000 unit 08/11/19 16:20 08/13/19 07:58 Heparin - IVPUSH 1,000 unit PRN PRN Administration Heparin Heparin Sodium (Porcine) 5,000 unit 08/11/19 16:20 08/13/19 16:36 Heparin - IVPUSH 5,000 unit PRN PRN Administration Heparin Heparin Sodium (Porcine) 25, 500 mls @ 16 mls/hr 08/11/19 16:30 08/16/19 13: 00 000 unit/ Sodium Chloride IV 1,350 unit/hr TITR [facility] 27 mls/hr Administration Protocol 800 UNIT/HR Fat Emulsion Intravenous 250 mls @ 20.833 mls/hr 08/16/19 13:22 08/16/19 22: 24 Intralipid - IV 20.833 mls/hr DAILY@2200 [facility] Administration Potassium Phosphate 30 mm/ 1,000 mls @ 41.667 mls/hr 08/16/19 16:00 08/16/19 16:30 Sodium Acetate 50 meq/ IVPB 41.667 mls/hr Magnesium Sulfate 2 gm/ Folic DAILY@1600 [facility] Administration Acid 1 mg/ Thiamine HCl 100 mg / Multivitamins/Minerals 10 ml / Sterile Water/ Amino Acids/ Dextrose Insulin Aspart 1 vial 08/03/19 07:00 08/17/19 07:28 Novolog Vial Sliding Scale - SQ 1 unit ACHS [facility] Administration Protocol Metoprolol Tartrate 25 mg 08/11/19 11:15 08/16/19 22:26 Lopressor - NGT Not Given BID [facility] Metoprolol Tartrate 10 mg 08/13/19 17:48 08/17/19 06:10 Lopressor Injection - IVPUSH 10 mg Q4H [facility] Administration Nystatin 1 applic 08/03/19 17:30 08/16/19 09:30 Nystop Powder - TP 1 applic DAILY [facility] Administration Pantoprazole Sodium 40 mg 08/11/19 14:45 08/16/19 09:30 Protonix Iv IVPUSH 40 mg DAILY [facility] Administration ASSESSMENT/PLAN: Problem List - Problems (1) CVA (cerebral vascular accident) Assessment/Plan: CVA confirmed by brain mri 08/04/19: acute right cerebral infarcts. acute non hemorrhagic infarcts noted involving the right frontal, right temporal and right insular cortices as well as the right basal ganglia. minimal periventricular chronic microvascular changes are noted. initiated stroke protocol - neuro consulted and following, patient for a repeat brain mri per neuro. - on asa SC and statin. - physical therapy as tolerated. - carotid u/s noted, seen by vascular and patient will need outpateint f/u Code(s): I63.9 - CEREBRAL INFARCTION, UNSPECIFIED (2) Aspiration precautions Assessment/Plan: start on dysphagia pureed diet, swallow test done at bedside. Code(s): Z91.89 - OTH PERSONAL RISK FACTORS, NOT ELSEWHERE CLASSIFIED (3) Acute metabolic encephalopathy Assessment/Plan: found to have an acute frontal stroke/right cerebral infarcts. stroke protocol initiated vitas are stable. ep technologist: irregular 100-120s blood sugar monitoring q 6 start tpn for better nutrition intake, started on pureed/nectar thick diet. Code(s): G93.41 - METABOLIC ENCEPHALOPATHY (4) A-fib Assessment/Plan: on iv lopressor and heparin drip controlled rate Code(s): I48.91 - UNSPECIFIED ATRIAL FIBRILLATION Qualifiers: Atrial fibrillation type: unspecified Qualified Code(s): I48.91 - Unspecified atrial fibrillation (5) Alcohol intoxication Assessment/Plan: ciwa score low. no signs of acute w/drawal. ammonia level low @ 18 Code(s): F10.929 - ALCOHOL USE, UNSPECIFIED WITH INTOXICATION, UNSPECIFIED Qualifiers: Complication of substance-induced condition: uncomplicated Qualified Code(s ): F10.920 - Alcohol use, unspecified with intoxication, uncomplicated (6) Syncope and collapse Assessment/Plan: PT when more stable Code(s): R55 - SYNCOPE AND COLLAPSE (7) Prophylactic measure Assessment/Plan: on heparin drip, follow aptt-is at a therapeutic goal. full code fen on clinimax since 08/06. start tpn for better nutrition intake. now on dysphagia pureed diet/nectar thick. mbs per speech and swallow Code(s): Z29.9 - ENCOUNTER FOR PROPHYLACTIC MEASURES, UNSPECIFIED Visit type - Emergency Visit Emergency Visit: Yes ED Registration Date: 08/02/19 Care time: The patient presented to the Emergency Department on the above date and was hospitalized for further evaluation of their emergent condition. - New Patient This patient is new to me today: No - Critical Care Critical Care patient: No - Discharge Referral Referred to [facility] No
--- NOTE | 2019-08-17 09:43 | PN ---
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 Much more interactive, verbal, following commands, verbalizing responses to questions. Intelligibility of speech is moderately impaired. Single words are more intelligible than multisyllabic words and propositional speech. Sentences are generally unintelligible except for 1-2 words. This is likely related to language barrier, however, apraxia/word errors can not be ruled out until assessed in primary language. Call placed to pt's daughter, Carlene, [phone], to review findings. Swallowing is labored and delayed in onset. No overt cough or vocal wetness today responsively to trials of puree or sips of thin water. Assessed with ELECTRICAL ENGINEERING TECHNICIAN present. Trial of puree/nectar. Observe for cough, congestion, fever. MBS, as indicated.
[2019-08-17] MEDS ORDERED: ARTIFICIAL TEARS (POLYVINYL ALCOHOL) OPTH DROPS OU PRN (09:52)
--- NOTE | 2019-08-17 11:12 | PN ---
Progress Note (short form) - Note Progress Note: s: more awake today. denies cp sob palps dizzy Current Medications Generic Name Dose Route Start Last Admin Trade Name Modeq PRN Reason Stop Dose Admin Acetaminophen 1,000 mg 08/15/19 06:00 08/15/19 06:46 Ofirmev Injection - IVPB 1,000 mg Q6H PRN Administration PAIN LEVEL 6-10 Artificial Tears 1 drop 08/17/19 10:00 Artificial Tears OU BID [facility] Aspirin 300 mg 08/11/19 12:15 08/16/19 11:00 Asa - [place] 300 mg DAILY [facility] Administration Atorvastatin Calcium 80 mg 08/09/19 22:00 08/16/19 22:26 Lipitor - NGT Not Given HS [facility] Enalaprilat 1.25 mg 08/13/19 15:00 08/17/19 02:20 Vasotec Injection - IVPB 1.25 mg Q6H-IV [facility] Administration Heparin Sodium (Porcine) 1,000 unit 08/11/19 16:20 08/13/19 07:58 Heparin - IVPUSH 1,000 unit PRN PRN Administration Heparin Heparin Sodium (Porcine) 5,000 unit 08/11/19 16:20 08/13/19 16:36 Heparin - IVPUSH 5,000 unit PRN PRN Administration Heparin Heparin Sodium (Porcine) 25, 500 mls @ 16 mls/hr 08/11/19 16:30 08/17/19 10: 35 000 unit/ Sodium Chloride IV 1,500 unit/hr TITR [facility] 30 mls/hr Titration Protocol 800 UNIT/HR Fat Emulsion Intravenous 250 mls @ 20.833 mls/hr 08/16/19 13:22 08/16/19 22: 24 Intralipid - IV 20.833 mls/hr DAILY@2200 [facility] Administration Potassium Phosphate 30 mm/ 1,000 mls @ 41.667 mls/hr 08/16/19 16:00 08/16/19 16:30 Sodium Acetate 50 meq/ IVPB 41.667 mls/hr Magnesium Sulfate 2 gm/ Folic DAILY@1600 [facility] Administration Acid 1 mg/ Thiamine HCl 100 mg / Multivitamins/Minerals 10 ml / Sterile Water/ Amino Acids/ Dextrose Insulin Aspart 1 vial 08/03/19 07:00 08/17/19 07:28 Novolog Vial Sliding Scale - SQ 1 unit ACHS [facility] Administration Protocol Metoprolol Tartrate 25 mg 08/11/19 11:15 08/16/19 22:26 Lopressor - NGT Not Given BID [facility] Metoprolol Tartrate 10 mg 08/13/19 17:48 08/17/19 06:10 Lopressor Injection - IVPUSH 10 mg Q4H [facility] Administration Nystatin 1 applic 08/03/19 17:30 08/16/19 09:30 Nystop Powder - TP 1 applic DAILY [facility] Administration Pantoprazole Sodium 40 mg 08/11/19 14:45 08/16/19 09:30 Protonix Iv IVPUSH 40 mg DAILY [facility] Administration Vital Signs Period Temp Pulse Resp BP Sys/Lieberman Pulse Ox Last 24 Hr 98.1 F-98.3 F 97-116 18-25 132-166/88-105 99 2 nad no jvd irreg, tachy s1s2 no mrg cta bl no le e/c/c abd nt nd pos bs no jaundice diaphoresis CBC, BMP 08/17/19 06:30 08/17/19 06:30 tele: afib, rates mostly 90s-100s echo 07/2019: nl lv/rv, mild tr, nl rvsp a/p: 69 m hx htn, dm, here with syncope. cva: -change in mental status and mri showing acute cva -neuro following -family considering PEG -no cardiac contraindications to PEG, can hold asa and hep gtt preoperatively if needed syncope: -no signs acs or chf -possibly related to etoh, possibly related to afib with rvr, ?cva related -echo benign -cont tele afib: -new afib with rvr here--now reasonably controlled -no PO intake at present, awaiting PEG. continue iv lopressor prn as doing. -chadsvasc warrants ac. on hep gtt -tsh wnl -echo benign -cont K repletion prn -cont tele htn: -bp not controlled -maintaining current bp range (to 150s/100s-110) per d/w neurology--same meds
[2019-08-17] MEDS ORDERED: PT OWN MED DRAWER 7, Y5N ONE (11:55)
[2019-08-17] MEDS: HEPARIN NA (PORCINE) 5,000 UNITS/ML 1ML VIAL IVPUSH PRN (12:20)
[2019-08-17] MEDS: PANTOPRAZOLE SODIUM 40 MG VIAL IVPUSH SCH (12:23)
[2019-08-17] MEDS: NYSTATIN POWDER 100,000 UNITS/GM - 15 GM TOPICAL POWDER TP SCH (12:24)
--- NOTE | 2019-08-17 12:43 | PN ---
Progress Note (short form) - Note Progress Note: Renal follow up for TPN Seen and examined at the bedside awake, groggy was able to eat breakfast no overnight events continues to have loose stools Vital Signs Temperature 98.1 F 08/17/19 06:00 Pulse Rate 113 H 08/17/19 06:10 Respiratory Rate 18 08/17/19 06:00 Blood Pressure 160/88 08/17/19 06:10 O2 Sat by Pulse Oximetry (%) 99 08/16/19 21:00 Intake & Output 08/14/19 08/15/19 08/16/19 08/17/19 23:59 23:59 23:59 23:59 Intake Total 2515 6 2121 731 Balance 2515 20951 731 Weight 62.913 kg NAD sleeping neck supple RRR CTA soft NT/ND no LE edema, clubbing or cyanosis CBC, BMP 08/17/19 06:30 08/17/19 06:30 Current Medications Current Medications Acetaminophen (Ofirmev Injection -) 1,000 mg IVPB Q6H PRN PRN Reason: PAIN LEVEL 6-10 Last Admin: 08/15/19 06:46 Dose: 1,000 mg Artificial Tears (Artificial Tears) 1 drop OU BID [facility] Aspirin (Asa -) 300 mg [place] DAILY [facility] Last Admin: 08/16/19 11:00 Dose: 300 mg Atorvastatin Calcium (Lipitor -) 80 mg NGT HS [facility] Last Admin: 08/16/19 22:26 Dose: Not Given Enalaprilat (Vasotec Injection -) 1.25 mg IVPB Q6H-IV [facility] Last Admin: 08/17/19 02:20 Dose: 1.25 mg Heparin Sodium (Porcine) (Heparin -) 1,000 unit IVPUSH PRN PRN PRN Reason: Heparin Last Admin: 08/13/19 07:58 Dose: 1,000 unit Heparin Sodium (Porcine) (Heparin -) 5,000 unit IVPUSH PRN PRN PRN Reason: Heparin Last Admin: 08/17/19 12:20 Dose: 5,000 unit Heparin Sodium (Porcine) 25, (000 unit/ Sodium Chloride) 500 mls @ 16 mls/hr IV TITR [facility]; Protocol Last Titration: 08/17/19 10:35 Dose: 1,500 unit/hr, 30 mls/hr Fat Emulsion Intravenous (Intralipid -) 250 mls @ 20.833 mls/hr IV DAILY@2200 [facility] Last Admin: 08/16/19 22:24 Dose: 20.833 mls/hr Potassium Phosphate 30 mm/Sodium Acetate 50 meq/Magnesium Sulfate 2 gm/ Folic Acid 1 mg/ Thiamine HCl 100 mg / Multivitamins/Minerals 10 ml / Sterile Water/ Amino Acids/Dextrose 1,000 mls @ 41.667 mls/hr IVPB DAILY@1600 [facility] Last Admin: 08/16/19 16:30 Dose: 41.667 mls/hr Insulin Aspart (Novolog Vial Sliding Scale -) 1 vial SQ ACHS [facility]; Protocol Last Admin: 08/17/19 12:14 Dose: 2 unit Metoprolol Tartrate (Lopressor -) 25 mg NGT BID [facility] Last Admin: 08/16/19 22:26 Dose: Not Given Metoprolol Tartrate (Lopressor Injection -) 10 mg IVPUSH Q4H [facility] Last Admin: 08/17/19 06:10 Dose: 10 mg Nystatin (Nystop Powder -) 1 applic TP DAILY [facility] Last Admin: 08/17/19 12:24 Dose: 1 applic Pantoprazole Sodium (Protonix Iv) 40 mg IVPUSH DAILY [facility] Last Admin: 08/17/19 12:23 Dose: 40 mg 69 year old gentleman with history of hypertension, hyperlipidemia, DM type 2 not on insulin presents from home with syncope and found to have new CVA. 1. Prolonged NPO with protein malnutrition (albumin 2.6) 2. Aspiration risk s/p CVA 3. CVA 4. Diarrhea 5. Hypertension Tolerated TPN yesterday w/o issue. pt cleared to take in PO intake. Will defer further TPN and monitor oral intake today. will start on maintenance fluids as pt continues to have diarrhea Trend electrolytes daily Discussed case with primary medical service. Neurology follow up Jay Hughes DO
[2019-08-17] MEDS: D5-1/2NS+40 MEQ KCL - 40 MEQ/1,000 ML INFUS.BAG IV SCH (12:53)
[2019-08-17] MEDS: ASPIRIN COATED 81 MG TABLET.EC PO SCH (12:54)
[2019-08-17] MEDS: METOPROLOL TARTRATE 25 MG TABLET (FP) NGT SCH ×2 (12:55→21:27)
[2019-08-17] MEDS: ARTIFICIAL TEARS (POLYVINYL ALCOHOL) OPTH DROPS OU SCH ×2 (12:59→21:27)
[2019-08-17] MEDS: ASPIRIN 300 MG SUPP.RECT PR SCH (16:08)
--- NOTE | 2019-08-17 19:05 | PN ---
Progress Note (short form) - Note Progress Note: Progress Note (short form) - Note Progress Note: 08/16/19 69 year old male with history of hypertension, hyperlipidemia, non-insulin dependent diabetes mellitus, presents after a syncopal episode on 08/02/19. 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 5 minutes, however he denies this upon my encounter. Denies bowel or bladder incontinence. Currently patient denies chest pain, and only endorses left shoulder pain and headache. He denies prior cardiac history, or workup. Reported that patient has not followed up with primary care provider in several years, and has history of alcohol use disorder. Events noted , found to be in Afib , also ? left sided weakness and MRI + acute stroke, branch MCA infarcts. PT sleepy this AM , not answering questions FU : still very somnolent, not following requests , will grimace with stimulation, but not coherent no sedation repeat HD CT 08/09/19 --evolving R MCA infarct left hemiparesis continues on AC Studies: Doppeler high grade stenosis L ICA MRI BRAIN CLINICAL INFORMATION GIVEN: evaluate for acute infarct The exam consists of sagittal and transaxial images obtained utilizing fast spin-echo, fast spin- echo FLAIR, T2-weighted gradient-echo and diffusion weighted spin-echo echo - planar pulse sequences. Acute nonhemorrhagic infarcts are noted involving the right frontal, right temporal and right insular cortices as well as the right basal ganglia. Minimal periventricular chronic microvascular changes are noted. There is no extra-axial fluid collection. No obvious mass lesion is seen allowing for motion artifact. The ventricles and cisterns and craniocervical junction appear unremarkable. Signal void is seen within the intracranial internal carotid and vertebral arteries as well as the basilar artery consistent with vessel patency. IMPRESSION: Acute right cerebral infarcts are noted as discussed above. Progress Note 08/17/19 Clearly more alert today, is able to follow 2 step commands. has 3/5 left hemiparesis. Await MRI brain, cont.a/c.
[2019-08-17] MEDS: ATORVASTATIN CA 80 MG TABLET (FP) PO SCH (21:27)
[2019-08-18] MEDS: METOPROLOL TARTRATE 5 MG/5 ML VIAL IVPUSH SCH ×5 (01:38→22:00)
[2019-08-18] MEDS: ENALAPRILAT DIHYDRATE 1.25 MG/1 ML VIAL IVPB SCH ×2 (03:07→10:58)
[2019-08-18 06:29] LABS: BASO % 0.7 % (0-2.0); EOS % 1.1 % (0-4.5); HEMATOCRIT 34.2 % (35.4-49); HEMOGLOBIN 12.3 GM/dL (11.7-16.9); LYMPH % 14.3 % (8-40); MCH 36.7 pg (25.7-33.7); MCHC 36.1 g/dl (32.0-35.9); MEAN CELL VOLUME 101.6 fl (80-96); MEAN PLT VOLUME 8.1 fl (7.5-11.1); MONO % 8.8 % (3.8-10.2); NEUT % 75.1 % (42.8-82.8); PLATELET COUNT 397 K/MM3 (134-434); RBC 3.36 M/mm3 (4.00-5.60); RDW 14.2 % (11.9-15.9); WHITE BLOOD COUNT 6.7 K/mm3 (4.0-10.0)
[2019-08-18 06:55] LABS: ALBUMIN 2.4 g/dl (3.4-5.0); BLOOD UREA NITROGEN 10.4 mg/dL (7-18); CALCIUM 8.5 mg/dL (8.5-10.1); CREATININE 0.5 mg/dL (0.55-1.3); MAGNESIUM 1.6 mg/dL (1.8-2.4); TOT PROT 6.4 g/dl (6.4-8.2)
[2019-08-18] MEDS: HEPARIN NA (PORCINE) 5,000 UNITS/ML 1ML VIAL IVPUSH PRN (08:00)
[2019-08-18] MEDS: INSULIN SLIDING SCALE (NOVOLOG) 1 VIAL SQ SCH ×4 (08:21→21:53)
--- NOTE | 2019-08-18 09:09 | PN ---
Progress Note, Physician Chief Complaint: seen and examined in ICU TELE: AF, controlled; few short episodes NSVT - Current Medication List Current Medications: Active Medications Acetaminophen (Ofirmev Injection -) 1,000 mg IVPB Q6H PRN PRN Reason: PAIN LEVEL 6-10 Last Admin: 08/15/19 06:46 Dose: 1,000 mg Artificial Tears (Artificial Tears) 1 drop OU BID KATIA Last Admin: 08/17/19 21:27 Dose: 1 drop Aspirin (Ecotrin -) 81 mg PO DAILY KATIA Last Admin: 08/17/19 12:54 Dose: 81 mg Atorvastatin Calcium (Lipitor -) 80 mg PO HS KATIA Last Admin: 08/17/19 21:27 Dose: 80 mg Enalaprilat (Vasotec Injection -) 1.25 mg IVPB Q6H-IV KATIA Last Admin: 08/18/19 03:07 Dose: 1.25 mg Heparin Sodium (Porcine) (Heparin -) 1,000 unit IVPUSH PRN PRN PRN Reason: Heparin Last Admin: 08/13/19 07:58 Dose: 1,000 unit Heparin Sodium (Porcine) (Heparin -) 5,000 unit IVPUSH PRN PRN PRN Reason: Heparin Last Admin: 08/17/19 12:20 Dose: 5,000 unit Heparin Sodium (Porcine) 25, (000 unit/ Sodium Chloride) 500 mls @ 16 mls/hr IV TITR [facility]; Protocol Last Titration: 08/18/19 08:00 Dose: 1,350 unit/hr, 27 mls/hr Dextrose/Sodium Chloride (D5-1/2ns+40 Meq Kcl -) 40 meq in 1,000 mls @ 75 mls/ hr IV ASDIR [facility] Last Admin: 08/17/19 12:53 Dose: 75 mls/hr Insulin Aspart (Novolog Vial Sliding Scale -) 1 vial SQ ACHS [facility]; Protocol Last Admin: 08/18/19 08:21 Dose: Not Given Metoprolol Tartrate (Lopressor -) 25 mg NGT BID [facility] Last Admin: 08/17/19 21:27 Dose: 25 mg Metoprolol Tartrate (Lopressor Injection -) 10 mg IVPUSH Q4H [facility] Last Admin: 08/18/19 06:35 Dose: 10 mg Nystatin (Nystop Powder -) 1 applic TP DAILY [facility] Last Admin: 08/17/19 12:24 Dose: 1 applic Pantoprazole Sodium (Protonix Iv) 40 mg IVPUSH DAILY KATIA Last Admin: 08/17/19 12:23 Dose: 40 mg - Objective Vital Signs: Vital Signs Temperature 98.0 F 08/18/19 08:52 Pulse Rate 114 H 08/18/19 08:52 Respiratory Rate 24 H 08/18/19 08:52 Blood Pressure 119/90 08/18/19 08:52 O2 Sat by Pulse Oximetry (%) 99 08/17/19 21:00 Constitutional: Yes: No Distress Cardiovascular: Yes: Pulse Irregular Respiratory: Yes: CTA Bilaterally Gastrointestinal: Yes: Soft Edema: No Labs: CBC, BMP 08/18/19 05:30 08/18/19 05:30 INR, PTT INR 1.05 (0.83-1.09) 08/02/19 20:00 Laboratory Tests 08/17/19 08/18/19 08/18/19 18:30 05:30 05:30 WBC 6.7 Hgb 12.3 Hct 34.2 L Plt Count 397 PTT (Actin FS) 185.7 H Sodium 137 Potassium 4.0 Creatinine 0.5 L AST 28 ALT 35 Alkaline Phosphatase 171 H 08/18/19 05:30 WBC Hgb Hct Plt Count PTT (Actin FS) 31.0 Sodium Potassium Creatinine AST ALT Alkaline Phosphatase - ....Imaging EKG: Image Reviewed Assessment/Plan echo 07/2019: nl lv/rv, mild tr, nl rvsp a/p: 69 m hx htn, dm, here with syncope. cva: -change in mental status and mri showing acute cva -neuro following -family considering PEG -no cardiac contraindications to PEG, can hold asa and hep gtt preoperatively if needed syncope: -no signs acs or chf -possibly related to etoh, possibly related to afib with rvr, ?cva related -echo benign -cont tele afib: -new afib with rvr here--now reasonably controlled -no PO intake at present, awaiting PEG. continue iv lopressor prn as doing. -chadsvasc warrants ac. on hep gtt -tsh wnl -echo benign -cont K repletion prn -cont tele htn: -bp improved last 24 hours -maintaining current bp range (to 150s/100s-110) per d/w neurology--same meds
[2019-08-18] MEDS ORDERED: PT OWN MED DRAWER 7, Y5N ONE (10:54)
[2019-08-18] MEDS: ASPIRIN COATED 81 MG TABLET.EC PO SCH (10:57)
[2019-08-18] MEDS: PANTOPRAZOLE SODIUM 40 MG VIAL IVPUSH SCH (10:57)
[2019-08-18] MEDS: METOPROLOL TARTRATE 25 MG TABLET (FP) NGT SCH (10:57)
[2019-08-18] MEDS: NYSTATIN POWDER 100,000 UNITS/GM - 15 GM TOPICAL POWDER TP SCH (10:59)
[2019-08-18] MEDS: ARTIFICIAL TEARS (POLYVINYL ALCOHOL) OPTH DROPS OU SCH ×2 (10:59→21:48)
--- NOTE | 2019-08-18 11:09 | PN ---
Physical Exam: SUBJECTIVE: Patient seen and examined. awake, alert, speech garbled but following commands to take in deep breaths and able to answer questions with yes or no. OBJECTIVE: Patient is a 69 year old male with history of hypertension, hyperlipidemia, non- insulin dependent diabetes mellitus and alcohol abuse, presents after a syncopal episode. Patient was intoxicated on admission and started on a librium taper. He was found to have new onset afib on admission and a heparin drip was initiated. Hospitalization complicated when patient became unresponsive on 08/04/[address] showed possible acute/subacute infarct. MRI brain then confirmed acute right cerebral infarcts. neuro consulted and following. Patient mental status improving and has passed a bed side swallow test. currently tolerating pureed with nectar thick fluids. daughter cell Vital Signs Period Temp Pulse Resp BP Sys/Lieberman Pulse Ox Last 24 Hr 97.6 F-98.6 F 100-129 18-34 116-136/72-105 99-99 GENERAL: garbled speech but some words now more comprehensible, awake and alert , HEAD: Normal with no signs of trauma. EYES: patient opens eyes spontaneously, attempts to talk, garbled ENT: Ears normal, nares patent, oropharynx clear without exudates, moist mucous membranes. NECK: Trachea midline, full range of motion, supple. LUNGS: diminished, bilaterally HEART: irregular 100s ABDOMEN: Soft, nontender, nondistended, normoactive bowel sounds - diarrhea with rectal tube with over 200cc of liquid brown stool EXTREMITIES: no edema. NEUROLOGICAL: more awake, moving all extremities. following commands. fall risk. Laboratory Results - last 24 hr 08/17/19 08/17/19 08/17/19 12:10 17:59 18:30 WBC RBC Hgb Hct MCV MCH MCHC RDW Plt Count MPV Absolute Neuts (auto) Neutrophils % Lymphocytes % Monocytes % Eosinophils % Basophils % Nucleated RBC % PTT (Actin FS) 185.7 H Sodium Potassium Chloride Carbon Dioxide Anion Gap BUN Creatinine Est GFR (CKD-EPI)AfAm Est GFR (CKD-EPI)NonAf POC Glucometer 221 210 Random Glucose Calcium Magnesium Total Bilirubin AST ALT Alkaline Phosphatase Total Protein Albumin 08/17/19 08/18/19 08/18/19 23:01 05:30 05:30 WBC 6.7 RBC 3.36 L Hgb 12.3 Hct 34.2 L MCV 101.6 H MCH 36.7 H MCHC 36.1 H RDW 14.2 Plt Count 397 MPV 8.1 Absolute Neuts (auto) 5.0 Neutrophils % 75.1 Lymphocytes % 14.3 Monocytes % 8.8 Eosinophils % 1.1 Basophils % 0.7 Nucleated RBC % 0 PTT (Actin FS) Sodium 137 Potassium 4.0 Chloride 106 Carbon Dioxide 23 Anion Gap 8 BUN 10.4 Creatinine 0.5 L Est GFR (CKD-EPI)AfAm 129.05 Est GFR (CKD-EPI)NonAf 111.35 POC Glucometer 246 Random Glucose 152 H Calcium 8.5 Magnesium 1.6 L Total Bilirubin 1.0 AST 28 ALT 35 Alkaline Phosphatase 171 H Total Protein 6.4 Albumin 2.4 L 08/18/19 08/18/19 05:30 10:48 WBC RBC Hgb Hct MCV MCH MCHC RDW Plt Count MPV Absolute Neuts (auto) Neutrophils % Lymphocytes % Monocytes % Eosinophils % Basophils % Nucleated RBC % PTT (Actin FS) 31.0 Sodium Potassium Chloride Carbon Dioxide Anion Gap BUN Creatinine Est GFR (CKD-EPI)AfAm Est GFR (CKD-EPI)NonAf POC Glucometer 212 Random Glucose Calcium Magnesium Total Bilirubin AST ALT Alkaline Phosphatase Total Protein Albumin Active Medications Generic Name Dose Route Start Last Admin Trade Name Freq PRN Reason Stop Dose Admin Acetaminophen 1,000 mg 08/15/19 06:00 08/15/19 06:46 Ofirmev Injection - IVPB 1,000 mg Q6H PRN Administration PAIN LEVEL 6-10 Artificial Tears 1 drop 08/17/19 10:00 08/18/19 10:59 Artificial Tears OU 1 drop BID KATIA Administration Aspirin 81 mg 08/17/19 13:00 08/18/19 10:57 Ecotrin - PO 81 mg DAILY KATIA Administration Atorvastatin Calcium 80 mg 08/17/19 15:29 08/17/19 21:27 Lipitor - PO 80 mg HS KATIA Administration Enalapril Maleate 2.5 mg 08/18/19 22:00 Vasotec - PO BID KATIA Heparin Sodium (Porcine) 1,000 unit 08/11/19 16:20 08/13/19 07:58 Heparin - IVPUSH 1,000 unit PRN PRN Administration Heparin Heparin Sodium (Porcine) 5,000 unit 08/11/19 16:20 08/18/19 08:00 Heparin - IVPUSH 5,000 unit PRN PRN Administration Heparin Heparin Sodium (Porcine) 25, 500 mls @ 16 mls/hr 08/11/19 16:30 08/18/19 08: 00 000 unit/ Sodium Chloride IV 1,350 unit/hr TITR KATIA 27 mls/hr Titration Protocol 800 UNIT/HR Dextrose/Sodium Chloride 40 meq in 1,000 mls @ 75 mls/hr 08/17/19 12:45 08/17 12:53 D5-1/2ns+40 Meq Kcl - IV 75 mls/hr ASDIR KATIA Administration Insulin Aspart 1 vial 08/03/19 07:00 08/18/19 08:21 Novolog Vial Sliding Scale - SQ Not Given ACHS KATIA Protocol Metoprolol Tartrate 25 mg 08/18/19 11:15 Lopressor - PO BID KATIA Nystatin 1 applic 08/03/19 17:30 08/18/19 10:59 Nystop Powder - TP 1 applic DAILY KATIA Administration Pantoprazole Sodium 40 mg 08/11/19 14:45 08/18/19 10:57 Protonix Iv IVPUSH 40 mg DAILY KATIA Administration ASSESSMENT/PLAN: Problem List - Problems (1) CVA (cerebral vascular accident) Assessment/Plan: CVA confirmed by brain mri 08/04/19: acute right cerebral infarcts. acute non hemorrhagic infarcts noted involving the right frontal, right temporal and right insular cortices as well as the right basal ganglia. minimal periventricular chronic microvascular changes are noted. initiated stroke protocol - neuro consulted and following, patient for a repeat brain mri per neuro - on asa [place] and statin. - physical therapy as tolerated. - carotid u/s noted, seen by vascular and patient will need outpateint f/u Code(s): I63.9 - CEREBRAL INFARCTION, UNSPECIFIED (2) Aspiration precautions Assessment/Plan: tolerating dysphagia pureed diet, meds crushed with applesauce. Code(s): Z91.89 - OTH PERSONAL RISK FACTORS, NOT ELSEWHERE CLASSIFIED (3) Acute metabolic encephalopathy Assessment/Plan: found to have an acute frontal stroke/right cerebral infarcts. 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 tour driver: irregular 100-120s blood sugar monitoring q 6 started on pureed/thickened diet Code(s): G93.41 - METABOLIC ENCEPHALOPATHY (4) A-fib Assessment/Plan: on heparin drip, will convert back to eliquis once aptt is therapeutic. controlled rate Code(s): I48.91 - UNSPECIFIED ATRIAL FIBRILLATION Qualifiers: Atrial fibrillation type: unspecified Qualified Code(s): I48.91 - Unspecified atrial fibrillation (5) Alcohol intoxication Assessment/Plan: ciwa score low. no signs of acute w/drawal. ammonia level low @ 18 Code(s): F10.929 - ALCOHOL USE, UNSPECIFIED WITH INTOXICATION, UNSPECIFIED Qualifiers: Complication of substance-induced condition: uncomplicated Qualified Code(s ): F10.920 - Alcohol use, unspecified with intoxication, uncomplicated (6) Syncope and collapse Assessment/Plan: please initiate PT Code(s): R55 - SYNCOPE AND COLLAPSE (7) Prophylactic measure Assessment/Plan: on heparin drip, follow aptt-is at a therapeutic goal. will convert to eliquis. full code fen on pureed diet/thickened fluids. Code(s): Z29.9 - ENCOUNTER FOR PROPHYLACTIC MEASURES, UNSPECIFIED Visit type - Emergency Visit Emergency Visit: Yes ED Registration Date: 08/02/19 Care time: The patient presented to the Emergency Department on the above date and was hospitalized for further evaluation of their emergent condition. - New Patient This patient is new to me today: No - Critical Care Critical Care patient: No - Discharge Referral Referred to [facility] Med [facility].: No
[2019-08-18] MEDS: METOPROLOL TARTRATE 25 MG TABLET (FP) PO SCH ×2 (11:12→21:49)
[2019-08-18] MEDS: D5-1/2NS+40 MEQ KCL - 40 MEQ/1,000 ML INFUS.BAG IV SCH (12:45)
--- NOTE | 2019-08-18 13:20 | PN ---
Progress Note, MEMORIAL ADVISER - Note Progress Note: Pt seen at bedside for follow up to swallow eval with recommendations for pureed with nectar thicken liquids. Pt was asleep in bed when MEMORIAL ADVISER arrived. Chart review completed. Pt is consuming approximately 50 -75% according to online merchandising manager. Pt was scheduled for MBS this afternoon but order was cancelled. locker operator reported pt was not brandi to participate in a formal modified barium swallow procedure at this time secondary to A-fib. Re: continue current diet as stated. Observed standard aspiration precautions. Crush meds in purees or applesauce. Results discussed with online merchandising manager and given to PCP via chart. MEMORIAL ADVISER to follow up.
--- NOTE | 2019-08-18 14:29 | PN ---
Progress Note (short form) - Note Progress Note: Renal follow up for TPN Seen and examined at the bedside no overnight events tolerating oral diet remains confused Vital Signs Temperature 98.5 F 08/18/19 14:25 Pulse Rate 102 H 08/18/19 14:25 Respiratory Rate 24 H 08/18/19 14:25 Blood Pressure 95/67 08/18/19 14:25 O2 Sat by Pulse Oximetry (%) 99 08/18/19 10:45 Intake & Output 08/15/19 08/16/19 08/17/19 08/18/19 23:59 23:59 23:59 23:59 Intake Total 2095 2120 1930 Balance 2095 2120 1930 NAD sleeping neck supple RRR CTA soft NT/ND no LE edema, clubbing or cyanosis CBC, BMP 08/18/19 05:30 08/18/19 05:30 Current Medications Acetaminophen (Ofirmev Injection -) 1,000 mg IVPB Q6H PRN PRN Reason: PAIN LEVEL 6-10 Last Admin: 08/15/19 06:46 Dose: 1,000 mg Artificial Tears (Artificial Tears) 1 drop OU BID KATIA Last Admin: 08/18/19 10:59 Dose: 1 drop Aspirin (Ecotrin -) 81 mg PO DAILY KATIA Last Admin: 08/18/19 10:57 Dose: 81 mg Atorvastatin Calcium (Lipitor -) 80 mg PO HS KATIA Last Admin: 08/17/19 21:27 Dose: 80 mg Enalapril Maleate (Vasotec -) 2.5 mg PO BID KATIA Heparin Sodium (Porcine) (Heparin -) 1,000 unit IVPUSH PRN PRN PRN Reason: Heparin Last Admin: 08/13/19 07:58 Dose: 1,000 unit Heparin Sodium (Porcine) (Heparin -) 5,000 unit IVPUSH PRN PRN PRN Reason: Heparin Last Admin: 08/18/19 08:00 Dose: 5,000 unit Heparin Sodium (Porcine) 25, (000 unit/ Sodium Chloride) 500 mls @ 16 mls/hr IV TITR [facility]; Protocol Last Titration: 08/18/19 08:00 Dose: 1,350 unit/hr, 27 mls/hr Dextrose/Sodium Chloride (D5-1/2ns+40 Meq Kcl -) 40 meq in 1,000 mls @ 75 mls/ hr IV ASDIR [facility]ATIA Last Admin: 08/18/19 12:45 Dose: 75 mls/hr Insulin Aspart (Novolog Vial Sliding Scale -) 1 vial SQ ACHS [facility]; Protocol Last Admin: 08/18/19 11:11 Dose: 2 unit Metoprolol Tartrate (Lopressor -) 25 mg PO BID [facility] Last Admin: 08/18/19 11:12 Dose: Not Given Nystatin (Nystop Powder -) 1 applic TP DAILY [facility] Last Admin: 08/18/19 10:59 Dose: 1 applic Pantoprazole Sodium (Protonix Iv) 40 mg IVPUSH DAILY [facility] Last Admin: 08/18/19 10:57 Dose: 40 mg 69 year old gentleman with history of hypertension, hyperlipidemia, DM type 2 not on insulin presents from home with syncope and found to have new CVA. 1. Prolonged NPO with protein malnutrition (albumin 2.6) 2. Aspiration risk s/p CVA 3. CVA 4. Diarrhea 5. Hypertension No indication for TPN as pt is tolerating oral diet can continue moderate IVF as needed as long as pt is having loose stools monitor chemistry and volume status will sign off case at this time please call with any questions or concerns Jay Hughes DO
[2019-08-18] MEDS: APIXABAN 5 MG TABLET PO SCH (19:00)
[2019-08-18] MEDS: ATORVASTATIN CA 80 MG TABLET (FP) PO SCH (21:49)
[2019-08-18] MEDS ORDERED: APIXABAN 5 MG TABLET PO SCH (22:00)
[2019-08-18] MEDS: ENALAPRIL MALEATE 2.5 MG TABLET (FP) PO SCH (22:55)
[2019-08-19] MEDS: INSULIN SLIDING SCALE (NOVOLOG) 1 VIAL SQ SCH ×4 (06:15→21:29)
[2019-08-19 06:27] LABS: EOS % 2.7 % (0-4.5); HEMATOCRIT 31.8 % (35.4-49); HEMOGLOBIN 11.2 GM/dL (11.7-16.9); MCH 36.4 pg (25.7-33.7); MCHC 35.2 g/dl (32.0-35.9); MEAN CELL VOLUME 103.5 fl (80-96); NEUT % 64.3 % (42.8-82.8); PLATELET COUNT 329 K/MM3 (134-434); RBC 3.07 M/mm3 (4.00-5.60); RDW 14.1 % (11.9-15.9); WHITE BLOOD COUNT 4.2 K/mm3 (4.0-10.0)
--- NOTE | 2019-08-19 06:35 | PN ---
Progress Note, Physician Chief Complaint: No acute events On oral cardiac meds. TELE: AF, controlled. - Current Medication List Current Medications: Active Medications Acetaminophen (Ofirmev Injection -) 1,000 mg IVPB Q6H PRN PRN Reason: PAIN LEVEL 6-10 Last Admin: 08/15/19 06:46 Dose: 1,000 mg Apixaban (Eliquis -) 5 mg PO BID [facility] Last Admin: 08/18/19 19:00 Dose: 5 mg Artificial Tears (Artificial Tears) 1 drop OU BID [facility] Last Admin: 08/18/19 21:48 Dose: 1 drop Aspirin (Ecotrin -) 81 mg PO DAILY [facility] Last Admin: 08/18/19 10:57 Dose: 81 mg Atorvastatin Calcium (Lipitor -) 80 mg PO HS [facility] Last Admin: 08/18/19 21:49 Dose: 80 mg Enalapril Maleate (Vasotec -) 2.5 mg PO BID [facility] Last Admin: 08/18/19 22:55 Dose: 2.5 mg Dextrose/Sodium Chloride (D5-1/2ns+40 Meq Kcl -) 40 meq in 1,000 mls @ 75 mls/ hr IV ASDIR [facility] Last Admin: 08/18/19 12:45 Dose: 75 mls/hr Insulin Aspart (Novolog Vial Sliding Scale -) 1 vial SQ ACHS [facility]; Protocol Last Admin: 08/19/19 06:15 Dose: 2 unit Metoprolol Tartrate (Lopressor -) 25 mg PO BID [facility] Last Admin: 08/18/19 21:49 Dose: 25 mg Nystatin (Nystop Powder -) 1 applic TP DAILY [facility] Last Admin: 08/18/19 10:59 Dose: 1 applic Pantoprazole Sodium (Protonix Iv) 40 mg IVPUSH DAILY [facility] Last Admin: 08/18/19 10:57 Dose: 40 mg - Objective Vital Signs: Vital Signs Temperature 98.4 F 08/19/19 06:00 Pulse Rate 90 08/19/19 06:00 Respiratory Rate 16 08/19/19 06:00 Blood Pressure 134/93 08/19/19 06:00 O2 Sat by Pulse Oximetry (%) 99 08/18/19 20:00 Constitutional: Yes: No Distress Cardiovascular: Yes: Pulse Irregular Respiratory: Yes: CTA Bilaterally Gastrointestinal: Yes: Soft (nontender) Edema: No Labs: CBC, BMP 08/19/19 05:30 INR, PTT INR 1.05 (0.83-1.09) 08/02/19 20:00 Laboratory Tests 08/18/19 08/19/19 08/19/19 16:00 05:30 05:30 WBC 4.2 Hgb 11.2 L Plt Count 329 PTT (Actin FS) 76.2 H Sodium 137 Potassium 4.6 Creatinine 0.5 L - ....Imaging EKG: Image Reviewed Assessment/Plan Assessment/Plan echo 07/2019: nl lv/rv, mild tr, nl rvsp a/p: 69 m hx htn, dm, here with syncope. cva: -change in mental status and mri showing acute cva -neuro following -family declined PEG syncope: -no signs acs or chf -possibly related to etoh, possibly related to afib with rvr, ?cva related -echo benign -ok to d/c tele afib: -new afib with rvr here--now reasonably controlled -now on PO meds. -chadsvasc warrants ac, started on eliquis and metoprolol -tsh wnl -echo benign -as patient on eliquis, would d/c ASA as may increase bleed risk without sig added benefit htn: -bp now stable, improved. cont current meds.
[2019-08-19 06:56] LABS: ALBUMIN 2.2 g/dl (3.4-5.0); BILIRUBIN,TOTAL 0.6 mg/dL (0.2-1); BLOOD UREA NITROGEN 11.2 mg/dL (7-18); CALCIUM 8.4 mg/dL (8.5-10.1); CREATININE 0.5 mg/dL (0.55-1.3); MAGNESIUM 1.6 mg/dL (1.8-2.4); POTASSIUM 4.6 mmol/L (3.5-5.1); TOT PROT 5.8 g/dl (6.4-8.2)
[2019-08-19] MEDS ORDERED: MAGNESIUM OXIDE 400 MG TABLET (FP) PO ONE (08:17)
--- NOTE | 2019-08-19 08:56 | PN ---
Physical Exam: SUBJECTIVE: Patient seen and examined at the bedside. answering questions appropriately, states he is hungry. following commands. OBJECTIVE: Patient is a 69 year old male with history of hypertension, hyperlipidemia, non- insulin dependent diabetes mellitus and alcohol abuse, presents after a syncopal episode. Patient was intoxicated on admission and started on a librium taper. He was found to have new onset afib on admission and a heparin drip was initiated. Hospitalization complicated when patient became unresponsive on 08/04/[address] showed possible acute/subacute infarct. MRI brain then confirmed acute right cerebral infarcts. neuro consulted and following. Patient mental status improving and has passed a bed side swallow test. currently tolerating pureed with nectar thick fluids and mentation is improving. medications changed to oral from IV since patient is tolerating PO. daughter cell, call for updates. Vital Signs Period Temp Pulse Resp BP Sys/Lieberman Pulse Ox Last 24 Hr 97.6 F-98.5 F 90-118 2-25 95-149/67-103 99-99 GENERAL: garbled speech but some words now more comprehensible, awake and alert , HEAD: Normal with no signs of trauma. EYES: patient opens eyes spontaneously, garbled speech but more comprehensible. ENT: Ears normal, nares patent, oropharynx clear without exudates, moist mucous membranes. NECK: Trachea midline, full range of motion, supple. LUNGS: diminished, bilaterally, but clear. no signs of aspiration HEART: irregular 100s, bp better controlled. ABDOMEN: Soft, nontender, nondistended, normoactive bowel sounds - rectal tube removed. monitor output. EXTREMITIES: no edema. NEUROLOGICAL: more awake, moving all extremities. following commands. fall risk. restraints to prevent him from pulling out picc line, risk of harm to self. he is impulsive at times. goal is to maintain safety. Laboratory Results - last 24 hr 08/18/19 08/18/19 08/18/19 10:48 16:00 17:30 WBC RBC Hgb Hct MCV MCH MCHC RDW Plt Count MPV Absolute Neuts (auto) Neutrophils % Lymphocytes % Monocytes % Eosinophils % Basophils % Nucleated RBC % PTT (Actin FS) 76.2 H Sodium Potassium Chloride Carbon Dioxide Anion Gap BUN Creatinine Est GFR (CKD-EPI)AfAm Est GFR (CKD-EPI)NonAf POC Glucometer 212 246 Random Glucose Calcium Magnesium Total Bilirubin AST ALT Alkaline Phosphatase Total Protein Albumin 08/18/19 08/19/19 08/19/19 21:44 05:30 05:30 WBC 4.2 RBC 3.07 L Hgb 11.2 L Hct 31.8 L MCV 103.5 H MCH 36.4 H MCHC 35.2 RDW 14.1 Plt Count 329 MPV 8.0 Absolute Neuts (auto) 2.7 Neutrophils % 64.3 Lymphocytes % 20.0 D Monocytes % 12.0 H Eosinophils % 2.7 D Basophils % 1.0 Nucleated RBC % 0 PTT (Actin FS) Sodium 137 Potassium 4.6 Chloride 107 Carbon Dioxide 25 Anion Gap 5 L BUN 11.2 Creatinine 0.5 L Est GFR (CKD-EPI)AfAm 129.05 Est GFR (CKD-EPI)NonAf 111.35 POC Glucometer 249 Random Glucose 210 H Calcium 8.4 L Magnesium 1.6 L Total Bilirubin 0.6 AST 23 ALT 34 Alkaline Phosphatase 152 H Total Protein 5.8 L Albumin 2.2 L 08/19/19 05:43 WBC RBC Hgb Hct MCV MCH MCHC RDW Plt Count MPV Absolute Neuts (auto) Neutrophils % Lymphocytes % Monocytes % Eosinophils % Basophils % Nucleated RBC % PTT (Actin FS) Sodium Potassium Chloride Carbon Dioxide Anion Gap BUN Creatinine Est GFR (CKD-EPI)AfAm Est GFR (CKD-EPI)NonAf POC Glucometer 205 Random Glucose Calcium Magnesium Total Bilirubin AST ALT Alkaline Phosphatase Total Protein Albumin Active Medications Generic Name Dose Route Start Last Admin Trade Name Freq PRN Reason Stop Dose Admin Acetaminophen 1,000 mg 08/15/19 06:00 08/15/19 06:46 Ofirmev Injection - IVPB 1,000 mg Q6H PRN Administration PAIN LEVEL 6-10 Apixaban 5 mg 08/18/19 19:00 08/18/19 19:00 Eliquis - PO 5 mg BID KATIA Administration Artificial Tears 1 drop 08/17/19 10:00 08/18/19 21:48 Artificial Tears OU 1 drop BID KATIA Administration Atorvastatin Calcium 80 mg 08/17/19 15:29 08/18/19 21:49 Lipitor - PO 80 mg HS KATIA Administration Enalapril Maleate 2.5 mg 08/18/19 22:00 08/18/19 22:55 Vasotec - PO 2.5 mg BID KATIA Administration Dextrose/Sodium Chloride 40 meq in 1,000 mls @ 75 mls/hr 08/17/19 12:45 08/18 12:45 D5-1/2ns+40 Meq Kcl - IV 75 mls/hr ASDIR KATIA Administration Insulin Aspart 1 vial 08/03/19 07:00 08/19/19 06:15 Novolog Vial Sliding Scale - SQ 2 unit ACHS KAT[facility] Administration Protocol Magnesium Oxide 400 mg 08/19/19 10:00 Mag-Ox - PO BID KATIA Metoprolol Tartrate 25 mg 08/18/19 11:15 08/18/19 21:49 Lopressor - PO 25 mg BID KATIA Administration Nystatin 1 applic 08/03/19 17:30 08/18/19 10:59 Nystop Powder - TP 1 applic DAILY KATIA Administration Pantoprazole Sodium 40 mg 08/19/19 10:00 Protonix - PO DAILY KATIA ASSESSMENT/PLAN: Problem List - Problems (1) CVA (cerebral vascular accident) Assessment/Plan: CVA confirmed by brain mri 08/04/19: acute right cerebral infarcts. acute non hemorrhagic infarcts noted involving the right frontal, right temporal and right insular cortices as well as the right basal ganglia. minimal periventricular chronic microvascular changes are noted. initiated stroke protocol - neuro consulted and following - on asa [place] and statin. - physical therapy as tolerated. - carotid u/s noted, seen by vascular and patient will need outpateint f/u Code(s): I63.9 - CEREBRAL INFARCTION, UNSPECIFIED (2) Aspiration precautions Assessment/Plan: tolerating dysphagia pureed diet, meds crushed with applesauce. Code(s): Z91.89 - OTH PERSONAL RISK FACTORS, NOT ELSEWHERE CLASSIFIED (3) Acute metabolic encephalopathy Assessment/Plan: found to have an acute frontal stroke/right cerebral infarcts. 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 Code(s): G93.41 - METABOLIC ENCEPHALOPATHY (4) A-fib Assessment/Plan: back on eliquis 5 bid controlled rate Code(s): I48.91 - UNSPECIFIED ATRIAL FIBRILLATION Qualifiers: Atrial fibrillation type: unspecified Qualified Code(s): I48.91 - Unspecified atrial fibrillation (5) Alcohol intoxication Assessment/Plan: ciwa score low. no signs of acute w/drawal. ammonia level low @ 18 Code(s): F10.929 - ALCOHOL USE, UNSPECIFIED WITH INTOXICATION, UNSPECIFIED Qualifiers: Complication of substance-induced condition: uncomplicated Qualified Code(s ): F10.920 - Alcohol use, unspecified with intoxication, uncomplicated (6) Syncope and collapse Assessment/Plan: please initiate PT Code(s): R55 - SYNCOPE AND COLLAPSE (7) Prophylactic measure Assessment/Plan: eliquis 5 bid full code fen on pureed diet/thickened fluids. Code(s): Z29.9 - ENCOUNTER FOR PROPHYLACTIC MEASURES, UNSPECIFIED Visit type - Emergency Visit Emergency Visit: Yes ED Registration Date: 08/02/19 Care time: The patient presented to the Emergency Department on the above date and was hospitalized for further evaluation of their emergent condition. - New Patient This patient is new to me today: No - Critical Care Critical Care patient: No - Discharge Referral Referred to [facility] Med P.C.: No
[2019-08-19] MEDS: APIXABAN 5 MG TABLET PO SCH ×2 (09:01→21:27)
[2019-08-19] MEDS: PANTOPRAZOLE 40 MG TABLET (FP) PO SCH (09:02)
[2019-08-19] MEDS: METOPROLOL TARTRATE 25 MG TABLET (FP) PO SCH ×2 (09:02→21:26)
[2019-08-19] MEDS: ENALAPRIL MALEATE 2.5 MG TABLET (FP) PO SCH ×2 (09:05→21:27)
[2019-08-19] MEDS: NYSTATIN POWDER 100,000 UNITS/GM - 15 GM TOPICAL POWDER TP SCH (09:05)
[2019-08-19] MEDS: MAGNESIUM OXIDE 400 MG TABLET (FP) PO SCH ×2 (09:05→21:26)
[2019-08-19] MEDS: ARTIFICIAL TEARS (POLYVINYL ALCOHOL) OPTH DROPS OU SCH ×2 (09:07→21:28)
[2019-08-19] MEDS: D5-1/2NS+40 MEQ KCL - 40 MEQ/1,000 ML INFUS.BAG IV SCH (15:03)
[2019-08-19] MEDS ORDERED: PT OWN MED DRAWER 7, Y5N ONE (17:19)
[2019-08-19] MEDS: ATORVASTATIN CA 80 MG TABLET (FP) PO SCH (21:26)
[2019-08-19] MEDS: INSULIN (LEVEMIR) 100 UNITS/ML UNITS SQ SCH (21:28)
[2019-08-20] MEDS: INSULIN SLIDING SCALE (NOVOLOG) 1 VIAL SQ SCH ×4 (06:06→23:09)
--- NOTE | 2019-08-20 06:44 | PN ---
Progress Note, Physician Chief Complaint: more alert today Moving all 4 ext TELE: AF, controlled. - Current Medication List Current Medications: Active Medications Acetaminophen (Ofirmev Injection -) 1,000 mg IVPB Q6H PRN PRN Reason: PAIN LEVEL 6-10 Last Admin: 08/15/19 06:46 Dose: 1,000 mg Apixaban (Eliquis -) 5 mg PO BID [facility] Last Admin: 08/19/19 21:27 Dose: 5 mg Artificial Tears (Artificial Tears) 1 drop OU BID [facility] Last Admin: 08/19/19 21:28 Dose: 1 drop Atorvastatin Calcium (Lipitor -) 80 mg PO HS [facility] Last Admin: 08/19/19 21:26 Dose: 80 mg Enalapril Maleate (Vasotec -) 2.5 mg PO BID [facility] Last Admin: 08/19/19 21:27 Dose: 2.5 mg Insulin Aspart (Novolog Vial Sliding Scale -) 1 vial SQ [facility]; Protocol Last Admin: 08/20/19 06:06 Dose: Not Given Insulin Detemir (Levemir Vial) 5 units SQ [facility] Last Admin: 08/19/19 21:28 Dose: 5 units Magnesium Oxide (Mag-Ox -) 400 mg PO BID [facility] Last Admin: 08/19/19 21:26 Dose: 400 mg Metoprolol Tartrate (Lopressor -) 25 mg PO BID [facility] Last Admin: 08/19/19 21:26 Dose: 25 mg Nystatin (Nystop Powder -) 1 applic TP DAILY [facility] Last Admin: 08/19/19 09:05 Dose: 1 applic Pantoprazole Sodium (Protonix -) 40 mg PO DAILY [facility] Last Admin: 08/19/19 09:02 Dose: 40 mg - Objective Vital Signs: Vital Signs Temperature 97.9 F 08/20/19 06:32 Pulse Rate 100 H 08/20/19 05:00 Respiratory Rate 18 08/20/19 05:00 Blood Pressure 160/90 08/20/19 05:00 O2 Sat by Pulse Oximetry (%) 94 L 08/19/19 22:23 Constitutional: Yes: No Distress Cardiovascular: Yes: Pulse Irregular Respiratory: Yes: CTA Bilaterally Gastrointestinal: Yes: Soft (NT) Edema: No Labs: INR, PTT INR 1.05 (0.83-1.09) 08/02/19 20:00 Laboratory Tests 08/18/19 08/20/19 08/20/19 16:00 06:00 06:00 WBC 5.5 Hgb 12.6 Plt Count 382 PTT (Actin FS) 76.2 H Sodium 136 Potassium 4.8 Creatinine 0.5 L AST 32 ALT 42 - ....Imaging EKG: Image Reviewed Assessment/Plan Assessment/Plan echo 07/2019: nl lv/rv, mild tr, nl rvsp a/p: 69 m hx htn, dm, here with syncope. cva: -change in mental status and mri showing acute cva -neuro following -family declined PEG syncope: -no signs acs or chf -possibly related to etoh, possibly related to afib with rvr, ?cva related -echo benign -ok to d/c tele afib: -new afib with rvr here--now reasonably controlled -now on PO meds. -chadsvasc warrants ac, started on eliquis and metoprolol -tsh wnl -echo benign -as patient on eliquis, would d/c ASA as may increase bleed risk without sig added benefit htn: at times above goal of < 140/90 -would titrate enalapril to 5mg BID
[2019-08-20 06:45] LABS: EOS % 2.7 % (0-4.5); HEMATOCRIT 36.3 % (35.4-49); HEMOGLOBIN 12.6 GM/dL (11.7-16.9); LYMPH % 19.7 % (8-40); MCH 35.5 pg (25.7-33.7); MCHC 34.5 g/dl (32.0-35.9); MEAN CELL VOLUME 102.7 fl (80-96); MONO % 11.4 % (3.8-10.2); NEUT % 65.2 % (42.8-82.8); PLATELET COUNT 382 K/MM3 (134-434); RBC 3.54 M/mm3 (4.00-5.60); WHITE BLOOD COUNT 5.5 K/mm3 (4.0-10.0)
[2019-08-20 07:00] LABS: ALBUMIN 2.5 g/dl (3.4-5.0); BILIRUBIN,TOTAL 0.7 mg/dL (0.2-1); CREATININE 0.5 mg/dL (0.55-1.3); MAGNESIUM 1.8 mg/dL (1.8-2.4); POTASSIUM 4.8 mmol/L (3.5-5.1); TOT PROT 6.3 g/dl (6.4-8.2)
--- NOTE | 2019-08-20 08:53 | PN ---
Physical Exam: SUBJECTIVE: Patient seen and examined at the bedside. OBJECTIVE: Patient is a 69 year old male with history of hypertension, hyperlipidemia, non- insulin dependent diabetes mellitus and alcohol abuse, presents after a syncopal episode. Patient was intoxicated on admission and started on a librium taper. He was found to have new onset afib on admission and a heparin drip was initiated. Hospitalization complicated when patient became unresponsive on 08/04/[address] showed possible acute/subacute infarct. MRI brain then confirmed acute right cerebral infarcts. neuro consulted and following. Patient mental status improving and has passed a bed side swallow test. currently tolerating pureed with nectar thick fluids and mentation is improving. medications changed to oral from IV since patient is tolerating PO. BP elevated this a.m. and enalapril increased to 5mg bid daughter cell, call for updates. Vital Signs Period Temp Pulse Resp BP Sys/Lieberman Pulse Ox Last 24 Hr 97.4 F-98.0 F 87-110 18-28 121-160/11-104 94-99 GENERAL: garbled speech but some words now more comprehensible, awake and alert , HEAD: Normal with no signs of trauma. EYES: patient opens eyes spontaneously, garbled speech but more comprehensible. ENT: Ears normal, nares patent, oropharynx clear without exudates, moist mucous membranes. NECK: Trachea midline, full range of motion, supple. LUNGS: diminished, bilaterally, but clear. no signs of aspiration HEART: irregular 100s, bp better controlled. ABDOMEN: Soft, nontender, nondistended, normoactive bowel sounds - rectal tube removed. monitor output. EXTREMITIES: no edema. NEUROLOGICAL: more awake, moving all extremities. following commands. fall risk. restraints to prevent him from pulling out picc line, risk of harm to self. he is impulsive at times. goal is to maintain safety. Laboratory Results - last 24 hr 08/19/19 08/19/19 08/19/19 12:24 17:03 21:26 WBC RBC Hgb Hct MCV MCH MCHC RDW Plt Count MPV Absolute Neuts (auto) Neutrophils % Lymphocytes % Monocytes % Eosinophils % Basophils % Nucleated RBC % Sodium Potassium Chloride Carbon Dioxide Anion Gap BUN Creatinine Est GFR (CKD-EPI)AfAm Est GFR (CKD-EPI)NonAf POC Glucometer 326 104 120 Random Glucose Calcium Magnesium Total Bilirubin AST ALT Alkaline Phosphatase Total Protein Albumin 08/20/19 08/20/19 08/20/19 05:40 06:00 06:00 WBC 5.5 RBC 3.54 L Hgb 12.6 Hct 36.3 MCV 102.7 H MCH 35.5 H MCHC 34.5 RDW 14.0 Plt Count 382 MPV 8.0 Absolute Neuts (auto) 3.6 Neutrophils % 65.2 Lymphocytes % 19.7 Monocytes % 11.4 H Eosinophils % 2.7 Basophils % 1.0 Nucleated RBC % 0 Sodium 136 Potassium 4.8 Chloride 106 Carbon Dioxide 24 Anion Gap 6 L BUN 9.0 Creatinine 0.5 L Est GFR (CKD-EPI)AfAm 129.05 Est GFR (CKD-EPI)NonAf 111.35 POC Glucometer 143 Random Glucose 153 H Calcium 9.0 Magnesium 1.8 Total Bilirubin 0.7 AST 32 ALT 42 Alkaline Phosphatase 178 H Total Protein 6.3 L Albumin 2.5 L Active Medications Generic Name Dose Route Start Last Admin Trade Name Freq PRN Reason Stop Dose Admin Acetaminophen 1,000 mg 08/15/19 06:00 08/15/19 06:46 Ofirmev Injection - IVPB 1,000 mg Q6H PRN Administration PAIN LEVEL 6-10 Apixaban 5 mg 08/18/19 19:00 08/19/19 21:27 Eliquis - PO 5 mg BID KATIA Administration Artificial Tears 1 drop 08/17/19 10:00 08/19/19 21:28 Artificial Tears OU 1 drop BID KATIA Administration Atorvastatin Calcium 80 mg 08/17/19 15:29 08/19/19 21:26 Lipitor - PO 80 mg HS [facility]ATIA Administration Enalapril Maleate 2.5 mg 08/18/19 22:00 08/19/19 21:27 Vasotec - PO 2.5 mg BID KATIA Administration Insulin Aspart 1 vial 08/03/19 07:00 08/20/19 06:06 Novolog Vial Sliding Scale - SQ Not Given ACHS [facility] Protocol Insulin Detemir 5 units 08/19/19 22:00 08/19/19 21:28 Levemir Vial SQ 5 units HS KATIA Administration Magnesium Oxide 400 mg 08/19/19 10:00 08/19/19 21:26 Mag-Ox - PO 400 mg BID KATIA Administration Metoprolol Tartrate 25 mg 08/18/19 11:15 08/19/19 21:26 Lopressor - PO 25 mg BID KATIA Administration Nystatin 1 applic 08/03/19 17:30 08/19/19 09:05 Nystop Powder - TP 1 applic DAILY KATIA Administration Pantoprazole Sodium 40 mg 08/19/19 10:00 08/19/19 09:02 Protonix - PO 40 mg DAILY KATIA Administration ASSESSMENT/PLAN: Problem List - Problems (1) CVA (cerebral vascular accident) Assessment/Plan: CVA confirmed by brain mri 08/04/19: acute right cerebral infarcts. acute non hemorrhagic infarcts noted involving the right frontal, right temporal and right insular cortices as well as the right basal ganglia. minimal periventricular chronic microvascular changes are noted. initiated stroke protocol - neuro consulted and following - on asa [place] and statin. - physical therapy as tolerated. pt was able to ambulate with PT yesterday. - carotid u/s noted, seen by vascular and patient will need outpateint f/u Code(s): I63.9 - CEREBRAL INFARCTION, UNSPECIFIED (2) Aspiration precautions Assessment/Plan: tolerating dysphagia pureed diet, meds crushed with applesauce. Code(s): Z91.89 - OTH PERSONAL RISK FACTORS, NOT ELSEWHERE CLASSIFIED (3) Acute metabolic encephalopathy Assessment/Plan: found to have an acute frontal stroke/right cerebral infarcts. 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 Code(s): G93.41 - METABOLIC ENCEPHALOPATHY (4) A-fib Assessment/Plan: on eliquis 5 bid wit metoprolol Code(s): I48.91 - UNSPECIFIED ATRIAL FIBRILLATION Qualifiers: Atrial fibrillation type: unspecified Qualified Code(s): I48.91 - Unspecified atrial fibrillation (5) Hypertension Assessment/Plan: on metoprolol and enalapril. enalapril increased to 5mg bid dosing. Code(s): I10 - ESSENTIAL (PRIMARY) HYPERTENSION (6) Alcohol intoxication Assessment/Plan: ciwa score low. no signs of acute w/drawal. ammonia level low @ 18 Code(s): F10.929 - ALCOHOL USE, UNSPECIFIED WITH INTOXICATION, UNSPECIFIED Qualifiers: Complication of substance-induced condition: uncomplicated Qualified Code(s ): F10.920 - Alcohol use, unspecified with intoxication, uncomplicated (7) Syncope and collapse Assessment/Plan: please initiate PT Code(s): R55 - SYNCOPE AND COLLAPSE (8) Prophylactic measure Assessment/Plan: eliquis 5 bid full code fen on pureed diet/thickened fluids. discharge planning Code(s): Z29.9 - ENCOUNTER FOR PROPHYLACTIC MEASURES, UNSPECIFIED Visit type - Emergency Visit Emergency Visit: Yes ED Registration Date: 08/02/19 Care time: The patient presented to the Emergency Department on the above date and was hospitalized for further evaluation of their emergent condition. - New Patient This patient is new to me today: No - Critical Care Critical Care patient: No - Discharge Referral Referred to [facility] Med P.C.: No
[2019-08-20] MEDS: MAGNESIUM OXIDE 400 MG TABLET (FP) PO SCH ×2 (09:37→21:07)
[2019-08-20] MEDS ORDERED: PT OWN MED DRAWER 7, Y5N ONE ×2 (09:37→20:43)
[2019-08-20] MEDS: PANTOPRAZOLE 40 MG TABLET (FP) PO SCH (09:38)
[2019-08-20] MEDS: METOPROLOL TARTRATE 25 MG TABLET (FP) PO SCH ×2 (09:38→21:07)
[2019-08-20] MEDS: ENALAPRIL MALEATE 5 MG TABLET (FP) PO SCH ×2 (09:38→21:07)
[2019-08-20] MEDS: APIXABAN 5 MG TABLET PO SCH ×2 (09:38→21:07)
[2019-08-20] MEDS: ARTIFICIAL TEARS (POLYVINYL ALCOHOL) OPTH DROPS OU SCH ×2 (09:38→21:14)
[2019-08-20] MEDS: NYSTATIN POWDER 100,000 UNITS/GM - 15 GM TOPICAL POWDER TP SCH (09:38)
[2019-08-20] MEDS: ATORVASTATIN CA 80 MG TABLET (FP) PO SCH (21:07)
[2019-08-20] MEDS: INSULIN (LEVEMIR) 100 UNITS/ML UNITS SQ SCH (23:08)
[2019-08-21] MEDS: INSULIN SLIDING SCALE (NOVOLOG) 1 VIAL SQ SCH ×4 (06:01→21:39)
[2019-08-21 06:51] LABS: BASO % 0.6 % (0-2.0); HEMATOCRIT 38.1 % (35.4-49); HEMOGLOBIN 13.4 GM/dL (11.7-16.9); LYMPH % 19.1 % (8-40); MCH 35.9 pg (25.7-33.7); MCHC 35.1 g/dl (32.0-35.9); MEAN CELL VOLUME 102.3 fl (80-96); MEAN PLT VOLUME 7.8 fl (7.5-11.1); MONO % 11.5 % (3.8-10.2); NEUT % 66.8 % (42.8-82.8); PLATELET COUNT 389 K/MM3 (134-434); RBC 3.73 M/mm3 (4.00-5.60); RDW 14.4 % (11.9-15.9); WHITE BLOOD COUNT 7.3 K/mm3 (4.0-10.0)
[2019-08-21 07:24] LABS: ALBUMIN 2.6 g/dl (3.4-5.0); BILIRUBIN,TOTAL 0.8 mg/dL (0.2-1); BLOOD UREA NITROGEN 9.6 mg/dL (7-18); CREATININE 0.6 mg/dL (0.55-1.3); POTASSIUM 4.4 mmol/L (3.5-5.1); TOT PROT 6.7 g/dl (6.4-8.2)
[2019-08-21] MEDS: MAGNESIUM OXIDE 400 MG TABLET (FP) PO SCH ×2 (10:36→21:32)
[2019-08-21] MEDS: ENALAPRIL MALEATE 5 MG TABLET (FP) PO SCH ×2 (10:36→21:32)
[2019-08-21] MEDS: PANTOPRAZOLE 40 MG TABLET (FP) PO SCH (10:37)
[2019-08-21] MEDS: APIXABAN 5 MG TABLET PO SCH ×2 (10:37→21:31)
[2019-08-21] MEDS: METOPROLOL TARTRATE 25 MG TABLET (FP) PO SCH ×2 (10:37→21:31)
[2019-08-21] MEDS: ARTIFICIAL TEARS (POLYVINYL ALCOHOL) OPTH DROPS OU SCH ×2 (10:37→21:45)
[2019-08-21] MEDS: NYSTATIN POWDER 100,000 UNITS/GM - 15 GM TOPICAL POWDER TP SCH (10:38)
--- NOTE | 2019-08-21 12:12 | PN ---
Progress Note, Physician Chief Complaint: cva History of Present Illness: awake and alert. denies cp, sob, palpit, syncope - Current Medication List Current Medications: Active Medications Acetaminophen (Ofirmev Injection -) 1,000 mg IVPB Q6H PRN PRN Reason: PAIN LEVEL 6-10 Last Admin: 08/15/19 06:46 Dose: 1,000 mg Apixaban (Eliquis -) 5 mg PO BID [facility] Last Admin: 08/21/19 10:37 Dose: 5 mg Artificial Tears (Artificial Tears) 1 drop OU BID [facility] Last Admin: 08/21/19 10:37 Dose: 1 drop Atorvastatin Calcium (Lipitor -) 80 mg PO HS [facility] Last Admin: 08/20/19 21:07 Dose: 80 mg Enalapril Maleate (Vasotec -) 5 mg PO BID [facility] Last Admin: 08/21/19 10:36 Dose: 5 mg Insulin Aspart (Novolog Vial Sliding Scale -) 1 vial SQ [facility]; Protocol Last Admin: 08/21/19 06:01 Dose: Not Given Insulin Detemir (Levemir Vial) 5 units SQ [facility] Last Admin: 08/20/19 23:08 Dose: 5 units Magnesium Oxide (Mag-Ox -) 400 mg PO BID [facility] Last Admin: 08/21/19 10:36 Dose: 400 mg Metoprolol Tartrate (Lopressor -) 25 mg PO BID [facility] Last Admin: 08/21/19 10:37 Dose: 25 mg Nystatin (Nystop Powder -) 1 applic TP DAILY [facility] Last Admin: 08/21/19 10:38 Dose: 1 applic Pantoprazole Sodium (Protonix -) 40 mg PO DAILY [facility] Last Admin: 08/21/19 10:37 Dose: 40 mg - Objective Vital Signs: Vital Signs Temperature 98 F 08/21/19 04:00 Pulse Rate 98 H 08/21/19 04:00 Respiratory Rate 22 H 08/21/19 04:00 Blood Pressure 146/90 08/21/19 04:00 O2 Sat by Pulse Oximetry (%) 95 08/20/19 22:00 Constitutional: Yes: Well Nourished, No Distress, Calm Cardiovascular: Yes: Pulse Irregular, S1, S2. No: Gallop, Murmur Respiratory: Yes: Regular, CTA Bilaterally. No: Accessory Muscle Use Extremities: No: Cold Edema: No Neurological: Yes: Alert. No: Seizure Psychiatric: No: Agitated Labs: CBC, BMP 08/21/19 06:00 08/21/19 06:00 INR, PTT INR 1.05 (0.83-1.09) 08/02/19 20:00 Assessment/Plan echo 07/2019: nl lv/rv, mild tr, nl rvsp tele: AF hr's 90s-110s a/p: 69 m hx htn, dm, here with syncope. cva: -change in mental status and mri showing acute cva -neuro following -family declined PEG syncope: -no signs acs or chf -possibly related to etoh, possibly related to afib with rvr, ?cva related -echo benign -ok to d/c tele afib: -new afib with rvr here--now reasonably controlled -now on PO meds. -chadsvasc warrants ac, started on eliquis and metoprolol -tsh wnl -echo benign -as patient on eliquis, would d/c ASA as may increase bleed risk without sig added benefit htn: -goal of < 140/90 -enalapril incr'd to 5mg BID--bp improved, mildly above targets -observe trend, titrate [place] prn bp's
--- NOTE | 2019-08-21 13:24 | PN ---
Physical Exam: SUBJECTIVE: Patient seen and examined at the bedside. awake and alert. called his daughter and left VM, wanted to discuss discharge planning to rehab. await call back. OBJECTIVE: Patient is a 69 year old male with history of hypertension, hyperlipidemia, non- insulin dependent diabetes mellitus and alcohol abuse, presents after a syncopal episode. Patient was intoxicated on admission and started on a librium taper. He was found to have new onset afib on admission and a heparin drip was initiated. Hospitalization complicated when patient became unresponsive on 08/04/[address] showed possible acute/subacute infarct. MRI brain then confirmed acute right cerebral infarcts. neuro consulted and following. Patient mental status improving and has passed a bed side swallow test. currently tolerating pureed with nectar thick fluids and mentation is improving. medications changed to oral from IV since patient is tolerating PO. BP improving. and enalapril increased to 5mg bid daughter cell, call for updates. Vital Signs Period Temp Pulse Resp BP Sys/Lieberman Pulse Ox Last 24 Hr 98 F-98.2 F 98-116 18- 127-164/80-109 94-95 GENERAL: garbled speech but some words now more comprehensible, awake and alert , HEAD: Normal with no signs of trauma. EYES: patient opens eyes spontaneously, garbled speech but more comprehensible. ENT: Ears normal, nares patent, oropharynx clear without exudates, moist mucous membranes. NECK: Trachea midline, full range of motion, supple. LUNGS: diminished, bilaterally, but clear. no signs of aspiration HEART: irregular 100s, bp better controlled. ABDOMEN: Soft, nontender, nondistended, normoactive bowel sounds - rectal tube removed. monitor output. EXTREMITIES: no edema. NEUROLOGICAL: more awake, moving all extremities. following commands. fall risk. Laboratory Results - last 24 hr 08/20/19 08/20/19 08/21/19 16:08 23:07 05:35 WBC RBC Hgb Hct MCV MCH MCHC RDW Plt Count MPV Absolute Neuts (auto) Neutrophils % Lymphocytes % Monocytes % Eosinophils % Basophils % Nucleated RBC % Sodium Potassium Chloride Carbon Dioxide Anion Gap BUN Creatinine Est GFR (CKD-EPI)AfAm Est GFR (CKD-EPI)NonAf POC Glucometer 140 155 82 Random Glucose Calcium Magnesium Total Bilirubin AST ALT Alkaline Phosphatase Total Protein Albumin 08/21/19 08/21/19 08/21/19 06:00 06:00 12:40 WBC 7.3 RBC 3.73 L Hgb 13.4 Hct 38.1 MCV 102.3 H MCH 35.9 H MCHC 35.1 RDW 14.4 Plt Count 389 MPV 7.8 Absolute Neuts (auto) 4.9 Neutrophils % 66.8 Lymphocytes % 19.1 Monocytes % 11.5 H Eosinophils % 2.0 Basophils % 0.6 Nucleated RBC % 0 Sodium 138 Potassium 4.4 Chloride 102 Carbon Dioxide 31 Anion Gap 5 L BUN 9.6 Creatinine 0.6 Est GFR (CKD-EPI)AfAm 119.74 Est GFR (CKD-EPI)NonAf 103.31 POC Glucometer 233 Random Glucose 82 Calcium 9.0 Magnesium 2.0 Total Bilirubin 0.8 AST 27 ALT 38 Alkaline Phosphatase 192 H Total Protein 6.7 Albumin 2.6 L Active Medications Generic Name Dose Route Start Last Admin Trade Name Freq PRN Reason Stop Dose Admin Acetaminophen 1,000 mg 08/15/19 06:00 08/15/19 06:46 Ofirmev Injection - IVPB 1,000 mg Q6H PRN Administration PAIN LEVEL 6-10 Apixaban 5 mg 08/18/19 19:00 08/21/19 10:37 Eliquis - PO 5 mg BID KATIA Administration Artificial Tears 1 drop 08/17/19 10:00 08/21/19 10:37 Artificial Tears OU 1 drop BID KATIA Administration Atorvastatin Calcium 80 mg 08/17/19 15:29 08/20/19 21:07 Lipitor - PO 80 mg HS KATIA Administration Enalapril Maleate 5 mg 08/20/19 10:00 08/21/19 10:36 Vasotec - PO 5 mg BID KATIA Administration Insulin Aspart 1 vial 08/03/19 07:00 08/21/19 12:49 Novolog Vial Sliding Scale - SQ 2 unit ACHS KATIA Administration Protocol Insulin Detemir 5 units 08/19/19 22:00 08/20/19 23:08 Levemir Vial SQ 5 units HS KATIA Administration Magnesium Oxide 400 mg 08/19/19 10:00 08/21/19 10:36 Mag-Ox - PO 400 mg BID KATIA Administration Metoprolol Tartrate 25 mg 08/18/19 11:15 08/21/19 10:37 Lopressor - PO 25 mg BID KATIA Administration Nystatin 1 applic 08/03/19 17:30 08/21/19 10:38 Nystop Powder - TP 1 applic DAILY KATIA Administration Pantoprazole Sodium 40 mg 08/19/19 10:00 08/21/19 10:37 Protonix - PO 40 mg DAILY KATIA Administration ASSESSMENT/PLAN: Problem List - Problems (1) CVA (cerebral vascular accident) Assessment/Plan: CVA confirmed by brain mri 08/04/19: acute right cerebral infarcts. acute non hemorrhagic infarcts noted involving the right frontal, right temporal and right insular cortices as well as the right basal ganglia. minimal periventricular chronic microvascular changes are noted. initiated stroke protocol - neuro consulted and following - on asa [place] and statin. - physical therapy as tolerated. pt was able to ambulate with PT - carotid u/s noted, seen by vascular and patient will need outpateint f/u - discharge to rehab. Code(s): I63.9 - CEREBRAL INFARCTION, UNSPECIFIED (2) Aspiration precautions Assessment/Plan: tolerating dysphagia pureed diet, meds crushed with applesauce. Code(s): Z91.89 - [facility] PERSONAL RISK FACTORS, NOT ELSEWHERE CLASSIFIED (3) Acute metabolic encephalopathy Assessment/Plan: found to have an acute frontal stroke/right cerebral infarcts. 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 monitor technician: irregular 100-120s blood sugar monitoring q 6 started on pureed/thickened diet with supplements of ensure to increase caloric intake. Code(s): G93.41 - METABOLIC ENCEPHALOPATHY (4) A-fib Assessment/Plan: on eliquis 5 bid with metoprolol Code(s): I48.91 - UNSPECIFIED ATRIAL FIBRILLATION Qualifiers: Atrial fibrillation type: unspecified Qualified Code(s): I48.91 - Unspecified atrial fibrillation (5) Hypertension Assessment/Plan: on metoprolol and enalapril. enalapril increased to 5mg bid dosing. Code(s): I10 - ESSENTIAL (PRIMARY) HYPERTENSION (6) Alcohol intoxication Assessment/Plan: ciwa score low. no signs of acute w/drawal. ammonia level low @ 18 Code(s): F10.929 - ALCOHOL USE, UNSPECIFIED WITH INTOXICATION, UNSPECIFIED Qualifiers: Complication of substance-induced condition: uncomplicated Qualified Code(s ): F10.920 - Alcohol use, unspecified with intoxication, uncomplicated (7) Syncope and collapse Assessment/Plan: resolved Code(s): R55 - SYNCOPE AND COLLAPSE (8) Prophylactic measure Assessment/Plan: eliquis 5 bid full code fen on pureed diet/thickened fluids. discharge planning Code(s): Z29.9 - ENCOUNTER FOR PROPHYLACTIC MEASURES, UNSPECIFIED Visit type - Emergency Visit Emergency Visit: Yes ED Registration Date: 08/02/19 Care time: The patient presented to the Emergency Department on the above date and was hospitalized for further evaluation of their emergent condition. - New Patient This patient is new to me today: No - Critical Care Critical Care patient: No - Discharge Referral Referred to [facility] Med P.C.: No
[2019-08-21] MEDS: ATORVASTATIN CA 80 MG TABLET (FP) PO SCH (21:31)
[2019-08-21] MEDS: INSULIN (LEVEMIR) 100 UNITS/ML UNITS SQ SCH (21:45)
[2019-08-22] MEDS: INSULIN SLIDING SCALE (NOVOLOG) 1 VIAL SQ SCH ×4 (06:12→22:55)
--- NOTE | 2019-08-22 07:55 | PN ---
Progress Note, Physician Chief Complaint: Pt sitting in chair at bedside. Speech garbled but able to communicate needs daughter cell History of Present Illness: Patient is a 69 year old male with history of hypertension, hyperlipidemia, non- insulin dependent diabetes mellitus and alcohol abuse, presents after a syncopal episode. Patient was intoxicated on admission and started on a librium taper. He was found to have new onset afib on admission and a heparin drip was initiated. Hospitalization complicated when patient became unresponsive on 08/04/19 MRI brain then confirmed acute right cerebral infarcts. neuro consulted and following. - Current Medication List Current Medications: Active Medications Acetaminophen (Ofirmev Injection -) 1,000 mg IVPB Q6H PRN PRN Reason: PAIN LEVEL 6-10 Last Admin: 08/15/19 06:46 Dose: 1,000 mg Apixaban (Eliquis -) 5 mg PO BID [facility] Last Admin: 08/21/19 21:31 Dose: 5 mg Artificial Tears (Artificial Tears) 1 drop OU BID [facility] Last Admin: 08/21/19 21:45 Dose: 1 drop Atorvastatin Calcium (Lipitor -) 80 mg PO HS [facility] Last Admin: 08/21/19 21:31 Dose: 80 mg Enalapril Maleate (Vasotec -) 5 mg PO BID [facility] Last Admin: 08/21/19 21:32 Dose: 5 mg Insulin Aspart (Novolog Vial Sliding Scale -) 1 vial SQ [facility]; Protocol Last Admin: 08/22/19 06:12 Dose: Not Given Insulin Detemir (Levemir Vial) 5 units SQ [facility] Last Admin: 08/21/19 21:45 Dose: 5 units Magnesium Oxide (Mag-Ox -) 400 mg PO BID [facility] Last Admin: 08/21/19 21:32 Dose: 400 mg Metoprolol Tartrate (Lopressor -) 25 mg PO BID [facility] Last Admin: 08/21/19 21:31 Dose: 25 mg Nystatin (Nystop Powder -) 1 applic TP DAILY [facility] Last Admin: 08/21/19 10:38 Dose: 1 applic Pantoprazole Sodium (Protonix -) 40 mg PO DAILY [facility] Last Admin: 08/21/19 10:37 Dose: 40 mg - Objective Vital Signs: Vital Signs Temperature 98.1 F 08/21/19 22:00 Pulse Rate 112 H 08/22/19 06:00 Respiratory Rate 25 H 08/22/19 06:00 Blood Pressure 117/93 08/22/19 06:00 O2 Sat by Pulse Oximetry (%) 95 08/21/19 21:00 Constitutional: Yes: Well Nourished, No Distress, Calm Eyes: Yes: WNL, Conjunctiva Clear HENT: Yes: WNL, Atraumatic, Normocephalic Neck: Yes: WNL, Supple, Trachea Midline Cardiovascular: Yes: Tachycardia Gastrointestinal: Yes: WNL, Normal Bowel Sounds ...Rectal Exam: Yes: Deferred Genitourinary: Yes: WNL Breast(s): Yes: WNL Musculoskeletal: Yes: WNL Extremities: Yes: WNL Edema: No Peripheral Pulses WNL: Yes Peripheral Pulses: Left Radial: 2+, Right Radial: 2+, Left Doralis Pedis: 2+, Right Dorsalis Pedis: 2+, Left Femoral: 2+, Right Femoral: 2+ Integumentary: Yes: WNL Neurological: Yes: Facial Droop (left side), Other (left sided wekaness) ...Motor Strength: LUE, LLE (weak), RUE, RLE (WNL) Psychiatric: Yes: Alert Labs: CBC, BMP 08/21/19 06:00 08/21/19 06:00 INR, PTT INR 1.05 (0.83-1.09) 08/02/19 20:00 Problem List - Problems (1) Carotid stenosis, left Assessment/Plan: No acute vascular intervention at this time. c/w atorvastatin Pt should f/u in clinic with Dr Adams in 6 months for surveillance carotid duplex Code(s): I65.22 - OCCLUSION AND STENOSIS OF LEFT CAROTID ARTERY (2) Malnutrition Assessment/Plan: tolerating dysphagia diet aspiration precautions c/w ensure and magic cup appreciate nutrition & [employer] consultation Code(s): E46 - UNSPECIFIED PROTEIN-CALORIE MALNUTRITION (3) A-fib Assessment/Plan: afib with RVR-HR, rate not controlled metoprolol incraesed to 50mg BID and extra 25mg dose given TTE benign appreciate cardiology consultation c/w tele monitoring Code(s): I48.91 - UNSPECIFIED ATRIAL FIBRILLATION Qualifiers: Atrial fibrillation type: unspecified Qualified Code(s): I48.91 - Unspecified atrial fibrillation (4) Acute metabolic encephalopathy Assessment/Plan: acute frontal stroke/right cerebral infarcts. much more responsive, able to communicate needs neurology following Code(s): G93.41 - METABOLIC ENCEPHALOPATHY (5) Aspiration precautions Code(s): Z91.89 - OTH PERSONAL RISK FACTORS, NOT ELSEWHERE CLASSIFIED (6) Alcohol intoxication Assessment/Plan: no s/s of active withdrawal Code(s): F10.929 - ALCOHOL USE, UNSPECIFIED WITH INTOXICATION, UNSPECIFIED Qualifiers: Complication of substance-induced condition: uncomplicated Qualified Code(s ): F10.920 - Alcohol use, unspecified with intoxication, uncomplicated (7) CVA (cerebral vascular accident) Assessment/Plan: CVA confirmed by brain mri 08/04/19: acute right cerebral infarcts. acute non hemorrhagic infarcts noted involving the right frontal, right temporal and right insular cortices as well as the right basal ganglia. minimal periventricular chronic microvascular changes are noted. repeat HD CT 08/09/19 --evolving R MCA infarct c/w physical therapy carotid u/s with stenosis-seen by vascular and no intervention at this time c/w statin, eliquis appreciate neurology consultation Code(s): I63.9 - CEREBRAL INFARCTION, UNSPECIFIED (8) Prophylactic measure Assessment/Plan: FEN dysphasia diet aspiration precautions monitor electrolytes no additional IVF needed DVT c/w eliquis PT Dispo maintain on tele full code discharge planning-SNF Code(s): Z29.9 - ENCOUNTER FOR PROPHYLACTIC MEASURES, UNSPECIFIED (9) Syncope and collapse Assessment/Plan: no further episodes c/w PT Code(s): R55 - SYNCOPE AND COLLAPSE (10) HTN (hypertension) Assessment/Plan: BP bettered controlled c/w vasotec & metoprolol Code(s): I10 - ESSENTIAL (PRIMARY) HYPERTENSION (11) HLD (hyperlipidemia) Assessment/Plan: c/w statin Code(s): E78.5 - HYPERLIPIDEMIA, UNSPECIFIED (12) Non-insulin dependent type 2 diabetes mellitus Assessment/Plan: BGM with novolog sliding scale Code(s): E11.9 - TYPE 2 DIABETES MELLITUS WITHOUT COMPLICATIONS (13) Dysphagia Assessment/Plan: c./w dysphagia diet aspiration precautions Code(s): R13.10 - DYSPHAGIA, UNSPECIFIED Visit type - Emergency Visit Emergency Visit: Yes ED Registration Date: 08/02/19 Care time: The patient presented to the Emergency Department on the above date and was hospitalized for further evaluation of their emergent condition. - New Patient This patient is new to me today: No - Critical Care Critical Care patient: No - Discharge Referral Referred to [facility] No
[2019-08-22 08:20] LABS: BASO % 0.7 % (0-2.0); HEMOGLOBIN 14.4 GM/dL (11.7-16.9); LYMPH % 18.8 % (8-40); MCH 35.4 pg (25.7-33.7); MCHC 34.4 g/dl (32.0-35.9); MEAN CELL VOLUME 103.1 fl (80-96); MEAN PLT VOLUME 7.6 fl (7.5-11.1); MONO % 7.5 % (3.8-10.2); PLATELET COUNT 419 K/MM3 (134-434); RBC 4.07 M/mm3 (4.00-5.60); RDW 14.4 % (11.9-15.9); WHITE BLOOD COUNT 7.9 K/mm3 (4.0-10.0)
[2019-08-22 08:58] LABS: ALBUMIN 2.7 g/dl (3.4-5.0); BILIRUBIN,TOTAL 1.1 mg/dL (0.2-1); CREATININE 0.8 mg/dL (0.55-1.3); MAGNESIUM 2.1 mg/dL (1.8-2.4); POTASSIUM 4.6 mmol/L (3.5-5.1); TOT PROT 7.1 g/dl (6.4-8.2)
[2019-08-22] MEDS: MAGNESIUM OXIDE 400 MG TABLET (FP) PO SCH ×2 (09:27→22:48)
[2019-08-22] MEDS: METOPROLOL TARTRATE 25 MG TABLET (FP) PO SCH (09:27)
[2019-08-22] MEDS: PANTOPRAZOLE 40 MG TABLET (FP) PO SCH (09:27)
[2019-08-22] MEDS: APIXABAN 5 MG TABLET PO SCH ×2 (09:27→22:48)
[2019-08-22] MEDS: ENALAPRIL MALEATE 5 MG TABLET (FP) PO SCH ×2 (09:28→22:48)
[2019-08-22] MEDS: NYSTATIN POWDER 100,000 UNITS/GM - 15 GM TOPICAL POWDER TP SCH (09:28)
[2019-08-22] MEDS: ARTIFICIAL TEARS (POLYVINYL ALCOHOL) OPTH DROPS OU SCH ×2 (09:28→22:48)
--- NOTE | 2019-08-22 10:28 | PN ---
Progress Note (short form) - Note Progress Note: s: no chest pain, palps dizziness, dyspnea Current Medications Acetaminophen (Ofirmev Injection -) 1,000 mg IVPB Q6H PRN PRN Reason: PAIN LEVEL 6-10 Last Admin: 08/15/19 06:46 Dose: 1,000 mg Apixaban (Eliquis -) 5 mg PO BID [facility] Last Admin: 08/22/19 09:27 Dose: 5 mg Artificial Tears (Artificial Tears) 1 drop OU BID [facility] Last Admin: 08/22/19 09:28 Dose: 1 drop Atorvastatin Calcium (Lipitor -) 80 mg PO HS [facility] Last Admin: 08/21/19 21:31 Dose: 80 mg Enalapril Maleate (Vasotec -) 5 mg PO BID [facility] Last Admin: 08/22/19 09:28 Dose: 5 mg Insulin Aspart (Novolog Vial Sliding Scale -) 1 vial SQ [facility]; Protocol Last Admin: 08/22/19 06:12 Dose: Not Given Insulin Detemir (Levemir Vial) 5 units SQ [facility] Last Admin: 08/21/19 21:45 Dose: 5 units Magnesium Oxide (Mag-Ox -) 400 mg PO BID [facility] Last Admin: 08/22/19 09:27 Dose: 400 mg Metoprolol Tartrate (Lopressor -) 25 mg PO BID [facility] Last Admin: 08/22/19 09:27 Dose: 25 mg Nystatin (Nystop Powder -) 1 applic TP DAILY [facility] Last Admin: 08/22/19 09:28 Dose: 1 applic Pantoprazole Sodium (Protonix -) 40 mg PO DAILY [facility] Last Admin: 08/22/19 09:27 Dose: 40 mg Vital Signs Period Temp Pulse Resp BP Sys/Lieberman Pulse Ox Last 24 Hr 98.1 F-98.8 F 96-138 20-25 117-158/93-105 95-95 Constitutional: Yes: Well Nourished, No Distress, Calm Cardiovascular: Yes: Pulse Irregular, S1, S2. No: Gallop, Murmur Respiratory: Yes: Regular, CTA Bilaterally. No: Accessory Muscle Use Extremities: No: Cold Edema: No Neurological: Yes: Alert. No: Seizure Psychiatric: No: Agitated no jaundice diaphoresis Assessment/Plan echo 07/2019: nl lv/rv, mild tr, nl rvsp tele: AF hr's 90s-110s, episodes RVR 120s-150s a/p: 69 m hx htn, dm, here with syncope. cva: -change in mental status and mri showing acute cva -neuro following -family declined PEG syncope: -no signs acs or chf -possibly related to etoh, possibly related to afib with rvr, ?cva related -echo benign -DC tele afib: -new afib with rvr here -now on PO meds - episodes RVR will increase metoprolol tartrate to 50 mg BID -chadsvasc warrants ac, started on eliquis and metoprolol -tsh wnl -echo benign -as patient on eliquis, would d/c ASA as may increase bleed risk without sig added benefit htn: -goal of < 140/90 -enalapril incr'd to 5mg BID--monitor BP, uptitrate as tolerated -observe trend, titrate [place] prn bp's
[2019-08-22] MEDS ORDERED: METOPROLOL TARTRATE 25 MG TABLET (FP) PO ONE (10:30)
[2019-08-22 14:43] VITALS: BMI 19.9
--- NOTE | 2019-08-22 15:08 | PN ---
Progress Note, CLASSIFIED AD TAKER - Note Progress Note: Selected Entries 08/22/19 08/22/19 08/22/19 10:00 13:31 14:58 Breakfast 100% Diet Tolerated Well Lunch 50% Temperature 97.3 F L Laboratory Tests 08/22/19 08:00 WBC 7.9 Tolerating diet well. Vocal quality dysphonic. Attempted to reassess swallowing function for upgrade, however, pt refused trial of cookie or thin juice. Suspect risk of aspiration on thin liquids due to hoarse voice/ impaired vocal cord closure suspected Consider trial of Dys ground/nectar
[2019-08-22] MEDS: METOPROLOL TARTRATE 50 MG TABLET (FP) PO SCH (22:48)
[2019-08-22] MEDS: ATORVASTATIN CA 80 MG TABLET (FP) PO SCH (22:48)
[2019-08-22] MEDS: INSULIN (LEVEMIR) 100 UNITS/ML UNITS SQ SCH (22:48)
[2019-08-23 06:07] LABS: BASO % 0.7 % (0-2.0); EOS % 2.6 % (0-4.5); HEMATOCRIT 38.7 % (35.4-49); HEMOGLOBIN 13.8 GM/dL (11.7-16.9); MCH 36.1 pg (25.7-33.7); MCHC 35.6 g/dl (32.0-35.9); MEAN CELL VOLUME 101.2 fl (80-96); MEAN PLT VOLUME 7.4 fl (7.5-11.1); MONO % 8.8 % (3.8-10.2); NEUT % 64.9 % (42.8-82.8); PLATELET COUNT 433 K/MM3 (134-434); RBC 3.82 M/mm3 (4.00-5.60); RDW 14.3 % (11.9-15.9); WHITE BLOOD COUNT 8.8 K/mm3 (4.0-10.0)
[2019-08-23 06:32] LABS: ALBUMIN 2.7 g/dl (3.4-5.0); BILIRUBIN,TOTAL 0.8 mg/dL (0.2-1); BLOOD UREA NITROGEN 13.4 mg/dL (7-18); CALCIUM 8.7 mg/dL (8.5-10.1); CREATININE 0.7 mg/dL (0.55-1.3); MAGNESIUM 1.9 mg/dL (1.8-2.4); POTASSIUM 4.5 mmol/L (3.5-5.1); TOT PROT 6.7 g/dl (6.4-8.2)
--- NOTE | 2019-08-23 07:15 | PN ---
Progress Note, Physician Chief Complaint: Resting comfortable in bed. Speech garbled but speaking more. daughter cell History of Present Illness: Patient is a 69 year old male with history of hypertension, hyperlipidemia, non- insulin dependent diabetes mellitus and alcohol abuse, presents after a syncopal episode. Patient was intoxicated on admission and started on a librium taper. He was found to have new onset afib on admission and a heparin drip was initiated. Hospitalization complicated when patient became unresponsive on 08/04/19 MRI brain then confirmed acute right cerebral infarcts. neuro consulted and following. - Current Medication List Current Medications: Active Medications Acetaminophen (Ofirmev Injection -) 1,000 mg IVPB Q6H PRN PRN Reason: PAIN LEVEL 6-10 Last Admin: 08/15/19 06:46 Dose: 1,000 mg Apixaban (Eliquis -) 5 mg PO BID [facility] Last Admin: 08/22/19 22:48 Dose: 5 mg Artificial Tears (Artificial Tears) 1 drop OU BID [facility] Last Admin: 08/22/19 22:48 Dose: 1 drop Atorvastatin Calcium (Lipitor -) 80 mg PO HS [facility] Last Admin: 08/22/19 22:48 Dose: 80 mg Enalapril Maleate (Vasotec -) 5 mg PO BID [facility] Last Admin: 08/22/19 22:48 Dose: 5 mg Insulin Aspart (Novolog Vial Sliding Scale -) 1 vial SQ [facility]; Protocol Last Admin: 08/22/19 22:55 Dose: 1 unit Insulin Detemir (Levemir Vial) [address] [facility] Last Admin: 08/22/19 22:48 Dose: 5 units Magnesium Oxide (Mag-Ox -) 400 mg PO BID [facility] Last Admin: 08/22/19 22:48 Dose: 400 mg Metoprolol Tartrate (Lopressor -) 50 mg PO BID [facility] Last Admin: 08/22/19 22:48 Dose: 50 mg Nystatin (Nystop Powder -) 1 applic TP DAILY [facility] Last Admin: 08/22/19 09:28 Dose: 1 applic Pantoprazole Sodium (Protonix -) 40 mg PO DAILY [facility] Last Admin: 08/22/19 09:27 Dose: 40 mg - Objective Vital Signs: Vital Signs Temperature 97.2 F L 08/23/19 04:00 Pulse Rate 86 08/23/19 04:00 Respiratory Rate 20 08/23/19 04:00 Blood Pressure 117/85 08/23/19 04:00 O2 Sat by Pulse Oximetry (%) 95 08/22/19 20:52 Additional Findings/Remarks: Constitutional: Yes: Well Nourished, No Distress, Calm Eyes: Yes: WNL, Conjunctiva Clear HENT: Yes: WNL, Atraumatic, Normocephalic Neck: Yes: WNL, Supple, Trachea Midline Cardiovascular: Yes: Tachycardia Gastrointestinal: Yes: WNL, Normal Bowel Sounds ...Rectal Exam: Yes: Deferred Genitourinary: Yes: WNL Breast(s): Yes: WNL Musculoskeletal: Yes: WNL Extremities: Yes: WNL Edema: No Peripheral Pulses WNL: Yes Peripheral Pulses: Left Radial: 2+, Right Radial: 2+, Left Doralis Pedis: 2+, Right Dorsalis Pedis: 2+, Left Femoral: 2+, Right Femoral: 2+ Integumentary: Yes: WNL Neurological: Yes: Facial Droop (left side), Other (left sided wekaness) ...Motor Strength: LUE, LLE (weak), RUE, RLE (WNL) Psychiatric: Yes: Alert Labs: CBC, BMP 08/23/19 05:45 08/23/19 05:45 INR, PTT INR 1.05 (0.83-1.09) 08/02/19 20:00 - ....Imaging Cat Scan: Report Reviewed MRI: Report Reviewed Problem List - Problems (1) Carotid stenosis, left Assessment/Plan: No acute vascular intervention at this time. c/w atorvastatin Pt should f/u in clinic with Dr Adams in 6 months for surveillance carotid duplex Code(s): I65.22 - OCCLUSION AND STENOSIS OF LEFT CAROTID ARTERY (2) Malnutrition Assessment/Plan: tolerating dysphagia diet aspiration precautions c/w ensure and magic cup appreciate nutrition & [employer] consultation Code(s): E46 - UNSPECIFIED PROTEIN-CALORIE MALNUTRITION (3) A-fib Assessment/Plan: afib with RVR-HR, rate better controlled c/w increased dose metoprolol TTE benign appreciate cardiology consultation c/w tele monitoring Code(s): I48.91 - UNSPECIFIED ATRIAL FIBRILLATION Qualifiers: Atrial fibrillation type: unspecified Qualified Code(s): I48.91 - Unspecified atrial fibrillation (4) Acute metabolic encephalopathy Assessment/Plan: acute frontal stroke/right cerebral infarcts. much more responsive, able to communicate needs neurology following Code(s): G93.41 - METABOLIC ENCEPHALOPATHY (5) Aspiration precautions Assessment/Plan: maintain HOB >60 degrees when eating or OOB no straws Code(s): Z91.89 - OTH PERSONAL RISK FACTORS, NOT ELSEWHERE CLASSIFIED (6) Alcohol intoxication Assessment/Plan: no s/s of active withdrawal Code(s): F10.929 - ALCOHOL USE, UNSPECIFIED WITH INTOXICATION, UNSPECIFIED Qualifiers: Complication of substance-induced condition: uncomplicated Qualified Code(s ): F10.920 - Alcohol use, unspecified with intoxication, uncomplicated (7) CVA (cerebral vascular accident) Assessment/Plan: CVA confirmed by brain mri 08/04/19: acute right cerebral infarcts. acute non hemorrhagic infarcts noted involving the right frontal, right temporal and right insular cortices as well as the right basal ganglia. minimal periventricular chronic microvascular changes are noted. repeat HD CT 08/09/19 --evolving R MCA infarct c/w physical therapy, peding bed at rehab facility carotid u/s with stenosis-seen by vascular and no intervention at this time c/w statin, [place] appreciate neurology consultation Code(s): I63.9 - CEREBRAL INFARCTION, UNSPECIFIED (8) Prophylactic measure Assessment/Plan: FEN dysphasia diet aspiration precautions monitor electrolytes no additional IVF needed DVT c/w eliquis PT Dispo maintain on tele full code discharge planning-SNF Code(s): Z29.9 - ENCOUNTER FOR PROPHYLACTIC MEASURES, UNSPECIFIED (9) Syncope and collapse Assessment/Plan: no further episodes c/w PT Code(s): R55 - SYNCOPE AND COLLAPSE (10) HTN (hypertension) Assessment/Plan: BP better controlled c/w vasotec & metoprolol Code(s): I10 - ESSENTIAL (PRIMARY) HYPERTENSION (11) HLD (hyperlipidemia) Assessment/Plan: c/w statin Code(s): E78.5 - HYPERLIPIDEMIA, UNSPECIFIED (12) Non-insulin dependent type 2 diabetes mellitus Assessment/Plan: BGM with novolog sliding scale Code(s): E11.9 - TYPE 2 DIABETES MELLITUS WITHOUT COMPLICATIONS (13) Dysphagia Assessment/Plan: c./w dysphagia diet aspiration precautions Code(s): R13.10 - DYSPHAGIA, UNSPECIFIED Visit type - Emergency Visit Emergency Visit: Yes ED Registration Date: 08/02/19 Care time: The patient presented to the Emergency Department on the above date and was hospitalized for further evaluation of their emergent condition. - New Patient This patient is new to me today: No - Critical Care Critical Care patient: No - Discharge Referral Referred to [facility] No
[2019-08-23] MEDS: INSULIN SLIDING SCALE (NOVOLOG) 1 VIAL SQ SCH ×4 (09:37→21:51)
[2019-08-23] MEDS: APIXABAN 5 MG TABLET PO SCH ×2 (09:38→21:56)
[2019-08-23] MEDS: PANTOPRAZOLE 40 MG TABLET (FP) PO SCH (09:38)
[2019-08-23] MEDS: METOPROLOL TARTRATE 50 MG TABLET (FP) PO SCH ×2 (09:38→21:50)
[2019-08-23] MEDS: MAGNESIUM OXIDE 400 MG TABLET (FP) PO SCH ×2 (09:38→21:50)
[2019-08-23] MEDS: ENALAPRIL MALEATE 5 MG TABLET (FP) PO SCH ×2 (09:38→21:51)
[2019-08-23] MEDS: ARTIFICIAL TEARS (POLYVINYL ALCOHOL) OPTH DROPS OU SCH (09:39)
[2019-08-23] MEDS: NYSTATIN POWDER 100,000 UNITS/GM - 15 GM TOPICAL POWDER TP SCH (09:39)
--- NOTE | 2019-08-23 10:20 | PN ---
Progress Note (short form) - Note Progress Note: s: no chest pain, palps dizziness, dyspnea Current Medications Acetaminophen (Ofirmev Injection -) 1,000 mg IVPB Q6H PRN PRN Reason: PAIN LEVEL 6-10 Last Admin: 08/15/19 06:46 Dose: 1,000 mg Apixaban (Eliquis -) 5 mg PO BID [facility] Last Admin: 08/23/19 09:38 Dose: 5 mg Artificial Tears (Artificial Tears) 1 drop OU BID [facility] Last Admin: 08/23/19 09:39 Dose: 1 drop Atorvastatin Calcium (Lipitor -) 80 mg PO HS [facility] Last Admin: 08/22/19 22:48 Dose: 80 mg Enalapril Maleate (Vasotec -) 5 mg PO BID [facility] Last Admin: 08/23/19 09:38 Dose: 5 mg Insulin Aspart (Novolog Vial Sliding Scale -) 1 vial SQ [facility]; Protocol Last Admin: 08/23/19 09:37 Dose: Not Given Insulin Detemir (Levemir Vial) 5 units SQ [facility] Last Admin: 08/22/19 22:48 Dose: 5 units Magnesium Oxide (Mag-Ox -) 400 mg PO BID [facility] Last Admin: 08/23/19 09:38 Dose: 400 mg Metoprolol Tartrate (Lopressor -) 50 mg PO BID [facility] Last Admin: 08/23/19 09:38 Dose: 50 mg Nystatin (Nystop Powder -) 1 applic TP DAILY [facility] Last Admin: 08/23/19 09:39 Dose: 1 applic Pantoprazole Sodium (Protonix -) 40 mg PO DAILY [facility] Last Admin: 08/23/19 09:38 Dose: 40 mg Vital Signs Period Temp Pulse Resp BP Sys/Lieberman Pulse Ox Last 24 Hr 97 F-97.3 F 85-141 20-24 103-147/76-87 95-95 Constitutional: Yes: Well Nourished, No Distress, Calm Cardiovascular: Yes: Pulse Irregular, S1, S2. No: Gallop, Murmur Respiratory: Yes: Regular, CTA Bilaterally. No: Accessory Muscle Use Extremities: No: Cold Edema: No Neurological: Yes: Alert. No: Seizure Psychiatric: No: Agitated no jaundice diaphoresis Assessment/Plan echo 07/2019: nl lv/rv, mild tr, nl rvsp tele: AF rate ok a/p: 69 m hx htn, dm, here with syncope. cva: -change in mental status and mri showing acute cva -neuro following -family declined PEG syncope: -no signs acs or chf -possibly related to etoh, possibly related to afib with rvr, ?cva related -echo benign -DC tele afib: -new afib with rvr here -rate improved, cont metoprolol tartrate 50 mg BID -chadsvasc warrants ac, started on eliquis and metoprolol -tsh wnl -echo benign -as patient on eliquis, would d/c ASA as may increase bleed risk without sig added benefit htn: -goal of < 140/90 -enalapril incr'd to 5mg BID--monitor BP, uptitrate as tolerated -observe trend, titrate KEYONA prn bp's
--- NOTE | 2019-08-23 10:54 | PN ---
Progress Note, [employer] - Note Progress Note: Selected Entries 08/23/19 08/23/19 04:00 09:32 Breakfast 75% Temperature 97.2 F L Laboratory Tests 08/22/19 08/23/19 08:00 05:45 WBC 7.9 8.8 Diet upgraded to Dys ground diet/nectar. Overtly tolerating well without difficulty. Dysphonia with aspiration risk, especially on thin liquids. Silent aspiration can not be r/o at bedside. May benefit from MBS to upgrade to most liberal diet pt can tolerate before d/c. Monitor tolerance.
[2019-08-23] MEDS ORDERED: PT OWN MED DRAWER 7, Y5N ONE (20:29)
[2019-08-23] MEDS: ATORVASTATIN CA 80 MG TABLET (FP) PO SCH (21:52)
[2019-08-23] MEDS: INSULIN (LEVEMIR) 100 UNITS/ML UNITS SQ SCH (21:52)
[2019-08-24 03:00] VITALS: TEMP 98.6
[2019-08-24] MEDS: ARTIFICIAL TEARS (POLYVINYL ALCOHOL) OPTH DROPS OU SCH ×2 (06:24→10:13)
[2019-08-24] MEDS: INSULIN SLIDING SCALE (NOVOLOG) 1 VIAL SQ SCH (06:27)
[2019-08-24 06:56] LABS: BASO % 0.8 % (0-2.0); EOS % 1.8 % (0-4.5); HEMATOCRIT 39.4 % (35.4-49); HEMOGLOBIN 13.9 GM/dL (11.7-16.9); LYMPH % 18.7 % (8-40); MCH 35.8 pg (25.7-33.7); MCHC 35.3 g/dl (32.0-35.9); MEAN CELL VOLUME 101.6 fl (80-96); MEAN PLT VOLUME 7.6 fl (7.5-11.1); MONO % 7.8 % (3.8-10.2); NEUT % 70.9 % (42.8-82.8); PLATELET COUNT 369 K/MM3 (134-434); RBC 3.88 M/mm3 (4.00-5.60); RDW 14.1 % (11.9-15.9); WHITE BLOOD COUNT 7.5 K/mm3 (4.0-10.0)
[2019-08-24 07:24] LABS: ALBUMIN 2.7 g/dl (3.4-5.0); BILIRUBIN,TOTAL 1.3 mg/dL (0.2-1); CALCIUM 9.1 mg/dL (8.5-10.1); CREATININE 0.6 mg/dL (0.55-1.3); POTASSIUM 5.1 mmol/L (3.5-5.1); TOT PROT 6.6 g/dl (6.4-8.2)
[2019-08-24] MEDS: PANTOPRAZOLE 40 MG TABLET (FP) PO SCH (10:13)
[2019-08-24] MEDS: METOPROLOL TARTRATE 50 MG TABLET (FP) PO SCH (10:13)
[2019-08-24] MEDS: MAGNESIUM OXIDE 400 MG TABLET (FP) PO SCH (10:13)
[2019-08-24] MEDS: APIXABAN 5 MG TABLET PO SCH (10:13)
[2019-08-24] MEDS: ENALAPRIL MALEATE 5 MG TABLET (FP) PO SCH (10:13)
[2019-08-24] MEDS: NYSTATIN POWDER 100,000 UNITS/GM - 15 GM TOPICAL POWDER TP SCH (10:14)
[2019-08-24 10:17] VITALS: BP 149/101; PULSE 110
[2019-08-24] MEDS ORDERED: METOPROLOL TARTRATE 25 MG TABLET (FP) PO SCH (10:51)
--- NOTE | 2019-08-24 10:54 | PN ---
Progress Note (short form) - Note Progress Note: s: no chest pain, palps dizziness, dyspnea Current Medications Generic Name Dose Route Start Last Admin Trade Name Freq PRN Reason Stop Dose Admin Acetaminophen 1,000 mg 08/15/19 06:00 08/15/19 06:46 Ofirmev Injection - IVPB 1,000 mg Q6H PRN Administration PAIN LEVEL 6-10 Apixaban 5 mg 08/18/19 19:00 08/24/19 10:13 Eliquis - PO 5 mg BID KATIA Administration Artificial Tears 1 drop 08/17/19 10:00 08/24/19 10:13 Artificial Tears OU 1 drop BID KATIA Administration Atorvastatin Calcium 80 mg 08/17/19 15:29 08/23/19 21:52 Lipitor - PO 80 mg HS KATIA Administration Enalapril Maleate 5 mg 08/20/19 10:00 08/24/19 10:13 Vasotec - PO 5 mg BID KATIA Administration Insulin Aspart 1 vial 08/03/19 07:00 08/24/19 06:27 Novolog Vial Sliding Scale - SQ 1 unit ACHS KATIA Administration Protocol Insulin Detemir 5 units 08/19/19 22:00 08/23/19 21:52 Levemir Vial SQ 5 units HS KATIA Administration Magnesium Oxide 400 mg 08/19/19 10:00 08/24/19 10:13 Mag-Ox - PO 400 mg BID KATIA Administration Metoprolol Tartrate 75 mg 08/24/19 10:51 Lopressor - PO BID KATIA Nystatin 1 applic 08/03/19 17:30 08/24/19 10:14 Nystop Powder - TP Not Given DAILY KATIA Pantoprazole Sodium 40 mg 08/19/19 10:00 08/24/19 10:13 Protonix - PO 40 mg DAILY KATIA Administration Vital Signs Period Temp Pulse Resp BP Sys/Lieberman Pulse Ox Last 24 Hr 97.5 F-98.6 F 96-117 18-20 123-149/62-103 95-100 Constitutional: Yes: Well Nourished, No Distress, Calm Cardiovascular: Yes: Pulse Irregular, S1, S2. No: Gallop, Murmur Respiratory: Yes: Regular, CTA Bilaterally. No: Accessory Muscle Use Extremities: No: Cold Edema: No Neurological: Yes: Alert. No: Seizure Psychiatric: No: Agitated no jaundice diaphoresis CBC, BMP 08/24/19 06:20 08/24/19 06:20 echo 07/2019: nl lv/rv, mild tr, nl rvsp tele: Afib, mild rvr at times a/p: 69 m hx htn, dm, here with syncope. cva: -change in mental status and mri showing acute cva -neuro following -family declined PEG syncope: -no signs acs or chf -possibly related to etoh, possibly related to afib with rvr, ?cva related -echo benign afib: -new afib with rvr here -rate mildly elevated at times, will increase metoprolol tartrate to 75 mg BID -chadsvasc warrants ac, started on eliquis and metoprolol -tsh wnl -echo benign htn: -goal of < 140/90 -enalapril incr'd to 5mg BID--monitor BP, uptitrate as tolerated -observe trend, titrate KEYONA prn bp's
--- NOTE | 2019-08-24 14:09 | DS ---
Physical Exam: SUBJECTIVE: Patient seen and examined OBJECTIVE: Vital Signs Period Temp Pulse Resp BP Sys/Lieberman Pulse Ox Last 24 Hr 98.6 F 102-117 18-20 139-149/90-101 95-100 PHYSICAL EXAM Constitutional: Yes: Well Nourished, No Distress, Calm Eyes: Yes: WNL, Conjunctiva Clear HENT: Yes: WNL, Atraumatic, Normocephalic Neck: Yes: WNL, Supple, Trachea Midline Cardiovascular: Yes: Tachycardia Gastrointestinal: Yes: WNL, Normal Bowel Sounds ...Rectal Exam: Yes: Deferred Genitourinary: Yes: WNL Breast(s): Yes: WNL Musculoskeletal: Yes: WNL Extremities: Yes: WNL Edema: No Peripheral Pulses WNL: Yes Peripheral Pulses: Left Radial: 2+, Right Radial: 2+, Left Doralis Pedis: 2+, Right Dorsalis Pedis: 2+, Left Femoral: 2+, Right Femoral: 2+ Integumentary: Yes: WNL Neurological: Yes: Facial Droop (left side), Other (left sided wekaness) ...Motor Strength: LUE, LLE (weak), RUE, RLE (WNL) Psychiatric: Yes: Alert Labs: LABS Laboratory Results - last 24 hr 08/23/19 08/23/19 08/24/19 17:18 21:11 06:05 WBC RBC Hgb Hct MCV MCH MCHC RDW Plt Count MPV Absolute Neuts (auto) Neutrophils % Lymphocytes % Monocytes % Eosinophils % Basophils % Nucleated RBC % Sodium Potassium Chloride Carbon Dioxide Anion Gap BUN Creatinine Est GFR (CKD-EPI)AfAm Est GFR (CKD-EPI)NonAf POC Glucometer 104 99 161 Random Glucose Calcium Magnesium Total Bilirubin AST ALT Alkaline Phosphatase Total Protein Albumin 08/24/19 08/24/19 06:20 06:20 WBC 7.5 RBC 3.88 L Hgb 13.9 Hct 39.4 MCV 101.6 H MCH 35.8 H MCHC 35.3 RDW 14.1 Plt Count 369 MPV 7.6 Absolute Neuts (auto) 5.3 Neutrophils % 70.9 Lymphocytes % 18.7 Monocytes % 7.8 Eosinophils % 1.8 Basophils % 0.8 Nucleated RBC % 0 Sodium 133 L Potassium 5.1 Chloride 102 Carbon Dioxide 26 Anion Gap 5 L BUN 12.0 Creatinine 0.6 Est GFR (CKD-EPI)AfAm 119.74 Est GFR (CKD-EPI)NonAf 103.31 POC Glucometer Random Glucose 149 H Calcium 9.1 Magnesium 2.0 Total Bilirubin 1.3 H AST 38 H ALT 42 Alkaline Phosphatase 187 H Total Protein 6.6 Albumin 2.7 L HOSPITAL COURSE: Date of Admission:08/02/19 Date of Discharge: 08/24/19 Problem List - Problems (1) Carotid stenosis, left Assessment/Plan: No acute vascular intervention at this time. c/w atorvastatin Pt should f/u in clinic with Dr Adams in 6 months for surveillance carotid duplex Code(s): I65.22 - OCCLUSION AND STENOSIS OF LEFT CAROTID ARTERY (2) Malnutrition Assessment/Plan: tolerating dysphagia diet aspiration precautions c/w ensure and magic cup Code(s): E46 - UNSPECIFIED PROTEIN-CALORIE MALNUTRITION (3) A-fib Assessment/Plan: afib with RVR-HR c/w increased dose metoprolol TTE benign Code(s): I48.91 - UNSPECIFIED ATRIAL FIBRILLATION Qualifiers: Atrial fibrillation type: unspecified Qualified Code(s): I48.91 - Unspecified atrial fibrillation (4) Acute metabolic encephalopathy Assessment/Plan: resolved acute frontal stroke/right cerebral infarcts. Code(s): G93.41 - METABOLIC ENCEPHALOPATHY (5) Aspiration precautions Assessment/Plan: maintain HOB >60 degrees when eating or OOB no straws Code(s): Z91.89 - [facility] PERSONAL RISK FACTORS, NOT ELSEWHERE CLASSIFIED (6) Alcohol intoxication Assessment/Plan: no s/s of active withdrawal Code(s): F10.929 - ALCOHOL USE, UNSPECIFIED WITH INTOXICATION, UNSPECIFIED Qualifiers: Complication of substance-induced condition: uncomplicated Qualified Code(s ): F10.920 - Alcohol use, unspecified with intoxication, uncomplicated (7) CVA (cerebral vascular accident) Assessment/Plan: CVA confirmed by brain mri 08/04/19: acute right cerebral infarcts. acute non hemorrhagic infarcts noted involving the right frontal, right temporal and right insular cortices as well as the right basal ganglia. minimal periventricular chronic microvascular changes are noted. repeat HD CT 08/09/19 --evolving R MCA infarct c/w physical therapy carotid u/s with stenosis-seen by vascular and no intervention at this time c/w statin, eliquis Code(s): I63.9 - CEREBRAL INFARCTION, UNSPECIFIED (8) Prophylactic measure Assessment/Plan: FEN dysphasia diet aspiration precautions DVT c/w eliquis at SNF PT Dispo medicially cleared for dc to SNF Code(s): Z29.9 - ENCOUNTER FOR PROPHYLACTIC MEASURES, UNSPECIFIED (9) Syncope and collapse Assessment/Plan: no further episodes c/w PT Code(s): R55 - SYNCOPE AND COLLAPSE (10) HTN (hypertension) Assessment/Plan: BP better controlled c/w vasotec metoprolol increased to 75 mg bid c/w at SNF Code(s): I10 - ESSENTIAL (PRIMARY) HYPERTENSION (11) HLD (hyperlipidemia) Assessment/Plan: c/w statin at SNF Code(s): E78.5 - HYPERLIPIDEMIA, UNSPECIFIED (12) Non-insulin dependent type 2 diabetes mellitus Assessment/Plan: BGM with novolog sliding scale at SNF Code(s): E11.9 - TYPE 2 DIABETES MELLITUS WITHOUT COMPLICATIONS (13) Dysphagia Assessment/Plan: c./w dysphagia diet in SNF aspiration precautions Code(s): R13.10 - DYSPHAGIA, UNSPECIFIED This patient is new to me today: No Emergency Visit: Yes ED Registration Date: 08/02/19 Care time: The patient presented to the Emergency Department on the above date and was hospitalized for further evaluation of their emergent condition. Critical Care patient: No - Discharge Referral Referred to [facility] Med P.C.: No Minutes to complete discharge: 60 Discharge Summary Problems reviewed: Yes Reason For Visit: ALCOHOLIC INTOXICATION,ATRIAL FIBRILLATION,SYNCOPE Hospital Course: HOSPITAL COURSE: Date of Admission:08/02/19 Date of Discharge: 08/24/19 Problem List - Problems (1) Carotid stenosis, left Assessment/Plan: No acute vascular intervention at this time. c/w atorvastatin Pt should f/u in clinic with Dr Adams in 6 months for surveillance carotid duplex Code(s): I65.22 - OCCLUSION AND STENOSIS OF LEFT CAROTID ARTERY (2) Malnutrition Assessment/Plan: tolerating dysphagia diet aspiration precautions c/w ensure and magic cup Code(s): E46 - UNSPECIFIED PROTEIN-CALORIE MALNUTRITION (3) A-fib Assessment/Plan: afib with RVR-HR c/w increased dose metoprolol TTE benign Code(s): I48.91 - UNSPECIFIED ATRIAL FIBRILLATION Qualifiers: Atrial fibrillation type: unspecified Qualified Code(s): I48.91 - Unspecified atrial fibrillation (4) Acute metabolic encephalopathy Assessment/Plan: resolved acute frontal stroke/right cerebral infarcts. Code(s): G93.41 - METABOLIC ENCEPHALOPATHY (5) Aspiration precautions Assessment/Plan: maintain HOB >60 degrees when eating or OOB no straws Code(s): Z91.89 - OTH PERSONAL RISK FACTORS, NOT ELSEWHERE CLASSIFIED (6) Alcohol intoxication Assessment/Plan: no s/s of active withdrawal Code(s): F10.929 - ALCOHOL USE, UNSPECIFIED WITH INTOXICATION, UNSPECIFIED Qualifiers: Complication of substance-induced condition: uncomplicated Qualified Code(s ): F10.920 - Alcohol use, unspecified with intoxication, uncomplicated (7) CVA (cerebral vascular accident) Assessment/Plan: CVA confirmed by brain mri 08/04/19: acute right cerebral infarcts. acute non hemorrhagic infarcts noted involving the right frontal, right temporal and right insular cortices as well as the right basal ganglia. minimal periventricular chronic microvascular changes are noted. repeat HD CT 08/09/19 --evolving R MCA infarct c/w physical therapy carotid u/s with stenosis-seen by vascular and no intervention at this time c/w statin, eliquis Code(s): I63.9 - CEREBRAL INFARCTION, UNSPECIFIED (8) Prophylactic measure Assessment/Plan: FEN dysphasia diet aspiration precautions DVT c/w eliquis at SNF PT Dispo medicially cleared for dc to SNF Code(s): Z29.9 - ENCOUNTER FOR PROPHYLACTIC MEASURES, UNSPECIFIED (9) Syncope and collapse Assessment/Plan: no further episodes c/w PT Code(s): R55 - SYNCOPE AND COLLAPSE (10) HTN (hypertension) Assessment/Plan: BP better controlled c/w vasotec metoprolol increased to 75 mg bid c/w at SNF Code(s): I10 - ESSENTIAL (PRIMARY) HYPERTENSION (11) HLD (hyperlipidemia) Assessment/Plan: c/w statin at SNF Code(s): E78.5 - HYPERLIPIDEMIA, UNSPECIFIED (12) Non-insulin dependent type 2 diabetes mellitus Assessment/Plan: BGM with novolog sliding scale at SNF Code(s): E11.9 - TYPE 2 DIABETES MELLITUS WITHOUT COMPLICATIONS (13) Dysphagia Assessment/Plan: c./w dysphagia diet in SNF aspiration precautions Code(s): R13.10 - DYSPHAGIA, UNSPECIFIED This patient is new to me today: No Emergency Visit: Yes ED Registration Date: 08/02/19 Care time: The patient presented to the Emergency Department on the above date and was hospitalized for further evaluation of their emergent condition. Critical Care patient: No - Discharge Referral Referred to [facility] Med P.C.: No Condition: Improved - Instructions Diet, Activity, Other Instructions: metoprolol 75 mg BID Referrals: Harsha Jean MD [Primary Care Provider] - - Home Medications Comprehensive Discharge Medication List: Ambulatory Orders Alcohol Antiseptic Pads [Alcohol Swabs] 1 each TP ASDIR #100 med..pad 08/24/19 Apixaban [Eliquis -] 5 mg PO BID #60 tablet 08/24/19 Atorvastatin Ca [Lipitor] 80 mg PO HS #30 tablet 08/24/19 Enalapril Maleate [Vasotec -] 5 mg PO BID #60 tablet 08/24/19 Insulin (Levemir) [Levemir Vial] 5 units SQ HS #1 bottle 08/24/19 Insulin Sliding Scale [Novolog Vial Sliding Scale -] 1 vial SQ ACHS #30 units Lancets/Blood Glucose Strips [Fora [id number] Strp-Lnct] 1 each ASDIR # 1 combo..pkg 08/24/19 Magnesium Oxide [Mag-Ox -] 400 mg PO BID #60 tablet 08/24/19 Metoprolol Tartrate [Lopressor -] 25 mg PO BID #60 tablet 08/24/19 Metoprolol Tartrate [Lopressor -] 50 mg PO BID #60 tablet 08/24/19 Miscellaneous Medical Supply [Glucometer Device] 1 each .ROUTE ASDIR #1 kit 05/05 Pantoprazole Sodium [Protonix -] 40 mg PO DAILY #30 tablet.ec 08/24/19 Polyvinyl Alcohol [Artificial Tears] 1 drop OU BID #0 drops 08/24/19 Prescription Drug Monitoring Program (I-STOP) results: I-STOP not reviewed Problem List - Problems (1) Carotid stenosis, left Assessment/Plan: No acute vascular intervention at this time. c/w atorvastatin Pt should f/u in clinic with Dr Adams in 6 months for surveillance carotid duplex Code(s): I65.22 - OCCLUSION AND STENOSIS OF LEFT CAROTID ARTERY (2) Malnutrition Assessment/Plan: tolerating dysphagia diet aspiration precautions c/w ensure and magic cup Code(s): E46 - UNSPECIFIED PROTEIN-CALORIE MALNUTRITION (3) A-fib Assessment/Plan: afib with RVR-HR c/w increased dose metoprolol TTE benign Code(s): I48.91 - UNSPECIFIED ATRIAL FIBRILLATION Qualifiers: Atrial fibrillation type: unspecified Qualified Code(s): I48.91 - Unspecified atrial fibrillation (4) Acute metabolic encephalopathy Assessment/Plan: resolved acute frontal stroke/right cerebral infarcts. Code(s): G93.41 - METABOLIC ENCEPHALOPATHY (5) Aspiration precautions Assessment/Plan: maintain HOB >60 degrees when eating or OOB no straws Code(s): Z91.89 - OTH PERSONAL RISK FACTORS, NOT ELSEWHERE CLASSIFIED (6) Alcohol intoxication Assessment/Plan: no s/s of active withdrawal Code(s): F10.929 - ALCOHOL USE, UNSPECIFIED WITH INTOXICATION, UNSPECIFIED Qualifiers: Complication of substance-induced condition: uncomplicated Qualified Code(s ): F10.920 - Alcohol use, unspecified with intoxication, uncomplicated (7) CVA (cerebral vascular accident) Assessment/Plan: CVA confirmed by brain mri 08/04/19: acute right cerebral infarcts. acute non hemorrhagic infarcts noted involving the right frontal, right temporal and right insular cortices as well as the right basal ganglia. minimal periventricular chronic microvascular changes are noted. repeat HD CT 08/09/19 --evolving R MCA infarct c/w physical therapy carotid u/s with stenosis-seen by vascular and no intervention at this time c/w statin, eliquis Code(s): I63.9 - CEREBRAL INFARCTION, UNSPECIFIED (8) Prophylactic measure Assessment/Plan: FEN dysphasia diet aspiration precautions DVT c/w eliquis at SNF PT Dispo medicially cleared for dc to SNF Code(s): Z29.9 - ENCOUNTER FOR PROPHYLACTIC MEASURES, UNSPECIFIED (9) Syncope and collapse Assessment/Plan: no further episodes c/w PT Code(s): R55 - SYNCOPE AND COLLAPSE (10) HTN (hypertension) Assessment/Plan: BP better controlled c/w vasotec metoprolol increased to 75 mg bid c/w at SNF Code(s): I10 - ESSENTIAL (PRIMARY) HYPERTENSION (11) HLD (hyperlipidemia) Assessment/Plan: c/w statin at SNF Code(s): E78.5 - HYPERLIPIDEMIA, UNSPECIFIED (12) Non-insulin dependent type 2 diabetes mellitus Assessment/Plan: BGM with novolog sliding scale at SNF Code(s): E11.9 - TYPE 2 DIABETES MELLITUS WITHOUT COMPLICATIONS (13) Dysphagia Assessment/Plan: c./w dysphagia diet in SNF aspiration precautions Code(s): R13.10 - DYSPHAGIA, UNSPECIFIED This patient is new to me today: No Emergency Visit: Yes ED Registration Date: 08/02/19 Care time: The patient presented to the Emergency Department on the above date and was hospitalized for further evaluation of their emergent condition. Critical Care patient: No - Discharge Referral Referred to [facility] Med P.C.: No
== END 2019-08-24 11:45 | DRG 64 ==
LOC: JER 19:16 → JERBED 21:51 → J2W 08-03 02:51
PROVIDERS: ADMIT Internal Medicine; ATTEND Nurse Practitioner Acute Care
PROC: 02HV33Z Insertion of Infusion Device into Superior Vena Cava, Percutaneous Approach (ICD-10-PCS; principal; 2019-08-16)
PROC: B518ZZA Fluoroscopy of Superior Vena Cava, Guidance (ICD-10-PCS; 2019-08-16)
DX: I63.9 Cerebral infarction, unspecified (principal); G93.41 Metabolic encephalopathy; E46 Unspecified protein-calorie malnutrition; Z68.1 Body mass index [BMI] 19.9 or less, adult; I47.1 Supraventricular tachycardia; R55 Syncope and collapse; F10.129 Alcohol abuse with intoxication, unspecified; Y90.6 Blood alcohol level of 120-199 mg/100 ml; I65.22 Occlusion and stenosis of left carotid artery; E11.9 Type 2 diabetes mellitus without complications; I48.91 Unspecified atrial fibrillation; E78.5 Hyperlipidemia, unspecified; R13.10 Dysphagia, unspecified
CPT/HCPCS: 36415; 36569; 36600; 70450-TC; 70551-TC; 71045-TC-FY; 71046-TC-FY; 73030-TC-LT-FY; 74019-TC-FY; 76705-TC; 77001-TC-FY; 80048; 80053; 80061; 80307; 81003; 82140; 82803; 82962; 83036; 83605; 83721; 83735; 84100; 84443; 84478; 84484; 85025; 85027; 85610; 85730; 87040; 87086; 87324; 87449; 90670; 93005; 93010; 93306-TC; 93880-TC; 95816; 97116-GP; 97161-GP; 99285-25; C1751; J0131; J1644; J7030

== ENCOUNTER 2021-01-18 11:26 | Emergency (ER) | payer OTHER ==
[2021-01-18 11:53] VITALS: TEMP 97.3; BMI 21.4
[2021-01-18] MEDS ORDERED: METOPROLOL TARTRATE 5 MG/5 ML VIAL IVPUSH ONE (11:59)
[2021-01-18] MEDS ORDERED: METOPROLOL TARTRATE 5 MG/5 ML VIAL ONE (12:56)
[2021-01-18] MEDS ORDERED: ACETAMINOPHEN INJECTION 100 ML IVPB ONE (13:15)
[2021-01-18] MEDS ORDERED: SODIUM CHLORIDE 0.9% 500 ML INFUS.BAG IV ONE (13:15)
[2021-01-18] MEDS ORDERED: ACETAMINOPHEN 1000 MG/100 ML VIAL (NON FORMULARY) IVPB ONE (13:15)
[2021-01-18 13:28] LABS: BASO % 0.4 % (0-2.0); EOS % 0.2 % (0-4.5); HEMATOCRIT 32.1 % (35.4-49); HEMOGLOBIN 10.7 GM/dL (11.7-16.9); LYMPH % 12.8 % (8-40); MCH 29.3 pg (25.7-33.7); MCHC 33.2 g/dl (32.0-35.9); MEAN CELL VOLUME 88.2 fl (80-96); MEAN PLT VOLUME 9.5 fl (7.5-11.1); MONO % 9.8 % (3.8-10.2); NEUT % 76.8 % (42.8-82.8); PLATELET COUNT 184 K/MM3 (134-434); RBC 3.64 M/mm3 (4.00-5.60); RDW 16.1 % (11.9-15.9); WHITE BLOOD COUNT 11.8 K/mm3 (4.0-10.0)
[2021-01-18 13:40] LABS: INR 1.42 (0.83-1.09)
[2021-01-18 13:42] LABS: ACTIVATED PTT 28.9 SECONDS (25.2-36.5)
[2021-01-18 13:49] LABS: CHLORIDE 104 mmol/L (98-107); SODIUM 138 mmol/L (136-145)
[2021-01-18 13:50] LABS: ALBUMIN 3.5 g/dl (3.4-5.0); ANION GAP 11 MMOL/L (8-16); BLOOD UREA NITROGEN 41.5 mg/dL (7-18); CALCIUM 9.3 mg/dL (8.5-10.1); CO2 23 mmol/L (21-32); GLUCOSE,RANDOM 131 mg/dL (74-106)
[2021-01-18 13:53] LABS: SGPT/ALT 37 U/L (13-61)
[2021-01-18 13:54] LABS: CREATININE 0.9 mg/dL (0.55-1.3); SGOT/AST 59 U/L (15-37)
[2021-01-18 13:55] LABS: BILIRUBIN,TOTAL 2.9 mg/dL (0.2-1); TOT PROT 7.3 g/dl (6.4-8.2)
[2021-01-18 13:56] LABS: ALK PHOS 161 U/L (45-117)
[2021-01-18 14:21] VITALS: BP 134/68; PULSE 96
== END 2021-01-18 14:15 | disposition short-term general hospital (02) ==
LOC: JER 11:26
PROC: 3E0333Z Introduction of Anti-inflammatory into Peripheral Vein, Percutaneous Approach (ICD-10-PCS; principal; 2021-01-18)
PROC: 3E033GC Introduction of Other Therapeutic Substance into Peripheral Vein, Percutaneous Approach (ICD-10-PCS; 2021-01-18)
DX: S06.6X0A Traumatic subarachnoid hemorrhage without loss of consciousness, initial encounter (principal); I48.91 Unspecified atrial fibrillation; S42.002A Fracture of unspecified part of left clavicle, initial encounter for closed fracture; S22.42XA Multiple fractures of ribs, left side, initial encounter for closed fracture
CPT/HCPCS: 36415; 70450-TC; 71045-TC-FY; 71111-TC-FY; 72125-TC; 73030-TC-LT-FY; 73523-TC-FY; 80053; 82550; 82553; 82962; 84484; 85025; 85610; 85730; 93005; 93010; 99285-25; C9803; J0131; U0003; U0005